=== PATIENT | male | born 1965 | race Caucasian/White ===

== ENCOUNTER → 2016-10-24 | Outpatient (CLI) | payer BC ==
--- NOTE | 2016-10-24 09:13 | CT ---
EXAMINATION TYPE: CT chest w con DATE OF EXAM: 10/24/2016 8:07 AM COMPARISON: Previous study dated 713 and HISTORY: Cough. Suprahilar mass right lung CT DLP: 744 mGycm Automated exposure control for dose reduction was used. CONTRAST: CT scan of the chest is performed with IV Contrast, patient injected with 100 ml mL of Omnipaque 300. FINDINGS: There has been interval placement of a right shoulder prosthesis. There is scarring at the lung apices. There is a 3.5 x 3.6 x 4.7 cm suprahilar mass on the right. There is some surrounding obstructive pne umonitis. This is partially occluding the right main bronchus. The right upper lobe bronchus appears occluded. This is encasing the right upper lobe pulmonary artery. There is an 8.6 mm lymph node in th e pretracheal space. No other significant axial or mediastinal adenopathy is seen. No pathologically enlarged hilar adenopathy is seen. There is no pleural or pericardial fluid. The heart is not enlarged. There is been previous gastric surgery. Visualized portions of the upper abdomen are otherwise normal . There is mild hypertrophic spondylosis within the spine. No bony destructive lesion is seen. IMPRESSION: 1. 4.7 cm right-sided suprahilar mass. This appears to be occluding the right upper lobe bronchus and partially occluding the right main bronchus. This is encasing the right upper lobe pulmonary artery. 2. Postsurgical change. 3. Minimal degenerative change within the spine.
== END | disposition home or self-care (01) ==
LOC: RADCTMAIN 07:15
PROVIDERS: ATTEND Internal Medicine
DX: R91.8 Other nonspecific abnormal finding of lung field (principal); Z98.890 Other specified postprocedural states
CPT/HCPCS: 71260; Q9967

== ENCOUNTER 2016-11-11 09:25 | Day surgery (SDC) | payer BC ==
[2016-11-07 12:06] VITALS: BMI 28.6
[~2016-11-11 09:25] MED LIST: ALBUTEROL NEB (CONC) 2.5 MG/0.5 ML INHALATION ONE; ATROPINE SULFATE 0.4 MG/ML 1 ML VIAL IM ONE; LACTATED RINGERS 1,000 ML IV ONE; LACTATED RINGERS 1,000 ML IV SCH; LIDOCAINE 1% 20 ML VIAL (10MG/ML) FOR IV START INTRADERMA PRN; LIDOCAINE 2% (PF) 20 MG/ML 10ML INHALATION ONE; Pre Op ABX Message 1 EACH MISC MISCELLANE ONE
[2016-11-11 09:50] VITALS: TEMP 97
[2016-11-11] MEDS ORDERED: PROPOFOL 10 MG/ML 20 ML VIAL IV ONE (10:57)
[2016-11-11] MEDS ORDERED: LIDOCAINE 1% INJ 10MG/ML (20 ML MDV) ONE (10:57)
[2016-11-11 11:40] VITALS: RESP 16
[2016-11-11 11:50] VITALS: BP 116/75; PULSE 100
--- NOTE | 2016-11-11 12:05 | PCN ---
DATE OF PROCEDURE: PROCEDURE: Bronchoscopy, airway examination, therapeutic lavage, BAL, endobronchial biopsies right mainstem. PREOPERATIVE DIAGNOSIS: Lung cancer. POSTOPERATIVE DIAGNOSIS: Lung cancer. There was informed consent. There was universal timeout. The patient was given general anesthesia. ( ), CLIENT RESOURCE SPECIALIST was the nurse head of business development. After the patient was adequately sedated and being fully monitored, the bronchoscope was inserted through the right nostril. It passed through the right nasopharynx into the oropharynx. The hypopharynx was identified and topicalized. The hypopharyngeal structures, including anterior commissure, true cords, false cords, arytenoids, piriform sinuses, right and left vallecula and epiglottis all appear normal. After topicalization, bronchoscope was pursued through the glottic opening into the trachea. Trachea appeared normal. Tracheal gerry was sharp. The left side was evaluated first. The left upper lobe and its 2 segments, the lingula and its 2 segments, and left lower lobe and its 4 segments were all found to be normal. On the right side, immediately just distal to the tracheal gerry, there was a large cauliflower-shaped mass completely obstructing the right mainstem. I could not get into the right upper lobe. I really could not get past the lesion in the right mainstem. We took pictures of this area. Next, with direct visualization, multiple endobronchial biopsies were performed. Next, brushes were performed. Finally, we did a pool cytology of this area. The patient tolerated the procedure well. There was minimal bleeding. We ensured hemostasis before the bronchoscope was withdrawn. The patient will be transferred over to the recovery area and be recovered. I will alert the patient to the findings. Additional recommendations and suggestions are forthcoming.
[2016-11-11 15:29] LABS: RBC, Body Fluid 179000 /uL
== END 2016-11-11 12:12 | disposition home or self-care (01) ==
LOC: ORWHC2ENDO 09:25
PROVIDERS: ATTEND Internal Medicine Critical Care Medicine
DX: C34.01 Malignant neoplasm of right main bronchus (principal); J44.9 Chronic obstructive pulmonary disease, unspecified; Z79.1 Long term (current) use of non-steroidal anti-inflammatories (NSAID); Z79.899 Other long term (current) drug therapy; Z87.891 Personal history of nicotine dependence
CPT/HCPCS: 94640; 88104; 88108; 88305; 89050; 87252; 87070; 87205; 87116; 87102; 87206; 31625; 31623; 31624; J0461; J2001 ×2; J2704; 87496; 87498; 87502; 87529; 87798; 88341; 88342

== ENCOUNTER → 2016-11-21 | Outpatient (CLI) | payer BC ==
--- NOTE | 2016-11-21 19:25 | CT ---
EXAMINATION TYPE: CT brain wo/w con DATE OF EXAM: 11/21/2016 7:04 PM COMPARISON: 06/09/2006 HISTORY: recent diagnosis of lung cancer CT DLP: 2374 mGycm Automated exposure control for dose reduction was used. CONTRAST: CT scan of the head is performed with IV Contrast, patient injected with 100 mL of Omnipaque 300. FINDINGS: Ventricles and sulci are normal for age. There is no mass effect nor midline shift. There is no sign of intracranial hemorrhage. There is no pathologic enhancement. The calvarium is intact. IMPRESSION: Negative CT scan of the brain with and without contrast. No change.
== END | disposition home or self-care (01) ==
LOC: RADCTMAIN 18:21
PROVIDERS: ATTEND Radiology Radiation Oncology
DX: C34.11 Malignant neoplasm of upper lobe, right bronchus or lung (principal)
CPT/HCPCS: 70470; Q9967

== ENCOUNTER → 2016-11-22 | Outpatient (CLI) | payer BC ==
--- NOTE | 2016-11-23 14:26 | PE ---
Nuclear medicine PET/CT HISTORY: C 34.11, lung carcinoma Patient received 11.4 mCi F-18 FDG intravenously delayed scanning performed from the skull base to th e mid thighs. Localization and attenuation correction CT scan was performed. Correlation to chest CT dated October FINDINGS: Neck and chest: There is near complete consolidation of the right lung. Adenopathy causes obstruction of the right mainstem bronchus. There is a right pleural effusion. There is corresponding hypermetab olic uptake, SUV 24 and central extending into the mediastinum. Volume loss in the right hemithorax. Abdomen pelvis: Calcification present at the for pole of the right kidney. No retroperitoneal adenopa thy. No evident liver mass. Postop changes are noted. There is hypermetabolic uptake within the colon at the hepatic flexure, no definite associated mass. SUV 7. Prostate calcifications are noted. Osseous structures: Unremarkable. IMPRESSION: Findings compatible with bronchogenic carcinoma described. Postobstructive atelectatic ch anges and pleural effusion. Findings in the hepatic flexure within the colon may be physiologic rathe r than representing underlying mass. Consider Bowel surveillance as indicated.
== END | disposition home or self-care (01) ==
LOC: RADPETMAIN 10:38
PROVIDERS: ATTEND Radiology Radiation Oncology
DX: C34.11 Malignant neoplasm of upper lobe, right bronchus or lung (principal); J90 Pleural effusion, not elsewhere classified; J98.11 Atelectasis
CPT/HCPCS: 78815; A9552

== ENCOUNTER → 2016-12-23 | Outpatient (CLI) | payer BC ==
--- NOTE | 2016-12-23 17:15 | XR ---
EXAMINATION TYPE: XR chest 2V DATE OF EXAM: 12/23/2016 5:04 PM COMPARISON: 12/19/2016 HISTORY: Lung cancer. Short of breath. TECHNIQUE: Frontal and lateral views of the chest are obtained. FINDINGS: There is elevated right diaphragm. There is masslike 10 x 5 cm area of consolidation and a telectasis in the right upper lobe. The left lung is clear. Trachea is deviated slightly to the right side. There is right shoulder prosthesis. There is a small pneumothorax seen at the lung base on th e right side. IMPRESSION: Right upper lobe masslike consolidation and atelectasis without change compared to last exam. There is a tiny right pneumothorax that is smaller than last exam.
== END | disposition home or self-care (01) ==
LOC: RADXRMAIN 16:49
PROVIDERS: ATTEND Internal Medicine Critical Care Medicine
DX: J98.11 Atelectasis (principal); J18.1 Lobar pneumonia, unspecified organism; J93.9 Pneumothorax, unspecified
CPT/HCPCS: 71020

== ENCOUNTER 2017-01-07 08:26 | Day surgery (SDC) | payer BC ==
[2017-01-07] MEDS ORDERED: ALPRAZolam 0.5 MG TAB PO ONE (08:53)
[2017-01-07 09:01] VITALS: BP 114/75; PULSE 63; RESP 20; TEMP 97.4
[2017-01-07 09:10] LABS: Mean Platelet Volume 6.8
[2017-01-07 09:14] LABS: Prothrombin Time 9.8 sec (9.0-12.0)
--- NOTE | 2017-01-07 12:30 | US ---
Discontinued thoracentesis, interventional radiology consult HISTORY: Non-small cell lung carcinoma Correlation to chest x-ray 23 December 2016 Ultrasound of the posterior right and left chest shows no evident fluid. IMPRESSION: No fluid evident for thoracentesis, exam is aborted
== END 2017-01-07 10:10 | disposition home or self-care (01) ==
LOC: RADPROMAIN 08:26
PROVIDERS: ATTEND Internal Medicine Critical Care Medicine
DX: C34.90 Malignant neoplasm of unspecified part of unspecified bronchus or lung (principal); Z79.01 Long term (current) use of anticoagulants
CPT/HCPCS: 76604; 85049; 85610

== ENCOUNTER → 2017-01-27 | Outpatient (CLI) | payer BC ==
[2017-01-27 19:10] LABS: Blood Urea Nitrogen 12 mg/dL (9-20); Non-African American GFR(MDRD) >60 (>60 ml/min/1.73 sqM)
--- NOTE | 2017-01-27 20:26 | CT ---
EXAMINATION TYPE: CT chest w con DATE OF EXAM: 01/27/2017 7:47 PM COMPARISON: 10/24/2016 HISTORY: F/U LUNG CA. CT DLP: 373.1 mGycm Automated exposure control for dose reduction was used. CONTRAST: CT scan of the chest is performed with IV Contrast, patient injected with 90 mL of Omnipaque 300. FINDINGS: There is increased density at the right pulmonary hilum extending into the posterior right upper lobe along the major fissure. This measures up to 2.5 cm in thickness. There is mild right bronchial salomón opathy that measures up to 1.5 cm. Heart size is normal. There is no pericardial effusion. There is n o pleural effusion. The left lung is clear. I see no bony destructive process. IMPRESSION: There is nodular pleural thickening along the superior aspect of the major fissure on th e right side that is new compared to the last CT scan and consistent with residual and persistent [place] or. There is improvement in the masslike consolidation at the right perihilum present on the old CT s can. There is no evidence of pulmonary embolism. No evidence of aortic aneurysm or dissection. There is a 5 cm mass at the right pulmonary hilum on the old CT scan that is significantly smaller on today 's exam.
== END | disposition home or self-care (01) ==
LOC: RADCTMAIN 18:11
PROVIDERS: ATTEND Internal Medicine Hematology & Oncology
DX: C34.11 Malignant neoplasm of upper lobe, right bronchus or lung (principal); R91.8 Other nonspecific abnormal finding of lung field
CPT/HCPCS: 82565; 84520; 71260; 36415; Q9967

== ENCOUNTER → 2017-04-11 | Outpatient (CLI) | payer BC ==
--- NOTE | 2017-04-11 12:08 | PE ---
EXAMINATION TYPE: PET CT fusion skull to thigh DATE OF EXAM: 04/11/2017 COMPARISON: NONE HISTORY: Lung cancer progress study, completed radiation and chemotherapy treatment january 2017. Had bio psy November 2016 TECHNIQUE: Following the intravenous administration of 11.43 mCi of F-18 FDG, whole body images are performed from the skull base to the midthigh. Images are reviewed on the computer in the coronal, a xial, and sagittal planes. Reconstructed rotating images are created on independent workstation and reviewed on the computer. A localization and attenuation correction CT is performed in conjunction with the PET scan. SCAN: PET CT November 22, 2016. CT chest January 27, 2017 FINDINGS: SKULL BASE AND NECK: No new areas of suspicious hypermetabolic uptake are seen in the neck. Symmetri c areas of uptake bilateral parotid and submandibular glands could reflect inflammatory change, clini renetta correlation advised for glanular inflammation advised.. CHEST, MEDIASTINUM, AND HILAR REGION: There is consolidation abutting the right major fissure in the posterior aspect of right upper lobe. There are some multifocal areas of groundglass opacity througho ut the right upper lobe with reticulation. There is similar areas of involvement in the superior aspe ct right lower lobe. Faint hypermetabolic uptake is noted, max SUV is up to 2.84 anterolateral right upper lung on axial image 63. There is overall marked improved aeration in the right lung after treatment. There is trace right-sourav ed effusion. There is persistent right hilar mass causing some mild narrowing of right upper lobe bro nchus on axial image 77, no abnormal hypermetabolic uptake is seen. No suspicious hypermetabolic uptake is seen in the thorax on current study. ABDOMEN AND PELVIS: No suspicious hypermetabolic uptake is seen in the abdomen or pelvis. OSSEOUS STRUCTURES: No suspicious hypermetabolic uptake is seen in osseous structures. OTHER CT: There is metallic hardware from right shoulder surgery causing streak artifact. Small degree of right-sided gynecomastia is now present on axial image 83. Changes from gastric bypass procedure are redemonstrated epigastric region. There is staghorn type calculus upper pole level right kidney redemonstrated near axial image 125 sim ilar to prior. There is moderate sized fat-containing umbilical hernia redemonstrated. Some central zone calcifications are seen in nonenlarged prostate gland. IMPRESSION: Findings are consistent with successfully treated neoplasm with some persistent residual right hilar nonhypermetabolic mass. No convincing evidence of new hypermetabolic uptake to suggest ma lignant progression.
== END | disposition home or self-care (01) ==
LOC: RADPETMAIN 08:50
PROVIDERS: ATTEND Radiology Radiation Oncology
DX: C34.11 Malignant neoplasm of upper lobe, right bronchus or lung (principal)
CPT/HCPCS: 78815; A9552

== ENCOUNTER → 2017-07-14 | Outpatient (CLI) | payer BC ==
--- NOTE | 2017-07-14 15:51 | CT ---
EXAMINATION TYPE: CT ChestAbdPelvis w con DATE OF EXAM: 07/14/2017 COMPARISON: Nuclear medicine PET/CT 11/22/2016, 04/11/2017, CT chest 01/27/[address] chest 10/24/2016 HISTORY: Small cell lung cancer CT DLP: 1868 mGycm Automated exposure control for dose reduction was used. CONTRAST: CT scan of the chest, abdomen and pelvis is performed with Oral Contrast and with IV Contrast, patien t injected with 100 mL of Omnipaque 300. FINDINGS: LUNGS: Pleural parenchymal changes within the right lung show a similar appearance to most previous P ET/CT and are likely due to posttreatment changes. Suspect some slight interval improvement in aerati on in the right upper and lower lobe. There is no pleural or pericardial effusion. Some thickening of the esophagus may be present. There is no axillary, mediastinal, or hilar adenopathy. Some mild thic kening of the right mainstem bronchus is decreased as compared to previous exam. MEDIASTINUM: There are no greater than 1 cm hilar or mediastinal lymph nodes. No pericardial effusi on is seen. AORTA: No significant abnormality is seen. OTHER: Volume loss present in the right hemithorax. LIVER/GB: Low-attenuation focus immediately adjacent to the gallbladder was present on previous exam and has not show a masslike appearance or any interval change. Gallbladder is normal. PANCREAS: No significant abnormality is seen. SPLEEN: No significant abnormality is seen. ADRENALS: No significant abnormality is seen. KIDNEYS: Right kidney shows a calculus at the upper pole measuring approximately 13 mm in greatest an terior posterior dimension similar to prior exam, there is no hydronephrosis bilaterally. REPRODUCTIVE ORGANS: Prostate calcifications are present. BOWEL: Postop changes are noted at the gastroesophageal junction and upper abdomen in the midline. S uspect a small hiatal hernia is present. FREE AIR: No Free Air visible. ASCITES: None seen. RETROPERITONEAL ADENOPATHY: No retroperitoneal adenopathy is seen. LYMPH NODES: No greater than 1 cm abdominal or pelvic lymph nodes are appreciated. URINARY BLADDER: No significant abnormality is seen. PELVIC ADENOPATHY: None visualized. OSSEOUS STRUCTURES: No significant abnormality is seen. IMPRESSION: Posttreatment changes. Postop changes. Nonobstructive right nephrolithiasis. Indeterminat e low dense focus adjacent to the gallbladder within the liver is indeterminate, thought to be stable .
== END | disposition home or self-care (01) ==
LOC: RADCTMAIN 09:07
PROVIDERS: ATTEND Internal Medicine Hematology & Oncology
DX: C34.11 Malignant neoplasm of upper lobe, right bronchus or lung (principal); N20.0 Calculus of kidney
CPT/HCPCS: 71260; 74177; Q9967

== ENCOUNTER → 2017-10-13 | Outpatient (CLI) | payer BC ==
--- NOTE | 2017-10-13 09:53 | CT ---
EXAMINATION TYPE: CT ChestAbdPelvis w con DATE OF EXAM: 10/13/2017 COMPARISON: 07/14/2017, PET scan 04/11/2017 HISTORY: Lung cancer CT DLP: 807.70 mGycm Automated exposure control for dose reduction was used. CONTRAST: CT scan of the chest, abdomen and pelvis is performed with Oral Contrast and with IV Contrast, patien t injected with 100 ml mL of Omnipaque 300. FINDINGS: LUNGS: Pleural parenchymal changes within the right lung show a similar appearance to most previous P ET/CT and are likely due to posttreatment changes. Indeterminate 1 cm right perihilar density is stab le. Right-sided peribronchial wall thickening is stable. There is no pleural or pericardial effusion. Some thickening of the esophagus may be present. There i s no axillary, mediastinal , or hilar adenopathy. Some mild thickening of the right mainstem bronchus is decreased as compared to previous exam. MEDIASTINUM: There are no greater than 1 cm hilar or mediastinal lymph nodes. No pericardial effusion is seen. AORTA: No significant abnormality is seen. OTHER: Volume loss present in the right hemithorax. LIVER/GB: Low-attenuation focus immediately adjacent to the gallbladder was present on previous exam and has not show a masslike appearance or any interval change. Gallbladder is normal. PANCREAS: No significant abnormality is seen. SPLEEN: No significant abnormality is seen. ADRENALS: No significant abnormality is seen. KIDNEYS: Right kidney shows a calculus at the upper pole measuring approximately 13 mm in greatest an terior posterior dimension similar to prior exam, there is no hydronephrosis bilaterally. REPRODUCTIVE ORGANS: Prostate calcifications are present. BOWEL: Postop changes are noted at the gastroesophageal junction and upper abdomen in the midline. Sanon spect a small hiatal hernia is present. Anterior abdominal wall hernia containing peritoneal fat note d. Periumbilical hernia containing peritoneal fat also noted. Diverticulosis of the colon noted. FREE AIR: No Free Air visible. ASCITES: None seen. ADENOPATHY: No adenopathy is seen. LYMPH NODES: No greater than 1 cm abdominal or pelvic lymph nodes are appreciated. URINARY BLADDER: No significant abnormality is seen. PELVIC ADENOPATHY: None visualized. OSSEOUS STRUCTURES: No significant abnormality is seen. IMPRESSION: 1. Posttreatment changes. Postop changes. Right perihilar 1 cm soft tissue nodular density is stable from the previous exams. 2. Nonobstructive right nephrolithiasis. 3. Indeterminate low dense focus adjacent to the gallbladder within the liver is indeterminate, thoug ht to be stable.
== END | disposition home or self-care (01) ==
LOC: RADCTMAIN 08:51
PROVIDERS: ATTEND Internal Medicine Hematology & Oncology
DX: C34.11 Malignant neoplasm of upper lobe, right bronchus or lung (principal); N20.0 Calculus of kidney; Z98.890 Other specified postprocedural states
CPT/HCPCS: 71260; 74177; Q9967

== ENCOUNTER → 2018-05-11 | Outpatient (CLI) | payer BC ==
--- NOTE | 2018-05-11 12:19 | CT ---
EXAMINATION TYPE: CT ChestAbdPelvis w con DATE OF EXAM: 05/11/2018 COMPARISON: 10/13/2017 HISTORY: Six month recheck scan fof lung cancer CT DLP: 903.6 mGycm Automated exposure control for dose reduction was used. CONTRAST: CT scan of the chest, abdomen and pelvis is performed with Oral Contrast and with IV Contrast, patien t injected with 100 mL of Isovue 300. FINDINGS: LUNGS: Pleural parenchymal changes within the right lung show a similar appearance to most previous P ET/CT and are likely due to posttreatment changes. Indeterminate 1 cm right perihilar density is stab le. Right-sided peribronchial wall thickening is stable. There is no pleural or pericardial effusion. Some thickening of the esophagus may be present. There is no axillary, mediastinal , or hilar adenop athy. Some mild thickening of the right mainstem bronchus is decreased as compared to previous exam. There is evidence of volume loss involving the right hemithorax. MEDIASTINUM: There are no greater than 1 cm hilar or mediastinal lymph nodes. No pericardial effusi on is seen. OTHER: Chronic rib cage deformities are noted. Postsurgical change right shoulder.. Chronic appearin g right clavicular deformity noted. LIVER/GB: Low-attenuation focus immediately adjacent to the gallbladder was present on previous exam and is stable. PANCREAS: No significant abnormality is seen. SPLEEN: No significant abnormality is seen. ADRENALS: Stable mild thickening of the left adrenal gland.. KIDNEYS: Right kidney shows a calculus at the upper pole measuring approximately 13 mm in greatest an terior posterior dimension similar to prior exam, there is no hydronephrosis bilaterally. BOWEL: Postop changes are noted at the gastroesophageal junction and upper abdomen in the midline. S uspect a small hiatal hernia is present. Anterior abdominal wall hernia containing peritoneal fat not ed. Periumbilical hernia containing peritoneal fat also noted. Diverticulosis of the colon noted. LYMPH NODES: No greater than 1 cm abdominal or pelvic lymph nodes are appreciated. OSSEOUS STRUCTURES: No significant abnormality is seen. IMPRESSION: 1. Postoperative changes with a stable appearing 1 cm right perihilar soft tissue mass unchanged from the prior exam. 2. Stable nonobstructing right nephrolithiasis.
== END | disposition home or self-care (01) ==
LOC: RADCTMAIN 09:48
PROVIDERS: ATTEND Internal Medicine Hematology & Oncology
DX: C34.11 Malignant neoplasm of upper lobe, right bronchus or lung (principal); R91.8 Other nonspecific abnormal finding of lung field; N20.0 Calculus of kidney
CPT/HCPCS: 71260; 74177; Q9967

== ENCOUNTER → 2018-11-08 | Outpatient (CLI) | payer BC ==
--- NOTE | 2018-11-08 10:11 | CT ---
EXAMINATION TYPE: CT ChestAbdPelvis w con DATE OF EXAM: 11/08/2018 COMPARISON: Prior CT chest abdomen pelvis 05/11/2018 HISTORY: Lung cancer follow up CT DLP: 971.3 mGycm Automated exposure control for dose reduction was used. CONTRAST: CT scan of the chest, abdomen and pelvis is performed with Oral Contrast and with IV Contrast, patien t injected with 100 mL of Isovue 300. FINDINGS: LUNGS: The lungs are stable, irregular density in the right upper lobe with some minimal associated a ir bronchograms shows a similar appearance, pleural thickening posterior apically, findings likely du e to posttreatment change, there is no concerning parenchymal mass or nodule identified. There is n o pleural effusion or pneumothorax seen. The tracheobronchial tree is patent. MEDIASTINUM: There are no greater than 1 cm hilar or mediastinal lymph nodes. Soft tissue thickening in the right hilar region shows a similar appearance, some local tethering is again present, volume l oss in the right hemithorax with some possible esophageal thickening. No pericardial effusion is seen . AORTA: No significant abnormality is seen. OTHER: Postop changes are again noted to the stomach, there is anterior abdominal wall hernia contai gail fat in the subxiphoid region as on prior. Small umbilical hernia contains fat. LIVER/GB: No significant abnormality is appreciated. PANCREAS: No significant abnormality is seen. SPLEEN: No significant abnormality is seen. ADRENALS: No significant abnormality is seen. KIDNEYS: Calcification within the upper pole right kidney shows a stable appearance. REPRODUCTIVE ORGANS: Prostate calcifications noted. No definite prostate enlargement. BOWEL: Nonspecific colonic wall thickening is again noted, difficult to exclude a mucosal lesion. Ap pendix is normal. FREE AIR: No Free Air visible. ASCITES: None seen. RETROPERITONEAL ADENOPATHY: No retroperitoneal adenopathy is seen. LYMPH NODES: No greater than 1 cm abdominal or pelvic lymph nodes are appreciated. URINARY BLADDER: No significant abnormality is seen. PELVIC ADENOPATHY: None visualized. OSSEOUS STRUCTURES: Postop change noted to the right shoulder. There is improvement in patient's lef t-sided rib fractures, interval healing IMPRESSION: No significant interval change. Stable postop, posttreatment changes. Right-sided nephrol ithiasis. Additional findings above.
== END ==
LOC: RADCTMAIN 06:51
PROVIDERS: ATTEND Internal Medicine Hematology & Oncology
DX: C34.11 Malignant neoplasm of upper lobe, right bronchus or lung (principal)
CPT/HCPCS: 71260; 74177; Q9967

== ENCOUNTER → 2019-04-23 | Outpatient (CLI) | payer BC ==
--- NOTE | 2019-04-24 19:47 | CT ---
EXAMINATION TYPE: CT ChestAbdPelvis w con DATE OF EXAM: 04/23/2019 COMPARISON: 11/08/2018 HISTORY: Lung cancer. CT DLP: 1041.2 mGycm Automated exposure control for dose reduction was used. CONTRAST: CT scan of the chest, abdomen and pelvis is performed with Oral Contrast and with IV Contrast, patien t injected with 100 mL of Isovue M300. FINDINGS: There is coarse pulmonary infiltrate and atelectasis in the posterior aspect superior segment right l ower lobe. There is infiltrate around the inferior right pulmonary hilum. The left lung is clear. The re is no pleural effusion. There are enlarged right bronchial lymph nodes up to 1.5 cm. Mediastinum i s normal. Heart size is normal. There is no pericardial effusion. There is pleural thickening at the right posterior lung apex. Liver and spleen appear normal. Gallbladder appears normal. Bile ducts are not dilated. There are denny gical clips around the stomach. There is no pancreatic mass. There is no adrenal mass. There is irregular 1.5 cm calculus upper pole right kidney. There is no hyd ronephrosis. Ureters are not dilated. There is no retroperitoneal adenopathy. There is no ascites. Bl adder distends smoothly. There is no inguinal hernia. There is no mesenteric edema. There is no sign of a bowel obstruction. Appendix appears normal. There is no free air. There is broad-based ventral h ernia that contains fat. Thoracic vertebra have normal alignment. There is 10% wedging of T4 vertebra unchanged. Bony pelvis i s intact. IMPRESSION: Right upper lobe pleural thickening. Right perihilar infiltrate and volume loss. This safia ears unchanged compared to old CT scan and consistent with treated lung cancer. No increasing pulmona ry density compared to old exam. Nonobstructing right renal calculus unchanged. No evidence of metastatic disease.
== END | disposition home or self-care (01) ==
LOC: RADCTMAIN 08:42
PROVIDERS: ATTEND Internal Medicine Hematology & Oncology
DX: J98.4 Other disorders of lung (principal); N20.0 Calculus of kidney
CPT/HCPCS: 71260; 74177; Q9967 ×2

== ENCOUNTER → 2019-11-15 | Outpatient (CLI) | payer BC ==
--- NOTE | 2019-11-15 12:28 | CT ---
EXAMINATION TYPE: CT chest w con DATE OF EXAM: 11/15/2019 COMPARISON: CT dated 04/23/2019 HISTORY: Follow up lung cancer. CT DLP: 373.8 mGycm. Automated Exposure Control for Dose Reduction was Utilized. TECHNIQUE: CT scan of the thorax is performed following with IV Contrast, patient injected with 100 mL of Isovue 300. FINDINGS: LUNGS: Similar-appearing right perihilar consolidation with cylindrical bronchiectasis in comparison to the prior of 04/23/2019 compatible with post radiation change. The most prominent area of consolida tion is seen in series 4 image 23 measuring 1.8 x 2.3 cm, stable from the prior when measured in a si milar fashion. Right hemithorax volume loss is again noted. There is subsequent rightward mediastinal shift. Biapical pleural parenchymal scarring and mild background centrilobular emphysema. Triangular 1 x 2 mm pulmonary nodule of the right middle lobe is not seen on the prior although given shape could represent scarring. Attention on follow-up subsequent exams. This is marked on series 4 image 32 and series 7 image 30. MEDIASTINUM: There are no greater than 1 cm hilar or mediastinal lymph nodes. No pericardial effusi on is seen. OTHER: Postsurgical change of a partial gastrectomy. Nonobstructing 1.4 cm right upper pole renal renetta culus. Diffuse thickening of the left adrenal gland, likely adrenal gland hyperplasia. This is simila r to the prior. Angiographic phase of contrast limits evaluation for visceral metastasis. Visualized portions of the liver is grossly unremarkable. Air-fluid level in the esophagus. Distal esophageal ci rcumferential thickening is similar. Mild multilevel degenerative change of the spine. T4 compression deformity is unchanged. IMPRESSION: 1. Similar-appearing posttreatment change of the right lung with unchanged measurement of the more fo renetta posterior area of consolidation. There is a new 1 x 2 mm triangular-shaped right middle lobe nodu le however given the shape this could represent developing scar. Attention on follow-up subsequent ex ams. 2. Air-fluid level within the distal esophagus suggesting gastroesophageal reflux. Distal esophageal thickening is again seen circumferentially that most commonly relates to esophagitis. Endoscopy could be considered.
== END | disposition home or self-care (01) ==
LOC: RADCTMAIN 08:32
PROVIDERS: ATTEND Internal Medicine Hematology & Oncology
DX: C34.11 Malignant neoplasm of upper lobe, right bronchus or lung (principal); Z98.890 Other specified postprocedural states
CPT/HCPCS: 71260; Q9967

== ENCOUNTER → 2020-05-15 | Outpatient (CLI) | payer BC ==
--- NOTE | 2020-05-16 10:14 | CT ---
EXAMINATION TYPE: CT ChestAbdPelvis w con DATE OF EXAM: 05/15/2020 INDICATION: Observe for METS COMPARISON: 11/15/2019 CT chest, CT chest abdomen and pelvis 04/23/2019 CT DLP: 1566 mGycm CONTRAST: Performed with Oral Contrast and with IV Contrast, patient injected with 100 mL of Isovue 300. TECHNIQUE: Axial images at 5 mm thick sections. Reconstructed images in the coronal plane. Delayed images through the kidneys. FINDINGS: CT CHEST: Few small axillary lymph nodes are present bilaterally. Portion of the thyroid visualized is normal. There is a posterior right upper lobe consolidation with air bronchograms. The largest area previousl y described is smaller on the current examination. There is better visualization of the bronchi curre ntly. This measures 2.6 x 2.0 cm which is within measurement error on lung windows. Soft tissue exte nsion into the mediastinum may be present towards the esophagus. The esophagus is dilated with an air -fluid level. Small hiatal hernia may be present. Faint right middle lobe pneumonitis change may remain present, series 4 image 27-28. No enlarged mediastinal or hilar adenopathy is evident. The ascending aorta diameter at the level of the main pulmonary artery is 3.2 cm. The main pulmonary artery diameter at the bifurcation is 2.[address] ABDOMEN: There is prior anterior abdominal wall hernia repair. Liver: Normal Spleen: Normal Pancreas: Normal Adrenal glands: The adrenal glands are normal. Gallbladder: Normal Kidneys: No masses are evident. No hydronephrosis is present. No cysts are present. Delayed images were obtained through the kidneys, which remain unremarkable. Aorta: Vascular calcification is within the aorta. Inferior vena cava: Normal. CT PELVIS: Loops of bowel within the abdomen and pelvis are normal. Diverticula are present within the sigmoid colon. There are loops of bowel which are incompletely distended or lack oral contrast limiting the ir evaluation. Appendix: Normal as visualized. Urinary bladder: Normal. Genitourinary structures: Prostate is normal. Calcification is within the prostate. Osseous structures: No suspicious lytic or sclerotic lesions. IMPRESSIONS: 1. Stable posttreatment changes posterior medial right upper lobe. 2. Stable residual pneumonitis change right middle lobe. 3. Diverticulosis without acute diverticulitis sigmoid colon.
== END | disposition home or self-care (01) ==
LOC: RADCTMAIN 10:01
PROVIDERS: ATTEND Internal Medicine Hematology & Oncology
DX: Z03.89 Encounter for observation for other suspected diseases and conditions ruled out (principal); C34.11 Malignant neoplasm of upper lobe, right bronchus or lung; K57.30 Diverticulosis of large intestine without perforation or abscess without bleeding; J18.1 Lobar pneumonia, unspecified organism; Z98.890 Other specified postprocedural states
CPT/HCPCS: 71260; 74177; Q9967

== ENCOUNTER → 2020-11-13 | Outpatient (CLI) | payer BC ==
--- NOTE | 2020-11-13 10:22 | CT ---
EXAMINATION TYPE: CT chest w con DATE OF EXAM: 11/13/2020 COMPARISON: CT 05/15/2020 HISTORY: Lung cancer CT DLP: 386.20 mGycm Automated exposure control for dose reduction was used. CONTRAST: CT scan of the chest is performed with IV Contrast, patient injected with 100 mL of Isovue 300. FINDINGS: LUNGS: The abnormal appearance of the soft tissue in the superior posterior right hemithorax with consuelo e air bronchograms extending from the hilum and mediastinum, to the pleural margin is again noted and shows a stable appearance, there is some local pleural thickening with pleural extensions similar to prior. There is some associated volume loss in the right hemithorax. There is no pleural effusion o r pneumothorax seen. The tracheobronchial tree is patent. MEDIASTINUM: There are no greater than 1 cm hilar or mediastinal lymph nodes. No pericardial effusi on is seen. AORTA: No additional significant abnormality is seen. Atheromatous changes are present within the ao rta. OTHER: Right shoulder prosthesis is present causing some streak artifact over portions of the exam. Postop changes in the upper abdomen show similar appearance. Calcification is present in the upper co llecting system of the right kidney measuring 16 x 15 mm, partial staghorn calculus is nonobstructive . IMPRESSION: Stable post treatment changes
== END ==
LOC: RADCTMAIN 08:51
PROVIDERS: ATTEND Internal Medicine Hematology & Oncology
DX: C34.90 Malignant neoplasm of unspecified part of unspecified bronchus or lung (principal)
CPT/HCPCS: 71260; Q9967

== ENCOUNTER → 2021-05-17 | Outpatient (CLI) | payer BC ==
--- NOTE | 2021-05-17 16:05 | CT ---
EXAMINATION TYPE: CT ChestAbdPelvis w con DATE OF EXAM: 05/17/2021 COMPARISON: 11/13/20202019 HISTORY: 55-year-old male C3 4.11 Lung CA TECHNIQUE: Contiguous axial scanning of the chest, abdomen, and pelvis performed with IV Contrast, pa tient injected with 100 mL of Isovue 300. Delayed images through the kidneys were obtained. Coronal/s agittal reconstructions performed. CT DLP: 1333.6 mGycm Automated exposure control for dose reduction was used. FINDINGS: CHEST: The heart is normal size without pericardial effusion. Aortic root is ectatic at 3.7 cm. Conventional arch vessel branching anatomy. Redemonstrated right perihilar volume loss extending along the posterior right upper lobe with corres ponding right hilar soft tissue encasement, overall unchanged from 05/15/2020. This volume loss and con solidation extends into the superior segment right lower lobe, also unchanged. Mild centrilobular emphysema. Mild biapical pleural-parenchymal scarring. No new consolidation or pleural effusion. ABDOMEN: Small hiatal hernia. Post surgical change of Yancy-en-Y gastric bypass. Supraumbilical rectus diastases measuring 5.2 cm wide with a bulging omental fat redemonstrated. Smal l fatty umbilical hernia measuring 2.1 cm wide. No focal liver lesion or biliary ductal dilatation. Portal venous system is patent. Gallbladder, right adrenal gland, left kidney, spleen, and pancreas within normal limits. 1.4 cm calculus nonobstructive in the right kidney. Mild diffuse thickening of the left adrenal gland is unchanged. No dilated small bowel, free fluid, or free air. No mesenteric or retroperitoneal lymphadenopathy. Normal appendix. Oral contrast progressed into the splenic flexure of the colon. Mild stool burden. S igmoid diverticulosis. No pericolic inflammatory change. PELVIS: Mild circumferential bladder wall thickening may in part relate to nondistention. No abnormal fluid c ollection in the pelvis or pelvic lymphadenopathy. BONES: Mild degenerative change of the hips. Facet arthropathy lower lumbar spine. Reverse right shoulder ar throplasty partially visualized. Degenerative changes left shoulder. There is some posterior subluxat ion noted suggesting shoulder instability. IMPRESSION: 1. UNCHANGED SOFT TISSUE ENCASEMENT AT THE RIGHT HILUM WITH VOLUME LOSS AND CONSOLIDATION EXTENDING U P ALONG THE POSTERIOR RIGHT UPPER LOBE. THE APPEARANCE IS UNCHANGED FROM AT LEAST 05/15/2020. FINDINGS SUGGEST SITE OF TREATED DISEASE. 2. NO EVIDENCE FOR RECURRENT OR METASTATIC DISEASE. 3. COPD WITH MILD EMPHYSEMA. SMALL HIATAL HERNIA. STATUS POST YANCY-EN-Y GASTRIC BYPASS. SIGMOID DIVER TICULOSIS. 4. SMALL FATTY MEDICAL HERNIA AND SIMILAR SUPRAUMBILICAL RECTUS DIASTASES. 1.4 CM NONOBSTRUCTING ERIC L CALCULUS. 5. MILD CIRCUMFERENTIAL BLADDER WALL THICKENING MAY BE CHRONIC FOR THE PATIENT. CORRELATE TO EXCLUDE CYSTITIS.
== END | disposition home or self-care (01) ==
LOC: RADCTMAIN 08:15
PROVIDERS: ATTEND Internal Medicine Hematology & Oncology
DX: Z03.89 Encounter for observation for other suspected diseases and conditions ruled out (principal); C34.11 Malignant neoplasm of upper lobe, right bronchus or lung; J43.9 Emphysema, unspecified; K44.9 Diaphragmatic hernia without obstruction or gangrene; K57.30 Diverticulosis of large intestine without perforation or abscess without bleeding; N20.0 Calculus of kidney
CPT/HCPCS: 71260; 74177; Q9967 ×2

== ENCOUNTER → 2022-01-06 | Outpatient (CLI) | payer BC ==
--- NOTE | 2022-01-06 15:02 | CT ---
EXAMINATION TYPE: CT abdomen pelvis w con DATE OF EXAM: 01/06/2022 COMPARISON: CT 05/17/2021 HISTORY: h/o lung ca, f/u for mets CT DLP: 1312.4 mGycm Automated exposure control for dose reduction was used. TECHNIQUE: Helical acquisition of images from the lung bases through the pelvis have been completed. CONTRAST: Performed with Oral Contrast and with IV Contrast, patient injected with 100 mL of Isovue 300. FINDINGS: Postop changes are noted to the stomach. Anterior abdominal wall shows hernia containing fa t, there are some local calcifications LUNG BASES: No significant abnormality is appreciated. AORTA: No significant abnormality is appreciated. LIVER/GB: No significant abnormality is appreciated. PANCREAS: No significant abnormality is seen. SPLEEN: No significant abnormality is seen. ADRENALS: No significant abnormality is seen. KIDNEYS: There are nonobstructive calculi in the right kidney similar to prior exam. REPRODUCTIVE ORGANS: There are some associated calcifications present within the prostate BOWEL: The thickening along the rectosigmoid colon could be due to muscular hypertrophy or lack of d istention, difficult to exclude a mucosal lesion, an annular narrowing is present on axial image #20 in the left upper quadrant which is indeterminate, similar appearance on prior exam of, no evident eliceo wel obstruction, the appendix is normal. FREE AIR: No Free Air visible. ASCITES: None visible. PELVIC ADENOPATHY: None visualized. RETROPERITONEAL ADENOPATHY: No Retroperitoneal Adenopathy visible. URINARY BLADDER: Mild bladder wall thickening is again noted as described in prior report. OSSEOUS STRUCTURES: No significant abnormality is seen. IMPRESSION: CORRELATE FOR ANY HISTORY OF COLONOSCOPY AND CONSIDER BOWEL SURVEILLANCE INDICATED. Nonobstruct shavonne right nephrolithiasis and postop changes.
== END | disposition home or self-care (01) ==
LOC: RADCTMAIN 12:33
PROVIDERS: ATTEND Internal Medicine Hematology & Oncology
DX: Z03.89 Encounter for observation for other suspected diseases and conditions ruled out (principal); C34.11 Malignant neoplasm of upper lobe, right bronchus or lung
CPT/HCPCS: 74177; Q9967

== ENCOUNTER → 2022-05-13 | Outpatient (CLI) | payer BC ==
[2022-05-13 09:55] LABS: African American GFR (CKD) >90 (>60 ml/min/1.73 sqM); Blood Urea Nitrogen 3 mg/dL (9-20); Non-African American GFR(CKD) >90 (>60 ml/min/1.73 sqM)
--- NOTE | 2022-05-13 12:15 | CT ---
EXAMINATION TYPE: CT chest w con DATE OF EXAM: 05/13/2022 COMPARISON: 05/17/2021 HISTORY: Malignant neoplasm of upper lobe, right bronchus CT DLP: 607 mGycm, Automated exposure control for dose reduction was used. CONTRAST: Performed injected with 70 ml mL of Isovue 300. TECHNIQUE: Axial images were obtained at 5 mm thick sections. Reconstructed images are reviewed on [employer] computer in the coronal plane. FINDINGS: Portion of the thyroid visualized is normal. There is a consolidation in the left suprahilar region extending into the hilar. This is stable from comparison can be compatible with patient's known lung cancer. No suspicious nodules are identified. There is chronic narrowing of the distal right main bronchus. No enlarged mediastinal or hilar adenopathy is evident. The ascending aorta diameter at the level o f the main pulmonary artery is 3.3 cm. The main pulmonary artery diameter at the bifurcation is 2.[address] sections are obtained through the upper abdomen. Abdomen is essentially unremarkable. Subt le stable thickening of the left adrenal gland may be present. IMPRESSIONS: 1. Stable soft tissue thickening in the right suprahilar region extending into the hilum with stable right distal main bronchus narrowing. 2. No suspicious mediastinal lymphadenopathy or suspicious changes for metastasis.
== END | disposition home or self-care (01) ==
LOC: RADCTMAIN 08:48
PROVIDERS: ATTEND Internal Medicine Hematology & Oncology
DX: C34.11 Malignant neoplasm of upper lobe, right bronchus or lung (principal)
CPT/HCPCS: 82565; 84520; 71260; 36415; Q9967

== ENCOUNTER → 2022-12-26 | Outpatient (CLI) | payer BC ==
--- NOTE | 2022-12-26 09:52 | CT ---
EXAMINATION TYPE: CT chest w con DATE OF EXAM: 12/26/2022 COMPARISON: 05/13/2022 HISTORY: small cell lung CA CT DLP: 530 mGycm, Automated exposure control for dose reduction was used. CONTRAST: Performed injected with 100 mL of Isovue 300. TECHNIQUE: Axial images were obtained at 5 mm thick sections. Reconstructed images are reviewed on [employer] computer in the coronal plane. FINDINGS: Portion of the thyroid visualized is normal. There is a right apical and suprahilar density measuring in maximum dimensions 3.5 x 4.6 cm. This is stable in size from comparison. Extends into the right suprahilar region. No enlarged mediastinal or hilar adenopathy is evident. Couple small shoddy lymph nodes are present . The ascending aorta diameter at the level of the main pulmonary artery is 3.1 cm. The main pulmonary artery diameter at the bifurcation is 2.[address] sections are obtained through the upper abdomen. Abdomen is essentially unremarkable. IMPRESSIONS: 1. Stable appearance right upper lobe mass. 2. No suspicious changes to suggest metastatic disease.
== END | disposition home or self-care (01) ==
LOC: RADCTMAIN 08:18
PROVIDERS: ATTEND Internal Medicine Hematology & Oncology
DX: C34.11 Malignant neoplasm of upper lobe, right bronchus or lung (principal); K22.2 Esophageal obstruction; J44.9 Chronic obstructive pulmonary disease, unspecified; M12.9 Arthropathy, unspecified
CPT/HCPCS: 71260; Q9967

== ENCOUNTER → 2023-06-26 | Outpatient (CLI) | payer BC ==
--- NOTE | 2023-06-26 12:52 | CT ---
EXAMINATION TYPE: CT ChestAbdPelvis w con DATE OF EXAM: 06/26/2023 COMPARISON: Chest 12/26/2022 and 05/13/2022 HISTORY: 57-year-old male C3 4.11, f/u lung CA, in remission x6 years TECHNIQUE: Contiguous axial scanning of the chest, abdomen, and pelvis performed with IV Contrast, pa tient injected with 100 mL of Isovue 300. Delayed images through the kidneys were obtained. Coronal/s agittal reconstructions performed. CT DLP: 1389.7 mGycm Automated exposure control for dose reduction was used. FINDINGS: CHEST: Heart normal size without pericardial effusion. Borderline ectatic aortic root at 3.6 cm. Conventiona l arch vessel branching anatomy. Unchanged soft tissue encasement right hilum with associated volume loss and consolidation throughout the right upper lobe. Similar soft tissue encasement with narrowing of the bronchus intermedius and proximal right middle lobe and lower lobe bronchi. No abnormal enlarging soft tissue is identified. S table adjacent mild small pleural thickening posteromedial right mid lung. Background mild emphysematous change. No consolidation or pleural effusion. Old chronic ununited left posterior rib fracture deformities ABDOMEN: Post surgical change at the GE junction and stomach related to Yancy-en-Y gastric bypass. There is a rectus diastases with separation of 5.4 cm and bulging omental fat measuring 9.2 cm wide. Smaller ventral epigastric abdominal wall hernias measuring 3.3 cm wide through pinhole defects. Smal l fatty umbilical hernia as well. No focal liver lesion or biliary ductal dilatation. Portal venous system is patent. Gallbladder, adrenal glands, left kidney, spleen, and pancreas within normal limits. There is a large 1.6 cm stone redemonstrated upper right kidney. No dilated small bowel, free fluid, or free air. No mesenteric or retroperitoneal lymphadenopathy. Normal appendix. Scattered mild stool. Sigmoid diverticulosis without pericolonic inflammatory change . PELVIS: Bladder collapse. Circumferential bladder wall thickening may be chronic. Correlate to exclude cystit is. No abnormal fluid collection in the pelvis or pelvic lymphadenopathy. BONES: Mild facet arthropathy lower lumbar spine. Chronic ununited left posterior rib fractures. Mild to mod erate degenerative disc disease lower thoracic spine. IMPRESSION: 1. UNCHANGED SOFT TISSUE ENCASEMENT OF THE RIGHT HILUM EXTENDING ALONG THE CENTRAL LOBAR BRONCHI. FIN DINGS COMPATIBLE WITH SITE OF TREATED DISEASE. NO SOFT TISSUE ENLARGEMENT OR SUSPICIOUS LYMPHADENOPAT HY TO SUGGEST DISEASE RECURRENCE AT THIS TIME. 2. INCIDENTAL: COPD WITH MILD EMPHYSEMA. VENTRAL ABDOMINAL WALL HERNIAS CONTAINING OMENTAL FAT ABO VE. Stable 1.6 cm right renal calculus. Sigmoid diverticulosis. Circumferential bladder wall thickeni ng may be chronic for the patient. Correlate to exclude cystitis.
== END | disposition home or self-care (01) ==
LOC: RADCTMAIN 09:02
PROVIDERS: ATTEND Internal Medicine Hematology & Oncology
DX: C34.11 Malignant neoplasm of upper lobe, right bronchus or lung (principal); K22.2 Esophageal obstruction; J44.9 Chronic obstructive pulmonary disease, unspecified; M12.9 Arthropathy, unspecified; Z71.3 Dietary counseling and surveillance
CPT/HCPCS: 71260; 74177; Q9967

== ENCOUNTER → 2023-12-25 | Outpatient (CLI) | payer BC ==
--- NOTE | 2023-12-25 11:28 | CT ---
EXAMINATION TYPE: CT chest w con DATE OF EXAM: 12/25/2023 COMPARISON: 06/26/2023 and 12/26/2022 HISTORY: 58-year-old male C3 4.11 lung cancer TECHNIQUE: Contiguous axial scanning of the chest after the administration of 100 mL of Isovue 300. Coronal/sagittal reconstructions performed. CT DLP: 609mGycm. Automatic exposure control utilized for a dose reduction. FINDINGS: Heart is normal size of the pericardial effusion. Mild circumflex coronary artery calcifications are present. Ectatic aortic root at 3.7 cm. Convex shortness of breath anatomy. Right hilar soft tissue encasement and volume loss extending down the right infrahilar bronchovascula r bundles and centrally along the right upper lobe as well remains unchanged. No increasing soft tiss ue is identified at this time No new pulmonary nodules are new thoracic lymphadenopathy. Back on mild emphysematous change and biapical pleural-parenchymal scarring. Tiny hiatal hernia with post surgical change of Yancy-en-Y gastric bypass. Nonobstructive right renal calculi measuring up to 1.4 cm. Bones: Mild to moderate degenerative disc disease lower thoracic spine. Degenerative change sternoman ubrial joint. Chronic ununited left posterior fracture deformities. Right shoulder arthroplasty. No o sseous destructive process seen. IMPRESSION: Stable exam with soft tissue encasement and volume loss right hilum and right perihilar bronchovascul ar bundles corresponding to treated disease. No recurrence or metastatic disease identified at this t rylee.
== END | disposition home or self-care (01) ==
LOC: RADCTMAIN 08:58
PROVIDERS: ATTEND Internal Medicine Hematology & Oncology
DX: C34.11 Malignant neoplasm of upper lobe, right bronchus or lung (principal); K22.2 Esophageal obstruction; J44.9 Chronic obstructive pulmonary disease, unspecified; M12.9 Arthropathy, unspecified; Z71.3 Dietary counseling and surveillance
CPT/HCPCS: 71260; Q9967

== ENCOUNTER 2024-06-03 21:52 | Emergency (ER) | payer BC ==
[2024-06-03] MEDS: ALBUTEROL NEBULIZED 2.5 MG/3 ML INHALATION STA (23:03)
[2024-06-03] MEDS: IPRATROPIUM 0.5 MG/2.5 ML NEBU INHALATION STA (23:03)
[2024-06-03] MEDS: predniSONE 20 MG TAB PO STA (23:19)
--- NOTE | 2024-06-03 23:39 | ED ---
SOB HPI - General Chief Complaint: Shortness of Breath Stated Complaint: JOSE CARLOS Time Seen by Provider: 06/03/24 22:20 Source: patient Mode of arrival: ambulatory Limitations: no limitations - History of Present Illness Initial Comments: This patient is a 58-year-old man who arrives to have evaluation for shortness of breath. The patient states that going back 2 to 3 weeks he has been having cough, shortness of breath, wheezing. He had seen his primary physician and was given a course of azithromycin and prednisone. The patient had a revisit last Thursday, where he states he was given antibiotic shots. The patient was getting up this evening and preparing to go to work when he noticed that he was more short of breath than usual. He tried his inhaled medication and was not feeling much better so comes here to have evaluation. The patient states the main problem is increased dyspnea with any exertion. Patient denies having fever or chills. No chest pain or hemoptysis. No change in leg swelling. No change in urination or bowel movements MD Complaint: shortness of breath -: week(s) Severity scale (1-10): 0 Consistency: constant Improves With: nothing Worsens With: nothing Known History Of: COPD, other (History of lung cancer) Associated Symptoms: cough Treatments Prior to Arrival: bronchodilator - Related Data Home Medications Medication Instructions Recorded Confirmed Budesonide-Formot 160-4.5 Mcg 1 puff INHALATION DAILY 11/29/19 05/29/23 [Symbicort 160-4.5 Mcg Inhaler (Bulk)] Albuterol Inhaler [Ventolin Hfa 1 - 2 puff INHALATION Q6H PRN 05/27/23 05/29/23 Inhaler] Fluticasone/Umeclidin/Vilanter 1 puff INHALATION DAILY 05/27/23 05/29/23 [Trelegy Ellipta 100-62.5-25] Isosorbide Mononitrate [Isosorbide 30 mg PO DAILY 05/27/23 05/29/23 Mononitrate ER] Levothyroxine Sodium 25 mcg PO DAILY 05/27/23 05/29/23 Metoprolol Succinate (ER) [Toprol 100 mg PO DAILY 05/27/23 05/29/23 Xl] Tiotropium 18 Mcg/Puff [Spiriva] 1 puff INHALATION DAILY 05/27/23 05/29/23 Previous Rx's Medication Instructions Recorded predniSONE 60 mg PO DAILY #30 tab 06/04/24 Allergies Allergy/AdvReac Type Severity Reaction Status Date / Time No Known Allergies Allergy Verified 05/29/23 10:38 Review of Systems ROS Statement: Those systems with pertinent positive or pertinent negative responses have been documented in the HPI. ROS Other: All systems not noted in ROS Statement are negative. Constitutional: Denies: fever, chills Respiratory: Reports: cough, dyspnea, wheezes. Denies: hemoptysis Cardiovascular: Reports: dyspnea on exertion. Denies: chest pain, palpitations, orthopnea, edema, syncope Gastrointestinal: Denies: abdominal pain, nausea, vomiting, diarrhea, melena, hematochezia Genitourinary: Denies: dysuria, hematuria Musculoskeletal: Denies: back pain Skin: Denies: rash Neurological: Denies: headache, weakness Past Medical History Past Medical History: Cancer, Chest Pain / Angina, COPD, Thyroid Disorder Additional Past Medical History / Comment(s): Hx Non-small cell lung cancer, 6 yrs ago, had chemo and radiation. History of Any Multi-Drug Resistant Organisms: None Reported Past Surgical History: Bariatric Surgery, Joint Replacement Additional Past Surgical History / Comment(s): RIGHT SHOULDER REPLACEMENT, ARTHUR EN Y, EGD. Past Anesthesia/Blood Transfusion Reactions: No Reported Reaction Past Psychological History: No Psychological Hx Reported Smoking Status: Current some day smoker Past Alcohol Use History: Occasional Past Drug Use History: None Reported - Past Family History Mother Family Medical History: No Reported History General Exam Limitations: no limitations General appearance: alert, in no apparent distress Head exam: Present: atraumatic, normocephalic, other (Raman facies) Eye exam: Present: normal appearance. Absent: scleral icterus, conjunctival injection Neck exam: Present: normal inspection Respiratory exam: Present: respiratory distress (Mild tachypnea), wheezes, decreased breath sounds. Absent: rales, rhonchi, stridor, accessory muscle use Cardiovascular Exam: Present: regular rate, normal rhythm, normal heart sounds. Absent: systolic murmur, diastolic murmur, rubs, gallop GI/Abdominal exam: Present: soft. Absent: distended, tenderness, guarding, rebound, rigid, mass Extremities exam: Present: normal inspection, normal capillary refill, pedal edema (Trace edema at ankles patient states baseline). Absent: tenderness, calf tenderness Back exam: Present: normal inspection. Absent: CVA tenderness (R), CVA tenderness (L) Neurological exam: Present: alert Skin exam: Present: warm, dry, intact, normal color. Absent: rash Course Vital Signs 06/03/24 06/03/24 06/03/24 22:06 23:04 23:13 Temperature 98 F Pulse Rate 128 H 111 H 117 H Respiratory 26 H Rate Blood Pressure 142/88 O2 Sat by Pulse 88 L Oximetry 06/03/24 06/04/24 06/04/24 23:30 00:09 01:16 Temperature 98.4 F Pulse Rate 121 H 116 H Respiratory 20 20 20 Rate Blood Pressure 130/90 116/88 O2 Sat by Pulse 98 97 Oximetry Medical Decision Making - Medical Decision Making The patient had chest x-ray that I interpreted as negative for pneumothorax, congestive heart failure, pneumonia. Was pt. sent in by a medical professional or institution (, PA, BELLOWS CHARGER ASSEMBLER, urgent care, hospital, or care home...) When possible be specific @ -[No] Did you speak to anyone other than the patient for history (EMS, parent, family, police, friend...)? What history was obtained from this source @ -[No] Did you review nursing and triage notes (agree or disagree)? Why? @ -[I reviewed and agree with nursing and triage notes] Were old charts reviewed (outside hosp., previous admission, EMS record, old EKG, old radiological studies, urgent care reports/EKG's, care home records)? Report findings @ -[No old charts were reviewed] Differential Diagnosis (chest pain, altered mental status, abdominal pain women, abdominal pain men, vaginal bleeding, weakness, fever, dyspnea, syncope, headache, dizziness, GI bleed, back pain, seizure, CVA, palpatations, mental health, musculoskeletal)? @ -[Differential Dyspnea: Coronary syndrome, arrhythmia, tamponade, asthma, COPD, pulmonary embolism, pn eumonia, pneumothorax, pulmonary effusion, anaphylaxis, diabetic ketoacidosis, flailed chest, pulmonary contusion, diaphragmatic rupture, anemia, neuromuscular, this is not meant to be an all-inclusive list. EKG interpreted by me (3pts min.). @ -[As above] X-rays interpreted by me (1pt min.). @ -[I interpreted as above CT interpreted by me (1pt min.). @ -[None done] U/S interpreted by me (1pt. min.). @ -[None done] What testing was considered but not performed or refused? (CT, X-rays, U/S, labs)? Why? @ -[None] What meds were considered but not given or refused? Why? @ -[None] Did you discuss the management of the patient with other professionals (professionals i.e. , PA, BELLOWS CHARGER ASSEMBLER, lab, RT, psych nurse, child protective services social worker, director of field sales, teacher, police officer booking, shelter case manager)? Give summary @ -[No] Was smoking cessation discussed for >3mins.? @ -[No] Was critical care preformed (if so, how long)? @ -[No] Were there social determinants of health that impacted care today? How? (Homelessness, low income, unemployed, alcoholism, drug addiction, transportation, low edu. Level, literacy, decrease access to med. care, senior living, rehab)? @ -[No] Was there de-escalation of care discussed even if they declined (Discuss DNR or withdrawal of care, Hospice)? DNR status @ -[No] What co-morbidities impacted this encounter? (DM, HTN, Smoking, COPD, CAD, Cancer, CVA, ARF, Chemo, Hep., AIDS, mental health diagnosis, sleep apnea, morbid obesity)? @ -[COPD, previous lung mass Was patient admitted / discharged? Hospital course, mention meds given and route, prescriptions, significant lab abnormalities, going to OR and other pertinent info. @ -[Patient is 58-year-old man here with dyspnea and exam consistent with COPD exacerbation. The patient feeling better following treatment here. I discussed with him that based on his initial evaluation I thought that we should definitely admit him, but he is feeling better and would like to go at this point. Discussed that given his history he must have close follow-up also discussed return parameters. Undiagnosed new problem with uncertain prognosis? @ -[No] Drug Therapy requiring intensive monitoring for toxicity (Heparin, Nitro, Insulin, Cardizem)? @ -[No] Were any procedures done? @ -[No] Diagnosis/symptom? @ -[Acute exacerbation of COPD Acute, or Chronic, or Acute on Chronic? @ -[Acute on chronic Uncomplicated (without systemic symptoms) or Complicated (systemic symptoms)? @ -[Uncomplicated Side effects of treatment? @ -[No] Exacerbation, Progression, or Severe Exacerbation? @ -[No] Poses a threat to life or bodily function? How? (Chest pain, [place], [place], pneumonia, PE, COPD, DKA, ARF, appy, cholecystitis, CVA, Diverticulitis, Homicidal, Suicidal, threat to staff... and all critical care pts) @ -[Yes there is risk of progression to respiratory failure and - Lab Data Result diagrams: 06/03/24 23:34 06/03/24 23:34 Lab Results 06/03/24 06/03/24 06/03/24 Range/Units 23:34 23:34 23:34 WBC 13.6 H (3.8-10.6) k/uL RBC 3.83 L (4.30-5.90) m/uL Hgb 11.9 L (13.0-17.5) gm/dL Hct 38.1 L (39.0-53.0) % MCV 99.4 (80.0-100.0) fL MCH 31.2 (25.0-35.0) pg MCHC 31.3 (31.0-37.0) g/dL RDW 15.8 H (11.5-15.5) % Plt Count 234 (150-450) k/uL MPV 7.9 Neutrophils % 87 % Lymphocytes % 5 % Monocytes % 5 % Eosinophils % 1 % Basophils % 0 % Neutrophils # 11.8 H (1.3-7.7) k/uL Lymphocytes # 0.7 L (1.0-4.8) k/uL Monocytes # 0.7 (0-1.0) k/uL Eosinophils # 0.2 (0-0.7) k/uL Basophils # 0.0 (0-0.2) k/uL Hypochromasia Moderate Macrocytosis Slight PT 9.6 L (10.0-12.5) sec INR 0.8 (<1.2) APTT 23.1 (22.0-30.0) sec D-Dimer 0.76 H (<0.60) mg/L FEU Sodium 135 L (137-145) mmol/L Potassium 3.7 (3.5-5.1) mmol/L Chloride 105 (98-107) mmol/L Carbon Dioxide 27 (22-30) mmol/L Anion Gap 3 mmol/L BUN 2 L (9-20) mg/dL Creatinine 0.64 L (0.66-1.25) mg/dL Est GFR (CKD-EPI)AfAm >90 (>60 ml/min/1.73 sqM) Est GFR (CKD-EPI)NonAf >90 (>60 ml/min/1.73 sqM) Glucose 96 (74-99) mg/dL Plasma Lactic Acid Ashish (0.7-2.0) mmol/L Calcium 9.0 (8.4-10.2) mg/dL Total Bilirubin 0.6 (0.2-1.3) mg/dL AST 74 H (17-59) U/L ALT 44 (4-49) U/L Alkaline Phosphatase 207 H (38-126) U/L Troponin I (0.000-0.034) ng/mL NT-Pro-B Natriuret Pep 413 pg/mL Total Protein 6.8 (6.3-8.2) g/dL Albumin 3.7 (3.5-5.0) g/dL Influenza Type A (PCR) (Not Detectd) Influenza Type B (PCR) (Not Detectd) RSV (PCR) (Not Detectd) SARS-CoV-2 (PCR) (Not Detectd) 06/03/24 06/03/24 06/03/24 Range/Units 23:34 23:34 23:34 WBC (3.8-10.6) k/uL RBC (4.30-5.90) m/uL Hgb (13.0-17.5) gm/dL Hct (39.0-53.0) % MCV (80.0-100.0) fL MCH (25.0-35.0) pg MCHC (31.0-37.0) g/dL RDW (11.5-15.5) % Plt Count (150-450) k/uL MPV Neutrophils % % Lymphocytes % % Monocytes % % Eosinophils % % Basophils % % Neutrophils # (1.3-7.7) k/uL Lymphocytes # (1.0-4.8) k/uL Monocytes # (0-1.0) k/uL Eosinophils # (0-0.7) k/uL Basophils # (0-0.2) k/uL Hypochromasia Macrocytosis PT (10.0-12.5) sec INR (<1.2) APTT (22.0-30.0) sec D-Dimer (<0.60) mg/L FEU Sodium (137-145) mmol/L Potassium (3.5-5.1) mmol/L Chloride (98-107) mmol/L Carbon Dioxide (22-30) mmol/L Anion Gap mmol/L BUN (9-20) mg/dL Creatinine (0.66-1.25) mg/dL Est GFR (CKD-EPI)AfAm (>60 ml/min/1.73 sqM) Est GFR (CKD-EPI)NonAf (>60 ml/min/1.73 sqM) Glucose (74-99) mg/dL Plasma Lactic Acid Ashish 2.0 (0.7-2.0) mmol/L Calcium (8.4-10.2) mg/dL Total Bilirubin (0.2-1.3) mg/dL AST (17-59) U/L ALT (4-49) U/L Alkaline Phosphatase (38-126) U/L Troponin I <0.012 (0.000-0.034) ng/mL NT-Pro-B Natriuret Pep pg/mL Total Protein (6.3-8.2) g/dL Albumin (3.5-5.0) g/dL Influenza Type A (PCR) Not Detected (Not Detectd) Influenza Type B (PCR) Not Detected (Not Detectd) RSV (PCR) Not Detected (Not Detectd) SARS-CoV-2 (PCR) Not Detected (Not Detectd) - EKG Data -: EKG Interpreted by Oh EKG shows normal: sinus rhythm (Tachycardia with frequent supraventricular complexes. Rate 114 bpm), axis (Normal), intervals (Normal), QRS complexes (Normal) Rate: tachycardia Interpretation: nonspecific ST-T wave changes Disposition Clinical Impression: COPD exacerbation Disposition: HOME SELF-CARE Condition: Good Instructions (If sedation given, give patient instructions): Chronic Bronchitis (ED) Prescriptions: predniSONE 60 mg PO DAILY #30 tab Is patient prescribed a controlled substance at d/c from ED?: No Referrals: Marlene Sweeney DO [Primary Care Provider] - 1-2 days Bartolo Du DO [Doctor of Osteopathic Medicine] - 1-2 days
[2024-06-03 23:43] LABS: Basophils % (A) 0 %; Eosinophils # (A) 0.2 k/uL (0-0.7); Eosinophils % (A) 1 %; HCT 38.1 % (39.0-53.0); HGB 11.9 gm/dL (13.0-17.5); Hypochromasia Moderate; Lymphocytes # (A) 0.7 k/uL (1.0-4.8); Lymphocytes % (A) 5 %; MCH 31.2 pg (25.0-35.0); MCHC 31.3 g/dL (31.0-37.0); MCV 99.4 fL (80.0-100.0); Macrocytosis Slight; Mean Platelet Volume 7.9; Monocytes # (A) 0.7 k/uL (0-1.0); Monocytes % (A) 5 %; Neutrophils # (A) 11.8 k/uL (1.3-7.7); Neutrophils % (A) 87 %; Platelet Count 234 k/uL (150-450); RBC 3.83 m/uL (4.30-5.90); RDW 15.8 % (11.5-15.5); WBC 13.6 k/uL (3.8-10.6)
[2024-06-03 23:59] LABS: ALT 44 U/L (4-49); AST 74 U/L (17-59); African American GFR (CKD) >90 (>60 ml/min/1.73 sqM); Albumin 3.7 g/dL (3.5-5.0); Alkaline Phosphatase 207 U/L (38-126); Anion Gap 3 mmol/L; Blood Urea Nitrogen 2 mg/dL (9-20); Carbon Dioxide 27 mmol/L (22-30); Chloride 105 mmol/L (98-107); Glucose 96 mg/dL (74-99); Non-African American GFR(CKD) >90 (>60 ml/min/1.73 sqM); Potassium 3.7 mmol/L (3.5-5.1); Sodium 135 mmol/L (137-145); Total Bilirubin 0.6 mg/dL (0.2-1.3); Total Protein 6.8 g/dL (6.3-8.2)
[2024-06-04 00:05] LABS: INR 0.8 (<1.2); Partial Thromboplastin Time 23.1 sec (22.0-30.0); Prothrombin Time 9.6 sec (10.0-12.5)
[2024-06-04 00:07] LABS: NT-Pro-B-Type Natriuretic Pept 413 pg/mL
[2024-06-04 00:43] VITALS: RESP 20
--- NOTE | 2024-06-04 00:56 | XR ---
EXAM: XR Chest, 1 View CLINICAL HISTORY: ITS.REASON XR Reason: dyspnea TECHNIQUE: Frontal view of the chest. COMPARISON: 12/23/2016. 12/25/2023. FINDINGS: Lungs: There is patchy airspace disease at the right upper lobe presumably on the basis of pneumonia. There is left hilar prominence. Pleural space: Unremarkable. No pneumothorax. Heart: Heart is normal in size. No cardiomegaly. Mediastinum: Unremarkable. Normal mediastinal contour. Bones/joints: Unremarkable. No acute fracture. Other findings: Other etiology cannot be excluded. Hypoaeration. IMPRESSION: 1. Patchy airspace disease medially at the right upper lobe differential etiologies which includes pneumonia versus scarring. 2. Prominence of the left hilum. Left hilar lymphadenopathy cannot be excluded. 3. CT imaging of the chest is advised to follow-up for further assessment to further workup is necessary.
[2024-06-04 01:17] VITALS: BP 116/88; PULSE 116; TEMP 98.4
== END 2024-06-04 01:16 | disposition home or self-care (01) ==
LOC: EC 21:52
CPT/HCPCS: 36415; 71045; 80053; 83605; 83880; 84484; 85025; 85379; 85610; 85730; 87636; 93005; 94640; 99285

== ENCOUNTER → 2024-06-21 | Outpatient (CLI) | payer BC ==
--- NOTE | 2024-06-23 14:56 | CT ---
EXAMINATION TYPE: CT chest w con CT DLP: 542 mGycm, Automated exposure control for dose reduction was used. DATE OF EXAM: 06/21/2024 10:11 AM COMPARISON: CT chest 12/25/2023, 12/26/2022, CT chest and pelvis 06/26/2023, 05/17/2021. CLINICAL INDICATION:Male, 58 years old with history of C34.11 lung ca; PHH, Hx lung ca, routine follo w up TECHNIQUE: Multiple axial images were obtained through the chest following the administration of 100 cc of Isovue 300. . Coronal and sagittal reformats reviewed. FINDINGS: LUNGS/ PLEURA: No pleural effusion or pneumothorax. Mild background emphysematous change. Biapical pl eural-parenchymal scarring. Similar right hilar soft tissue encasement and volume loss extending maría n the right infrahilar bronchovascular bundles and centrally along the right upper lobe. No increasin g soft tissue identified at this time. Development of right lower lung reticular opacities. No new zee spicious pulmonary nodules. AIRWAY: Patent and unremarkable.. HEART: Size within normal limits. No pericardial effusion. Mild circumflex coronary artery calcificat ions are present. MEDIASTINUM: No evidence of adenopathy. VASCULATURE: No aortic aneurysm. MUSCULOSKELETAL: No acute osseous abnormalities. Right shoulder arthroplasty changes. Mild to moderat e degenerative disease of the lower thoracic spine. Degenerative changes of the sternomanubrial joint . Chronic ununited left posterior rib fracture deformities. No aggressive osseous lesion. SOFT TISSUES/LYMPH NODES: Unremarkable. LOWER NECK: No significant findings. UPPER ABDOMEN: Tiny hiatal hernia with post surgical change of Yancy-en-Y gastric bypass. Nonobstructi ve right renal calculus measuring 1.5 x 1.6 cm. IMPRESSION: Similar soft tissue encasement and volume loss of the right hilum and right perihilar bronchovascular bundles corresponding to treated disease. No definitive recurrence or metastatic disease. Developmen t of right lower lung reticular opacities likely representing bronchiolitis. [facility], , 06/23/2024 12:31 PM
== END | disposition home or self-care (01) ==
LOC: RADCTMAIN 08:49
PROVIDERS: ATTEND Internal Medicine Hematology & Oncology
DX: C34.11 Malignant neoplasm of upper lobe, right bronchus or lung
CPT/HCPCS: 71260

== ENCOUNTER 2025-01-26 12:31 | Inpatient (IN) | payer OTHER, BC ==
--- NOTE | 2025-01-26 13:06 | ED ---
General Adult HPI - General Chief complaint: Shortness of Breath Stated complaint: SOB Time Seen by Provider: 01/26/25 12:44 Source: patient, RN notes reviewed, old records reviewed Mode of arrival: wheelchair Limitations: no limitations - History of Present Illness Initial comments: 59-year-old male presenting with 2 to 3 weeks of increased dyspnea and cough. Patient was sent in from the [place] for further evaluation treatment. No fever. No central chest pain. No prior history of CAD or CHF. Patient does have a history of COPD and he does follow with pulmonology. - Related Data Home Medications Medication Instructions Recorded Confirmed Budesonide-Formot 160-4.5 Mcg 1 puff INHALATION DAILY 11/29/19 05/29/23 [Symbicort 160-4.5 Mcg Inhaler (Bulk)] Albuterol Inhaler [Ventolin Hfa 1 - 2 puff INHALATION Q6H PRN 05/27/23 05/29/23 Inhaler] Fluticasone/Umeclidin/Vilanter 1 puff INHALATION DAILY 05/27/23 05/29/23 [Trelegy Ellipta 100-62.5-25] Isosorbide Mononitrate [Isosorbide 30 mg PO DAILY 05/27/23 05/29/23 Mononitrate ER] Levothyroxine Sodium 25 mcg PO DAILY 05/27/23 05/29/23 Metoprolol Succinate (ER) [Toprol 100 mg PO DAILY 05/27/23 05/29/23 Xl] Tiotropium 18 Mcg/Puff [Spiriva] 1 puff INHALATION DAILY 05/27/23 05/29/23 Previous Rx's Medication Instructions Recorded predniSONE 60 mg PO DAILY #30 tab 06/04/24 Allergies Allergy/AdvReac Type Severity Reaction Status Date / Time No Known Allergies Allergy Verified 01/26/25 12:42 Review of Systems ROS Statement: Those systems with pertinent positive or pertinent negative responses have been documented in the HPI. ROS Other: All systems not noted in ROS Statement are negative. Past Medical History Past Medical History: Cancer, Chest Pain / Angina, COPD, Thyroid Disorder Additional Past Medical History / Comment(s): Hx Non-small cell lung cancer, 6 yrs ago, had chemo and radiation. stage 4 lung disease. History of Any Multi-Drug Resistant Organisms: None Reported Past Surgical History: Bariatric Surgery, Joint Replacement Additional Past Surgical History / Comment(s): RIGHT SHOULDER REPLACEMENT, ARTHUR EN Y, EGD. Past Anesthesia/Blood Transfusion Reactions: No Reported Reaction Past Psychological History: No Psychological Hx Reported Smoking Status: Current some day smoker Past Alcohol Use History: Occasional Past Drug Use History: None Reported - Past Family History Mother Family Medical History: No Reported History General Exam Limitations: no limitations General appearance: alert, in no apparent distress Head exam: Present: atraumatic, normocephalic Eye exam: Present: normal appearance, PERRL ENT exam: Present: normal exam Respiratory exam: Present: rhonchi, decreased breath sounds (On the right). Absent: respiratory distress Cardiovascular Exam: Present: regular rate, normal rhythm GI/Abdominal exam: Present: soft, hernia. Absent: distended, tenderness Extremities exam: Present: normal capillary refill. Absent: pedal edema Neurological exam: Present: alert, oriented X3, CN II-XII intact. Absent: motor sensory deficit Skin exam: Present: warm, dry, intact. Absent: cyanosis, diaphoretic Course Vital Signs 01/26/25 12:36 Temperature 98 F Pulse Rate 114 H Respiratory 18 Rate Blood Pressure 110/73 O2 Sat by Pulse 96 Oximetry Medical Decision Making - Medical Decision Making Was pt. sent in by a medical professional or institution (, PA, KNOCKOUT MAN, urgent care, hospital, or usp...) When possible be specific @ -No Did you speak to anyone other than the patient for history (EMS, parent, family, police, friend...)? What history was obtained from this source @ -No Did you review nursing and triage notes (agree or disagree)? Why? @ -I reviewed and agree with nursing and triage notes Were old charts reviewed (outside hosp., previous admission, EMS record, old EKG, old radiological studies, urgent care reports/EKG's, usp records)? Report findings @ -No old charts were reviewed Differential Diagnosis (chest pain, altered mental status, abdominal pain women, abdominal pain men, vaginal bleeding, weakness, fever, dyspnea, syncope, headache, dizziness, GI bleed, back pain, seizure, CVA, palpatations, mental health, musculoskeletal)? @ -Not applicable EKG interpreted by me (3pts min.). @Sinus tachycardia rate of 113, UT interval 123, QRS duration 83, QTc [address] segment elevation X-rays interpreted by me (1pt min.). @ -Chest x-ray showing complete opacification of the right hemithorax CT interpreted by me (1pt min.). @ -None done U/S interpreted by me (1pt. min.). @ -None done What testing was considered but not performed or refused? (CT, X-rays, U/S, labs)? Why? @ -None What meds were considered but not given or refused? Why? @ -None Did you discuss the management of the patient with other professionals (professionals i.e. DrEdgardo, PA, KNOCKOUT MAN, lab, RT, psych nurse, social media analyst, traveling repair accountant, teacher, staff air tactical officer, comp field case manager)? Give summary @ -Case discussed with Dr. Luque will evaluate the patient, request ultrasound of the chest. Patient admitted to [facility] with pulmonology and oncology on consult. Was smoking cessation discussed for >3mins.? @ -No Was critical care preformed (if so, how long)? @ -No Were there social determinants of health that impacted care today? How? (Homelessness, low income, unemployed, alcoholism, drug addiction, tr ansportation, low edu. Level, literacy, decrease access to med. care, longterm, rehab)? @ -No Was there de-escalation of care discussed even if they declined (Discuss DNR or withdrawal of care, Hospice)? DNR status @ -No What co-morbidities impacted this encounter? (DM, HTN, Smoking, COPD, CAD, Cancer, CVA, ARF, Chemo, Hep., AIDS, mental health diagnosis, sleep apnea, morbid obesity)? @ -[COPD, lung CA Was patient admitted / discharged? Hospital course, mention meds given and route, prescriptions, significant lab abnormalities, going to OR and other pertinent info. @ -59-year-old male presenting with progressive dyspnea over the past several weeks. Patient has chest x-ray showing complete opacification of the right hemithorax likely effusion. Patient will be admitted to internal medicine with both pulmonary and oncology on consult. Laboratory tests unremarkable. Undiagnosed new problem with uncertain prognosis? @ -[No Drug Therapy requiring intensive monitoring for toxicity (Heparin, Nitro, Insulin, Cardizem)? @ -No Were any procedures done? @ -No Diagnosis/symptom? @ -[Dyspnea secondary to pleural effusion Acute, or Chronic, or Acute on Chronic? @ -Acute on chronic Uncomplicated (without systemic symptoms) or Complicated (systemic symptoms)? @ -Default Side effects of treatment? @ -No Exacerbation, Progression, or Severe Exacerbation? @ -No Poses a threat to life or bodily function? How? (Chest pain, [place], [place], pneumonia, PE, COPD, DKA, ARF, appy, cholecystitis, CVA, Diverticulitis, Homicidal, Suicidal, threat to staff... and all critical care pts) @Yes, respiratory failure - Lab Data Result diagrams: 01/26/25 13:11 01/26/25 13:11 Lab Results 01/26/25 01/26/25 01/26/25 Range/Units 13:11 13:11 13:11 WBC 8.85 (4.50-10.00) 10*3/uL RBC 4.15 L (4.40-5.60) 10*6/uL Hgb 12.0 L (13.0-17.0) g/dL Hct 37.3 L (39.6-50.0) % MCV 89.9 (80.0-97.0) fL MCH 28.9 (27.0-32.0) pg MCHC 32.2 (32.0-37.0) g/dL Plt Count 533 H (140-440) 10*3/uL MPV 9.5 (9.5-12.2) fL Immature Gran % (Auto) 1.0 % Neutrophils % 78.5 % Lymphocytes % 7.7 % Monocytes % 10.6 % Eosinophils % 1.2 % Basophils % 1.0 % Immature Gran # 0.09 H (0.00-0.04) 10*3/uL Neutrophils # 6.94 (1.80-7.70) 10*3/uL Lymphocytes # 0.68 L (0.90-5.00) 10*3/uL Monocytes # 0.94 (0.20-1.00) 10*3/uL Eosinophils # 0.11 (0.04-0.35) 10*3/uL Basophils # 0.09 (0.00-0.10) 10*3/uL PT 10.8 (10.0-12.5) sec INR 1.0 (<1.2) APTT 24.1 (22.0-30.0) sec Sodium 139 (137-145) mmol/L Potassium 4.5 (3.5-5.1) mmol/L Chloride 109 H (98-107) mmol/L Carbon Dioxide 24 (22-30) mmol/L Anion Gap 6 mmol/L BUN 15 (9-20) mg/dL Creatinine 0.59 L (0.66-1.25) mg/dL Est GFR (CKD-EPI)AfAm >90 (>60 ml/min/1.73 sqM) Est GFR (CKD-EPI)NonAf >90 (>60 ml/min/1.73 sqM) Glucose 93 (74-99) mg/dL Plasma Lactic Acid Ashish (0.7-2.0) mmol/L Calcium 8.8 (8.4-10.2) mg/dL Magnesium 2.1 (1.6-2.3) mg/dL Total Bilirubin 0.6 (0.2-1.3) mg/dL AST 160 H (17-59) U/L ALT 76 H (4-49) U/L Alkaline Phosphatase 362 H (38-126) U/L Troponin I (0.000-0.034) ng/mL NT-Pro-B Natriuret Pep 768 pg/mL Total Protein 6.3 (6.3-8.2) g/dL Albumin 2.8 L (3.5-5.0) g/dL 01/26/25 01/26/25 Range/Units 13:11 13:11 WBC (4.50-10.00) 10*3/uL RBC (4.40-5.60) 10*6/uL Hgb (13.0-17.0) g/dL Hct (39.6-50.0) % MCV (80.0-97.0) fL MCH (27.0-32.0) pg MCHC (32.0-37.0) g/dL Plt Count (140-440) 10*3/uL MPV (9.5-12.2) fL Immature Gran % (Auto) % Neutrophils % % Lymphocytes % % Monocytes % % Eosinophils % % Basophils % % Immature Gran # (0.00-0.04) 10*3/uL Neutrophils # (1.80-7.70) 10*3/uL Lymphocytes # (0.90-5.00) 10*3/uL Monocytes # (0.20-1.00) 10*3/uL Eosinophils # (0.04-0.35) 10*3/uL Basophils # (0.00-0.10) 10*3/uL PT (10.0-12.5) sec INR (<1.2) APTT (22.0-30.0) sec Sodium (137-145) mmol/L Potassium (3.5-5.1) mmol/L Chloride (98-107) mmol/L Carbon Dioxide (22-30) mmol/L Anion Gap mmol/L BUN (9-20) mg/dL Creatinine (0.66-1.25) mg/dL Est GFR (CKD-EPI)AfAm (>60 ml/min/1.73 sqM) Est GFR (CKD-EPI)NonAf (>60 ml/min/1.73 sqM) Glucose (74-99) mg/dL Plasma Lactic Acid Ashish 3.0 H* (0.7-2.0) mmol/L Calcium (8.4-10.2) mg/dL Magnesium (1.6-2.3) mg/dL Total Bilirubin (0.2-1.3) mg/dL AST (17-59) U/L ALT (4-49) U/L Alkaline Phosphatase (38-126) U/L Troponin I <0.012 (0.000-0.034) ng/mL NT-Pro-B Natriuret Pep pg/mL Total Protein (6.3-8.2) g/dL Albumin (3.5-5.0) g/dL Disposition Clinical Impression: Pleural effusion, Dyspnea, History of lung cancer Disposition: ADMITTED IP TO THIS HOSP Condition: Stable Is patient prescribed a controlled substance at d/c from ED?: No Referrals: Moose Simpson DO [Primary Care Provider] - 1-2 days Time of Disposition: 14:23
[2025-01-26 13:47] LABS: Basophils # (A) 0.09 10*3/uL (0.00-0.10); Eosinophils # (A) 0.11 10*3/uL (0.04-0.35); Eosinophils % (A) 1.2 %; HCT 37.3 % (39.6-50.0); Lymphocytes # (A) 0.68 10*3/uL (0.90-5.00); Lymphocytes % (A) 7.7 %; MCH 28.9 pg (27.0-32.0); MCHC 32.2 g/dL (32.0-37.0); MCV 89.9 fL (80.0-97.0); Mean Platelet Volume 9.5 fL (9.5-12.2); Monocytes # (A) 0.94 10*3/uL (0.20-1.00); Monocytes % (A) 10.6 %; Neutrophils # (A) 6.94 10*3/uL (1.80-7.70); Neutrophils % (A) 78.5 %; Platelet Count 533 10*3/uL (140-440); RBC 4.15 10*6/uL (4.40-5.60); RDW 15.8 % (11.5-14.5); WBC 8.85 10*3/uL (4.50-10.00)
--- NOTE | 2025-01-26 13:58 | XR ---
EXAMINATION TYPE: XR chest 2V DATE OF EXAM: 01/26/2025 CLINICAL INDICATION: Male, 59 years old with history of difficulty breathing, TECHNIQUE: Frontal and lateral views of the chest are obtained. COMPARISON: Chest CT June 21, 2024 FINDINGS: Completely opacified right hemithorax on the current study. There is some tracheal shift to the left noted . Left lung shows chronic emphysematous change without acute pulmonary process. Silho uetting right heart border adenopathy. Surgical change right shoulder is redemonstrated. Surgical cli ps epigastric region and left upper quadrant are noted. IMPRESSION: Completely opacified right hemithorax. Findings suggest neoplastic progression right gracia r region with obstructive atelectasis. Given findings of right lung expansion a New pleural effusion component has to be considered. [facility], , 01/26/2025 1:55 PM
[2025-01-26 14:02] LABS: ALT 76 U/L (4-49); AST 160 U/L (17-59); African American GFR (CKD) >90 (>60 ml/min/1.73 sqM); Albumin 2.8 g/dL (3.5-5.0); Alkaline Phosphatase 362 U/L (38-126); Anion Gap 6 mmol/L; Blood Urea Nitrogen 15 mg/dL (9-20); Calcium 8.8 mg/dL (8.4-10.2); Carbon Dioxide 24 mmol/L (22-30); Chloride 109 mmol/L (98-107); Glucose 93 mg/dL (74-99); Magnesium 2.1 mg/dL (1.6-2.3); Non-African American GFR(CKD) >90 (>60 ml/min/1.73 sqM); Potassium 4.5 mmol/L (3.5-5.1); Sodium 139 mmol/L (137-145); Total Bilirubin 0.6 mg/dL (0.2-1.3); Total Protein 6.3 g/dL (6.3-8.2)
[2025-01-26 14:06] LABS: Partial Thromboplastin Time 24.1 sec (22.0-30.0); Prothrombin Time 10.8 sec (10.0-12.5)
[2025-01-26 14:10] LABS: NT-Pro-B-Type Natriuretic Pept 768 pg/mL
[2025-01-26] MEDS ORDERED: NALOXONE 0.4 MG/ML 1 ML VIAL IV PRN (14:13)
[2025-01-26] MEDS: IPRATROPIUM-ALBUTEROL 3 ML NEB INHALATION STA (14:28)
[2025-01-26] MEDS: ALBUTEROL NEBULIZED 2.5 MG/3 ML INHALATION STA (14:29)
[2025-01-26] MEDS: SODIUM CHLORIDE 0.9% 1,000 ML IV SCH (15:02)
[2025-01-26] MEDS: SODIUM CHLORIDE 0.9% 500 ML 500 ML IV ONE (15:02)
--- NOTE | 2025-01-26 15:14 | US ---
EXAMINATION TYPE: US chest DATE OF EXAM: 01/26/2025 COMPARISON: XR chest 01/26/2025. Chest CT June 21, 2024 CLINICAL INDICATION: Male, 59 years old with history of Dyspnea, pleural effusion, please vani level; Pleural effusion TECHNIQUE: Grayscale imaging of the chest. Targeted ultrasound of the posterior lower right hemithor ax FINDINGS: EXAM MEASUREMENTS: Right Pleural Effusion pocket size: 23.8 cm Right skin surface to fluid distance: 3.7 cm Right side marked for possible thoracentesis outside the dept. Pulmonologists are able to review the images in the patient?s EMR. IMPRESSIONS: Large right-sided pleural effusion is confirmed. [facility], , 01/26/2025 3:11 PM
--- NOTE | 2025-01-26 15:25 | P.CNPUL ---
History of Present Illness Consult date: 01/26/25 Requesting physician: Kem Edmond Reason for consult: dyspnea, abnormal CXR/CT Chief complaint: Shortness of breath History of present illness: This is a 59-year-old male patient with a known history of former smoker, COPD maintained on Trelegy, hypothyroidism, hypertension and lung cancer diagnosed in 2016. He had a large obstructive mass in the right mainstem bronchus that was positive for carcinoma with chemotherapy and currently in remission. His last CT scan of the chest revealed a soft tissue encasement and volume loss of the right hilum and right perihilar bronchovascular bundles corresponding with treated disease. No definitive recurrence for metastatic disease. Development of a right lower lung reticular opacities likely representing bronchiolitis on a CT scan in June 2024. He presented to the emergency room today with a 2 to 3-week history of increasing shortness of breath cough and congestion. Chest x- ray reveals a completely opacified right hemithorax. Findings suggest neoplastic progression right hilar region with obstructive atelectasis. White count 8.8. Hemoglobin 12.0. Platelets 533. INR 1.0. Sodium 139. Potassium 4.5. Bicarb 24. BUN 15. Creatinine 0.59. AST 160. ALT 76. Alk phos 362. Troponin negative x 1. proBNP 768. He is seen today in consultation in the emergency department. He is currently sitting up on the stretcher. Awake and alert in mild respiratory distress. He is initially maintaining good O2 saturations in the 90s on room air oxygen. He is receiving a updraft treatment. He is afebrile. Blood pressure stable. He is sinus tachycardia in the 120s. Review of Systems REVIEW OF SYSTEMS: CONSTITUTIONAL: Denies any recent significant weight loss or weight gain. EYES: Denies change in vision. EARS, NOSE, MOUTH, THROAT: Denies headaches, denies sore throat. CARDIOVASCULAR: Denies chest pain, palpitations or syncopal episodes. RESPIRATORY: Positive for shortness of breath, cough, congestion no hemoptysis. GASTROINTESTINAL: Denies change in appetite, denies abdominal pain GENITOURINARY: Denies hematuria, denies infections. MUSKULOSKELETAL: Denies pain, denies swelling. INTEGUMENTARY: Denies rash, denies eczema. NEUROLOGICAL: Denies recent memory loss, no recent seizure activity. PSYCHIATRIC: Denies anxiety, denies depression. HEMATOLOGIC/LYMPHATIC: Denies anemia, denies enlarged lymph nodes. Past Medical History Past Medical History: Cancer, Chest Pain / Angina, COPD, Thyroid Disorder Additional Past Medical History / Comment(s): Hx Non-small cell lung cancer, 6 yrs ago, had chemo and radiation. stage 4 lung disease. History of Any Multi-Drug Resistant Organisms: None Reported Past Surgical History: Bariatric Surgery, Joint Replacement Additional Past Surgical History / Comment(s): RIGHT SHOULDER REPLACEMENT, ARTHUR EN Y, EGD. Past Anesthesia/Blood Transfusion Reactions: No Reported Reaction Past Psychological History: No Psychological Hx Reported Smoking Status: Current some day smoker Past Alcohol Use History: Occasional Past Drug Use History: None Reported - Past Family History Mother Family Medical History: No Reported History Medications and Allergies Home Medications Medication Instructions Recorded Confirmed Type Budesonide-Formot 160-4.5 Mcg 1 puff INHALATION DAILY 11/29/19 05/29/23 History [Symbicort 160-4.5 Mcg Inhaler (Bulk)] Albuterol Inhaler [Ventolin Hfa 1 - 2 puff INHALATION Q6H PRN 05/27/23 05/29/23 History Inhaler] Fluticasone/Umeclidin/Vilanter 1 puff INHALATION DAILY 05/27/23 05/29/23 History [Trelegy Ellipta 100-62.5-25] Isosorbide Mononitrate [Isosorbide 30 mg PO DAILY 05/27/23 05/29/23 History Mononitrate ER] Levothyroxine Sodium 25 mcg PO DAILY 05/27/23 05/29/23 History Metoprolol Succinate (ER) [Toprol 100 mg PO DAILY 05/27/23 05/29/23 History Xl] Tiotropium 18 Mcg/Puff [Spiriva] 1 puff INHALATION DAILY 05/27/23 05/29/23 History predniSONE 60 mg PO DAILY #30 tab 06/04/24 Rx Allergies Allergy/AdvReac Type Severity Reaction Status Date / Time No Known Allergies Allergy Verified 01/26/25 12:42 Physical Exam Vitals: Vital Signs Temp Pulse Resp BP Pulse Ox 01/26/25 15:03 126 H 20 115/74 97 01/26/25 14:46 122 H 01/26/25 14:29 120 H 01/26/25 12:36 98 F 114 H 18 110/73 96 Intake and Output 01/26/25 01/26/25 01/26/25 06:59 14:59 22:59 Other: Weight 81.647 kg GENERAL EXAM: Alert, pleasant 59-year-old male, on room air oxygen, fairly comfortable in no apparent distress. HEAD: Normocephalic. EYES: Normal reaction of pupils, equal size. NOSE: Clear with pink turbinates. THROAT: No erythema or exudates. NECK: No masses, no JVD. CHEST: No chest wall deformity. LUNGS: Equal air entry with no no breath sounds over the right lung. Left lung clear.. CVS: S1 and S2 normal with no audible murmur, regular rhythm. ABDOMEN: No hepatosplenomegaly, normal bowel sounds, no guarding or rigidity. SPINE: No scoliosis or deformity SKIN: No rashes CENTRAL NERVOUS SYSTEM: No focal deficits, tone is normal in all 4 extremities. EXTREMITIES: There is no peripheral edema. No clubbing, no cyanosis. Peripheral pulses are intact. Results - Laboratory Findings CBC and BMP: 01/26/25 13:11 01/26/25 13:11 PT/INR, D-dimer PT 10.8 sec (10.0-12.5) 01/26/25 13:11 INR 1.0 (<1.2) 01/26/25 13:11 Abnormal lab findings: Abnormal Labs 01/26/25 01/26/25 01/26/25 13:11 13:11 13:11 RBC 4.15 L Hgb 12.0 L Hct 37.3 L Plt Count 533 H Immature Gran # 0.09 H Lymphocytes # 0.68 L Chloride 109 H Creatinine 0.59 L Plasma Lactic Acid Ashish 3.0 H* AST 160 H ALT 76 H Alkaline Phosphatase 362 H Albumin 2.8 L - Diagnostic Findings Chest x-ray: image reviewed Assessment and Plan Assessment: Progressive dyspnea over the past 2 to 3 weeks. Chest x-ray shows complete opacification of the right lung Sinus tachycardia secondary to above History of stage IV non-small cell lung cancer diagnosed in 2016, status post chemo/radiation and in remission. Last CT scan of the chest in June 2024 revealed similar soft tissue encasement and volume loss of the right hilum and right perihilar bronchovascular bundles corresponding to treated disease. No definitive recurrence or metastatic disease. Development of a right lower lung reticular opacities likely representing bronchiolitis Chronic tobacco dependence Chronic obstructive pulmonary disease Hypertension Previous bariatric surgery Hypothyroidism Plan: The patient was seen and evaluated Chest x-ray, labs and medications reviewed Ordered a stat ultrasound of the chest May need thoracentesis versus bronchoscopy Currently stable and on room air oxygen Continue bronchodilators Resume home medication Plan discussed with the patient and at the bedside Verbalized understanding and are in agreement to the plan We will continue to follow and make further recommendations based on his clinical status I have personally seen and examined the patient, performed the documentation and the assessment and plan as written. Number of minutes spent on the visit: 20 Dictation was produced using [employer] dictation software. Please excuse any grammatical, word or spelling errors. Time with Patient: Greater than 30
--- NOTE | 2025-01-26 16:22 | P.HPIM ---
History of Present Illness H&P Date: 01/26/25 Patient is a 59-year-old male with past medical history of dysphagia, esophageal strictures status post dilation, history of gastric bypass surgery, COPD, history of bronchogenic carcinoma diagnosis 2016,, who presented to the ER on 01/26/2025 with worsening shortness of breath and cough, patient was sent from [place]. Patient's is at bedside, provides collateral history. Patient was in remission for 7 years stage IV lung cancer, reportedly. He underwent chemo and radiation therapy. His symptoms started 2 to 3 weeks ago, no associated chest pain, fevers, chills, denies history of CHF Review of the external CT chest done on 06/21/2024,, at that time no evidence of disease progression/recurrence. On arrival afebrile, tachycardic in 100s 112, BP stable 110/73, satting well on room air. Underwent extensive workup in the ER, WBC count normal, hemoglobin 12.0, stable from before, platelet count elevated 533, normal coagulation panel, sodium, potassium and bicarb WNL, creatinine 0.59, plasma lactic acid 3.0, AST and ALT elevated 09/22/1975 accordingly, previously his AST was up to 74, troponin negative, BNP 768. EKG showed sinus tachycardia, QTc 413. X-ray was performed and showed completely opacified right hemithorax. Chest ultrasound showed right pleural effusion pocket, was marked for thoracentesis. Patient was discussed with ER physician, accepted for inpatient admission with pulmonology consultation, oncology consultation. Pulmonology was at bedside to perform thoracentesis, 2.8 L serosanguineous output, stat chest x-ray ordered, Pertinent positives and negatives as discussed in HPI, a complete review of systems was performed and all other systems are negative. Patient seen and examined at bedside. Vital signs reviewed General: nontoxic, no distress, appears at stated age, cushingoid appearance Derm: warm, dry Head: atraumatic, normocephalic, symmetric Eyes: EOMI, no lid lag, anicteric sclera, pupils equal round reactive to light ENT: Nose and ears atraumatic Neck: No thyromegaly, supple Mouth: no lip lesion, mucus membranes moist Cardiovascular: S1S2 reg, no murmur, no edema Lungs: Left hemithorax breath sounds absent Abdominal: soft, nontender to palpation, no guarding, no appreciable organomegaly Ext: no gross muscle atrophy, muscle strength muscle strength 5 out of 5 in all 4 extremities, no contractures Neuro: CN II-XII grossly intact Psych: Alert, oriented, appropriate affect Assessment/Plan: Dyspnea secondary to large right-sided pleural effusion, likely malignant status postthoracentesis with 2.8 Loutput history of bronchogenic carcinoma diagnosis 2017 Former smoker quit in August 2024 -Concern for disease progression -Oncology consulted, appreciate recommendations -Pulmonology consulted, appreciate recommendations - Follow-up pleural fluid analysis -Follow-up lactic acid level -Pain control with [place] 5 every 4 hour as needed, morphine 2 mg every 6 hours as needed -Continue breathing treatment with DuoNebs every 2 hours as need, scheduled DuoNeb 4 times daily Sinus tachycardia -Continue telemetry Chronic anemia, at baseline Elevated liver enzymes -Repeat CMP, no abdominal pain COPD not in acute exacerbation -Symbicort 160/4.5 twice daily, DuoNebs 4 times daily dysphagia esophageal strictures status post dilation history of gastric bypass surgery - Home medications not reconciled The patient is admitted with an anticipated greater than 2 midnight stay as inpatient status for evaluation of large pleural effusion. Surrogate decision-maker: CODE STATUS: Full code DVT prophylaxis: SCD. Anticipated discharge date: TBD Anticipated discharge place: [facility] A total of 50 minutes was spent on the care of this complex patient more than 50% of the time was spent in counseling and care coordination. Past Medical History Past Medical History: Cancer, Chest Pain / Angina, COPD, Thyroid Disorder Additional Past Medical History / Comment(s): Hx Non-small cell lung cancer, 6 yrs ago, had chemo and radiation. stage 4 lung disease. History of Any Multi-Drug Resistant Organisms: None Reported Past Surgical History: Bariatric Surgery, Joint Replacement Additional Past Surgical History / Comment(s): RIGHT SHOULDER REPLACEMENT, ARTHUR EN Y, EGD. Past Anesthesia/Blood Transfusion Reactions: No Reported Reaction Past Psychological History: No Psychological Hx Reported Smoking Status: Current some day smoker Past Alcohol Use History: Occasional Past Drug Use History: None Reported - Past Family History Mother Family Medical History: No Reported History Medications and Allergies Home Medications Medication Instructions Recorded Confirmed Type Budesonide-Formot 160-4.5 Mcg 1 puff INHALATION DAILY 11/29/19 05/29/23 History [Symbicort 160-4.5 Mcg Inhaler (Bulk)] Albuterol Inhaler [Ventolin Hfa 1 - 2 puff INHALATION Q6H PRN 05/27/23 05/29/23 History Inhaler] Fluticasone/Umeclidin/Vilanter 1 puff INHALATION DAILY 05/27/23 05/29/23 History [Trelegy Ellipta 100-62.5-25] Isosorbide Mononitrate [Isosorbide 30 mg PO DAILY 05/27/23 05/29/23 History Mononitrate ER] Levothyroxine Sodium 25 mcg PO DAILY 05/27/23 05/29/23 History Metoprolol Succinate (ER) [Toprol 100 mg PO DAILY 05/27/23 05/29/23 History Xl] Tiotropium 18 Mcg/Puff [Spiriva] 1 puff INHALATION DAILY 05/27/23 05/29/23 H istory predniSONE 60 mg PO DAILY #30 tab 06/04/24 Rx Allergies Allergy/AdvReac Type Severity Reaction Status Date / Time No Known Allergies Allergy Verified 01/26/25 12:42 Physical Exam Vitals: Vital Signs Temp Pulse Resp BP Pulse Ox 01/26/25 15:03 126 H 20 115/74 97 01/26/25 14:46 122 H 01/26/25 14:29 120 H 01/26/25 12:36 98 F 114 H 18 110/73 96 Intake and Output 01/26/25 01/26/25 01/26/25 06:59 14:59 22:59 Other: Weight 81.647 kg Results CBC & Chem 7: 01/26/25 13:11 01/26/25 13:11 Labs: Abnormal Lab Results - Last 24 Hours (Table) 01/26/25 01/26/25 01/26/25 Range/Units 13:11 13:11 13:11 RBC 4.15 L (4.40-5.60) 10*6/uL Hgb 12.0 L (13.0-17.0) g/dL Hct 37.3 L (39.6-50.0) % Plt Count 533 H (140-440) 10*3/uL Immature Gran # 0.09 H (0.00-0.04) 10*3/uL Lymphocytes # 0.68 L (0.90-5.00) 10*3/uL Chloride 109 H (98-107) mmol/L Creatinine 0.59 L (0.66-1.25) mg/dL Plasma Lactic Acid Ashish 3.0 H* (0.7-2.0) mmol/L AST 160 H (17-59) U/L ALT 76 H (4-49) U/L Alkaline Phosphatase 362 H (38-126) U/L Albumin 2.8 L (3.5-5.0) g/dL
--- NOTE | 2025-01-26 16:22 | XR ---
EXAMINATION TYPE: XR chest 1V portable DATE OF EXAM: 01/26/2025 CLINICAL INDICATION: Male, 59 years old with history of post thoracentesis, progress study. TECHNIQUE: Single AP portable upright view of the chest is obtained. COMPARISON: Chest x-ray from earlier today FINDINGS: Persistently completely opacified right hemithorax after thoracentesis. There is improved mediastinal shift noted. No pneumothorax identified. Background chronic emphysematous change in the l eft lung is redemonstrated. Surgical clips epigastric region redemonstrated. Silhouetting right heart border redemonstrated. Surgical changes right shoulder partially imaged. IMPRESSION: No pneumothorax after right-sided thoracentesis. Persistent opacified right hemithorax. I mproved tracheal deviation to the left after thoracentesis. Underlying obstructing mass or neoplasm s uspected when correlating with most recent prior CT. There is presumed significant residual pleural e ffusion also. [facility], , 01/26/2025 4:20 PM
[2025-01-26] MEDS: IPRATROPIUM-ALBUTEROL 3 ML NEB INHALATION SCH (17:14)
[2025-01-26] MEDS: HYDROcodone/APAP 5-325MG 1 EACH TAB PO PRN (19:09)
[2025-01-26] MEDS: SYMBICORT 160-4.5 MCG INHALER INHALATION SCH (20:21)
--- NOTE | 2025-01-26 22:22 | OP ---
OPERATIVE REPORT DATE OF SERVICE : PROCEDURE PERFORMED: Right-sided thoracentesis. PREOPERATIVE DIAGNOSIS: Right pleural effusion. POSTOPERATIVE DIAGNOSIS: Right pleural effusion. ANESTHESIA USED: 2 mL of 1% lidocaine. PROCEDURE IN DETAIL: The patient was placed in a sitting upright position, the area of the right back below the scapula was prepared in a sterile fashion. Drapes were applied. The area was locally anesthetized with lidocaine, and the pleural space was entered with 26-gauge needle. Then a small tiny incision was made, and the standard thoracentesis catheter and needle used. Advanced into the pleural space and as soon as the fluid was obtained, which was noted to be grossly bloody, the catheter was advanced over the needle and the needle was pulled out of the pleural space. Roughly 2800 mL of grossly bloody pleural effusion was removed from the right pleural space. Chest x-ray was ordered postoperatively, and that is pending. Procedure was well-tolerated. No immediate complications. Considering the amount of the fluid drained and considering the fluid is bloody, the patient may have a trapped lung. MMODL / IJN: [id number] /
[2025-01-27 00:23] LABS: Basophils % (A) 1.1 %; Eosinophils # (A) 0.08 10*3/uL (0.04-0.35); Eosinophils % (A) 0.9 %; HCT 33.5 % (39.6-50.0); HGB 10.6 g/dL (13.0-17.0); Lymphocytes # (A) 0.93 10*3/uL (0.90-5.00); Lymphocytes % (A) 10.1 %; MCHC 31.6 g/dL (32.0-37.0); MCV 91.5 fL (80.0-97.0); Mean Platelet Volume 9.9 fL (9.5-12.2); Monocytes # (A) 1.46 10*3/uL (0.20-1.00); Monocytes % (A) 15.9 %; Neutrophils # (A) 6.56 10*3/uL (1.80-7.70); Neutrophils % (A) 71.1 %; Platelet Count 506 10*3/uL (140-440); RBC 3.66 10*6/uL (4.40-5.60); RDW 15.8 % (11.5-14.5); WBC 9.21 10*3/uL (4.50-10.00)
[2025-01-27 00:44] LABS: ALT 58 U/L (4-49); AST 90 U/L (17-59); African American GFR (CKD) >90 (>60 ml/min/1.73 sqM); Albumin 2.5 g/dL (3.5-5.0); Albumin/Globulin Ratio 0.8; Alkaline Phosphatase 315 U/L (38-126); Anion Gap 8 mmol/L; Blood Urea Nitrogen 15 mg/dL (9-20); Carbon Dioxide 23 mmol/L (22-30); Chloride 105 mmol/L (98-107); Globulin 3.1 g/dL; Glucose 113 mg/dL (74-99); Non-African American GFR(CKD) >90 (>60 ml/min/1.73 sqM); Potassium 4.1 mmol/L (3.5-5.1); Sodium 136 mmol/L (137-145); Total Bilirubin 0.4 mg/dL (0.2-1.3); Total Protein 5.6 g/dL (6.3-8.2)
[2025-01-27 04:37] LABS: Glucose, BF Source Pleural Fluid; Glucose, Body Fluid 42 mg/dL; LDH, Body Fluid Source Pleural Fluid; T. Protein, Body Fluid Source Pleural Fluid; Total Protein, Body Fluid 2630 mg/dL
[2025-01-27 04:52] LABS: Appearance,BF Grossly Bloody (Clear)
[2025-01-27] MEDS: LEVOTHYROXINE 50 MCG TAB PO SCH (06:28)
--- NOTE | 2025-01-27 07:36 | XR ---
EXAMINATION TYPE: XR chest 1V portable DATE OF EXAM: 01/27/2025 CLINICAL INDICATION: Male, 59 years old with history of effusion, progress study. TECHNIQUE: Single AP portable upright view of the chest is obtained. COMPARISON: Chest x-ray from one day earlier and older studies. FINDINGS: Persistently completely opacified right hemithorax. No significant mediastinal shift curre ntly. Background chronic emphysematous change in the left lung is redemonstrated. Surgical clips epig astric region redemonstrated. Silhouetting right heart border redemonstrated. Surgical changes right shoulder redemonstrated. IMPRESSION: Persistent opacified right hemithorax. Underlying obstructing mass or neoplasm suspected when correlating with most recent prior CT. There is presumed significant residual pleural effusion a lso. No significant change from most recent x-ray. [facility], , 01/27/2025 7:34 AM
[2025-01-27] MEDS ORDERED: RX INFO: IV CONTRAST WAS GIVEN 1 EACH MISC MISCELLANE PRN (08:35)
--- NOTE | 2025-01-27 09:19 | CT ---
EXAMINATION TYPE: CT chest w con DATE OF EXAM: 01/27/2025 8:54 AM COMPARISON: Radiograph same day and prior CT chest 06/21/2024 CLINICAL INDICATION: Male, 59 years old with history of Pleural effusion, lung cancer; PHH, pleural e ffusion TECHNIQUE: CT of the chest after IV contrast administration. Coronal and sagittal reconstructions wer e created for review. MIP was performed on a separate workstation. Contrast used:100 mL of Isovue [address] DLP: 370.1 mGycm, Automated exposure control for dose reduction was used. FINDINGS: Prominent artifacts related to the patient's reverse right total shoulder arthroplasty. Heart is normal size with small pericardial effusion measuring up to 1.1 cm. Circumflex coronary calc ifications are present. Aorta normal caliber with conventional arch vessel branching anatomy. Scattered mediastinal adenopathy. Right paratracheal nodes measuring up to 1.5 cm. Right pericardiac nodes measuring up to 2.2 cm. Lower left paraesophageal node measuring 1.4 cm. There is cut off of the right mainstem bronchus probably from abnormal soft tissue encasing the right hilum. There is collapse of the entire right lung with a large effusion. Suggestion of mild diffuse pleural thickening. Some patchy groundglass changes within the left lower lung. Minimal emphysematous change. Rectus diastases noted in the upper abdomen. Gallbladder mildly hydropic measuring 4.2 cm wide probably relating to fasting state. Nonobstructing right renal stones measuring up to 1.7 cm. Postsurgical change of Yancy-en-Y gastric bypass. Subtle contour nodularity of the liver. Correlate to exclude underlying cirrhosis. Suspect some subacute fractures right anterior third through sixth ribs. Some underlying old rib frac ture deformities are also present on the right. Old healed fracture deformities along the left side of the chest. Mild anterior wedge deformities T10 and T12 have developed in the interval but are age indeterminate, probably chronic. IMPRESSION: 1. Cut off of the right mainstem bronchus likely due to encasing right hilar mass. There is collapse of the entire right lung and a large right pleural effusion with mild smooth pleural thickening, poss ible metastatic pleural effusion. 2. Right hilar adenopathy measuring up to 1.5 cm and right paracardiac adenopathy measuring up to 2.2 cm. 3. Some mild patchy groundglass change at the left lower lung suggests some early inflammatory infilt rates. Possibly related to mild aspiration. 4. There appear to be subacute fractures involving the right anterior third through sixth ribs. Clini mary jane correlate. Additional old bilateral rib fracture deformities. 5. Query underlying cirrhosis. 6. 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 [facility], , 01/27/2025 9:17 AM
--- NOTE | 2025-01-27 10:56 | US ---
EXAMINATION TYPE: US guided chest tube insertion DATE OF EXAM: 01/27/2025 10:51 AM CLINICAL INDICATION:Male, 59 years old with history of right pleural effusion COMPARISON: CT and plain film TECHNIQUE: Ultrasound-guided chest tube insertion. PROCEDURE: Informed consent was obtained. Safe access in the right pleural effusion was identified via ultrasoun d. The safest allowable access to the right pleural space. The patient was then prepped and draped in the usual sterile fashion. Local anesthesia was provided. Trocar technique was used with a 8-B[place]i pigtail catheter placed into pleural space. Placement was confirmed with ultrasound guidance. Approximately 60 mL was drained and sent to the lab for analysis. A water sealed container was then hooked up. The tubing was affixed to the skin. There was no blood loss and post-procedure hemostasis was achieved. The patient tolerated the procedure well without complication. Patient was transferr ed to the general medical floor in stable condition. IMPRESSION: Successful 8 [place]i tube placement within the pleural space which was left in place. [facility], , 01/27/2025 10:53 AM
[2025-01-27] MEDS: MORPHINE SULFATE 2 MG/ML SYRINGE IVP PRN (11:08)
--- NOTE | 2025-01-27 12:07 | P.PN ---
Subjective Progress Note Date: 01/27/25 This is a 59-year-old male patient with a known history of former smoker, COPD maintained on Trelegy, hypothyroidism, hypertension and lung cancer diagnosed in 2016. He had a large obstructive mass in the right mainstem bronchus that was positive for carcinoma with chemotherapy and currently in remission. His last CT scan of the chest revealed a soft tissue encasement and volume loss of the right hilum and right perihilar bronchovascular bundles corresponding with treated disease. No definitive recurrence for metastatic disease. Development of a right lower lung reticular opacities likely representing bronchiolitis on a CT scan in June 2024. He presented to the emergency room today with a 2 to 3-week history of increasing shortness of breath cough and congestion. Chest x- ray reveals a completely opacified right hemithorax. Findings suggest neoplastic progression right hilar region with obstructive atelectasis. White count 8.8. Hemoglobin 12.0. Platelets 533. INR 1.0. Sodium 139. Potassium 4.5. Bicarb 24. BUN 15. Creatinine 0.59. AST 160. ALT 76. Alk phos 362. Troponin negative x 1. proBNP 768. He is seen today in consultation in the emergency department. He is currently sitting up on the stretcher. Awake and alert in mild respiratory distress. He is initially maintaining good O2 saturations in the 90s on room air oxygen. He is receiving a updraft treatment. He is afebrile. Blood pressure stable. He is sinus tachycardia in the 120s. The patient is seen today January 27, 2025 in follow-up in the emergency department. He is currently sitting up at the bedside. Awake and alert in no acute distress. He is still dyspneic with conversation. Dyspneic with minimal exertion. He is maintaining good O2 saturations in the mid 90s on 2 L/min per nasal cannula. He was without his oxygen for a brief walk to the bathroom and dropped into the 70s. He remains tachycardic. He is afebrile. He did undergo a right sided thoracentesis yesterday with 2.8 L of bloody fluid returned. Follow-up chest x-ray continued to show significant pleural effusion but no pneumothorax. White count 9.1. Hemoglobin 10.6. Platelets 506. Sodium 136. Potassium 4.1. Bicarb 23. BUN 15. Creatinine 0.62. Glucose 113. AST 90. ALT 58. Pleural fluid reveals exudate with a total protein of 2.6. LDH 161. WBCs 1372. Cytology pending. He is continued on DuoNeb inhalations, Symbicort. Objective - Vital Signs Vital signs: Vital Signs Temp 97.7 F 01/27/25 11:08 Pulse 125 H 01/27/25 11:41 Resp 22 01/27/25 11:08 BP 111/77 01/27/25 11:08 Pulse Ox 96 01/27/25 11:08 FiO2 Intake & Output 01/26/25 01/27/25 01/27/25 18:59 06:59 18:59 Weight 81.647 kg - Exam GENERAL EXAM: Alert, 59-year-old male, on 2 L nasal cannula, fairly comfortable in no apparent distress. HEAD: Normocephalic. EYES: Normal reaction of pupils, equal size. NOSE: Clear with pink turbinates. THROAT: No erythema or exudates. NECK: No masses, no JVD. CHEST: No chest wall deformity. LUNGS: Equal air entry with no no breath sounds over the right lung. Left lung clear. CVS: S1 and S2 normal with no audible murmur, regular rhythm. ABDOMEN: No hepatosplenomegaly, normal bowel sounds, no guarding or rigidity. SPINE: No scoliosis or deformity SKIN: No rashes CENTRAL NERVOUS SYSTEM: No focal deficits, tone is normal in all 4 extremities. EXTREMITIES: There is no peripheral edema. No clubbing, no cyanosis. Peripheral pulses are intact. - Labs CBC & Chem 7: 01/27/25 00:02 01/27/25 00:02 Labs: Abnormal Lab Results - Last 24 Hours (Table) 01/26/25 01/26/25 01/26/25 Range/Units 13:11 13:11 13:11 RBC 4.15 L (4.40-5.60) 10*6/uL Hgb 12.0 L (13.0-17.0) g/dL Hct 37.3 L (39.6-50.0) % MCHC (32.0-37.0) g/dL RDW (11.5-14.5) % Plt Count 533 H (140-440) 10*3/uL Immature Gran # 0.09 H (0.00-0.04) 10*3/uL Lymphocytes # 0.68 L (0.90-5.00) 10*3/uL Monocytes # (0.20-1.00) 10*3/uL Sodium (137-145) mmol/L Chloride 109 H (98-107) mmol/L Creatinine 0.59 L (0.66-1.25) mg/dL Glucose (74-99) mg/dL Plasma Lactic Acid Ashish 3.0 H* (0.7-2.0) mmol/L AST 160 H (17-59) U/L ALT 76 H (4-49) U/L Alkaline Phosphatase 362 H (38-126) U/L Total Protein (6.3-8.2) g/dL Albumin 2.8 L (3.5-5.0) g/dL Fluid Appearance (Clear) 01/26/25 01/26/25 01/26/25 Range/Units 16:00 16:35 20:10 RBC (4.40-5.60) 10*6/uL Hgb (13.0-17.0) g/dL Hct (39.6-50.0) % MCHC (32.0-37.0) g/dL RDW (11.5-14.5) % Plt Count (140-440) 10*3/uL Immature Gran # (0.00-0.04) 10*3/uL Lymphocytes # (0.90-5.00) 10*3/uL Monocytes # (0.20-1.00) 10*3/uL Sodium (137-145) mmol/L Chloride (98-107) mmol/L Creatinine (0.66-1.25) mg/dL Glucose (74-99) mg/dL Plasma Lactic Acid Ashish 2.5 H* 4.7 H* (0.7-2.0) mmol/L AST (17-59) U/L ALT (4-49) U/L Alkaline Phosphatase (38-126) U/L Total Protein (6.3-8.2) g/dL Albumin (3.5-5.0) g/dL Fluid Appearance Grossly Bloody A (Clear) 01/26/25 01/27/25 01/27/25 Range/Units 23:58 00:02 00:02 RBC 3.66 L (4.40-5.60) 10*6/uL Hgb 10.6 L (13.0-17.0) g/dL Hct 33.5 L (39.6-50.0) % MCHC 31.6 L (32.0-37.0) g/dL RDW 15.8 H (11.5-14.5) % Plt Count 506 H (140-440) 10*3/uL Immature Gran # 0.08 H (0.00-0.04) 10*3/uL Lymphocytes # (0.90-5.00) 10*3/uL Monocytes # 1.46 H (0.20-1.00) 10*3/uL Sodium 136 L (137-145) mmol/L Chloride (98-107) mmol/L Creatinine 0.62 L (0.66-1.25) mg/dL Glucose 113 H (74-99) mg/dL Plasma Lactic Acid Ashish 4.0 H* (0.7-2.0) mmol/L AST 90 H (17-59) U/L ALT 58 H (4-49) U/L Alkaline Phosphatase 315 H (38-126) U/L Total Protein 5.6 L (6.3-8.2) g/dL Albumin 2.5 L (3.5-5.0) g/dL Fluid Appearance (Clear) 01/27/25 01/27/25 01/27/25 Range/Units 05:00 08:17 11:14 RBC (4.40-5.60) 10*6/uL Hgb (13.0-17.0) g/dL Hct (39.6-50.0) % MCHC (32.0-37.0) g/dL RDW (11.5-14.5) % Plt Count (140-440) 10*3/uL Immature Gran # (0.00-0.04) 10*3/uL Lymphocytes # (0.90-5.00) 10*3/uL Monocytes # (0.20-1.00) 10*3/uL Sodium (137-145) mmol/L Chloride (98-107) mmol/L Creatinine (0.66-1.25) mg/dL Glucose (74-99) mg/dL Plasma Lactic Acid Ashish 2.4 H* 2.6 H* 2.9 H* (0.7-2.0) mmol/L AST (17-59) U/L ALT (4-49) U/L Alkaline Phosphatase (38-126) U/L Total Protein (6.3-8.2) g/dL Albumin (3.5-5.0) g/dL Fluid Appearance (Clear) Assessment and Plan Assessment: Progressive dyspnea over the past 2 to 3 weeks. Chest x-ray shows complete opacification of the right lung. Status post thoracentesis on 01/26/2025 with 2.8 L of bloody fluid returned. Protein 2.6. Cytology pending Sinus tachycardia secondary to above History of stage IV non-small cell lung cancer diagnosed in 2016, status post chemo/radiation and in remission. Last CT scan of the chest in June 2024 revealed similar soft tissue encasement and volume loss of the right hilum and right perihilar bronchovascular bundles corresponding to treated disease. No definitive recurrence or metastatic disease. Development of a right lower lung reticular opacities likely representing bronchiolitis Chronic tobacco dependence Chronic obstructive pulmonary disease Hypertension Previous bariatric surgery Hypothyroidism Plan: The patient was seen and evaluated Chest x-ray, labs and medications reviewed Significant right-sided pleural effusion remains Pleural fluid cultures and cytology pending Consult interventional radiology for pigtail catheter placement Continue DuoNeb inhalations, Symbicort Add Solu-Medrol Add an incentive spirometer Titrate the FiO2 as tolerated Increase his activity as tolerated We will continue to follow I have personally seen and examined the patient, performed the documentation and the assessment and plan as written. Number of minutes spent on the visit: 10 Dictation was produced using [employer] dictation software. Please excuse any grammatical, word or spelling errors.
[2025-01-27] MEDS: methylPREDNISolone SOD SUCCI 125 MG/2 ML VIAL IV SCH (12:30)
--- NOTE | 2025-01-27 14:16 | P.PN ---
Subjective Progress Note Date: 01/27/25 Hospital Course: Patient is a 59-year-old male with past medical history of dysphagia, esophageal strictures status post dilation, history of gastric bypass surgery, COPD, history of bronchogenic carcinoma diagnosis 2016,, who presented to the ER on 01/26/2025 with worsening shortness of breath and cough, patient was sent from [place]. Patient's is at bedside, provides collateral history. Patient was in remission for 7 years stage IV lung cancer, reportedly. He underwent chemo and radiation therapy. His symptoms started 2 to 3 weeks ago, no associated chest pain, fevers, chills, denies history of CHF Review of the external CT chest done on 06/21/2024,, at that time no evidence of disease progression/recurrence. On arrival afebrile, tachycardic in 100s 112, BP stable 110/73, satting well on room air. Underwent extensive workup in the ER, WBC count normal, hemoglobin 12.0, stable from before, platelet count elevated 533, normal coagulation panel, sodium, potassium and bicarb WNL, creatinine 0.59, plasma lactic acid 3.0, AST and ALT elevated 09/22/1975 accordingly, previously his AST was up to 74, troponin negative, BNP 768. EKG showed sinus tachycardia, QTc 413. X-ray was performed and showed completely opacified right hemithorax. Chest ultrasound showed right pleural effusion pocket, was marked for thoracentesis. Patient was discussed with ER physician, accepted for inpatient admission with pulmonology consultation, oncology consultation. Pulmonology was at bedside to perform thoracentesis, 2.8 L of bloody fluid. Chest x-ray postthoracentesis showed no improvement, no pneumothorax. Pleural fluid analysis shows exudative effusion, cytology obtained and pending. CT chest with contrast showed of the right mainstem bronchus likely secondary to right hilar mass, collapse of the entire right lung with large right pleural effusion, right hilar adenopathy, right pericardiac adenopathy, subacute fractures of the right anterior 3rd through 6th ribs, possible underlying cirrhosis. IR consulted for pigtail catheter placement, Solu-Medrol added by pulmonology. 01/27: Patient was seen and examined after pigtail catheter placement, was in distress from pain, morphine provided. Shortness of breath somewhat better Pertinent Imaging: as above Pertinent positives and negatives as discussed above, a complete review of systems was performed and all other systems are negative. Vitals Signs Reviewed. General: [nontoxic], [no distress], [appears at stated age] Derm: [warm], [dry] Head: [atraumatic], [normocephalic], [symmetric] Eyes: [EOMI], [no lid lag], [anicteric sclera] Mouth: [no lip lesion], [mucus membranes moist] Cardiovascular: [S1S2 reg], [no murmur] Lungs: [CTA bilateral], [no rhonchi, no rales] , [no accessory muscle use] Abdominal: [soft], [ nontender to palpation], [no guarding], [no appreciable organomegaly] Ext: [no gross muscle atrophy], [no edema], [no contractures] Neuro: [ CN II-XI grossly intact], [no focal neuro deficits] Psych: [Alert], [oriented], [appropriate affect] Assessment and Plan: Dyspnea secondary to large right-sided pleural effusion, likely malignant status postthoracentesis with 2.8 Loutput 01/26, status post pigtail catheter placement 01/27/2025 history of bronchogenic carcinoma diagnosis 2017 Former smoker quit in August 2024 right hilar adenopathy, right pericardiac adenopathy subacute fractures of the right anterior 3rd through 6th ribs -Concern for disease progression -Oncology consulted, appreciate recommendations -Pulmonology consulted, appreciate recommendations -Pain control with Eugene 5 every 4 hour as needed, morphine 2 mg every 6 hours as needed -Continue breathing treatment with DuoNebs every 2 hours as need, scheduled DuoNeb 4 times daily -Started on Solu-Medrol 60 every 6 hourly by pulmonology Sinus tachycardia -Continue telemetry Acute on chronic anemia -Hemoglobin dropped from 12.0-10.6 - Continue to monitor CBC daily Elevated liver enzymes -Repeat CMP, no abdominal pain COPD not in acute exacerbation -Symbicort 160/4.5 twice daily, DuoNebs 4 times daily dysphagia esophageal strictures status post dilation history of gastric bypass surgery - Home medications not reconciled Surrogate decision-maker: CODE STATUS: Full code DVT prophylaxis: SCD. Anticipated discharge date: TBD Anticipated discharge place: D Objective - Vital Signs Vital signs: Vital Signs Temp 97.7 F 01/27/25 11:08 Pulse 141 H 01/27/25 12:40 Resp 22 01/27/25 12:40 BP 110/62 01/27/25 12:40 Pulse Ox 96 01/27/25 12:40 FiO2 Intake & Output 01/26/25 01/27/25 01/27/25 18:59 06:59 18:59 Output Total 1200 Balance -1200 Weight 81.647 kg Output: Chest Tube Drainage 1200 Chest Tube Right 1200 Posterior Chest - Labs CBC & Chem 7: 01/27/25 00:02 01/27/25 00:02 Labs: Abnormal Lab Results - Last 24 Hours (Table) 01/26/25 01/26/25 01/26/25 Range/Units 13:11 16:00 16:35 RBC (4.40-5.60) 10*6/uL Hgb (13.0-17.0) g/dL Hct (39.6-50.0) % MCHC (32.0-37.0) g/dL RDW (11.5-14.5) % Plt Count (140-440) 10*3/uL Immature Gran # (0.00-0.04) 10*3/uL Monocytes # (0.20-1.00) 10*3/uL Sodium (137-145) mmol/L Creatinine (0.66-1.25) mg/dL Glucose (74-99) mg/dL Plasma Lactic Acid Ashish 3.0 H* 2.5 H* (0.7-2.0) mmol/L AST (17-59) U/L ALT (4-49) U/L Alkaline Phosphatase (38-126) U/L Total Protein (6.3-8.2) g/dL Albumin (3.5-5.0) g/dL Fluid Appearance Grossly Bloody A (Clear) 01/26/25 01/26/25 01/27/25 Range/Units 20:10 23:58 00:02 RBC 3.66 L (4.40-5.60) 10*6/uL Hgb 10.6 L (13.0-17.0) g/dL Hct 33.5 L (39.6-50.0) % MCHC 31.6 L (32.0-37.0) g/dL RDW 15.8 H (11.5-14.5) % Plt Count 506 H (140-440) 10*3/uL Immature Gran # 0.08 H (0.00-0.04) 10*3/uL Monocytes # 1.46 H (0.20-1.00) 10*3/uL Sodium (137-145) mmol/L Creatinine (0.66-1.25) mg/dL Glucose (74-99) mg/dL Plasma Lactic Acid Ashish 4.7 H* 4.0 H* (0.7-2.0) mmol/L AST (17-59) U/L ALT (4-49) U/L Alkaline Phosphatase (38-126) U/L Total Protein (6.3-8.2) g/dL Albumin (3.5-5.0) g/dL Fluid Appearance (Clear) 01/27/25 01/27/25 01/27/25 Range/Units 00:02 05:00 08:17 RBC (4.40-5.60) 10*6/uL Hgb (13.0-17.0) g/dL Hct (39.6-50.0) % MCHC (32.0-37.0) g/dL RDW (11.5-14.5) % Plt Count (140-440) 10*3/uL Immature Gran # (0.00-0.04) 10*3/uL Monocytes # (0.20-1.00) 10*3/uL Sodium 136 L (137-145) mmol/L Creatinine 0.62 L (0.66-1.25) mg/dL Glucose 113 H (74-99) mg/dL Plasma Lactic Acid Ashish 2.4 H* 2.6 H* (0.7-2.0) mmol/L AST 90 H (17-59) U/L ALT 58 H (4-49) U/L Alkaline Phosphatase 315 H (38-126) U/L Total Protein 5.6 L (6.3-8.2) g/dL Albumin 2.5 L (3.5-5.0) g/dL Fluid Appearance (Clear) 01/27/25 Range/Units 11:14 RBC (4.40-5.60) 10*6/uL Hgb (13.0-17.0) g/dL Hct (39.6-50.0) % MCHC (32.0-37.0) g/dL RDW (11.5-14.5) % Plt Count (140-440) 10*3/uL Immature Gran # (0.00-0.04) 10*3/uL Monocytes # (0.20-1.00) 10*3/uL Sodium (137-145) mmol/L Creatinine (0.66-1.25) mg/dL Glucose (74-99) mg/dL Plasma Lactic Acid Ashish 2.9 H* (0.7-2.0) mmol/L AST (17-59) U/L ALT (4-49) U/L Alkaline Phosphatase (38-126) U/L Total Protein (6.3-8.2) g/dL Albumin (3.5-5.0) g/dL Fluid Appearance (Clear)
--- NOTE | 2025-01-27 14:18 | XR ---
EXAMINATION TYPE: XR chest 1V portable DATE OF EXAM: 01/27/2025 CLINICAL INDICATION: Male, 59 years old with history of Follow up pigtail placement, progress study. TECHNIQUE: Single AP portable upright view of the chest is obtained. COMPARISON: Chest x-ray and chest CT from earlier today FINDINGS: New right basilar pleural pigtail drainage catheter with small to moderate sized hydropneu mothorax inferiorly and laterally. There is right lung mass with obstructive atelectasis. There is ne w right-sided mediastinal shift after catheter insertion. Underlying emphysematous changes left lung is redemonstrated. Silhouetting right heart border redemonstrated. Advanced degenerative changes left glenohumeral joint. IMPRESSION: Some improvement in right-sided pleural effusion after pigtail catheter placement. Persis tent small to moderate right-sided hydropneumothorax. New right-sided mediastinal shift after cathete r placement. Persistent underlying mass/neoplasm and postobstructive atelectasis. [facility], , 01/27/2025 2:16 PM
[2025-01-27 17:11] LABS: Basophils # (A) 0.04 10*3/uL (0.00-0.10); Basophils % (A) 0.3 %; Eosinophils # (A) 0.01 10*3/uL (0.04-0.35); Eosinophils % (A) 0.1 %; HCT 36.3 % (39.6-50.0); HGB 11.7 g/dL (13.0-17.0); Lymphocytes # (A) 0.38 10*3/uL (0.90-5.00); Lymphocytes % (A) 2.9 %; MCH 28.8 pg (27.0-32.0); MCHC 32.2 g/dL (32.0-37.0); MCV 89.4 fL (80.0-97.0); Mean Platelet Volume 9.6 fL (9.5-12.2); Monocytes # (A) 0.21 10*3/uL (0.20-1.00); Monocytes % (A) 1.6 %; Neutrophils # (A) 12.26 10*3/uL (1.80-7.70); Neutrophils % (A) 94.3 %; Platelet Count 527 10*3/uL (140-440); RBC 4.06 10*6/uL (4.40-5.60); RDW 15.9 % (11.5-14.5); WBC 13.01 10*3/uL (4.50-10.00)
--- NOTE | 2025-01-27 17:19 | P.CONS ---
History of Present Illness - Reason for Consult Consult date: 01/27/25 Concern for malignancy - Chief Complaint Dyspnea - History of Present Illness Mr. 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 He has noted chronic intermittent cough that has become more persistent in addition to new onset dyspnea that is occurred over the past 2 weeks. Over the past 1 to 2 months, he has noticed weight loss, which he estimates between 10 to 20 pounds. In addition, he has noted some episodes of falls as well. Due to progressive dyspnea, he presented to the ED for additional evaluation. In the ED, he was noted to be tachycardic, but otherwise hemodynamically stable and afebrile. Labs noted CBC with WBC 8.85, hemoglobin 12, platelets 533. CMP was notable for AST 160, ALT 76, alkaline phosphatase 362. Troponin was negative. Chest x-ray noted completely opacified right hemithorax. He underwent thoracentesis on 01/26/2025 yielding 2800 cc of grossly bloody pleural effusion with concern for trapped lung. CT of the chest on 01/27/2025 noted collapse of the entire right lung with large right pleural effusion in the right mainstem bronchus being cut off due to encasing right hilar mass. There was evidence of right hilar and mediastinal lymphadenopathy as well. Subsequently, he had 8 [place]an tube placed within the pleural space today. Review of Systems 14 point view of systems was conducted pertinent positives and negatives as noted per HPI Past Medical History Past Medical History: Cancer, Chest Pain / Angina, COPD, Thyroid Disorder Additional Past Medical History / Comment(s): Hx Non-small cell lung cancer, 6 yrs ago, had chemo and radiation. stage 4 lung disease. History of Any Multi-Drug Resistant Organisms: None Reported Past Surgical History: Bariatric Surgery, Joint Replacement Additional Past Surgical History / Comment(s): RIGHT SHOULDER REPLACEMENT, ARTHUR EN Y, EGD. Past Anesthesia/Blood Transfusion Reactions: No Reported Reaction Past Psychological History: No Psychological Hx Reported Smoking Status: Current some day smoker Past Alcohol Use History: Occasional Past Drug Use History: None Reported - Past Family History Mother Family Medical History: No Reported History Medications and Allergies Home Medications Medication Instructions Recorded Confirmed Type Albuterol Inhaler [Ventolin Hfa 2 puff INHALATION RT-Q4H PRN 05/27/23 01/26/25 History Inhaler] Fluticasone/Umeclidin/Vilanter 1 puff INHALATION RT-DAILY 05/27/23 01/26/25 History [Trelegy Ellipta 100-62.5-25] Albuterol Nebulized [Ventolin 2.5 mg INHALATION RT-QID PRN 01/26/25 01/26/25 History Nebulized] Ascorbic Acid [Vitamin C] 500 mg PO DAILY 01/26/25 01/26/25 History Cholecalciferol [Vitamin D3 (25 50 mcg PO DAILY 01/26/25 01/26/25 History Mcg = 1000 Iu)] Levothyroxine Sodium [Synthroid] 50 mcg PO DAILY 01/26/25 01/26/25 History Multivitamins, Thera [Multivitamin 1 tab PO DAILY 01/26/25 01/26/25 History (formulary)] Allergies Allergy/AdvReac Type Severity Reaction Status Date / Time No Known Allergies Allergy Verified 01/26/25 17:28 Physical Exam Vitals: Vital Signs Temp Pulse Pulse Resp BP BP Pulse Ox 01/27/25 16:24 128 H 01/27/25 16:08 126 H 01/27/25 14:56 97.7 F 120 H 22 102/79 97 01/27/25 12:40 141 H 22 110/62 96 01/27/25 12:31 140 H 20 90 L 01/27/25 11:41 125 H 01/27/25 11:32 116 H 01/27/25 11:08 97.7 F 120 H 22 111/77 96 01/27/25 10:45 121 H 18 99/68 98 01/27/25 10:30 120 H 18 101/65 98 01/27/25 10:11 98.0 F 120 H 18 100/67 98 01/27/25 08:33 128 H 01/27/25 08:23 118 H 95 01/27/25 08:15 97.9 F 115 H 22 128/92 97 01/27/25 07:00 98.0 F 01/27/25 05:51 116 H 18 114/65 96 01/27/25 03:20 95 01/27/25 02:41 97.7 F 119 H 19 112/74 96 01/27/25 00:37 97.7 F 126 H 20 117/89 94 L 01/26/25 20:28 124 H 20 01/26/25 20:21 118 H 22 01/26/25 19:04 98.2 F 121 H 22 121/84 97 01/26/25 17:30 124 H 01/26/25 17:14 120 H Intake and Output 01/27/25 01/27/25 01/27/25 06:59 14:59 22:59 Output Total 2900 Balance -2900 Output: Chest Tube Drainage 2900 Chest Tube Right 2900 Posterior Chest - Constitutional General appearance: cooperative, no acute distress - EENT Eyes: EOMI - Respiratory Respiratory: right: diminished - Cardiovascular Rhythm: regular - Gastrointestinal General gastrointestinal: distended, soft, no tenderness, ventral hernia - Integumentary Integumentary: pale - Neurologic Neurologic: CNII-XII intact - Psychiatric Psychiatric: A&O x's 3 Results CBC & Chem 7: 01/27/25 17:00 01/27/25 00:02 Labs: Abnormal Lab Results - Last 24 Hours (Table) 01/26/25 01/26/25 01/26/25 Range/Units 16:00 16:35 20:10 WBC (4.50-10.00) 10*3/uL RBC (4.40-5.60) 10*6/uL Hgb (13.0-17.0) g/dL Hct (39.6-50.0) % MCHC (32.0-37.0) g/dL RDW (11.5-14.5) % Plt Count (140-440) 10*3/uL Immature Gran # (0.00-0.04) 10*3/uL Neutrophils # (1.80-7.70) 10*3/uL Lymphocytes # (0.90-5.00) 10*3/uL Monocytes # (0.20-1.00) 10*3/uL Eosinophils # (0.04-0.35) 10*3/uL Sodium (137-145) mmol/L Creatinine (0.66-1.25) mg/dL Glucose (74-99) mg/dL Plasma Lactic Acid Ashish 2.5 H* 4.7 H* (0.7-2.0) mmol/L AST (17-59) U/L ALT (4-49) U/L Alkaline Phosphatase (38-126) U/L Total Protein (6.3-8.2) g/dL Albumin (3.5-5.0) g/dL Fluid Appearance Grossly Bloody A (Clear) 01/26/25 01/27/25 01/27/25 Range/Units 23:58 00:02 00:02 WBC (4.50-10.00) 10*3/uL RBC 3.66 L (4.40-5.60) 10*6/uL Hgb 10.6 L (13.0-17.0) g/dL Hct 33.5 L (39.6-50.0) % MCHC 31.6 L (32.0-37.0) g/dL RDW 15.8 H (11.5-14.5) % Plt Count 506 H (140-440) 10*3/uL Immature Gran # 0.08 H (0.00-0.04) 10*3/uL Neutrophils # (1.80-7.70) 10*3/uL Lymphocytes # (0.90-5.00) 10*3/uL Monocytes # 1.46 H (0.20-1.00) 10*3/uL Eosinophils # (0.04-0.35) 10*3/uL Sodium 136 L (137-145) mmol/L Creatinine 0.62 L (0.66-1.25) mg/dL Glucose 113 H (74-99) mg/dL Plasma Lactic Acid Ashish 4.0 H* (0.7-2.0) mmol/L AST 90 H (17-59) U/L ALT 58 H (4-49) U/L Alkaline Phosphatase 315 H (38-126) U/L Total Protein 5.6 L (6.3-8.2) g/dL Albumin 2.5 L (3.5-5.0) g/dL Fluid Appearance (Clear) 01/27/25 01/27/25 01/27/25 Range/Units 05:00 08:17 11:14 WBC (4.50-10.00) 10*3/uL RBC (4.40-5.60) 10*6/uL Hgb (13.0-17.0) g/dL Hct (39.6-50.0) % MCHC (32.0-37.0) g/dL RDW (11.5-14.5) % Plt Count (140-440) 10*3/uL Immature Gran # (0.00-0.04) 10*3/uL Neutrophils # (1.80-7.70) 10*3/uL Lymphocytes # (0.90-5.00) 10*3/uL Monocytes # (0.20-1.00) 10*3/uL Eosinophils # (0.04-0.35) 10*3/uL Sodium (137-145) mmol/L Creatinine (0.66-1.25) mg/dL Glucose (74-99) mg/dL Plasma Lactic Acid Ashish 2.4 H* 2.6 H* 2.9 H* (0.7-2.0) mmol/L AST (17-59) U/L ALT (4-49) U/L Alkaline Phosphatase (38-126) U/L Total Protein (6.3-8.2) g/dL Albumin (3.5-5.0) g/dL Fluid Appearance (Clear) 01/27/25 01/27/25 Range/Units 14:15 17:00 WBC 13.01 H (4.50-10.00) 10*3/uL RBC 4.06 L (4.40-5.60) 10*6/uL Hgb 11.7 L (13.0-17.0) g/dL Hct 36.3 L (39.6-50.0) % MCHC (32.0-37.0) g/dL RDW (11.5-14.5) % Plt Count 527 H (140-440) 10*3/uL Immature Gran # 0.11 H (0.00-0.04) 10*3/uL Neutrophils # 12.26 H (1.80-7.70) 10*3/uL Lymphocytes # 0.38 L (0.90-5.00) 10*3/uL Monocytes # (0.20-1.00) 10*3/uL Eosinophils # 0.01 L (0.04-0.35) 10*3/uL Sodium (137-145) mmol/L Creatinine (0.66-1.25) mg/dL Glucose (74-99) mg/dL Plasma Lactic Acid Ashish 4.2 H* (0.7-2.0) mmol/L AST (17-59) U/L ALT (4-49) U/L Alkaline Phosphatase (38-126) U/L Total Protein (6.3-8.2) g/dL Albumin (3.5-5.0) g/dL Fluid Appearance (Clear) Assessment and Plan (1) History of lung cancer Current Visit: Yes Status: Acute Code(s): Z85.118 - PERSONAL HISTORY OF MALIGNANT NEOPLASM OF BRONCHUS AND LUNG SNOMED Code(s): 638779005 (2) Pleural effusion Current Visit: Yes Status: Acute Code(s): J90 - PLEURAL EFFUSION, NOT ELSEWHERE CLASSIFIED SNOMED Code(s): 19440017 (3) Mass of right lung Current Visit: No Status: Acute Code(s): R91.8 - OTHER NONSPECIFIC ABNORMAL FINDING OF LUNG FIELD SNOMED Code(s): 268412937 Plan: #Right pleural effusion, right hilar mass - Noted to have opacification of the right hemithorax on chest x-ray from admission - Thoracentesis on 01/26/2025 yielded 2800 cc of bloody pleural fluid with concern for trapped lung - CT of the chest revealing right hilar mass causing obstruction of the right mainstem bronchus with large pleural effusion and trapped lung - Chest tube placed on 01/27/2025 - Pleural fluid cytology from 01/27/2025 is pending - We will follow-up on results of pleural fluid cytology - Given the reported falls he has been having recently, brain MRI has been ordered to rule out intracranial metastases - Consultation for radiation oncology has been placed given the obstruction of the right mainstem bronchus #Stage IIIa squamous cell carcinoma of the right lung - Completed concurrent chemoradiotherapy with cisplatin/etoposide in January 2017 - Most recent CT findings as noted above - It is unclear if this is a recurrence of his malignancy, potential histologic transformation, or new primary - Follow-up cytology as above Jing Young MD
[2025-01-27 17:23] LABS: ALT 53 U/L (4-49); AST 66 U/L (17-59); African American GFR (CKD) >90 (>60 ml/min/1.73 sqM); Albumin 2.6 g/dL (3.5-5.0); Alkaline Phosphatase 382 U/L (38-126); Anion Gap 7 mmol/L; Blood Urea Nitrogen 13 mg/dL (9-20); Calcium 9.1 mg/dL (8.4-10.2); Carbon Dioxide 21 mmol/L (22-30); Chloride 104 mmol/L (98-107); Glucose 150 mg/dL (74-99); Non-African American GFR(CKD) >90 (>60 ml/min/1.73 sqM); Potassium 4.5 mmol/L (3.5-5.1); Sodium 132 mmol/L (137-145); Total Bilirubin 0.5 mg/dL (0.2-1.3); Total Protein 5.9 g/dL (6.3-8.2)
--- NOTE | 2025-01-28 05:03 | CONS ---
CONSULTATION REASON FOR THE CONSULTATION: Cancer of the right lung. HISTORY OF PRESENT ILLNESS: Alvarado Alvarado is a 59-year-old male, who was diagnosed with cancer of lung in 2017. He underwent treatment relating to chemotherapy and radiation therapy. He has done well with his treatment. More recently, the patient began having increasing shortness of breath. He was admitted to the hospital. The patient had CT scan imaging, which revealed right pleural effusion. The pleural effusion was recently drained. Result of the procedure pending. The patient is having issues with shortness of breath. PAST MEDICAL HISTORY: 1. Lung cancer. 2. Thyroid disease. 3. COPD. 4. Vitamin D deficiency. PAST SURGICAL HISTORY: 1. Thoracentesis. 2. Bronchoscopy. MEDICATIONS: 1. Albuterol/ipratropium. 2. Budesonide. 3. Hydrocodone. 4. Levothyroxine. 5. Methylprednisolone. 6. Morphine sulfate. 7. Naloxone. 8. Levothyroxine. 9. Cholesterol. 10.Fluticasone spray. 11.Ascorbic acid. 12.Multivitamin. FAMILY HISTORY: Noncontributory. SOCIAL HISTORY: The patient lives in his own home. He does have a history of tobacco use in the past. The patient denies any history of illicit drug use or alcohol abuse. ALLERGIES: NKDA. REVIEW OF SYSTEMS: 14-point review of systems were reviewed and performed with the patient. This is contributory for dyspnea on exertion, intermittent cough, and reduced energy level. PHYSICAL EXAMINATION: GENERAL: Mr. Alvarado is a relatively healthy appearing well-developed, well-nourished male. He is in no acute distress. VITAL SIGNS: He has a weight of 81.6 kg. BP is 138/80, pulse 78, respirations 18, and temperature is 36.4. HEAD: Atraumatic, normocephalic. EYES: PERRLA. EOMI. NECK: No palpable cervical or supraclavicular lymphadenopathy. LUNGS: Reveal decreased breath sounds at the base of the lungs bilaterally. HEART: Normal heart sounds. ABDOMEN: Benign. No palpable masses or organomegaly. EXTREMITIES: Reveal full range of motion. No cyanosis, clubbing, or edema detected. NEUROLOGIC: Reveals cranial nerves 2 through 12 intact. Strength and sensation intact. Deep tendon reflexes intact. Plantar reflexes are downgoing. SKIN/INTEGUMENT: Reveals no lesions. PSYCH EVALUATION: Reveals no mood disorders. IMPRESSION: Alvarado Alvarado is a 59-year-old male, presenting with a history of cancer of the right lung, status post combination chemotherapy and radiation therapy. The patient otherwise has additional ongoing medical problems includin. Thyroid disease. 2. History of tobacco use. 3. Pleural effusion. PAIN SCALE EVALUATION: 10/17. PAIN CONTROL: [place] 10/325 approximately 2 to 3 tablets per day. PERFORMANCE STATUS: 1. DURATION OF THE HOSPITAL EVALUATION: Today was approximately 40 minutes. SMOKING CESSATION/SMOKING HISTORY: The patient is a nonsmoker. Does not require smoking cessation, classes, or counseling. PLAN: The patient and I discussed the result of his workup thus far. The recent testing regarding the pleural effusion is ongoing. The patient is having issues with shortness of breath. He does have some evidence of adenopathy within the mediastinum. We discussed possible repeat imaging related to a PET scan shortly after the patient's discharge from the hospital. Thank you, again, for allowing me to participate in the care of Alvarado Alvarado. MMODL / IJN: [id number] /
[2025-01-28 07:25] LABS: Basophils # (A) 0.01 10*3/uL (0.00-0.10); Basophils % (A) 0.1 %; HCT 34.9 % (39.6-50.0); HGB 10.9 g/dL (13.0-17.0); Lymphocytes # (A) 0.67 10*3/uL (0.90-5.00); Lymphocytes % (A) 6.6 %; MCH 28.2 pg (27.0-32.0); MCHC 31.2 g/dL (32.0-37.0); MCV 90.4 fL (80.0-97.0); Mean Platelet Volume 10.2 fL (9.5-12.2); Monocytes # (A) 0.34 10*3/uL (0.20-1.00); Monocytes % (A) 3.4 %; Neutrophils # (A) 8.96 10*3/uL (1.80-7.70); Neutrophils % (A) 88.5 %; Platelet Count 565 10*3/uL (140-440); RBC 3.86 10*6/uL (4.40-5.60); RDW 15.9 % (11.5-14.5); WBC 10.12 10*3/uL (4.50-10.00)
[2025-01-28 07:50] LABS: ALT 44 U/L (4-49); AST 45 U/L (17-59); African American GFR (CKD) >90 (>60 ml/min/1.73 sqM); Albumin 2.5 g/dL (3.5-5.0); Alkaline Phosphatase 319 U/L (38-126); Anion Gap 6 mmol/L; Blood Urea Nitrogen 14 mg/dL (9-20); Calcium 9.2 mg/dL (8.4-10.2); Carbon Dioxide 25 mmol/L (22-30); Chloride 102 mmol/L (98-107); Glucose 123 mg/dL (74-99); Non-African American GFR(CKD) >90 (>60 ml/min/1.73 sqM); Potassium 5.5 mmol/L (3.5-5.1); Sodium 133 mmol/L (137-145); Total Bilirubin 0.4 mg/dL (0.2-1.3); Total Protein 5.7 g/dL (6.3-8.2)
--- NOTE | 2025-01-28 08:23 | XR ---
EXAMINATION TYPE: XR chest 1V portable DATE OF EXAM: 01/28/2025 CLINICAL INDICATION: Male, 59 years old with history of trapped lung, progress study. TECHNIQUE: Single AP portable upright view of the chest is obtained. COMPARISON: Chest x-ray from one day earlier FINDINGS: Persistent right basilar pleural pigtail drainage catheter with small to moderate sized hy dropneumothorax inferiorly and laterally. There is right lung mass with obstructive atelectasis. Ther e is persistent right-sided volume loss. Underlying emphysematous changes left lung is redemonstrated. Silhouetting right heart border redemon strated. Right shoulder surgical change again seen. IMPRESSION: Persistent small to moderate right-sided hydropneumothorax with right basilar pleural liang inage catheter. Stable right-sided volume loss. Persistent underlying mass/neoplasm and postobstructi ve atelectasis. [facility], , 01/28/2025 8:21 AM
--- NOTE | 2025-01-28 13:05 | P.PN ---
Subjective Progress Note Date: 01/28/25 Hospital Course: Patient is a 59-year-old male with past medical history of dysphagia, esophageal strictures status post dilation, history of gastric bypass surgery, COPD, history of bronchogenic carcinoma diagnosis 2016,, who presented to the ER on 01/26/2025 with worsening shortness of breath and cough, patient was sent from [place]. Patient's is at bedside, provides collateral history. Patient was in remission for 7 years stage IV lung cancer, reportedly. He underwent chemo and radiation therapy. His symptoms started 2 to 3 weeks ago, no associated chest pain, fevers, chills, denies history of CHF Review of the external CT chest done on 06/21/2024,, at that time no evidence of disease progression/recurrence. On arrival afebrile, tachycardic in 100s 112, BP stable 110/73, satting well on room air. Underwent extensive workup in the ER, WBC count normal, hemoglobin 12.0, stable from before, platelet count elevated 533, normal coagulation panel, sodium, potassium and bicarb WNL, creatinine 0.59, plasma lactic acid 3.0, AST and ALT elevated 09/22/1975 accordingly, previously his AST was up to 74, troponin negative, BNP 768. EKG showed sinus tachycardia, QTc 413. X-ray was performed and showed completely opacified right hemithorax. Chest ultrasound showed right pleural effusion pocket, was marked for thoracentesis. Patient was discussed with ER physician, accepted for inpatient admission with pulmonology consultation, oncology consultation. Pulmonology was at bedside to perform thoracentesis, 2.8 L of bloody fluid. Chest x-ray postthoracentesis showed no improvement, no pneumothorax. Pleural fluid analysis shows exudative effusion, cytology obtained and pending. CT chest with contrast showed of the right mainstem bronchus likely secondary to right hilar mass, collapse of the entire right lung with large right pleural effusion, right hilar adenopathy, right pericardiac adenopathy, subacute fractures of the right anterior 3rd through 6th ribs, possible underlying cirrhosis. IR consulted for pigtail catheter placement, Solu-Medrol added by pulmonology. 01/27: Patient was seen and examined after pigtail catheter placement, was in distress from pain, morphine provided. Shortness of breath somewhat better 01/28: Seen and examined at bedside, patient's daughter present during exam. Shortness of breath is improved, continues to have episodic sharp pain from pigtail catheter. He tries to stay active. WBC going down to 10.1, hemoglobin 10.9, creatinine 0.5. Repeat chest x-ray showed persistent but small to moderate now right-sided hydropneumothorax. Per hematology oncology recommendations, brain MRI was ordered to rule out intracranial mets, rhabdo consulted given the obstruction of the right mainstem bronchus. Cytology pending. Chest tube output so far 3 L Pertinent Imaging: as above Pertinent positives and negatives as discussed above, a complete review of systems was performed and all other systems are negative. Vitals Signs Reviewed. General: [nontoxic], [no distress], [appears at stated age] Derm: [warm], [dry] Head: [atraumatic], [normocephalic], [symmetric] Eyes: [EOMI], [no lid lag], [anicteric sclera] Mouth: [no lip lesion], [mucus membranes moist] Cardiovascular: [S1S2 reg], [no murmur] Lungs: Bilateral breath sounds present, significantly diminished in the right, pigtail catheter in place Abdominal: [soft], [ nontender to palpation], [no guarding], [no appreciable organomegaly] Ext: [no gross muscle atrophy], [no edema], [no contractures] Neuro: [ CN II-XI grossly intact], [no focal neuro deficits] Psych: [Alert], [oriented], [appropriate affect] Assessment and Plan: Dyspnea secondary to large right-sided pleural effusion, likely malignant status postthoracentesis with 2.8 Loutput 01/26, status post pigtail catheter placement 01/27/2025 history of bronchogenic carcinoma diagnosis 2017 Former smoker quit in August 2024 right hilar adenopathy, right pericardiac adenopathy subacute fractures of the right anterior 3rd through 6th ribs -Concern for disease progression -Oncology consulted, appreciate recommendations -Radiation oncology consulted, brain MRI ordered and pending -Pulmonology consulted, appreciate recommendations -Pain control with Calmar 5 every 4 hour as needed, morphine 2 mg every 6 hours as needed -Continue breathing treatment with DuoNebs every 2 hours as need, scheduled DuoNeb 4 times daily -Started on Solu-Medrol 60 every 6 hourly by pulmonology Sinus tachycardia -Continue telemetry Acute on chronic anemia -Hemoglobin dropped from 12.0-10.9 - Continue to monitor CBC daily Elevated liver enzymes, resolved - no abdominal pain COPD not in acute exacerbation -Symbicort 160/4.5 twice daily, DuoNebs 4 times daily dysphagia esophageal strictures status post dilation history of gastric bypass surgery Hypothyroidism: Continue home levothyroxine 50 mcg daily Surrogate decision-maker: CODE STATUS: Full code DVT prophylaxis: SCD. Anticipated discharge date: TBD Anticipated discharge place: TBD Objective - Vital Signs Vital signs: Vital Signs Temp 97.4 F L 01/28/25 08:00 Pulse 100 01/28/25 12:14 Resp 16 01/28/25 08:00 BP 117/76 01/28/25 08:00 Pulse Ox 98 01/28/25 08:00 FiO2 Intake & Output 01/27/25 01/28/25 01/28/25 18:59 06:59 18:59 Intake Total 240 300 476 Output Total 2900 215 Balance -2660 85 476 Weight 78.1 kg Intake: Oral 240 300 476 Output: Chest Tube Drainage 2900 215 Chest Tube Right 2900 215 Posterior Chest Other: # Voids 1 2 - Labs CBC & Chem 7: 01/28/25 06:32 01/28/25 06:32 Labs: Abnormal Lab Results - Last 24 Hours (Table) 01/27/25 01/27/25 01/27/25 Range/Units 00:02 14:15 17:00 WBC 13.01 H (4.50-10.00) 10*3/uL RBC 4.06 L (4.40-5.60) 10*6/uL Hgb 11.7 L (13.0-17.0) g/dL Hct 36.3 L (39.6-50.0) % MCHC (32.0-37.0) g/dL Plt Count 527 H (140-440) 10*3/uL Immature Gran # 0.11 H (0.00-0.04) 10*3/uL Neutrophils # 12.26 H (1.80-7.70) 10*3/uL Lymphocytes # 0.38 L (0.90-5.00) 10*3/uL Eosinophils # 0.01 L (0.04-0.35) 10*3/uL Sodium (137-145) mmol/L Potassium (3.5-5.1) mmol/L Carbon Dioxide (22-30) mmol/L Creatinine (0.66-1.25) mg/dL Glucose (74-99) mg/dL Plasma Lactic Acid Ashish 4.2 H* (0.7-2.0) mmol/L AST (17-59) U/L ALT (4-49) U/L Alkaline Phosphatase (38-126) U/L Total Protein (6.3-8.2) g/dL Albumin (3.5-5.0) g/dL Procalcitonin >100.00 H (0.02-0.50) ng/mL 01/27/25 01/27/25 01/27/25 Range/Units 17:00 17:03 20:05 WBC (4.50-10.00) 10*3/uL RBC (4.40-5.60) 10*6/uL Hgb (13.0-17.0) g/dL Hct (39.6-50.0) % MCHC (32.0-37.0) g/dL Plt Count (140-440) 10*3/uL Immature Gran # (0.00-0.04) 10*3/uL Neutrophils # (1.80-7.70) 10*3/uL Lymphocytes # (0.90-5.00) 10*3/uL Eosinophils # (0.04-0.35) 10*3/uL Sodium 132 L (137-145) mmol/L Potassium (3.5-5.1) mmol/L Carbon Dioxide 21 L (22-30) mmol/L Creatinine 0.60 L (0.66-1.25) mg/dL Glucose 150 H (74-99) mg/dL Plasma Lactic Acid Ashish 2.7 H* 4.7 H* (0.7-2.0) mmol/L AST 66 H (17-59) U/L ALT 53 H (4-49) U/L Alkaline Phosphatase 382 H (38-126) U/L Total Protein 5.9 L (6.3-8.2) g/dL Albumin 2.6 L (3.5-5.0) g/dL Procalcitonin (0.02-0.50) ng/mL 01/28/25 01/28/25 Range/Units 06:32 06:32 WBC 10.12 H (4.50-10.00) 10*3/uL RBC 3.86 L (4.40-5.60) 10*6/uL Hgb 10.9 L (13.0-17.0) g/dL Hct 34.9 L (39.6-50.0) % MCHC 31.2 L (32.0-37.0) g/dL Plt Count 565 H (140-440) 10*3/uL Immature Gran # 0.14 H (0.00-0.04) 10*3/uL Neutrophils # 8.96 H (1.80-7.70) 10*3/uL Lymphocytes # 0.67 L (0.90-5.00) 10*3/uL Eosinophils # 0.00 L (0.04-0.35) 10*3/uL Sodium 133 L (137-145) mmol/L Potassium 5.5 H (3.5-5.1) mmol/L Carbon Dioxide (22-30) mmol/L Creatinine 0.55 L (0.66-1.25) mg/dL Glucose 123 H (74-99) mg/dL Plasma Lactic Acid Ashish (0.7-2.0) mmol/L AST (17-59) U/L ALT (4-49) U/L Alkaline Phosphatase 319 H (38-126) U/L Total Protein 5.7 L (6.3-8.2) g/dL Albumin 2.5 L (3.5-5.0) g/dL Procalcitonin (0.02-0.50) ng/mL Microbiology - Last 24 Hours (Table) 01/26/25 16:00 Gram Stain - Preliminary Pleural Fluid Body Fluid Culture - Preliminary 01/26/25 16:00 Acid Fast Bacilli Smear - Preliminary Pleural Fluid
--- NOTE | 2025-01-28 14:19 | MR ---
EXAMINATION TYPE: MR brain wo/w con DATE OF EXAM: 01/28/2025 2:02 PM COMPARISON: 01/27/2025.. CLINICAL INDICATION: Male, 59 years old with history of Concern for metastatic lung cancer, r/o mets; PHH, Concern for metastatic lung cancer, r/o mets TECHNIQUE: Multi planar, multi sequence imaging was performed through the brain including: T1, T2, In version recovery, susceptibility weighted imaging and gradient echo imaging and Diffusion weighted im aging. The patient was then given intravenous contrast and multi planar, T1 fat-saturation images wer e obtained. IV Contrast: 7.5 mL Gadobutrol FINDINGS: The escobedo-white junctions, ventricular system, basal cisterns appear unremarkable. Diffusion-weighted imaging shows no evidence of restricted diffusion to suggest acute/subacute infarct. Intracranial ar terial flow voids are maintained. Midline structures show no abnormality. Scattered foci of high T2 s ignal intensity are seen within the periventricular white matter. The susceptibility weighted images do not reveal any evidence for micro-hemorrhage. After administration of gadolinium, no abnormal enha ncement is seen. The bone marrow signal is within normal limits. Paranasal sinuses and mastoid air cells: No significant paranasal sinus disease. Visualized orbits: Orbital contents are intact. IMPRESSION: 1. No evidence of intracranial mass, acute/subacute infarct, or abnormal enhancement. 2. Nonspecific white matter changes, likely related to small vessel ischemic disease. [facility], , 01/28/2025 2:17 PM
[2025-01-28] MEDS ORDERED: DEXTROSE 50% SYRINGE 50 ML IVP PRN ×2 (14:28)
--- NOTE | 2025-01-28 15:20 | P.PN ---
Subjective Progress Note Date: 01/28/25 Principal diagnosis: Pleural effusion and lung mass This is a 59-year-old male patient with a known history of former smoker, COPD maintained on Trelegy, hypothyroidism, hypertension and lung cancer diagnosed in 2016. He had a large obstructive mass in the right mainstem bronchus that was positive for carcinoma with chemotherapy and currently in remission. His last CT scan of the chest revealed a soft tissue encasement and volume loss of the right hilum and right perihilar bronchovascular bundles corresponding with treated disease. No definitive recurrence for metastatic disease. Development of a right lower lung reticular opacities likely representing bronchiolitis on a CT scan in June 2024. He presented to the emergency room today with a 2 to 3-week history of increasing shortness of breath cough and congestion. Chest x- ray reveals a completely opacified right hemithorax. Findings suggest neoplastic progression right hilar region with obstructive atelectasis. White count 8.8. Hemoglobin 12.0. Platelets 533. INR 1.0. Sodium 139. Potassium 4.5. Bicarb 24. BUN 15. Creatinine 0.59. AST 160. ALT 76. Alk phos 362. Troponin negative x 1. proBNP 768. He is seen today in consultation in the emergency department. He is currently sitting up on the stretcher. Awake and alert in mild respiratory distress. He is initially maintaining good O2 saturations in the 90s on room air oxygen. He is receiving a updraft treatment. He is afebrile. Blood pressure stable. He is sinus tachycardia in the 120s. The patient is seen today January 27, 2025 in follow-up in the emergency department. He is currently sitting up at the bedside. Awake and alert in no acute distress. He is still dyspneic with conversation. Dyspneic with minimal exertion. He is maintaining good O2 saturations in the mid 90s on 2 L/min per nasal cannula. He was without his oxygen for a brief walk to the bathroom and dropped into the 70s. He remains tachycardic. He is afebrile. He did undergo a right sided thoracentesis yesterday with 2.8 L of bloody fluid returned. Follow-up chest x-ray continued to show significant pleural effusion but no pneumothorax. White count 9.1. Hemoglobin 10.6. Platelets 506. Sodium 136. Potassium 4.1. Bicarb 23. BUN 15. Creatinine 0.62. Glucose 113. AST 90. ALT 58. Pleural fluid reveals exudate with a total protein of 2.6. LDH 161. WBCs 1372. Cytology pending. He is continued on DuoNeb inhalations, Symbicort. Patient was seen today on 01/28/2025, continues to have pigtail catheter in place connected to Pleur-evac, continues to have some serosanguineous drainage from the right pleural space, seems to be minimal, chest x-ray clearly showed evidence of trapped lung patient is now being seen by oncology and radiation oncology. On 2 L nasal cannula, O2 sats is 99% WBC count is 10 hemoglobin 10.9 electrolytes are normal except for potassium of 5.5 renal profile is normal. Objective - Vital Signs Vital signs: Vital Signs Temp 97.4 F L 01/28/25 08:00 Pulse 115 H 01/28/25 14:00 Resp 16 01/28/25 08:00 BP 105/73 01/28/25 14:00 Pulse Ox 99 01/28/25 14:00 FiO2 Intake & Output 01/27/25 01/28/25 01/28/25 18:59 06:59 18:59 Intake Total 240 300 476 Output Total 2900 215 Balance -2660 85 476 Weight 78.1 kg Intake: Oral 240 300 476 Output: Chest Tube Drainage 2900 215 Chest Tube Right 2900 215 Posterior Chest Other: # Voids 1 2 - Exam GENERAL EXAM: 59-year-old white male obese on 2 L nasal cannula in no distress HEAD: Normocephalic. EYES: Normal reaction of pupils, equal size. NOSE: Clear with pink turbinates. THROAT: No erythema or exudates. NECK: No masses, no JVD. CHEST: No chest wall deformity. LUNGS: Diminished breath sounds. On the right side, left side is clear CVS: S1 and S2 normal with no audible murmur, regular rhythm. ABDOMEN: No hepatosplenomegaly, normal bowel sounds, no guarding or rigidity. SKIN: No rashes CENTRAL NERVOUS SYSTEM: No focal deficits, tone is normal in all 4 extremities. EXTREMITIES: There is no peripheral edema. No clubbing, no cyanosis. Peripheral pulses are intact. - Labs CBC & Chem 7: 01/28/25 06:32 01/28/25 06:32 Labs: Abnormal Lab Results - Last 24 Hours (Table) 01/27/25 01/27/25 01/27/25 Range/Units 00:02 17:00 17:00 WBC 13.01 H (4.50-10.00) 10*3/uL RBC 4.06 L (4.40-5.60) 10*6/uL Hgb 11.7 L (13.0-17.0) g/dL Hct 36.3 L (39.6-50.0) % MCHC (32.0-37.0) g/dL Plt Count 527 H (140-440) 10*3/uL Immature Gran # 0.11 H (0.00-0.04) 10*3/uL Neutrophils # 12.26 H (1.80-7.70) 10*3/uL Lymphocytes # 0.38 L (0.90-5.00) 10*3/uL Eosinophils # 0.01 L (0.04-0.35) 10*3/uL Sodium 132 L (137-145) mmol/L Potassium (3.5-5.1) mmol/L Carbon Dioxide 21 L (22-30) mmol/L Creatinine 0.60 L (0.66-1.25) mg/dL Glucose 150 H (74-99) mg/dL Plasma Lactic Acid Ashish (0.7-2.0) mmol/L AST 66 H (17-59) U/L ALT 53 H (4-49) U/L Alkaline Phosphatase 382 H (38-126) U/L Total Protein 5.9 L (6.3-8.2) g/dL Albumin 2.6 L (3.5-5.0) g/dL Procalcitonin >100.00 H (0.02-0.50) ng/mL 01/27/25 01/27/25 01/28/25 Range/Units 17:03 20:05 06:32 WBC 10.12 H (4.50-10.00) 10*3/uL RBC 3.86 L (4.40-5.60) 10*6/uL Hgb 10.9 L (13.0-17.0) g/dL Hct 34.9 L (39.6-50.0) % MCHC 31.2 L (32.0-37.0) g/dL Plt Count 565 H (140-440) 10*3/uL Immature Gran # 0.14 H (0.00-0.04) 10*3/uL Neutrophils # 8.96 H (1.80-7.70) 10*3/uL Lymphocytes # 0.67 L (0.90-5.00) 10*3/uL Eosinophils # 0.00 L (0.04-0.35) 10*3/uL Sodium (137-145) mmol/L Potassium (3.5-5.1) mmol/L Carbon Dioxide (22-30) mmol/L Creatinine (0.66-1.25) mg/dL Glucose (74-99) mg/dL Plasma Lactic Acid Ashish 2.7 H* 4.7 H* (0.7-2.0) mmol/L AST (17-59) U/L ALT (4-49) U/L Alkaline Phosphatase (38-126) U/L Total Protein (6.3-8.2) g/dL Albumin (3.5-5.0) g/dL Procalcitonin (0.02-0.50) ng/mL 01/28/25 Range/Units 06:32 WBC (4.50-10.00) 10*3/uL RBC (4.40-5.60) 10*6/uL Hgb (13.0-17.0) g/dL Hct (39.6-50.0) % MCHC (32.0-37.0) g/dL Plt Count (140-440) 10*3/uL Immature Gran # (0.00-0.04) 10*3/uL Neutrophils # (1.80-7.70) 10*3/uL Lymphocytes # (0.90-5.00) 10*3/uL Eosinophils # (0.04-0.35) 10*3/uL Sodium 133 L (137-145) mmol/L Potassium 5.5 H (3.5-5.1) mmol/L Carbon Dioxide (22-30) mmol/L Creatinine 0.55 L (0.66-1.25) mg/dL Glucose 123 H (74-99) mg/dL Plasma Lactic Acid Ashish (0.7-2.0) mmol/L AST (17-59) U/L ALT (4-49) U/L Alkaline Phosphatase 319 H (38-126) U/L Total Protein 5.7 L (6.3-8.2) g/dL Albumin 2.5 L (3.5-5.0) g/dL Procalcitonin (0.02-0.50) ng/mL Microbiology - Last 24 Hours (Table) 01/26/25 16:00 Gram Stain - Preliminary Pleural Fluid Body Fluid Culture - Preliminary 01/26/25 16:00 Acid Fast Bacilli Smear - Preliminary Pleural Fluid Assessment and Plan Assessment: Impression: Lung mass with large right-sided pleural effusion and trapped lung postthora centesis and pigtail catheter placement cytology from this pleural effusion is pending 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 Last CT scan of the chest in June 2024 revealed similar soft tissue encasement and volume loss of the right hilum and right perihilar bronchovascular bundles corresponding to treated disease. Chronic tobacco dependence Chronic obstructive pulmonary disease Hypertension Previous bariatric surgery Hypothyroidism Recommendation: Continue pigtail catheter to Pleur-evac Continue present supportive care measures continue oxygen and titrate accordingly Continue bronchodilators Awaiting cytology from the pleural effusion may or may not require bronchoscopy for tissue diagnosis Patient is being followed by oncology and radiation oncology Will continue to follow Time with Patient: Less than 30
[2025-01-28 16:10] LABS: Glucose,Whole Blood 139 mg/dL (70-110)
[2025-01-28] MEDS: INSULIN LISPRO (HumaLOG) 100 UNIT/ML 10 mL VL SQ SCH (17:45)
[2025-01-28 20:10] LABS: Glucose,Whole Blood 193 mg/dL (70-110)
[2025-01-29 06:11] LABS: Glucose,Whole Blood 115 mg/dL (70-110)
[2025-01-29 08:37] LABS: Basophils # (A) 0.02 10*3/uL (0.00-0.10); Basophils % (A) 0.1 %; HCT 33.3 % (39.6-50.0); HGB 10.2 g/dL (13.0-17.0); Lymphocytes # (A) 0.42 10*3/uL (0.90-5.00); Lymphocytes % (A) 2.6 %; MCH 27.9 pg (27.0-32.0); MCHC 30.6 g/dL (32.0-37.0); MCV 91.2 fL (80.0-97.0); Mean Platelet Volume 10.3 fL (9.5-12.2); Monocytes # (A) 1.09 10*3/uL (0.20-1.00); Monocytes % (A) 6.7 %; Neutrophils # (A) 14.57 10*3/uL (1.80-7.70); Neutrophils % (A) 89.4 %; Platelet Count 525 10*3/uL (140-440); RBC 3.65 10*6/uL (4.40-5.60); RDW 15.8 % (11.5-14.5)
[2025-01-29 08:54] LABS: ALT 37 U/L (4-49); AST 46 U/L (17-59); Albumin 2.6 g/dL (3.5-5.0); Alkaline Phosphatase 309 U/L (38-126); Anion Gap 6 mmol/L; Blood Urea Nitrogen 24 mg/dL (9-20); Calcium 9.1 mg/dL (8.4-10.2); Carbon Dioxide 26 mmol/L (22-30); Chloride 104 mmol/L (98-107); Glucose 113 mg/dL (74-99); Potassium 5.1 mmol/L (3.5-5.1); Sodium 136 mmol/L (137-145); Total Bilirubin 0.2 mg/dL (0.2-1.3); Total Protein 5.6 g/dL (6.3-8.2)
[2025-01-29 08:55] LABS: African American GFR (CKD) >90 (>60 ml/min/1.73 sqM); Non-African American GFR(CKD) >90 (>60 ml/min/1.73 sqM)
[2025-01-29 11:28] LABS: Glucose,Whole Blood 123 mg/dL (70-110)
--- NOTE | 2025-01-29 11:59 | P.PN ---
Subjective Progress Note Date: 01/29/25 Principal diagnosis: Pleural effusion and lung mass This is a 59-year-old male patient with a known history of former smoker, COPD maintained on Trelegy, hypothyroidism, hypertension and lung cancer diagnosed in 2016. He had a large obstructive mass in the right mainstem bronchus that was positive for carcinoma with chemotherapy and currently in remission. His last CT scan of the chest revealed a soft tissue encasement and volume loss of the right hilum and right perihilar bronchovascular bundles corresponding with treated disease. No definitive recurrence for metastatic disease. Development of a right lower lung reticular opacities likely representing bronchiolitis on a CT scan in June 2024. He presented to the emergency room today with a 2 to 3-week history of increasing shortness of breath cough and congestion. Chest x- ray reveals a completely opacified right hemithorax. Findings suggest neoplastic progression right hilar region with obstructive atelectasis. White count 8.8. Hemoglobin 12.0. Platelets 533. INR 1.0. Sodium 139. Potassium 4.5. Bicarb 24. BUN 15. Creatinine 0.59. AST 160. ALT 76. Alk phos 362. Troponin negative x 1. proBNP 768. He is seen today in consultation in the emergency department. He is currently sitting up on the stretcher. Awake and alert in mild respiratory distress. He is initially maintaining good O2 saturations in the 90s on room air oxygen. He is receiving a updraft treatment. He is afebrile. Blood pressure stable. He is sinus tachycardia in the 120s. The patient is seen today January 27, 2025 in follow-up in the emergency department. He is currently sitting up at the bedside. Awake and alert in no acute distress. He is still dyspneic with conversation. Dyspneic with minimal exertion. He is maintaining good O2 saturations in the mid 90s on 2 L/min per nasal cannula. He was without his oxygen for a brief walk to the bathroom and dropped into the 70s. He remains tachycardic. He is afebrile. He did undergo a right sided thoracentesis yesterday with 2.8 L of bloody fluid returned. Follow-up chest x-ray continued to show significant pleural effusion but no pneumothorax. White count 9.1. Hemoglobin 10.6. Platelets 506. Sodium 136. Potassium 4.1. Bicarb 23. BUN 15. Creatinine 0.62. Glucose 113. AST 90. ALT 58. Pleural fluid reveals exudate with a total protein of 2.6. LDH 161. WBCs 1372. Cytology pending. He is continued on DuoNeb inhalations, Symbicort. Patient was seen today on 01/28/2025, continues to have pigtail catheter in place connected to Pleur-evac, continues to have some serosanguineous drainage from the right pleural space, seems to be minimal, chest x-ray clearly showed evidence of trapped lung patient is now being seen by oncology and radiation oncology. On 2 L nasal cannula, O2 sats is 99% WBC count is 10 hemoglobin 10.9 electrolytes are normal except for potassium of 5.5 renal profile is normal. Patient was seen today on 01/29/2025, basically about the same continues to have significant amount of serosanguineous drainage from the right lung, pigtail catheter remains in place, patient is complaining of some vague chest discomf ort, but he is not in any distress. Fluid cytology from his right thoracentesis/pleural effusion is pending. WBC count today 16.3 hemoglobin 10.2 electrolytes are normal renal profile is normal Objective - Vital Signs Vital signs: Vital Signs Temp 97.6 F 01/29/25 08:24 Pulse 96 01/29/25 09:38 Resp 20 01/29/25 08:24 BP 111/75 01/29/25 08:24 Pulse Ox 98 01/29/25 08:24 FiO2 Intake & Output 01/28/25 01/29/25 01/29/25 18:59 06:59 18:59 Intake Total 956 240 Output Total 185 545 Balance 771 -545 240 Intake: Oral 956 240 Output: Chest Tube Drainage 185 275 Chest Tube Right 185 275 Posterior Chest Urine 270 Other: Voiding Method Toilet # Voids 2 - Exam GENERAL EXAM: 59-year-old white male obese on 2 L nasal cannula in no distress HEAD: Normocephalic. EYES: Normal reaction of pupils, equal size. NOSE: Clear with pink turbinates. THROAT: No erythema or exudates. NECK: No masses, no JVD. CHEST: No chest wall deformity. LUNGS: Diminished breath sounds. On the right side, left side is clear, pigtail catheter connected to Pleur-evac is noted. CVS: S1 and S2 normal with no audible murmur, regular rhythm. ABDOMEN: No hepatosplenomegaly, normal bowel sounds, no guarding or rigidity. SKIN: No rashes CENTRAL NERVOUS SYSTEM: No focal deficits, tone is normal in all 4 extremities. EXTREMITIES: There is no peripheral edema. No clubbing, no cyanosis. Peripheral pulses are intact. - Labs CBC & Chem 7: 01/29/25 07:00 01/29/25 07:00 Labs: Abnormal Lab Results - Last 24 Hours (Table) 01/28/25 01/28/25 01/29/25 Range/Units 16:08 20:07 06:10 WBC (4.50-10.00) 10*3/uL RBC (4.40-5.60) 10*6/uL Hgb (13.0-17.0) g/dL Hct (39.6-50.0) % MCHC (32.0-37.0) g/dL Plt Count (140-440) 10*3/uL Immature Gran # (0.00-0.04) 10*3/uL Neutrophils # (1.80-7.70) 10*3/uL Lymphocytes # (0.90-5.00) 10*3/uL Monocytes # (0.20-1.00) 10*3/uL Eosinophils # (0.04-0.35) 10*3/uL Sodium (137-145) mmol/L BUN (9-20) mg/dL Creatinine (0.66-1.25) mg/dL Glucose (74-99) mg/dL POC Glucose (mg/dL) 139 H 193 H 115 H (70-110) mg/dL Alkaline Phosphatase (38-126) U/L Total Protein (6.3-8.2) g/dL Albumin (3.5-5.0) g/dL 01/29/25 01/29/25 01/29/25 Range/Units 07:00 07:00 11:26 WBC 16.30 H (4.50-10.00) 10*3/uL RBC 3.65 L (4.40-5.60) 10*6/uL Hgb 10.2 L (13.0-17.0) g/dL Hct 33.3 L (39.6-50.0) % MCHC 30.6 L (32.0-37.0) g/dL Plt Count 525 H (140-440) 10*3/uL Immature Gran # 0.20 H (0.00-0.04) 10*3/uL Neutrophils # 14.57 H (1.80-7.70) 10*3/uL Lymphocytes # 0.42 L (0.90-5.00) 10*3/uL Monocytes # 1.09 H (0.20-1.00) 10*3/uL Eosinophils # 0.00 L (0.04-0.35) 10*3/uL Sodium 136 L (137-145) mmol/L BUN 24 H (9-20) mg/dL Creatinine 0.60 L (0.66-1.25) mg/dL Glucose 113 H (74-99) mg/dL POC Glucose (mg/dL) 123 H (70-110) mg/dL Alkaline Phosphatase 309 H (38-126) U/L Total Protein 5.6 L (6.3-8.2) g/dL Albumin 2.6 L (3.5-5.0) g/dL Microbiology - Last 24 Hours (Table) 01/26/25 16:00 Gram Stain - Preliminary Pleural Fluid Body Fluid Culture - Preliminary Assessment and Plan Assessment: Impression: Lung mass with large right-sided pleural effusion and trapped lung postthoracentesis and pigtail catheter placement cytology from this pleural effusion is pending 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 Last CT scan of the chest in June 2024 revealed similar soft tissue encasement and volume loss of the right hilum and right perihilar bronchovascular bundles corresponding to treated disease. Chronic tobacco dependence Chronic obstructive pulmonary disease Hypertension Previous bariatric surgery Hypothyroidism Recommendation: Continue pigtail catheter to Pleur-evac, continue suction, patient does have a trapped lung Continue present supportive care measures continue oxygen and titrate accordingly Continue bronchodilators Awaiting cytology from the pleural effusion may or may not require bronchoscopy for tissue diagnosis Patient is being followed by oncology and radiation oncology Will continue to follow Time with Patient: Less than 30
--- NOTE | 2025-01-29 14:20 | P.PN ---
Subjective Progress Note Date: 01/29/25 Subjective: Patient seen and examined at bedside. No acute events overnight. Still having significant pain on the right side when coughing. Pertinent positives and negatives as discussed above, a complete review of systems was performed and all other systems are negative. Vitals Signs Reviewed. General: Nontoxic, no distress, appears at stated age Derm: Warm, dry Head: Atraumatic, normocephalic, symmetric Eyes: EOMI, no lid lag, anicteric sclera Mouth: No lip lesion, mucus membranes moist Cardiovascular: S1S2 reg, no murmur Lungs: Diminished breath sounds on the right, pigtail catheter in place Abdominal: Soft, nontender to palpation, no guarding, no appreciable organomegaly Ext: No gross muscle atrophy, no edema, no contractures Neuro: CN II-XI grossly intact, no focal neuro deficits Psych: Alert, oriented, appropriate affect Data Reviewed Today: Pertinent Labs: WBC 16.3, hemoglobin 10.2, potassium 5.1, creatinine 0.6, blood sugars range between 113-123 Imaging: Brain MRI did not show any acute process Assessment and Plan: Dyspnea secondary to large right-sided pleural effusion, likely malignant status postthoracentesis with 2.8 Loutput 01/26, status post pigtail catheter placement 01/27/2025 history of bronchogenic carcinoma diagnosis 2017 Former smoker quit in August 2024 right hilar adenopathy, right pericardiac adenopathy subacute fractures of the right anterior 3rd through 6th ribs -Concern for disease progression -Oncology, radiation oncology here following - Brain MRI did not show any metastatic disease -Pulmonology pulmonology recommending elevating cytology, continuing therapy as below -Pain control with [place] 5 every 4 hour as needed, morphine 2 mg every 6 hours as needed, breakthrough pain Dilaudid 1 mg IV every 4 hours as needed also added -Continue breathing treatment with DuoNebs every 2 hours as need, scheduled DuoNeb 4 times daily - Continue Solu-Medrol 60 IV every 6 hourly Sinus tachycardia -Continue telemetry Acute on chronic anemia - Currently stable, continue to monitor Elevated liver enzymes, resolved - no abdominal pain COPD not in acute exacerbation -Symbicort 160/4.5 twice daily, DuoNebs 4 times daily dysphagia esophageal strictures status post dilation history of gastric bypass surgery Hypothyroidism: Continue home levothyroxine 50 mcg daily DVT ppx: SCDs Code status: Full code Anticipated discharge place: pending clinical course Anticipated discharge time: pending clinical course Objective - Vital Signs Vital signs: Vital Signs Temp 98.3 F 01/29/25 12:07 Pulse 108 H 01/29/25 12:14 Resp 20 01/29/25 12:07 BP 121/85 01/29/25 12:07 Pulse Ox 97 01/29/25 12:07 FiO2 Intake & Output 01/28/25 01/29/25 01/29/25 18:59 06:59 18:59 Intake Total 956 240 Output Total 185 545 Balance 771 -545 240 Weight 78.1 kg Intake: Oral 956 240 Output: Chest Tube Drainage 185 275 Chest Tube Right 185 275 Posterior Chest Urine 270 Other: Voiding Method Toilet # Voids 2 - Labs CBC & Chem 7: 01/29/25 07:00 01/29/25 07:00 Labs: Abnormal Lab Results - Last 24 Hours (Table) 01/28/25 01/28/25 01/29/25 Range/Units 16:08 20:07 06:10 WBC (4.50-10.00) 10*3/uL RBC (4.40-5.60) 10*6/uL Hgb (13.0-17.0) g/dL Hct (39.6-50.0) % MCHC (32.0-37.0) g/dL Plt Count (140-440) 10*3/uL Immature Gran # (0.00-0.04) 10*3/uL Neutrophils # (1.80-7.70) 10*3/uL Lymphocytes # (0.90-5.00) 10*3/uL Monocytes # (0.20-1.00) 10*3/uL Eosinophils # (0.04-0.35) 10*3/uL Sodium (137-145) mmol/L BUN (9-20) mg/dL Creatinine (0.66-1.25) mg/dL Glucose (74-99) mg/dL POC Glucose (mg/dL) 139 H 193 H 115 H (70-110) mg/dL Alkaline Phosphatase (38-126) U/L Total Protein (6.3-8.2) g/dL Albumin (3.5-5.0) g/dL 01/29/25 01/29/2501/29/25 Range/Units 07:00 07:00 11:26 WBC 16.30 H (4.50-10.00) 10*3/uL RBC 3.65 L (4.40-5.60) 10*6/uL Hgb 10.2 L (13.0-17.0) g/dL Hct 33.3 L (39.6-50.0) % MCHC 30.6 L (32.0-37.0) g/dL Plt Count 525 H (140-440) 10*3/uL Immature Gran # 0.20 H (0.00-0.04) 10*3/uL Neutrophils # 14.57 H (1.80-7.70) 10*3/uL Lymphocytes # 0.42 L (0.90-5.00) 10*3/uL Monocytes # 1.09 H (0.20-1.00) 10*3/uL Eosinophils # 0.00 L (0.04-0.35) 10*3/uL Sodium 136 L (137-145) mmol/L BUN 24 H (9-20) mg/dL Creatinine 0.60 L (0.66-1.25) mg/dL Glucose 113 H (74-99) mg/dL POC Glucose (mg/dL) 123 H (70-110) mg/dL Alkaline Phosphatase 309 H (38-126) U/L Total Protein 5.6 L (6.3-8.2) g/dL Albumin 2.6 L (3.5-5.0) g/dL Microbiology - Last 24 Hours (Table) 01/26/25 16:00 Gram Stain - Preliminary Pleural Fluid Body Fluid Culture - Preliminary
[2025-01-29 16:16] LABS: Glucose,Whole Blood 131 mg/dL (70-110)
[2025-01-29] MEDS: HYDROmorphone 1 MG/ML 1 ML SYRINGE IVP PRN (17:30)
[2025-01-29 20:38] LABS: Glucose,Whole Blood 127 mg/dL (70-110)
[2025-01-30 06:00] LABS: Glucose,Whole Blood 115 mg/dL (70-110)
[2025-01-30 07:29] LABS: Basophils # (A) 0.02 10*3/uL (0.00-0.10); Basophils % (A) 0.1 %; HCT 33.4 % (39.6-50.0); HGB 10.4 g/dL (13.0-17.0); Lymphocytes # (A) 0.49 10*3/uL (0.90-5.00); Lymphocytes % (A) 3.6 %; MCH 28.1 pg (27.0-32.0); MCHC 31.1 g/dL (32.0-37.0); MCV 90.3 fL (80.0-97.0); Mean Platelet Volume 9.9 fL (9.5-12.2); Monocytes # (A) 0.88 10*3/uL (0.20-1.00); Monocytes % (A) 6.4 %; Neutrophils # (A) 12.07 10*3/uL (1.80-7.70); Neutrophils % (A) 88.1 %; Platelet Count 522 10*3/uL (140-440); RDW 15.7 % (11.5-14.5); WBC 13.71 10*3/uL (4.50-10.00)
[2025-01-30 07:41] LABS: African American GFR (CKD) >90 (>60 ml/min/1.73 sqM); Anion Gap 6 mmol/L; Blood Urea Nitrogen 26 mg/dL (9-20); Calcium 9.4 mg/dL (8.4-10.2); Carbon Dioxide 26 mmol/L (22-30); Chloride 101 mmol/L (98-107); Glucose 115 mg/dL (74-99); Magnesium 2.3 mg/dL (1.6-2.3); Non-African American GFR(CKD) >90 (>60 ml/min/1.73 sqM); Potassium 5.4 mmol/L (3.5-5.1); Sodium 133 mmol/L (137-145)
[2025-01-30 11:11] LABS: Glucose,Whole Blood 137 mg/dL (70-110)
--- NOTE | 2025-01-30 11:27 | P.PN ---
Subjective Progress Note Date: 01/30/25 Principal diagnosis: Pleural effusion and lung mass This is a 59-year-old male patient with a known history of former smoker, COPD maintained on Trelegy, hypothyroidism, hypertension and lung cancer diagnosed in 2016. He had a large obstructive mass in the right mainstem bronchus that was positive for carcinoma with chemotherapy and currently in remission. His last CT scan of the chest revealed a soft tissue encasement and volume loss of the right hilum and right perihilar bronchovascular bundles corresponding with treated disease. No definitive recurrence for metastatic disease. Development of a right lower lung reticular opacities likely representing bronchiolitis on a CT scan in June 2024. He presented to the emergency room today with a 2 to 3-week history of increasing shortness of breath cough and congestion. Chest x- ray reveals a completely opacified right hemithorax. Findings suggest neoplastic progression right hilar region with obstructive atelectasis. White count 8.8. Hemoglobin 12.0. Platelets 533. INR 1.0. Sodium 139. Potassium 4.5. Bicarb 24. BUN 15. Creatinine 0.59. AST 160. ALT 76. Alk phos 362. Troponin negative x 1. proBNP 768. He is seen today in consultation in the emergency department. He is currently sitting up on the stretcher. Awake and alert in mild respiratory distress. He is initially maintaining good O2 saturations in the 90s on room air oxygen. He is receiving a updraft treatment. He is afebrile. Blood pressure stable. He is sinus tachycardia in the 120s. The patient is seen today January 27, 2025 in follow-up in the emergency department. He is currently sitting up at the bedside. Awake and alert in no acute distress. He is still dyspneic with conversation. Dyspneic with minimal exertion. He is maintaining good O2 saturations in the mid 90s on 2 L/min per nasal cannula. He was without his oxygen for a brief walk to the bathroom and dropped into the 70s. He remains tachycardic. He is afebrile. He did undergo a right sided thoracentesis yesterday with 2.8 L of bloody fluid returned. Follow-up chest x-ray continued to show significant pleural effusion but no pneumothorax. White count 9.1. Hemoglobin 10.6. Platelets 506. Sodium 136. Potassium 4.1. Bicarb 23. BUN 15. Creatinine 0.62. Glucose 113. AST 90. ALT 58. Pleural fluid reveals exudate with a total protein of 2.6. LDH 161. WBCs 1372. Cytology pending. He is continued on DuoNeb inhalations, Symbicort. Patient was seen today on 01/28/2025, continues to have pigtail catheter in place connected to Pleur-evac, continues to have some serosanguineous drainage from the right pleural space, seems to be minimal, chest x-ray clearly showed evidence of trapped lung patient is now being seen by oncology and radiation oncology. On 2 L nasal cannula, O2 sats is 99% WBC count is 10 hemoglobin 10.9 electrolytes are normal except for potassium of 5.5 renal profile is normal. Patient was seen today on 01/29/2025, basically about the same continues to have significant amount of serosanguineous drainage from the right lung, pigtail catheter remains in place, patient is complaining of some vague chest discomf ort, but he is not in any distress. Fluid cytology from his right thoracentesis/pleural effusion is pending. WBC count today 16.3 hemoglobin 10.2 electrolytes are normal renal profile is normal Seen today on 01/30/2025, patient continues to feel about the same. Continues to have right-sided pigtail catheter in place, and continues to have some serosanguineous drainage. Patient had a trapped lung and he does have a large endobronchial tumor involving the right mainstem bronchus based on CT of the chest. Patient is being followed by oncology and he will need radiation oncology. Cytology is pending. WBC count is 13.7 hemoglobin is 10.4 electrolytes are normal except for potassium of 5.4 renal profile is normal Objective - Vital Signs Vital signs: Vital Signs Temp 97.7 F 01/30/25 08:00 Pulse 124 H 01/30/25 10:02 Resp 18 01/30/25 08:00 BP 124/85 01/30/25 08:00 Pulse Ox 99 01/30/25 08:00 FiO2 Intake & Output 01/29/25 01/30/25 01/30/25 18:59 06:59 18:59 Intake Total 480 10 Output Total 260 270 Balance 220 -270 10 Weight 78.1 kg 79.2 kg Intake: IV 10 Invasive Line 2 10 Oral 480 0 Output: Chest Tube Drainage 260 270 Chest Tube Right 260 270 Posterior Chest Other: Voiding Method Toilet Toilet # Voids 1 2 # Bowel Movements 1 - Exam GENERAL EXAM: 59-year-old white male obese on 2 L nasal cannula in no distress HEAD: Normocephalic. EYES: Normal reaction of pupils, equal size. NOSE: Clear with pink turbinates. THROAT: No erythema or exudates. NECK: No masses, no JVD. CHEST: No chest wall deformity. LUNGS: Diminished breath sounds. On the right side, left side is clear, pigtail catheter connected to Pleur-evac is noted. CVS: S1 and S2 normal with no audible murmur, regular rhythm. ABDOMEN: No hepatosplenomegaly, normal bowel sounds, no guarding or rigidity. SKIN: No rashes CENTRAL NERVOUS SYSTEM: No focal deficits, tone is normal in all 4 extremities. EXTREMITIES: There is no peripheral edema. No clubbing, no cyanosis. Peripheral pulses are intact. - Labs CBC & Chem 7: 01/30/25 06:54 01/30/25 06:54 Labs: Abnormal Lab Results - Last 24 Hours (Table) 01/29/25 01/29/25 01/29/25 Range/Units 11:26 16:14 20:37 WBC (4.50-10.00) 10*3/uL RBC (4.40-5.60) 10*6/uL Hgb (13.0-17.0) g/dL Hct (39.6-50.0) % MCHC (32.0-37.0) g/dL Plt Count (140-440) 10*3/uL Immature Gran # (0.00-0.04) 10*3/uL Neutrophils # (1.80-7.70) 10*3/uL Lymphocytes # (0.90-5.00) 10*3/uL Eosinophils # (0.04-0.35) 10*3/uL Sodium (137-145) mmol/L Potassium (3.5-5.1) mmol/L BUN (9-20) mg/dL Creatinine (0.66-1.25) mg/dL Glucose (74-99) mg/dL POC Glucose (mg/dL) 123 H 131 H 127 H (70-110) mg/dL 01/30/25 01/30/25 01/30/25 Range/Units 05:58 06:54 06:54 WBC 13.71 H (4.50-10.00) 10*3/uL RBC 3.70 L (4.40-5.60) 10*6/uL Hgb 10.4 L (13.0-17.0) g/dL Hct 33.4 L (39.6-50.0) % MCHC 31.1 L (32.0-37.0) g/dL Plt Count 522 H (140-440) 10*3/uL Immature Gran # 0.25 H (0.00-0.04) 10*3/uL Neutrophils # 12.07 H (1.80-7.70) 10*3/uL Lymphocytes # 0.49 L (0.90-5.00) 10*3/uL Eosinophils # 0.00 L (0.04-0.35) 10*3/uL Sodium 133 L (137-145) mmol/L Potassium 5.4 H (3.5-5.1) mmol/L BUN 26 H (9-20) mg/dL Creatinine 0.65 L (0.66-1.25) mg/dL Glucose 115 H (74-99) mg/dL POC Glucose (mg/dL) 115 H (70-110) mg/dL 01/30/25 Range/Units 11:10 WBC (4.50-10.00) 10*3/uL RBC (4.40-5.60) 10*6/uL Hgb (13.0-17.0) g/dL Hct (39.6-50.0) % MCHC (32.0-37.0) g/dL Plt Count (140-440) 10*3/uL Immature Gran # (0.00-0.04) 10*3/uL Neutrophils # (1.80-7.70) 10*3/uL Lymphocytes # (0.90-5.00) 10*3/uL Eosinophils # (0.04-0.35) 10*3/uL Sodium (137-145) mmol/L Potassium (3.5-5.1) mmol/L BUN (9-20) mg/dL Creatinine (0.66-1.25) mg/dL Glucose (74-99) mg/dL POC Glucose (mg/dL) 137 H (70-110) mg/dL Microbiology - Last 24 Hours (Table) 01/26/25 16:00 Gram Stain - Preliminary Pleural Fluid Body Fluid Culture - Preliminary Assessment and Plan Assessment: Impression: Lung mass with large right-sided pleural effusion and trapped lung postthoracentesis and pigtail catheter placement cytology from this pleural effusion is pending 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 Last CT scan of the chest in June 2024 revealed similar soft tissue encasement and volume loss of the right hilum and right perihilar bronchovascular bundles corresponding to treated disease. Chronic tobacco dependence Chronic obstructive pulmonary disease Hypertension Previous bariatric surgery Hypothyroidism Recommendation: Continue pigtail catheter to Pleur-evac, continue suction, patient does have a trapped lung Continue present supportive care measures continue oxygen and titrate accord ingly Continue bronchodilators Cytology from the pleural effusion is pending Patient is being followed by oncology and radiation oncology Will continue to follow Time with Patient: Less than 30
[2025-01-30 16:09] LABS: Glucose,Whole Blood 126 mg/dL (70-110)
--- NOTE | 2025-01-30 17:11 | P.PN ---
Subjective Progress Note Date: 01/30/25 Patient was seen and examined. Reports pain at the site of pigtail relieved with Dilaudid. CBC and BMP significant for WBC 13.71, RBC 3.7, Hg 10.4, Hct 33.4, Plt 522, Na 133, K 5.4, BUN 26, Cr 0.65, glu 115. Mag 2.3. BP 112/77, HR 113, Tmax 97.9F, RR 18, 95% on 2L NC. General: no distress, appears at stated age Derm: warm, dry Head: atraumatic, normocephalic, symmetric Mouth: no lip lesion, mucus membranes moist Cardiovascular: S1 S2 tachy. No murmur. R pigtail catheter draining serousanguinous fluid Lungs: Decreased BS bilaterally, no accessory muscle use Ext: no gross muscle atrophy, no edema, no contractures. Neuro: No focal neurologic deficits. Psych: Alert and oriented. Based on my assessment of this patient, this patient meets a high complexity level of care. Lung mass with history of bronchogenic carcinoma diagnosed in 2017 with large R pleural effusion post thoracentesis and pigtail catheter placement: Culture negative so far. Dilaudid 1 mg IV Q4H, [place] 5 Q4H PRN pain. Continue pigtail catheter to suction. Pulmonary and Oncology on board. Awaiting cytology for further recommendations. Hyperkalemia: Mild elevation. Repeat BMP in the AM. Subacute fractures of the right anterior 3rd through 6th ribs: Pain management as above. Normocytic anemia with Thrombocytosis: Stable. Possible iron def. with elevated Plt count. Transfuse if Hg < 7. Hypothyroidism: Synthroid 50 mcg PO QD. COPD not in acute exacerbation: DuoNeb QID scheduled and Q2H PRN SOB/wheezing. Symbicort 2 INH BID. SoluMedrol 60 mg IV Q6H. History of gastric bypass and esophageal strictures Resolved: Lactic acidosis, Transaminitis CODE STATUS: FULL CODE DVT Prophylaxis: Lovenox SQ GI Prophylaxis: Designated medical POA if patient is not able to make medical decisions for themselves: I have reviewed the following client care consultant notes: Pulmonary. I have reviewed the results of the following tests: CBC, BMP, Mag. I have ordered the following tests: CBC and BMP in the AM. I have discussed the care of this patient with the following independent historian: I have independently interpreted the following test below: I have discussed the management of this patient with the following physician: Objective - Vital Signs Vital signs: Vital Signs Temp 97.9 F 01/30/25 15:35 Pulse 112 H 01/30/25 16:08 Resp 18 01/30/25 15:35 BP 112/77 01/30/25 15:35 Pulse Ox 95 01/30/25 15:35 FiO2 Intake & Output 01/29/25 01/30/25 01/30/25 18:59 06:59 18:59 Intake Total 480 650 Output Total 260 270 300 Balance 220 -270 350 Weight 78.1 kg 79.2 kg Intake: IV 10 Invasive Line 2 10 Oral 480 640 Output: Chest Tube Drainage 260 270 300 Chest Tube Right 260 270 300 Posterior Chest Other: Voiding Method Toilet Toilet # Voids 1 2 1 # Bowel Movements 1 - Labs CBC & Chem 7: 01/30/25 06:54 01/30/25 06:54 Labs: Abnormal Lab Results - Last 24 Hours (Table) 01/29/25 01/30/25 01/30/25 Range/Units 20:37 05:58 06:54 WBC 13.71 H (4.50-10.00) 10*3/uL RBC 3.70 L (4.40-5.60) 10*6/uL Hgb 10.4 L (13.0-17.0) g/dL Hct 33.4 L (39.6-50.0) % MCHC 31.1 L (32.0-37.0) g/dL Plt Count 522 H (140-440) 10*3/uL Immature Gran # 0.25 H (0.00-0.04) 10*3/uL Neutrophils # 12.07 H (1.80-7.70) 10*3/uL Lymphocytes # 0.49 L (0.90-5.00) 10*3/uL Eosinophils # 0.00 L (0.04-0.35) 10*3/uL Sodium (137-145) mmol/L Potassium (3.5-5.1) mmol/L BUN (9-20) mg/dL Creatinine (0.66-1.25) mg/dL Glucose (74-99) mg/dL POC Glucose (mg/dL) 127 H 115 H (70-110) mg/dL 01/30/25 01/30/25 01/30/25 Range/Units 06:54 11:10 16:03 WBC (4.50-10.00) 10*3/uL RBC (4.40-5.60) 10*6/uL Hgb (13.0-17.0) g/dL Hct (39.6-50.0) % MCHC (32.0-37.0) g/dL Plt Count (140-440) 10*3/uL Immature Gran # (0.00-0.04) 10*3/uL Neutrophils # (1.80-7.70) 10*3/uL Lymphocytes # (0.90-5.00) 10*3/uL Eosinophils # (0.04-0.35) 10*3/uL Sodium 133 L (137-145) mmol/L Potassium 5.4 H (3.5-5.1) mmol/L BUN 26 H (9-20) mg/dL Creatinine 0.65 L (0.66-1.25) mg/dL Glucose 115 H (74-99) mg/dL POC Glucose (mg/dL) 137 H 126 H (70-110) mg/dL Microbiology - Last 24 Hours (Table) 01/26/25 16:00 Gram Stain - Preliminary Pleural Fluid Body Fluid Culture - Preliminary
[2025-01-30] MEDS: HYDROmorphone 1 MG/ML 1 ML SYRINGE IVP PRN (17:25)
[2025-01-30 20:45] LABS: Glucose,Whole Blood 152 mg/dL (70-110)
[2025-01-30] MEDS ORDERED: MELATONIN 5 MG TABLET PO PRN (21:10)
[2025-01-30] MEDS: LORazepam 0.5 MG TAB PO STA (21:25)
[2025-01-31 06:19] LABS: Glucose,Whole Blood 123 mg/dL (70-110)
[2025-01-31 06:34] LABS: HGB 9.8 g/dL (13.0-17.0); MCH 28.6 pg (27.0-32.0); MCHC 31.6 g/dL (32.0-37.0); MCV 90.4 fL (80.0-97.0); Mean Platelet Volume 9.4 fL (9.5-12.2); Platelet Count 369 10*3/uL (140-440); RBC 3.43 10*6/uL (4.40-5.60); RDW 15.5 % (11.5-14.5); WBC 8.97 10*3/uL (4.50-10.00)
[2025-01-31 06:52] LABS: African American GFR (CKD) >90 (>60 ml/min/1.73 sqM); Anion Gap 3 mmol/L; Blood Urea Nitrogen 24 mg/dL (9-20); Calcium 9.1 mg/dL (8.4-10.2); Carbon Dioxide 30 mmol/L (22-30); Chloride 100 mmol/L (98-107); Glucose 114 mg/dL (74-99); Non-African American GFR(CKD) >90 (>60 ml/min/1.73 sqM); Potassium 5.4 mmol/L (3.5-5.1); Sodium 133 mmol/L (137-145)
[2025-01-31] MEDS: ENOXAPARIN 40 MG/0.4 ML SYRINGE SQ SCH (08:21)
[2025-01-31] MEDS: LORazepam 0.5 MG TAB PO PRN (11:14)
[2025-01-31] MEDS: AMOXIC-POT CLAV 875-125MG 1 EACH TAB PO SCH (11:14)
--- NOTE | 2025-01-31 11:40 | P.PN ---
Subjective Progress Note Date: 01/31/25 Patient was seen and examined. Reports pain at the site of pigtail catheter, 4- 5/10 severity. Chest tube draining 480 cc over the past 24H. CBC and BMP significant for RBC 3.43, Hg 9.8, Hct 31, Na 133, K 5.4, BUN 24, Cr 0.58, glu 114. BP 128/72, HR 114, T97.9F, RR 20, 93% on 2L NC. General: no distress, appears at stated age Derm: warm, dry Head: atraumatic, normocephalic, symmetric Mouth: no lip lesion, mucus membranes moist Cardiovascular: S1 S2 tachy. No murmur. R pigtail catheter draining sero usanguinous fluid Lungs: Decreased BS bilaterally, no accessory muscle use Ext: no gross muscle atrophy, no edema, no contractures. Neuro: No focal neurologic deficits. Psych: Alert and oriented. Based on my assessment of this patient, this patient meets a high complexity level of care. Lung mass with history of bronchogenic carcinoma diagnosed in 2017 with large R pleural effusion post thoracentesis and pigtail catheter placement: Culture negative so far. Dilaudid 1 mg IV Q4H PRN. Stop [place] and add Precocet 7.5 Q4 scheduled. Continue pigtail catheter to suction. Pulmonary and Oncology on board. Awaiting cytology for further recommendations. Hyperkalemia: Mild elevation. Repeat BMP in the AM. Subacute fractures of the right anterior 3rd through 6th ribs: Pain management as above. Normocytic anemia with Thrombocytosis: Stable. Possible iron def. with elevated Plt count. Transfuse if Hg < 7. Hypothyroidism: Synthroid 50 mcg PO QD. COPD not in acute exacerbation: DuoNeb QID scheduled and Q2H PRN SOB/wheezing. Symbicort 2 INH BID. SoluMedrol 60 mg IV Q6H. History of gastric bypass and esophageal strictures Resolved: Lactic acidosis, Transaminitis CODE STATUS: FULL CODE DVT Prophylaxis: Lovenox SQ GI Prophylaxis: Designated medical POA if patient is not able to make medical decisions for themselves: I have reviewed the following advanced manufacturing consultant notes: I have reviewed the results of the following tests: CBC, BMP I have ordered the following tests: CBC and BMP in the AM. I have discussed the care of this patient with the following independent historian: Family at bedside. I have independently interpreted the following test below: I have discussed the management of this patient with the following physician: Objective - Vital Signs Vital signs: Vital Signs Temp 97.9 F 01/31/25 07:31 Pulse 110 H 01/31/25 09:06 Resp 20 01/31/25 07:31 BP 128/72 01/31/25 07:31 Pulse Ox 94 L 01/31/25 08:59 FiO2 Intake & Output 01/30/25 01/31/25 01/31/25 18:59 06:59 18:59 Intake Total 650 980 10 Output Total 300 180 90 Balance 350 800 -80 Weight 78.9 kg Intake: IV 10 20 10 Invasive Line 2 10 20 10 Oral 640 960 Output: Chest Tube Drainage 300 180 90 Chest Tube Right 300 180 90 Posterior Chest Other: Voiding Method Toilet Toilet Toilet # Voids 1 3 - Labs CBC & Chem 7: 01/31/25 06:15 01/31/25 06:15 Labs: Abnormal Lab Results - Last 24 Hours (Table) 01/30/25 01/30/25 01/31/25 Range/Units 16:03 20:44 06:15 RBC 3.43 L (4.40-5.60) 10*6/uL Hgb 9.8 L (13.0-17.0) g/dL Hct 31.0 L (39.6-50.0) % MCHC 31.6 L (32.0-37.0) g/dL MPV 9.4 L (9.5-12.2) fL Sodium (137-145) mmol/L Potassium (3.5-5.1) mmol/L BUN (9-20) mg/dL Creatinine (0.66-1.25) mg/dL Glucose (74-99) mg/dL POC Glucose (mg/dL) 126 H 152 H (70-110) mg/dL 01/31/25 01/31/25 Range/Units 06:15 06:18 RBC (4.40-5.60) 10*6/uL Hgb (13.0-17.0) g/dL Hct (39.6-50.0) % MCHC (32.0-37.0) g/dL MPV (9.5-12.2) fL Sodium 133 L (137-145) mmol/L Potassium 5.4 H (3.5-5.1) mmol/L BUN 24 H (9-20) mg/dL Creatinine 0.58 L (0.66-1.25) mg/dL Glucose 114 H (74-99) mg/dL POC Glucose (mg/dL) 123 H (70-110) mg/dL Microbiology - Last 24 Hours (Table) 01/26/25 16:00 Gram Stain - Final Pleural Fluid Body Fluid Culture - Final
[2025-01-31] MEDS: oxyCODONE-APAP 7.5-325MG 1 EACH TAB PO SCH (11:58)
[2025-01-31 12:03] LABS: Glucose,Whole Blood 176 mg/dL (70-110)
--- NOTE | 2025-01-31 14:06 | P.PN ---
Subjective Progress Note Date: 01/31/25 Principal diagnosis: Lung cancer. This is a 59-year-old male patient with a known history of former smoker, COPD maintained on Trelegy, hypothyroidism, hypertension and lung cancer diagnosed in 2016. He had a large obstructive mass in the right mainstem bronchus that was positive for carcinoma with chemotherapy and currently in remission. His last CT scan of the chest revealed a soft tissue encasement and volume loss of the right hilum and right perihilar bronchovascular bundles corresponding with treated disease. No definitive recurrence for metastatic disease. Development of a right lower lung reticular opacities likely representing bronchiolitis on a CT scan in June 2024. He presented to the emergency room today with a 2 to 3-week history of increasing shortness of breath cough and congestion. Chest x- ray reveals a completely opacified right hemithorax. Findings suggest neoplastic progression right hilar region with obstructive atelectasis. White count 8.8. Hemoglobin 12.0. Platelets 533. INR 1.0. Sodium 139. Potassium 4.5. Bicarb 24. BUN 15. Creatinine 0.59. AST 160. ALT 76. Alk phos 362. Troponin negative x 1. proBNP 768. He is seen today in consultation in the emergency department. He is currently sitting up on the stretcher. Awake and alert in mild respiratory distress. He is initially maintaining good O2 saturations in the 90s on room air oxygen. He is receiving a updraft treatment. He is afebrile. Blood pressure stable. He is sinus tachycardia in the 120s. The patient is seen today January 27, 2025 in follow-up in the emergency department. He is currently sitting up at the bedside. Awake and alert in no acute di stress. He is still dyspneic with conversation. Dyspneic with minimal exertion. He is maintaining good O2 saturations in the mid 90s on 2 L/min per nasal cannula. He was without his oxygen for a brief walk to the bathroom and dropped into the 70s. He remains tachycardic. He is afebrile. He did undergo a right sided thoracentesis yesterday with 2.8 L of bloody fluid returned. Follow-up chest x-ray continued to show significant pleural effusion but no pneumothorax. White count 9.1. Hemoglobin 10.6. Platelets 506. Sodium 136. Potassium 4.1. Bicarb 23. BUN 15. Creatinine 0.62. Glucose 113. AST 90. ALT 58. Pleural fluid reveals exudate with a total protein of 2.6. LDH 161. W BCs 1372. Cytology pending. He is continued on DuoNeb inhalations, Symbicort. Patient was seen today on 01/28/2025, continues to have pigtail catheter in place connected to Pleur-evac, continues to have some serosanguineous drainage from the right pleural space, seems to be minimal, chest x-ray clearly showed evidence of trapped lung patient is now being seen by oncology and radiation oncology. On 2 L nasal cannula, O2 sats is 99% WBC count is 10 hemoglobin 10.9 electrolytes are normal except for potassium of 5.5 renal profile is normal. Patient was seen today on 01/29/2025, basically about the same continues to have significant amount of serosanguineous drainage from the right lung, pigtail catheter remains in place, patient is complaining of some vague chest discomfort, but he is not in any distress. Fluid cytology from his right thoracentesis/pleural effusion is pending. WBC count today 16.3 hemoglobin 10.2 electrolytes are normal renal profile is normal Seen today on 01/30/2025, patient continues to feel about the same. Continues to have right-sided pigtail catheter in place, and continues to have some serosanguineous drainage. Patient had a trapped lung and he does have a large endobronchial tumor involving the right mainstem bronchus based on CT of the chest. Patient is being followed by oncology and he will need radiation oncology. Cytology is pending. WBC count is 13.7 hemoglobin is 10.4 electrolytes are normal except for potassium of 5.4 renal profile is normal Progress note dated January 31, 2025. The patient is seen today in room 368. The patient is currently on 2 L nasal cannula. He is doing about the same. He has a right pigtail catheter in place. He is not receiving any IV fluids. His initial diagnosis of lung cancer was made by myself, back in 2017. He has non-small cell lung cancer. Today we added Augmentin to his regimen. Current laboratory data includes a white count of 8.97, hemoglobin 9.8, hematocrit 31, and a platelet count of 369,000. Sodium 133, potassium 5.4, chlorides 100, CO2 30, BUN 24, creatinine 0.58. Glucose Is 176. Calcium Is 9.1. Pleural fluid cytology is still pending. Objective - Vital Signs Vital signs: Vital Signs Temp 97.7 F 01/31/25 11:38 Pulse 130 H 01/31/25 11:38 Resp 18 01/31/25 11:38 BP 119/74 01/31/25 11:38 Pulse Ox 96 01/31/25 11:38 FiO2 Intake & Output 01/30/25 01/31/25 01/31/25 18:59 06:59 18:59 Intake Total 650 980 10 Output Total 300 180 90 Balance 350 800 -80 Weight 78.9 kg Intake: IV 10 20 10 Invasive Line 2 10 20 10 Oral 640 960 Output: Chest Tube Drainage 300 180 90 Chest Tube Right 300 180 90 Posterior Chest Other: Voiding Method Toilet Toilet Toilet # Voids 1 3 - Exam No acute distress, oriented 3. HEENT examination is grossly unremarkable. Mucous membranes are moist. No oral lesions. Neck supple. Full range of motion. No adenopathy thyromegaly or neck vein distention. Cardiovascular examination reveals regular rhythm rate. S1-S2 normal. No S3 or S4. No discernible murmur noted. Lungs reveal diminished right-sided breath sounds. Pigtail catheter in place. Left lung is clear. Abdomen soft bowel sounds are heard. No masses or tenderness. Extremities are intact. No cyanosis clubbing or edema. Skin is without rash or lesion. Neurologic examination is brief but nonfocal. - Labs CBC & Chem 7: 01/31/25 06:15 01/31/25 06:15 Labs: Abnormal Lab Results - Last 24 Hours (Table) 01/30/25 01/30/25 01/31/25 Range/Units 16:03 20:44 06:15 RBC 3.43 L (4.40-5.60) 10*6/uL Hgb 9.8 L (13.0-17.0) g/dL Hct 31.0 L (39.6-50.0) % MCHC 31.6 L (32.0-37.0) g/dL MPV 9.4 L (9.5-12.2) fL Sodium (137-145) mmol/L Potassium (3.5-5.1) mmol/L BUN (9-20) mg/dL Creatinine (0.66-1.25) mg/dL Glucose (74-99) mg/dL POC Glucose (mg/dL) 126 H 152 H (70-110) mg/dL 01/31/25 01/31/25 01/31/25 Range/Units 06:15 06:18 11:39 RBC (4.40-5.60) 10*6/uL Hgb (13.0-17.0) g/dL Hct (39.6-50.0) % MCHC (32.0-37.0) g/dL MPV (9.5-12.2) fL Sodium 133 L (137-145) mmol/L Potassium 5.4 H (3.5-5.1) mmol/L BUN 24 H (9-20) mg/dL Creatinine 0.58 L (0.66-1.25) mg/dL Glucose 114 H (74-99) mg/dL POC Glucose (mg/dL) 123 H 176 H (70-110) mg/dL Microbiology - Last 24 Hours (Table) 01/26/25 16:00 Gram Stain - Final Pleural Fluid Body Fluid Culture - Final Assessment and Plan Assessment: Lung mass with large right-sided pleural effusion and trapped lung S/P thoracentesis and pigtail catheter placement. 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 Chronic tobacco dependence. Chronic obstructive pulmonary disease. Hypertension. Previous bariatric surgery. Hypothyroidism. Plan: Plan dated January 31, 2025. The patient is seen today in room 368. He continues on O2 at 2 L. No IV fluids. We add Augmentin to his regimen. Right sided pigtail catheter is still in place. The patient states that he is feeling better. He continues to use bronchodilators, and cytology of the fluid removed, is currently pending. We will continue to follow make recommendations where appropriate. All labs, x- rays, and medications are reviewed. Prognosis is guarded. Dictation was produced using [employer] software. Please excuse any grammatical, word or spelling errors. Time with Patient: Less than 30
[2025-01-31 16:55] LABS: Glucose,Whole Blood 126 mg/dL (70-110)
--- NOTE | 2025-01-31 20:21 | P.PN ---
Subjective Progress Note Date: 01/31/25 No acute events overnight. Pt reporting persisting SOB. Cytology still pending. Objective - Vital Signs Vital signs: Vital Signs Temp 97.6 F 01/31/25 19:41 Pulse 130 H 01/31/25 19:41 Resp 20 01/31/25 19:41 BP 127/83 01/31/25 19:41 Pulse Ox 91 L 01/31/25 19:41 FiO2 Intake & Output 01/31/25 01/31/25 02/01/25 06:59 18:59 06:59 Intake Total 980 740 Output Total 180 160 Balance 800 580 Weight 78.9 kg Intake: IV 20 20 Invasive Line 2 20 20 Oral 960 720 Output: Chest Tube Drainage 180 160 Chest Tube Right 180 160 Posterior Chest Other: Voiding Method Toilet Toilet # Voids 3 1 - Constitutional General appearance: Present: average body habitus, no acute distress - EENT Eyes: Present: anicteric sclerae, EOMI ENT: Present: hearing grossly normal - Respiratory Details: breathing labored - Cardiovascular Details: skin warm and dry - Integumentary Integumentary: Absent: cyanotic, jaundiced - Neurologic Neurologic: Present: CNII-XII intact - Psychiatric Psychiatric: Present: A&O x's 3 - Labs CBC & Chem 7: 01/31/25 06:15 01/31/25 06:15 Labs: Abnormal Lab Results - Last 24 Hours (Table) 01/30/25 01/31/25 01/31/25 Range/Units 20:44 06:15 06:15 RBC 3.43 L (4.40-5.60) 10*6/uL Hgb 9.8 L (13.0-17.0) g/dL Hct 31.0 L (39.6-50.0) % MCHC 31.6 L (32.0-37.0) g/dL MPV 9.4 L (9.5-12.2) fL Sodium 133 L (137-145) mmol/L Potassium 5.4 H (3.5-5.1) mmol/L BUN 24 H (9-20) mg/dL Creatinine 0.58 L (0.66-1.25) mg/dL Glucose 114 H (74-99) mg/dL POC Glucose (mg/dL) 152 H (70-110) mg/dL 01/31/25 01/31/25 01/31/25 Range/Units 06:18 11:39 16:54 RBC (4.40-5.60) 10*6/uL Hgb (13.0-17.0) g/dL Hct (39.6-50.0) % MCHC (32.0-37.0) g/dL MPV (9.5-12.2) fL Sodium (137-145) mmol/L Potassium (3.5-5.1) mmol/L BUN (9-20) mg/dL Creatinine (0.66-1.25) mg/dL Glucose (74-99) mg/dL POC Glucose (mg/dL) 123 H 176 H 126 H (70-110) mg/dL Microbiology - Last 24 Hours (Table) 01/26/25 16:00 Gram Stain - Final Pleural Fluid Body Fluid Culture - Final Assessment and Plan (1) Dyspnea Current Visit: Yes Status: Acute Code(s): R06.00 - DYSPNEA, UNSPECIFIED SNOMED Code(s): 233585361 (2) History of lung cancer Current Visit: Yes Status: Acute Code(s): Z85.118 - PERSONAL HISTORY OF MALIGNANT NEOPLASM OF BRONCHUS AND LUNG SNOMED Code(s): 918063391 (3) Pleural effusion Current Visit: Yes Status: Acute Code(s): J90 - PLEURAL EFFUSION, NOT ELSEWHERE CLASSIFIED SNOMED Code(s): 85362808 (4) Mass of right lung Current Visit: No Status: Acute Code(s): R91.8 - OTHER NONSPECIFIC ABNORMAL FINDING OF LUNG FIELD SNOMED Code(s): 194581095 Plan: #Right pleural effusion, right hilar mass - Noted to have opacification of the right hemithorax on chest x-ray from admission - Thoracentesis on 01/26/2025 yielded 2800 cc of bloody pleural fluid with concern for trapped lung - CT of the chest revealing right hilar mass causing obstruction of the right mainstem bronchus with large pleural effusion and trapped lung - Chest tube placed on 01/27/2025 - Pleural fluid cytology from 01/27/2025 is still pending. Repeat cytology on 01/31 pending - We will follow-up on results of pleural fluid cytology - Given the reported falls he has been having recently, brain MRI has been ordered to rule out intracranial metastases. Brain MRI negative for metastasis - Consultation for radiation oncology has been placed given the obstruction of the right mainstem bronchus #Stage IIIa squamous cell carcinoma of the right lung - Completed concurrent chemoradiotherapy with cisplatin/etoposide in January 2017 - Most recent CT findings as noted above - It is unclear if this is a recurrence of his malignancy, potential histologic transformation, or new primary - Follow-up cytology as above - Case discussed with his primary oncologist, Dr. Keita, will plan for outpt PET CT and subsequent clinic f/u
[2025-01-31] MEDS: METOPROLOL SUCCINATE (ER) 25 MG TAB.ER.24H PO STA (20:40)
--- NOTE | 2025-01-31 21:03 | XR ---
EXAMINATION TYPE: XR chest 1V portable DATE OF EXAM: 01/31/2025 8:52 PM COMPARISON: 01/28/2025 CLINICAL INDICATION: Male, 59 years old with history of Chest tube, TECHNIQUE: XR chest 1V portable views of the chest are obtained. FINDINGS: Right basilar pleural catheter is in place. No evidence for sizable pneumothorax. Right-sided volume loss with elevation right hemidiaphragm. Left lung is clear. There appears to be related to healed ri b fractures. The heart is stable. Hilar and mediastinal structures are within normal limits. Degenerative changes are seen of the dorsal spine. IMPRESSION: 1. Right basilar pleural catheter is in place. No evidence for sizable pneumothorax. Right-sided vol ume loss with elevation right hemidiaphragm. [facility], , 01/31/2025 9:01 PM
[2025-01-31 22:18] LABS: Glucose,Whole Blood 129 mg/dL (70-110)
[2025-02-01 05:54] LABS: Glucose,Whole Blood 117 mg/dL (70-110)
[2025-02-01 07:01] LABS: HCT 34.4 % (39.6-50.0); HGB 10.3 g/dL (13.0-17.0); MCH 27.3 pg (27.0-32.0); MCHC 29.9 g/dL (32.0-37.0); MCV 91.2 fL (80.0-97.0); Mean Platelet Volume 10.5 fL (9.5-12.2); Platelet Count 449 10*3/uL (140-440); RBC 3.77 10*6/uL (4.40-5.60); RDW 15.5 % (11.5-14.5); WBC 13.59 10*3/uL (4.50-10.00)
[2025-02-01 07:24] LABS: African American GFR (CKD) >90 (>60 ml/min/1.73 sqM); Anion Gap 0 mmol/L; Blood Urea Nitrogen 26 mg/dL (9-20); Carbon Dioxide 32 mmol/L (22-30); Chloride 100 mmol/L (98-107); Glucose 110 mg/dL (74-99); Non-African American GFR(CKD) >90 (>60 ml/min/1.73 sqM); Potassium 5.8 mmol/L (3.5-5.1); Sodium 132 mmol/L (137-145)
[2025-02-01] MEDS: SODIUM ZIRCONIUM CYCLOSILICATE 10 GM PACKET PO ONE (08:40)
--- NOTE | 2025-02-01 11:34 | P.PN ---
Subjective Progress Note Date: 02/01/25 Patient was seen and examined. Doing well. Pain well controlled. Chest tube draining 320 cc over the past 24H. CBC and BMP significant for WBC 13.59, RBC 3.77, Hg 10.3, Hct 34.4, Na 132, K 5.8, bicarb 32, BUN 26, Cr 0.65, glu 110. BP 124/87, HR 102, T97.4F, RR 18, 96% on 2L NC. General: no distress, appears at stated age Derm: warm, dry Head: atraumatic, normocephalic, symmetric Mouth: no lip lesion, mucus membranes moist Cardiovascular: S1 S2 tachy. No murmur. R pigtail catheter draining serousan guinous fluid Lungs: Decreased BS bilaterally, no accessory muscle use Ext: no gross muscle atrophy, no edema, no contractures. Neuro: No focal neurologic deficits. Psych: Alert and oriented. Based on my assessment of this patient, this patient meets a high complexity level of care. Lung mass with history of bronchogenic carcinoma diagnosed in 2017 with large R pleural effusion post thoracentesis and pigtail catheter placement: Culture negative so far. Dilaudid 1 mg IV Q4H PRN, Precocet 7.5 Q4 scheduled. Continue pigtail catheter to suction. Pulmonary and Oncology on board. Awaiting cytology for further recommendations. Hyperkalemia: EKG with no peaked T waves (sinus tachycardia). Lokelma 10g PO x 1. Repeat BMP in the AM. Subacute fractures of the right anterior 3rd through 6th ribs: Pain management as above. Normocytic anemia with Thrombocytosis: Stable. Possible iron def. with elevated Plt count. Transfuse if Hg < 7. Hypothyroidism: Synthroid 50 mcg PO QD. COPD not in acute exacerbation: DuoNeb QID scheduled and Q2H PRN SOB/wheezing. Symbicort 2 INH BID. SoluMedrol 60 mg IV Q6H. History of gastric bypass and esophageal strictures Resolved: Lactic acidosis, Transaminitis CODE STATUS: FULL CODE DVT Prophylaxis: Lovenox SQ GI Prophylaxis: Designated medical POA if patient is not able to make medical decisions for themselves: I have reviewed the following eligibility consultant notes: Pulm, Oncology. I have reviewed the results of the following tests: CBC, BMP I have ordered the following tests: CBC and BMP in the AM. I have discussed the care of this patient with the following independent historian: ANU. I have independently interpreted the following test below: EKG I have discussed the management of this patient with the following physician: Objective - Vital Signs Vital signs: Vital Signs Temp 97.4 F L 02/01/25 07:16 Pulse 104 H 02/01/25 08:15 Resp 18 02/01/25 07:16 BP 124/87 02/01/25 07:16 Pulse Ox 96 02/01/25 08:05 FiO2 Intake & Output 01/31/25 02/01/25 02/01/25 18:59 06:59 18:59 Intake Total 740 5 130 Output Total 160 360 80 Balance 580 -355 50 Weight 78.8 kg Intake: IV 20 5 10 Invasive Line 2 20 5 Invasive Line 3 10 Oral 720 120 Output: Chest Tube Drainage 160 160 80 Chest Tube Right 160 160 80 Posterior Chest Urine 200 Other: Voiding Method Toilet Toilet Toilet # Voids 1 1 - Labs CBC & Chem 7: 02/01/25 06:35 02/01/25 06:35 Labs: Abnormal Lab Results - Last 24 Hours (Table) 01/31/25 01/31/25 01/31/25 Range/Units 11:39 16:54 22:16 WBC (4.50-10.00) 10*3/uL RBC (4.40-5.60) 10*6/uL Hgb (13.0-17.0) g/dL Hct (39.6-50.0) % MCHC (32.0-37.0) g/dL Plt Count (140-440) 10*3/uL Sodium (137-145) mmol/L Potassium (3.5-5.1) mmol/L Carbon Dioxide (22-30) mmol/L BUN (9-20) mg/dL Creatinine (0.66-1.25) mg/dL Glucose (74-99) mg/dL POC Glucose (mg/dL) 176 H 126 H 129 H (70-110) mg/dL 02/01/25 02/01/25 02/01/25 Range/Units 05:53 06:35 06:35 WBC 13.59 H (4.50-10.00) 10*3/uL RBC 3.77 L (4.40-5.60) 10*6/uL Hgb 10.3 L (13.0-17.0) g/dL Hct 34.4 L (39.6-50.0) % MCHC 29.9 L (32.0-37.0) g/dL Plt Count 449 H (140-440) 10*3/uL Sodium 132 L (137-145) mmol/L Potassium 5.8 H (3.5-5.1) mmol/L Carbon Dioxide 32 H (22-30) mmol/L BUN 26 H (9-20) mg/dL Creatinine 0.65 L (0.66-1.25) mg/dL Glucose 110 H (74-99) mg/dL POC Glucose (mg/dL) 117 H (70-110) mg/dL Microbiology - Last 24 Hours (Table) 01/26/25 16:00 Gram Stain - Final Pleural Fluid Body Fluid Culture - Final
[2025-02-01 12:04] LABS: Glucose,Whole Blood 128 mg/dL (70-110)
--- NOTE | 2025-02-01 12:20 | P.PN ---
Subjective Progress Note Date: 02/01/25 Principal diagnosis: Lung cancer. This is a 59-year-old male patient with a known history of former smoker, COPD maintained on Trelegy, hypothyroidism, hypertension and lung cancer diagnosed in 2016. He had a large obstructive mass in the right mainstem bronchus that was positive for carcinoma with chemotherapy and currently in remission. His last CT scan of the chest revealed a soft tissue encasement and volume loss of the right hilum and right perihilar bronchovascular bundles corresponding with treated disease. No definitive recurrence for metastatic disease. Development of a right lower lung reticular opacities likely representing bronchiolitis on a CT scan in June 2024. He presented to the emergency room today with a 2 to 3-week history of increasing shortness of breath cough and congestion. Chest x- ray reveals a completely opacified right hemithorax. Findings suggest neoplastic progression right hilar region with obstructive atelectasis. White count 8.8. Hemoglobin 12.0. Platelets 533. INR 1.0. Sodium 139. Potassium 4.5. Bicarb 24. BUN 15. Creatinine 0.59. AST 160. ALT 76. Alk phos 362. Troponin negative x 1. proBNP 768. He is seen today in consultation in the emergency department. He is currently sitting up on the stretcher. Awake and alert in mild respiratory distress. He is initially maintaining good O2 saturations in the 90s on room air oxygen. He is receiving a updraft treatment. He is afebrile. Blood pressure stable. He is sinus tachycardia in the 120s. The patient is seen today January 27, 2025 in follow-up in the emergency department. He is currently sitting up at the bedside. Awake and alert in no acute di stress. He is still dyspneic with conversation. Dyspneic with minimal exertion. He is maintaining good O2 saturations in the mid 90s on 2 L/min per nasal cannula. He was without his oxygen for a brief walk to the bathroom and dropped into the 70s. He remains tachycardic. He is afebrile. He did undergo a right sided thoracentesis yesterday with 2.8 L of bloody fluid returned. Follow-up chest x-ray continued to show significant pleural effusion but no pneumothorax. White count 9.1. Hemoglobin 10.6. Platelets 506. Sodium 136. Potassium 4.1. Bicarb 23. BUN 15. Creatinine 0.62. Glucose 113. AST 90. ALT 58. Pleural fluid reveals exudate with a total protein of 2.6. LDH 161. W BCs 1372. Cytology pending. He is continued on DuoNeb inhalations, Symbicort. Patient was seen today on 01/28/2025, continues to have pigtail catheter in place connected to Pleur-evac, continues to have some serosanguineous drainage from the right pleural space, seems to be minimal, chest x-ray clearly showed evidence of trapped lung patient is now being seen by oncology and radiation oncology. On 2 L nasal cannula, O2 sats is 99% WBC count is 10 hemoglobin 10.9 electrolytes are normal except for potassium of 5.5 renal profile is normal. Patient was seen today on 01/29/2025, basically about the same continues to have significant amount of serosanguineous drainage from the right lung, pigtail catheter remains in place, patient is complaining of some vague chest discomfort, but he is not in any distress. Fluid cytology from his right thoracentesis/pleural effusion is pending. WBC count today 16.3 hemoglobin 10.2 electrolytes are normal renal profile is normal Seen today on 01/30/2025, patient continues to feel about the same. Continues to have right-sided pigtail catheter in place, and continues to have some serosanguineous drainage. Patient had a trapped lung and he does have a large endobronchial tumor involving the right mainstem bronchus based on CT of the chest. Patient is being followed by oncology and he will need radiation oncology. Cytology is pending. WBC count is 13.7 hemoglobin is 10.4 electrolytes are normal except for potassium of 5.4 renal profile is normal Progress note dated January 31, 2025. The patient is seen today in room 368. The patient is currently on 2 L nasal cannula. He is doing about the same. He has a right pigtail catheter in place. He is not receiving any IV fluids. His initial diagnosis of lung cancer was made by myself, back in 2017. He has non-small cell lung cancer. Today we added Augmentin to his regimen. Current laboratory data includes a white count of 8.97, hemoglobin 9.8, hematocrit 31, and a platelet count of 369,000. Sodium 133, potassium 5.4, chlorides 100, CO2 30, BUN 24, creatinine 0.58. Glucose Is 176. Calcium Is 9.1. Pleural fluid cytology is still pending. Progress note dated February 01, 2025. The patient is seen today in room 368. The patient continues on nasal O2 at 2 L. He is not receiving any IV fluids. Clinically he feels improved. He is sitting on the side of the bed. He has a right pigtail catheter in place. He is receiving Augmentin. Current laboratory data includes a white count of 13.6, hemoglobin 10.3, hematocrit 34.4, and a platelet count of 449,000. Sodium 132, potassium 5.8, chlorides 100, CO2 32, BUN 26, Creatinine 0.65. Glucose Is 128. Calcium Is 9. Pleural fluid cytology is currently still pending. Previous pleural fluid cytology was negative. Objective - Vital Signs Vital signs: Vital Signs Temp 97.4 F L 02/01/25 11:33 Pulse 102 H 02/01/25 11:56 Resp 20 02/01/25 11:33 BP 136/86 02/01/25 11:33 Pulse Ox 98 02/01/25 11:33 FiO2 Intake & Output 01/31/25 02/01/25 02/01/25 18:59 06:59 18:59 Intake Total 740 5 130 Output Total 160 360 80 Balance 580 -355 50 Weight 78.8 kg Intake: IV 20 5 10 Invasive Line 2 20 5 Invasive Line 3 10 Oral 720 120 Output: Chest Tube Drainage 160 160 80 Chest Tube Right 160 160 80 Posterior Chest Urine 200 Other: Voiding Method Toilet Toilet Toilet # Voids 1 1 - Exam No acute distress, oriented 3. HEENT examination is grossly unremarkable. Mucous membranes are moist. No oral lesions. Neck supple. Full range of motion. No adenopathy thyromegaly or neck vein distention. Cardiovascular examination reveals regular rhythm rate. S1-S2 normal. No S3 or S4. No discernible murmur noted. Lungs reveal diminished right-sided breath sounds. Pigtail catheter in place. Left lung is clear. Abdomen soft bowel sounds are heard. No masses or tenderness. Extremities are intact. No cyanosis clubbing or edema. Skin is without rash or lesion. Neurologic examination is brief but nonfocal. - Labs CBC & Chem 7: 02/01/25 06:35 02/01/25 06:35 Labs: Abnormal Lab Results - Last 24 Hours (Table) 01/31/25 01/31/25 02/01/25 Range/Units 16:54 22:16 05:53 WBC (4.50-10.00) 10*3/uL RBC (4.40-5.60) 10*6/uL Hgb (13.0-17.0) g/dL Hct (39.6-50.0) % MCHC (32.0-37.0) g/dL Plt Count (140-440) 10*3/uL Sodium (137-145) mmol/L Potassium (3.5-5.1) mmol/L Carbon Dioxide (22-30) mmol/L BUN (9-20) mg/dL Creatinine (0.66-1.25) mg/dL Glucose (74-99) mg/dL POC Glucose (mg/dL) 126 H 129 H 117 H (70-110) mg/dL 02/01/25 02/01/25 02/01/25 Range/Units 06:35 06:35 12:02 WBC 13.59 H (4.50-10.00) 10*3/uL RBC 3.77 L (4.40-5.60) 10*6/uL Hgb 10.3 L (13.0-17.0) g/dL Hct 34.4 L (39.6-50.0) % MCHC 29.9 L (32.0-37.0) g/dL Plt Count 449 H (140-440) 10*3/uL Sodium 132 L (137-145) mmol/L Potassium 5.8 H (3.5-5.1) mmol/L Carbon Dioxide 32 H (22-30) mmol/L BUN 26 H (9-20) mg/dL Creatinine 0.65 L (0.66-1.25) mg/dL Glucose 110 H (74-99) mg/dL POC Glucose (mg/dL) 128 H (70-110) mg/dL Assessment and Plan Assessment: Lung mass with large right-sided pleural effusion and trapped lung S/P thoracentesis and pigtail catheter placement. 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 Chronic tobacco dependence. Chronic obstructive pulmonary disease. Hypertension. Previous bariatric surgery. Hypothyroidism. Plan: Plan dated January 31, 2025. The patient is seen today in room 368. He continues on O2 at 2 L. No IV fluids. We add Augmentin to his regimen. Right sided pigtail catheter is still in place. The patient states that he is feeling better. He continues to use bronchodilators, and cytology of the fluid removed, is currently pending. We will continue to follow make recommendations where appropriate. All labs, x- rays, and medications are reviewed. Prognosis is guarded. Dictation was produced using [employer] software. Please excuse any grammatical, word or spelling errors. Plan dated February 01, 2025. The patient appears to be relatively comfortable. He is alert and awake. No distress. Certainly no respiratory distress. He continues on 2 L. He is not receiving any IV fluids. The right sided pigtail catheter is in place. The patient is currently on Augmentin. Pleural fluid cytology, is currently pending. The first fluid cytology was negative. Labs, x-rays, and all medications are reviewed. We will continue to follow the patient, make recommendations were appropriate. Prognosis is certainly guarded. Dictation was produced using [employer] software. Please excuse any grammatical, word or spelling errors. Time with Patient: Less than 30
[2025-02-01 16:56] LABS: Glucose,Whole Blood 120 mg/dL (70-110)
--- NOTE | 2025-02-01 18:37 | P.PN ---
Subjective Progress Note Date: 02/01/25 No acute events overnight. Pt reporting persisting SOB. Cytology negative for malignancy, additional cytology still persisting Objective - Vital Signs Vital signs: Vital Signs Temp 97.4 F L 02/01/25 11:33 Pulse 102 H 02/01/25 11:56 Resp 20 02/01/25 11:33 BP 136/86 02/01/25 11:33 Pulse Ox 98 02/01/25 11:33 FiO2 Intake & Output 01/31/25 02/01/25 02/01/25 18:59 06:59 18:59 Intake Total 740 5 130 Output Total 160 360 80 Balance 580 -355 50 Weight 78.8 kg Intake: IV 20 5 10 Invasive Line 2 20 5 Invasive Line 3 10 Oral 720 120 Output: Chest Tube Drainage 160 160 80 Chest Tube Right 160 160 80 Posterior Chest Urine 200 Other: Voiding Method Toilet Toilet Toilet # Voids 1 1 - Constitutional General appearance: Present: average body habitus, no acute distress - EENT Eyes: Present: anicteric sclerae, EOMI ENT: Present: hearing grossly normal - Respiratory Details: breathing is even and unlabored - Cardiovascular Details: skin warm and dry - Integumentary Integumentary: Absent: cyanotic - Musculoskeletal Musculoskeletal: Present: generalized weakness - Psychiatric Psychiatric: Present: A&O x's 3 - Labs CBC & Chem 7: 02/01/25 06:35 02/01/25 06:35 Labs: Abnormal Lab Results - Last 24 Hours (Table) 01/31/25 01/31/25 02/01/25 Range/Units 16:54 22:16 05:53 WBC (4.50-10.00) 10*3/uL RBC (4.40-5.60) 10*6/uL Hgb (13.0-17.0) g/dL Hct (39.6-50.0) % MCHC (32.0-37.0) g/dL Plt Count (140-440) 10*3/uL Sodium (137-145) mmol/L Potassium (3.5-5.1) mmol/L Carbon Dioxide (22-30) mmol/L BUN (9-20) mg/dL Creatinine (0.66-1.25) mg/dL Glucose (74-99) mg/dL POC Glucose (mg/dL) 126 H 129 H 117 H (70-110) mg/dL 02/01/25 02/01/25 02/01/25 Range/Units 06:35 06:35 12:02 WBC 13.59 H (4.50-10.00) 10*3/uL RBC 3.77 L (4.40-5.60) 10*6/uL Hgb 10.3 L (13.0-17.0) g/dL Hct 34.4 L (39.6-50.0) % MCHC 29.9 L (32.0-37.0) g/dL Plt Count 449 H (140-440) 10*3/uL Sodium 132 L (137-145) mmol/L Potassium 5.8 H (3.5-5.1) mmol/L Carbon Dioxide 32 H (22-30) mmol/L BUN 26 H (9-20) mg/dL Creatinine 0.65 L (0.66-1.25) mg/dL Glucose 110 H (74-99) mg/dL POC Glucose (mg/dL) 128 H (70-110) mg/dL Assessment and Plan (1) Dyspnea Current Visit: Yes Status: Acute Code(s): R06.00 - DYSPNEA, UNSPECIFIED SNOMED Code(s): 864946512 (2) History of lung cancer Current Visit: Yes Status: Acute Code(s): Z85.118 - PERSONAL HISTORY OF MALIGNANT NEOPLASM OF BRONCHUS AND LUNG SNOMED Code(s): 609864787 (3) Pleural effusion Current Visit: Yes Status: Acute Code(s): J90 - PLEURAL EFFUSION, NOT ELSEWHERE CLASSIFIED SNOMED Code(s): 28770308 (4) Mass of right lung Current Visit: No Status: Acute Code(s): R91.8 - OTHER NONSPECIFIC ABNORMAL FINDING OF LUNG FIELD SNOMED Code(s): 270390717 Plan: #Right pleural effusion, right hilar mass - Noted to have opacification of the right hemithorax on chest x-ray from admission - Thoracentesis on 01/26/2025 yielded 2800 cc of bloody pleural fluid with concern for trapped lung - CT of the chest revealing right hilar mass causing obstruction of the right mainstem bronchus with large pleural effusion and trapped lung - Chest tube placed on 01/27/2025 - Pleural fluid cytology from 01/27/2025 is negative for malignancy. Repeat cytology on 01/31 pending - We will follow-up on results of pleural fluid cytology - Given the reported falls he has been having recently, brain MRI has been or dered to rule out intracranial metastases. Brain MRI negative for metastasis - Consultation for radiation oncology has been placed given the obstruction of the right mainstem bronchus #Stage IIIa squamous cell carcinoma of the right lung - Completed concurrent chemoradiotherapy with cisplatin/etoposide in January 2017 - Most recent CT findings as noted above - It is unclear if this is a recurrence of his malignancy, potential histologic transformation, or new primary - Follow-up cytology as above - Case discussed with his primary oncologist, Dr. Keita, will plan for outpt PET CT and subsequent clinic f/u
[2025-02-01 20:03] LABS: Glucose,Whole Blood 142 mg/dL (70-110)
[2025-02-01] MEDS: METOPROLOL SUCCINATE (ER) 25 MG TAB.ER.24H PO SCH (22:22)
[2025-02-02] MEDS: ZOLPIDEM 5 MG TAB PO PRN (00:05)
[2025-02-02 06:22] LABS: Glucose,Whole Blood 147 mg/dL (70-110)
[2025-02-02 07:01] LABS: HCT 30.7 % (39.6-50.0); HGB 9.7 g/dL (13.0-17.0); MCH 28.3 pg (27.0-32.0); MCHC 31.6 g/dL (32.0-37.0); MCV 89.5 fL (80.0-97.0); Mean Platelet Volume 10.9 fL (9.5-12.2); Platelet Count 337 10*3/uL (140-440); RBC 3.43 10*6/uL (4.40-5.60); RDW 15.6 % (11.5-14.5)
[2025-02-02 07:21] LABS: African American GFR (CKD) >90 (>60 ml/min/1.73 sqM); Anion Gap 2 mmol/L; Blood Urea Nitrogen 24 mg/dL (9-20); Calcium 8.6 mg/dL (8.4-10.2); Carbon Dioxide 30 mmol/L (22-30); Chloride 98 mmol/L (98-107); Glucose 105 mg/dL (74-99); Non-African American GFR(CKD) >90 (>60 ml/min/1.73 sqM); Potassium 5.2 mmol/L (3.5-5.1); Sodium 130 mmol/L (137-145)
[2025-02-02 11:33] LABS: Glucose,Whole Blood 144 mg/dL (70-110)
--- NOTE | 2025-02-02 12:02 | P.PN ---
Subjective Progress Note Date: 02/02/25 59 year old M with PMH of non small cell lung CA, COPD not on home O2, gastric bypass and esophageal strictures, hypothyroidism presents to the ED for shortness of breath. In the ED he underwent extensive evaluation. T 98F, BP 110/73, HR 114, RR 18, 96% on RA. Labs significant for RBC 4.15, Hg 12, Hct 37. 3, Plt 533, Cl 109, Cr 0.59, Lactic acid 4, AST 160, ALT 76, alk phos 362, Trop < 0.012, BNP 768, alb 2.8. CXR complete opacity of the right hemithorax. EKG sinus tachycardia. Patient was admitted for further workup and management. Pulmonary and Oncology consulted. Chest CT showed right mainstem bronchus mass with large right pleural effusion, hilar adenopathy, subacute rib fractures and thoracic wedge deformities. Underwent thoracentesis with pigtail catheter insertion with 2.8L fluid removal. Cultures were negative. Cytology is pending. 02/02 Patient was seen and examined. Doing well. Pain well controlled. Chest tube draining 410 cc over the past 24H. CBC and BMP significant for WBC RBC 3.43, Hg 9.7, Hct 30.7, Na 130, K 5.2, BUN 24, Cr 0.6, glu 105. BP 130/85, HR 101, T97.5F, RR 18, 98% on 2L NC. General: no distress, appears at stated age Derm: warm, dry Head: atraumatic, normocephalic, symmetric Mouth: no lip lesion, mucus membranes moist Cardiovascular: S1 S2 tachy. No murmur. R pigtail catheter draining serousanguinous fluid Lungs: Decreased BS bilaterally, no accessory muscle use Ext: no gross muscle atrophy, no edema, no contractures. Neuro: No focal neurologic deficits. Psych: Alert and oriented. Based on my assessment of this patient, this patient meets a high complexity level of care. Lung mass with history of bronchogenic carcinoma diagnosed in 2017 with large R pleural effusion post thoracentesis and pigtail catheter placement: Culture negative so far. Dilaudid 1 mg IV Q4H PRN, Precocet 7.5 Q4 scheduled. Continue pigtail catheter to suction. Pulmonary and Oncology on board. Awaiting cytology for further recommendations. Hyperkalemia: Improved. EKG with no peaked T waves (sinus tachycardia). Lokelma 10g PO x 1 on 02/01. Repeat BMP in the AM. Subacute fractures of the right anterior 3rd through 6th ribs: Pain management as above. Normocytic anemia with Thrombocytosis: Stable. Possible iron def. with elevated Plt count. Transfuse if Hg < 7. Hypothyroidism: Synthroid 50 mcg PO QD. COPD not in acute exacerbation: DuoNeb QID scheduled and Q2H PRN SOB/wheezing. Symbicort 2 INH BID. SoluMedrol switched to Prednisone 30 mg PO QD. History of gastric bypass and esophageal strictures Resolved: Lactic acidosis, Transaminitis Pigtail catheter continues to drain significant amount of fluid. Anticipate discharge when < 150 cc drainage over 24H. Will need to go home with pigtail catheter. Home O2 eval ordered. Pending clinical improvement. CODE STATUS: FULL CODE DVT Prophylaxis: Lovenox SQ GI Prophylaxis: Designated medical POA if patient is not able to make medical decisions for themselves: I have reviewed the following fashion consultant selling notes: Pulm, Oncology. I have reviewed the results of the following tests: CBC, BMP. I have ordered the following tests: CBC and BMP in the AM. I have discussed the care of this patient with the following independent historian: ANU. I have independently interpreted the following test below: I have discussed the management of this patient with the following physician: Objective - Vital Signs Vital signs: Vital Signs Temp 97.5 F L 02/02/25 11:35 Pulse 101 H 02/02/25 11:46 Resp 18 02/02/25 11:35 BP 130/85 02/02/25 11:35 Pulse Ox 98 02/02/25 11:35 FiO2 Intake & Output 02/01/25 02/02/25 02/02/25 18:59 06:59 18:59 Intake Total 260 550 250 Output Total 270 240 120 Balance -10 310 130 Weight 77.4 kg 77.4 kg Intake: IV 20 10 10 Invasive Line 3 20 10 10 Oral 240 540 240 Output: Chest Tube Drainage 170 240 120 Chest Tube Right 170 240 120 Posterior Chest Urine 100 Other: Voiding Method Toilet Toilet Toilet Urinal # Voids 1 1 - Labs CBC & Chem 7: 02/02/25 06:10 02/02/25 06:10 Labs: Abnormal Lab Results - Last 24 Hours (Table) 02/01/25 02/01/25 02/01/25 Range/Units 12:02 16:55 20:02 RBC (4.40-5.60) 10*6/uL Hgb (13.0-17.0) g/dL Hct (39.6-50.0) % MCHC (32.0-37.0) g/dL Sodium (137-145) mmol/L Potassium (3.5-5.1) mmol/L BUN (9-20) mg/dL Creatinine (0.66-1.25) mg/dL Glucose (74-99) mg/dL POC Glucose (mg/dL) 128 H 120 H 142 H (70-110) mg/dL 02/02/25 02/02/25 02/02/25 Range/Units 06:10 06:10 06:21 RBC 3.43 L (4.40-5.60) 10*6/uL Hgb 9.7 L (13.0-17.0) g/dL Hct 30.7 L (39.6-50.0) % MCHC 31.6 L (32.0-37.0) g/dL Sodium 130 L (137-145) mmol/L Potassium 5.2 H (3.5-5.1) mmol/L BUN 24 H (9-20) mg/dL Creatinine 0.60 L (0.66-1.25) mg/dL Glucose 105 H (74-99) mg/dL POC Glucose (mg/dL) 147 H (70-110) mg/dL 02/02/25 Range/Units 11:32 RBC (4.40-5.60) 10*6/uL Hgb (13.0-17.0) g/dL Hct (39.6-50.0) % MCHC (32.0-37.0) g/dL Sodium (137-145) mmol/L Potassium (3.5-5.1) mmol/L BUN (9-20) mg/dL Creatinine (0.66-1.25) mg/dL Glucose (74-99) mg/dL POC Glucose (mg/dL) 144 H (70-110) mg/dL
--- NOTE | 2025-02-02 12:41 | P.PN ---
Subjective Progress Note Date: 02/02/25 Principal diagnosis: Lung cancer. This is a 59-year-old male patient with a known history of former smoker, COPD maintained on Trelegy, hypothyroidism, hypertension and lung cancer diagnosed in 2016. He had a large obstructive mass in the right mainstem bronchus that was positive for carcinoma with chemotherapy and currently in remission. His last CT scan of the chest revealed a soft tissue encasement and volume loss of the right hilum and right perihilar bronchovascular bundles corresponding with treated disease. No definitive recurrence for metastatic disease. Development of a right lower lung reticular opacities likely representing bronchiolitis on a CT scan in June 2024. He presented to the emergency room today with a 2 to 3-week history of increasing shortness of breath cough and congestion. Chest x- ray reveals a completely opacified right hemithorax. Findings suggest neoplastic progression right hilar region with obstructive atelectasis. White count 8.8. Hemoglobin 12.0. Platelets 533. INR 1.0. Sodium 139. Potassium 4.5. Bicarb 24. BUN 15. Creatinine 0.59. AST 160. ALT 76. Alk phos 362. Troponin negative x 1. proBNP 768. He is seen today in consultation in the emergency department. He is currently sitting up on the stretcher. Awake and alert in mild respiratory distress. He is initially maintaining good O2 saturations in the 90s on room air oxygen. He is receiving a updraft treatment. He is afebrile. Blood pressure stable. He is sinus tachycardia in the 120s. The patient is seen today January 27, 2025 in follow-up in the emergency department. He is currently sitting up at the bedside. Awake and alert in no acute di stress. He is still dyspneic with conversation. Dyspneic with minimal exertion. He is maintaining good O2 saturations in the mid 90s on 2 L/min per nasal cannula. He was without his oxygen for a brief walk to the bathroom and dropped into the 70s. He remains tachycardic. He is afebrile. He did undergo a right sided thoracentesis yesterday with 2.8 L of bloody fluid returned. Follow-up chest x-ray continued to show significant pleural effusion but no pneumothorax. White count 9.1. Hemoglobin 10.6. Platelets 506. Sodium 136. Potassium 4.1. Bicarb 23. BUN 15. Creatinine 0.62. Glucose 113. AST 90. ALT 58. Pleural fluid reveals exudate with a total protein of 2.6. LDH 161. W BCs 1372. Cytology pending. He is continued on DuoNeb inhalations, Symbicort. Patient was seen today on 01/28/2025, continues to have pigtail catheter in place connected to Pleur-evac, continues to have some serosanguineous drainage from the right pleural space, seems to be minimal, chest x-ray clearly showed evidence of trapped lung patient is now being seen by oncology and radiation oncology. On 2 L nasal cannula, O2 sats is 99% WBC count is 10 hemoglobin 10.9 electrolytes are normal except for potassium of 5.5 renal profile is normal. Patient was seen today on 01/29/2025, basically about the same continues to have significant amount of serosanguineous drainage from the right lung, pigtail catheter remains in place, patient is complaining of some vague chest discomfort, but he is not in any distress. Fluid cytology from his right thoracentesis/pleural effusion is pending. WBC count today 16.3 hemoglobin 10.2 electrolytes are normal renal profile is normal Seen today on 01/30/2025, patient continues to feel about the same. Continues to have right-sided pigtail catheter in place, and continues to have some serosanguineous drainage. Patient had a trapped lung and he does have a large endobronchial tumor involving the right mainstem bronchus based on CT of the chest. Patient is being followed by oncology and he will need radiation oncology. Cytology is pending. WBC count is 13.7 hemoglobin is 10.4 electrolytes are normal except for potassium of 5.4 renal profile is normal Progress note dated January 31, 2025. The patient is seen today in room 368. The patient is currently on 2 L nasal cannula. He is doing about the same. He has a right pigtail catheter in place. He is not receiving any IV fluids. His initial diagnosis of lung cancer was made by myself, back in 2017. He has non-small cell lung cancer. Today we added Augmentin to his regimen. Current laboratory data includes a white count of 8.97, hemoglobin 9.8, hematocrit 31, and a platelet count of 369,000. Sodium 133, potassium 5.4, chlorides 100, CO2 30, BUN 24, creatinine 0.58. Glucose Is 176. Calcium Is 9.1. Pleural fluid cytology is still pending. Progress note dated February 01, 2025. The patient is seen today in room 368. The patient continues on nasal O2 at 2 L. He is not receiving any IV fluids. Clinically he feels improved. He is sitting on the side of the bed. He has a right pigtail catheter in place. He is receiving Augmentin. Current laboratory data includes a white count of 13.6, hemoglobin 10.3, hematocrit 34.4, and a platelet count of 449,000. Sodium 132, potassium 5.8, chlorides 100, CO2 32, BUN 26, Creatinine 0.65. Glucose Is 128. Calcium Is 9. Pleural fluid cytology is currently still pending. Previous pleural fluid cytology was negative. Progress note dated February 02, 2025. The patient is again seen today in room 368. The patient continues on 2 L nasal cannula. He is currently on DuoNebs, Symbicort, and Solu-Medrol, which will be changed to prednisone 30 mg a day. Fluid cytology, is currently still pending. Labs today include a white count of 9.7, hemoglobin 9.7, hematocrit 30.7, and a platelet count of 337. Sodium 130, potassium 5.2, chloride 98, CO2 30, BUN 24, creatinine 0.6. Glucose is 144. Calcium is 8.6. Chest x-ray shows complete opacification of the right lung. Objective - Vital Signs Vital signs: Vital Signs Temp 97.5 F L 02/02/25 11:35 Pulse 104 H 02/02/25 11:55 Resp 18 02/02/25 11:35 BP 130/85 02/02/25 11:35 Pulse Ox 98 02/02/25 11:35 FiO2 Intake & Output 02/01/25 02/02/25 02/02/25 18:59 06:59 18:59 Intake Total 260 550 250 Output Total 270 240 120 Balance -10 310 130 Weight 77.4 kg 77.4 kg Intake: IV 20 10 10 Invasive Line 3 20 10 10 Oral 240 540 240 Output: Chest Tube Drainage 170 240 120 Chest Tube Right 170 240 120 Posterior Chest Urine 100 Other: Voiding Method Toilet Toilet Toilet Urinal # Voids 1 1 - Exam No acute distress, oriented 3. Currently on 2 L. HEENT examination is grossly unremarkable. Mucous membranes are moist. No oral lesions. Neck supple. Full range of motion. No adenopathy thyromegaly or neck vein distention. Cardiovascular examination reveals regular rhythm rate. S1-S2 normal. No S3 or S4. No discernible murmur noted. Lungs reveal diminished right-sided breath sounds. Pigtail catheter in place. Left lung is clear. Abdomen soft bowel sounds are heard. No masses or tenderness. Extremities are intact. No cyanosis clubbing or edema. Skin is without rash or lesion. Neurologic examination is brief but nonfocal. - Labs CBC & Chem 7: 02/02/25 06:10 02/02/25 06:10 Labs: Abnormal Lab Results - Last 24 Hours (Table) 02/01/25 02/01/25 02/02/25 Range/Units 16:55 20:02 06:10 RBC 3.43 L (4.40-5.60) 10*6/uL Hgb 9.7 L (13.0-17.0) g/dL Hct 30.7 L (39.6-50.0) % MCHC 31.6 L (32.0-37.0) g/dL Sodium (137-145) mmol/L Potassium (3.5-5.1) mmol/L BUN (9-20) mg/dL Creatinine (0.66-1.25) mg/dL Glucose (74-99) mg/dL POC Glucose (mg/dL) 120 H 142 H (70-110) mg/dL 02/02/25 02/02/25 02/02/25 Range/Units 06:10 06:21 11:32 RBC (4.40-5.60) 10*6/uL Hgb (13.0-17.0) g/dL Hct (39.6-50.0) % MCHC (32.0-37.0) g/dL Sodium 130 L (137-145) mmol/L Potassium 5.2 H (3.5-5.1) mmol/L BUN 24 H (9-20) mg/dL Creatinine 0.60 L (0.66-1.25) mg/dL Glucose 105 H (74-99) mg/dL POC Glucose (mg/dL) 147 H 144 H (70-110) mg/dL Assessment and Plan Assessment: Lung mass with large right-sided pleural effusion and trapped lung S/P thoracentesis and pigtail catheter placement. 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 Chronic tobacco dependence. Chronic obstructive pulmonary disease. Hypertension. Previous bariatric surgery. Hypothyroidism. Plan: Plan dated January 31, 2025. The patient is seen today in room 368. He continues on O2 at 2 L. No IV fluids. We add Augmentin to his regimen. Right sided pigtail catheter is still in place. The patient states that he is feeling better. He continues to use bronchodilators, and cytology of the fluid removed, is currently pending. We will continue to follow make recommendations where appropriate. All labs, x- rays, and medications are reviewed. Prognosis is guarded. Dictation was produced using [employer] software. Please excuse any grammatical, word or spelling errors. Plan dated February 01, 2025. The patient appears to be relatively comfortable. He is alert and awake. No distress. Certainly no respiratory distress. He continues on 2 L. He is not receiving any IV fluids. The right sided pigtail catheter is in place. The patient is currently on Augmentin. Pleural fluid cytology, is currently pending. The first fluid cytology was negative. Labs, x-rays, and all medications are reviewed. We will continue to follow the patient, make recommendations were appropriate. Prognosis is certainly guarded. Dictation was produced using [employer] software. Please excuse any grammatical, word or spelling errors. Plan dated February 02, 2025. The patient is seen today in room 368. The patient continues on 2 L. He appears relatively comfortable. He denies any significant shortness of breath, cough, wheezing, chest tightness, or phlegm production. Chest x-ray shows complete opacification of the right lung. Right-sided pigtail catheter remains in place. All labs, x-rays, and medications are reviewed. We will continue to follow make recommendations. Prognosis is guarded. Dictation was produced [employer] software. Please excuse any grammatical, word or spelling errors. Time with Patient: Less than 30
[2025-02-02 16:36] LABS: Glucose,Whole Blood 133 mg/dL (70-110)
[2025-02-02 19:53] LABS: Glucose,Whole Blood 123 mg/dL (70-110)
[2025-02-03] MEDS: IPRATROPIUM-ALBUTEROL 3 ML NEB INHALATION PRN (03:56)
[2025-02-03 05:57] LABS: Glucose,Whole Blood 83 mg/dL (70-110)
[2025-02-03 06:58] LABS: HCT 32.6 % (39.6-50.0); HGB 10.2 g/dL (13.0-17.0); MCH 28.1 pg (27.0-32.0); MCHC 31.3 g/dL (32.0-37.0); MCV 89.8 fL (80.0-97.0); Mean Platelet Volume 10.3 fL (9.5-12.2); Platelet Count 329 10*3/uL (140-440); RBC 3.63 10*6/uL (4.40-5.60); RDW 15.6 % (11.5-14.5)
[2025-02-03 07:18] LABS: African American GFR (CKD) >90 (>60 ml/min/1.73 sqM); Anion Gap 1 mmol/L; Blood Urea Nitrogen 23 mg/dL (9-20); Calcium 8.6 mg/dL (8.4-10.2); Carbon Dioxide 32 mmol/L (22-30); Chloride 99 mmol/L (98-107); Glucose 68 mg/dL (74-99); Non-African American GFR(CKD) >90 (>60 ml/min/1.73 sqM); Potassium 4.8 mmol/L (3.5-5.1); Sodium 132 mmol/L (137-145)
[2025-02-03] MEDS: predniSONE 10 MG TAB PO SCH (08:12)
[2025-02-03 11:50] LABS: Glucose,Whole Blood 99 mg/dL (70-110)
--- NOTE | 2025-02-03 12:13 | P.PN ---
Subjective Progress Note Date: 02/03/25 Principal diagnosis: Lung cancer. This is a 59-year-old male patient with a known history of former smoker, COPD maintained on Trelegy, hypothyroidism, hypertension and lung cancer diagnosed in 2016. He had a large obstructive mass in the right mainstem bronchus that was positive for carcinoma with chemotherapy and currently in remission. His last CT scan of the chest revealed a soft tissue encasement and volume loss of the right hilum and right perihilar bronchovascular bundles corresponding with treated disease. No definitive recurrence for metastatic disease. Development of a right lower lung reticular opacities likely representing bronchiolitis on a CT scan in June 2024. He presented to the emergency room today with a 2 to 3-week history of increasing shortness of breath cough and congestion. Chest x- ray reveals a completely opacified right hemithorax. Findings suggest neoplastic progression right hilar region with obstructive atelectasis. White count 8.8. Hemoglobin 12.0. Platelets 533. INR 1.0. Sodium 139. Potassium 4.5. Bicarb 24. BUN 15. Creatinine 0.59. AST 160. ALT 76. Alk phos 362. Troponin negative x 1. proBNP 768. He is seen today in consultation in the emergency department. He is currently sitting up on the stretcher. Awake and alert in mild respiratory distress. He is initially maintaining good O2 saturations in the 90s on room air oxygen. He is receiving a updraft treatment. He is afebrile. Blood pressure stable. He is sinus tachycardia in the 120s. The patient is seen today January 27, 2025 in follow-up in the emergency department. He is currently sitting up at the bedside. Awake and alert in no acute di stress. He is still dyspneic with conversation. Dyspneic with minimal exertion. He is maintaining good O2 saturations in the mid 90s on 2 L/min per nasal cannula. He was without his oxygen for a brief walk to the bathroom and dropped into the 70s. He remains tachycardic. He is afebrile. He did undergo a right sided thoracentesis yesterday with 2.8 L of bloody fluid returned. Follow-up chest x-ray continued to show significant pleural effusion but no pneumothorax. White count 9.1. Hemoglobin 10.6. Platelets 506. Sodium 136. Potassium 4.1. Bicarb 23. BUN 15. Creatinine 0.62. Glucose 113. AST 90. ALT 58. Pleural fluid reveals exudate with a total protein of 2.6. LDH 161. W BCs 1372. Cytology pending. He is continued on DuoNeb inhalations, Symbicort. Patient was seen today on 01/28/2025, continues to have pigtail catheter in place connected to Pleur-evac, continues to have some serosanguineous drainage from the right pleural space, seems to be minimal, chest x-ray clearly showed evidence of trapped lung patient is now being seen by oncology and radiation oncology. On 2 L nasal cannula, O2 sats is 99% WBC count is 10 hemoglobin 10.9 electrolytes are normal except for potassium of 5.5 renal profile is normal. Patient was seen today on 01/29/2025, basically about the same continues to have significant amount of serosanguineous drainage from the right lung, pigtail catheter remains in place, patient is complaining of some vague chest discomfort, but he is not in any distress. Fluid cytology from his right thoracentesis/pleural effusion is pending. WBC count today 16.3 hemoglobin 10.2 electrolytes are normal renal profile is normal Seen today on 01/30/2025, patient continues to feel about the same. Continues to have right-sided pigtail catheter in place, and continues to have some serosanguineous drainage. Patient had a trapped lung and he does have a large endobronchial tumor involving the right mainstem bronchus based on CT of the chest. Patient is being followed by oncology and he will need radiation oncology. Cytology is pending. WBC count is 13.7 hemoglobin is 10.4 electrolytes are normal except for potassium of 5.4 renal profile is normal Progress note dated January 31, 2025. The patient is seen today in room 368. The patient is currently on 2 L nasal cannula. He is doing about the same. He has a right pigtail catheter in place. He is not receiving any IV fluids. His initial diagnosis of lung cancer was made by myself, back in 2017. He has non-small cell lung cancer. Today we added Augmentin to his regimen. Current laboratory data includes a white count of 8.97, hemoglobin 9.8, hematocrit 31, and a platelet count of 369,000. Sodium 133, potassium 5.4, chlorides 100, CO2 30, BUN 24, creatinine 0.58. Glucose Is 176. Calcium Is 9.1. Pleural fluid cytology is still pending. Progress note dated February 01, 2025. The patient is seen today in room 368. The patient continues on nasal O2 at 2 L. He is not receiving any IV fluids. Clinically he feels improved. He is sitting on the side of the bed. He has a right pigtail catheter in place. He is receiving Augmentin. Current laboratory data includes a white count of 13.6, hemoglobin 10.3, hematocrit 34.4, and a platelet count of 449,000. Sodium 132, potassium 5.8, chlorides 100, CO2 32, BUN 26, Creatinine 0.65. Glucose Is 128. Calcium Is 9. Pleural fluid cytology is currently still pending. Previous pleural fluid cytology was negative. Progress note dated February 02, 2025. The patient is again seen today in room 368. The patient continues on 2 L nasal cannula. He is currently on DuoNebs, Symbicort, and Solu-Medrol, which will be changed to prednisone 30 mg a day. Fluid cytology, is currently still pending. Labs today include a white count of 9.7, hemoglobin 9.7, hematocrit 30.7, and a platelet count of 337. Sodium 130, potassium 5.2, chloride 98, CO2 30, BUN 24, creatinine 0.6. Glucose is 144. Calcium is 8.6. Chest x-ray shows complete opacification of the right lung. Progress note dated February 03, 2025. 59-year-old male seen in room 368. The patient continues on 2 L of oxygen. He is currently on DuoNebs, Symbicort, prednisone. He did you on Augmentin. His chest x-ray continues to show significant opacification of the right hemithorax. His pigtail catheter is still in place. Current laboratory data includes a white count of 11.1, hemoglobin 10.2, hematocrit 32.6, and a platelet count of 329,000. Sodium 132, potassium 4.8, chlorides 99, CO2 32, BUN 23, creatinine 0.59. Glucose is 99. Calcium is 8.6. Last chest x-ray was done January 31. Pleural fluid cytology from January 31, is still pending. Objective - Vital Signs Vital signs: Vital Signs Temp 97.6 F 02/03/25 08:08 Pulse 110 H 02/03/25 12:07 Resp 16 02/03/25 12:07 BP 102/66 02/03/25 12:07 Pulse Ox 95 02/03/25 12:07 FiO2 Intake & Output 02/02/25 02/03/25 02/03/25 18:59 06:59 18:59 Intake Total 790 118 Output Total 200 303 100 Balance 590 -303 18 Weight 77.4 kg 77.3 kg Intake: IV 10 Invasive Line 3 10 Oral 780 118 Output: Chest Tube Drainage 200 303 100 Chest Tube Right 200 303 100 Posterior Chest Other: Voiding Method Toilet Toilet Toilet Urinal Urinal Urinal # Voids 3 1 1 # Bowel Movements 1 - Exam No acute distress, oriented 3. Currently on 2 L. HEENT examination is grossly unremarkable. Mucous membranes are moist. No oral lesions. Neck supple. Full range of motion. No adenopathy thyromegaly or neck vein distention. Cardiovascular examination reveals regular rhythm rate. S1-S2 normal. No S3 or S4. No discernible murmur noted. Lungs reveal diminished right-sided breath sounds. Pigtail catheter in place. Left lung is clear. Abdomen soft bowel sounds are heard. No masses or tenderness. Extremities are intact. No cyanosis clubbing or edema. Skin is without rash or lesion. Neurologic examination is brief but nonfocal. - Labs CBC & Chem 7: 02/03/25 06:05 02/03/25 06:05 Labs: Abnormal Lab Results - Last 24 Hours (Table) 02/02/25 02/02/25 02/03/25 Range/Units 16:34 19:51 06:05 WBC 11.10 H (4.50-10.00) 10*3/uL RBC 3.63 L (4.40-5.60) 10*6/uL Hgb 10.2 L (13.0-17.0) g/dL Hct 32.6 L (39.6-50.0) % MCHC 31.3 L (32.0-37.0) g/dL Sodium (137-145) mmol/L Carbon Dioxide (22-30) mmol/L BUN (9-20) mg/dL Creatinine (0.66-1.25) mg/dL Glucose (74-99) mg/dL POC Glucose (mg/dL) 133 H 123 H (70-110) mg/dL 05/30/ Range/Units 06:05 WBC (4.50-10.00) 10*3/uL RBC (4.40-5.60) 10*6/uL Hgb (13.0-17.0) g/dL Hct (39.6-50.0) % MCHC (32.0-37.0) g/dL Sodium 132 L (137-145) mmol/L Carbon Dioxide 32 H (22-30) mmol/L BUN 23 H (9-20) mg/dL Creatinine 0.59 L (0.66-1.25) mg/dL Glucose 68 L (74-99) mg/dL POC Glucose (mg/dL) (70-110) mg/dL Assessment and Plan Assessment: Lung mass with large right-sided pleural effusion and trapped lung S/P thoracentesis and pigtail catheter placement. 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 Chronic tobacco dependence. Chronic obstructive pulmonary disease. Hypertension. Previous bariatric surgery. Hypothyroidism. Plan: Plan dated January 31, 2025. The patient is seen today in room 368. He continues on O2 at 2 L. No IV fluids. We add Augmentin to his regimen. Right sided pigtail catheter is still in place. The patient states that he is feeling better. He continues to use bronchodilators, and cytology of the fluid removed, is currently pending. We will continue to follow make recommendations where appropriate. All labs, x- rays, and medications are reviewed. Prognosis is guarded. Dictation was produced using [employer] software. Please excuse any grammatical, word or spelling errors. Plan dated February 01, 2025. The patient appears to be relatively comfortable. He is alert and awake. No distress. Certainly no respiratory distress. He continues on 2 L. He is not receiving any IV fluids. The right sided pigtail catheter is in place. The patient is currently on Augmentin. Pleural fluid cytology, is currently pending. The first fluid cytology was negative. Labs, x-rays, and all medications are reviewed. We will continue to follow the patient, make recommendations were appropriate. Prognosis is certainly guarded. Dictation was produced using [employer] software. Please excuse any grammatical, word or spelling errors. Plan dated February 02, 2025. The patient is seen today in room 368. The patient continues on 2 L. He appears relatively comfortable. He denies any significant shortness of breath, cough, wheezing, chest tightness, or phlegm production. Chest x-ray shows complete opacification of the right lung. Right-sided pigtail catheter remains in place. All labs, x-rays, and medications are reviewed. We will continue to follow make recommendations. Prognosis is guarded. Dictation was produced using [employer] software. Please excuse any grammatical, word or spelling errors. Plan dated February 03, 2025. The patient is seen today in room 368. The patient remains on 2 L. Pigtail catheter is in place. The patient continues on Augmentin, DuoNebs, Symbicort, prednisone. Most recent chest x-ray from January 31, shows near complete o pacification of the right lung. The patient may not improve much from this at this time. Cytology from January 31, is currently pending. We will continue to follow make recommendations along the way. Overall prognosis remains very guarded. Dictation was produced using [employer] software. Please excuse any grammatical, word or spelling errors. Time with Patient: Less than 30
[2025-02-03 16:28] LABS: Glucose,Whole Blood 106 mg/dL (70-110)
--- NOTE | 2025-02-03 16:38 | P.PN ---
Subjective Progress Note Date: 02/03/25 Principal diagnosis: pleural effusion 59 year old M with PMH of non small cell lung CA, COPD not on home O2, gastric bypass and esophageal strictures, hypothyroidism presents to the ED for shortness of breath. In the ED he underwent extensive evaluation. T 98F, BP 110/73, HR 114, RR 18, 96% on RA. Labs significant for RBC 4.15, Hg 12, Hct 37.3, Plt 533, Cl 109, Cr 0.59, Lactic acid 4, AST 160, ALT 76, alk phos 362, Trop < 0.012, BNP 768, alb 2.8. CXR complete opacity of the right hemithorax. EKG sinus tachycardia. Patient was admitted for further workup and management. Pulmonary and Oncology consulted. Chest CT showed right mainstem bronchus mass with large right pleural effusion, hilar adenopathy, subacute rib fractures and thoracic wedge deformities. Underwent thoracentesis with pigtail catheter insertion with 2.8L fluid removal. Cultures were negative. Cytology is pending. 02/02 Patient was seen and examined. Doing well. Pain well controlled. Chest tube draining 410 cc over the past 24H. CBC and BMP significant for WBC RBC 3.43, Hg 9.7, Hct 30.7, Na 130, K 5.2, BUN 24, Cr 0.6, glu 105. 5/30. Patient seen and examined at bedside. Complains of pain at catheter site. Pigtail catheter continues to drain a significant amount of serosanginoius fluid, WBC 11.10, Hemoglobin 10.2, sodium 132, potassium 4.8, creatinine 0.59, glucose 68. Vitals Signs Reviewed. General: no distress, appears at stated age Derm: warm, dry Head: atraumatic, normocephalic, symmetric Mouth: no lip lesion, mucus membranes moist Cardiovascular: S1 S2 tachy. No murmur. R pigtail catheter draining serousanguinous fluid Lungs: Decreased BS bilaterally, no accessory muscle use Ext: no gross muscle atrophy, no edema, no contractures. Neuro: No focal neurologic deficits. Psych: Alert and oriented. Based on my assessment of this patient, this patient meets a high complexity lev el of care. Lung mass with history of bronchogenic carcinoma diagnosed in 2017 with large R pleural effusion post thoracentesis and pigtail catheter placement: Culture negative so far. Dilaudid 1 mg IV Q4H PRN, Percocet 7.5 Q4 scheduled. Continue pigtail catheter to suction. Pulmonary and Oncology on board. Awaiting cytology for further recommendations. Hyperkalemia: Improved. s/p Lokelma x1 02/02 Subacute fractures of the right anterior 3rd through 6th ribs: Pain management as above. Normocytic anemia with Thrombocytosis: Stable. Possible iron def. with elevated Plt count. Transfuse if Hg < 7. Hypothyroidism: Synthroid 50 mcg PO QD. COPD not in acute exacerbation: DuoNeb QID scheduled and Q2H PRN SOB/wheezing. Symbicort 2 INH BID. SoluMedrol switched to Prednisone 30 mg PO QD. History of gastric bypass and esophageal strictures Resolved: Lactic acidosis, Transaminitis Pigtail catheter continues to drain significant amount of fluid. Anticipate discharge when < 150 cc drainage over 24H. Will need to go home with pigtail catheter. Home O2 eval ordered. Pending clinical improvement. CODE STATUS: FULL CODE DVT Prophylaxis: Lovenox SQ GI Prophylaxis: Designated medical POA if patient is not able to make medical decisions for themselves: I have reviewed the following home energy consultant supervisor notes: Pulm, Oncology. I have reviewed the results of the following tests: CBC, BMP. I have ordered the following tests: CBC and BMP in the AM. I have discussed the care of this patient with the following independent historian: ANU. I have independently interpreted the following test below: I have discussed the management of this patient with the following physician: Objective - Vital Signs Vital signs: Vital Signs Temp 97.9 F 02/03/25 15:17 Pulse 100 02/03/25 15:19 Resp 20 02/03/25 15:17 BP 115/76 02/03/25 15:17 Pulse Ox 100 02/03/25 15:17 FiO2 Intake & Output 02/02/25 02/03/25 02/03/25 18:59 06:59 18:59 Intake Total 790 118 Output Total 200 303 270 Balance 590 -303 -152 Weight 77.4 kg 77.3 kg Intake: IV 10 Invasive Line 3 10 Oral 780 118 Output: Chest Tube Drainage 200 303 270 Chest Tube Right 200 303 270 Posterior Chest Other: Voiding Method Toilet Toilet Toilet Urinal Urinal Urinal # Voids 3 1 1 # Bowel Movements 1 - Labs CBC & Chem 7: 02/03/25 06:05 02/03/25 06:05 Labs: Abnormal Lab Results - Last 24 Hours (Table) 02/02/25 02/02/25 02/03/25 Range/Units 16:34 19:51 06:05 WBC 11.10 H (4.50-10.00) 10*3/uL RBC 3.63 L (4.40-5.60) 10*6/uL Hgb 10.2 L (13.0-17.0) g/dL Hct 32.6 L (39.6-50.0) % MCHC 31.3 L (32.0-37.0) g/dL Sodium (137-145) mmol/L Carbon Dioxide (22-30) mmol/L BUN (9-20) mg/dL Creatinine (0.66-1.25) mg/dL Glucose (74-99) mg/dL POC Glucose (mg/dL) 133 H 123 H (70-110) mg/dL 02/03/25 Range/Units 06:05 WBC (4.50-10.00) 10*3/uL RBC (4.40-5.60) 10*6/uL Hgb (13.0-17.0) g/dL Hct (39.6-50.0) % MCHC (32.0-37.0) g/dL Sodium 132 L (137-145) mmol/L Carbon Dioxide 32 H (22-30) mmol/L BUN 23 H (9-20) mg/dL Creatinine 0.59 L (0.66-1.25) mg/dL Glucose 68 L (74-99) mg/dL POC Glucose (mg/dL) (70-110) mg/dL
[2025-02-03 20:05] LABS: Glucose,Whole Blood 93 mg/dL (70-110)
[2025-02-04 06:04] LABS: Glucose,Whole Blood 96 mg/dL (70-110)
--- NOTE | 2025-02-04 10:54 | P.PN ---
Subjective Progress Note Date: 02/04/25 Hospital Course: pleural effusion 59 year old M with PMH of non small cell lung CA, COPD not on home O2, gastric bypass and esophageal strictures, hypothyroidism presents to the ED for shortness of breath. In the ED he underwent extensive evaluation. T 98F, BP 110/73, HR 114, RR 18, 96% on RA. Labs significant for RBC 4.15, Hg 12, Hct 37.3, Plt 533, Cl 109, Cr 0.59, Lactic acid 4, AST 160, ALT 76, alk phos 362, Trop < 0.012, BNP 768, alb 2.8. CXR complete opacity of the right hemithorax. EKG sinus tachycardia. Patient was admitted for further workup and management. Pulmonary and Oncology consulted. Chest CT showed right mainstem bronchus mass with large right pleural effusion, hilar adenopathy, subacute rib fractures and thoracic wedge deformities. Underwent thoracentesis with pigtail catheter insertion with 2.8L fluid removal. Cultures were negative. Cytology is pending. 02/02 Patient was seen and examined. Doing well. Pain well controlled. Chest tube draining 410 cc over the past 24H. CBC and BMP significant for WBC RBC 3.43, Hg 9.7, Hct 30.7, Na 130, K 5.2, BUN 24, Cr 0.6, glu 105. 5/. Patient seen and examined at bedside. Complains of pain at catheter site. Pigtail catheter continues to drain a significant amount of serosanginoius fluid, WBC 11.10, Hemoglobin 10.2, sodium 132, potassium 4.8, creatinine 0.59, glucose 68. 02/04 Patient seen and examined at bedside. States he has pain at catheter site but is improving and he would like to wean off pain meds if possible. Cytology 01/27 shows very rare malignant cells consistent with metastatic carcinoma, and suspicious for small cell carcinoma. This was discussed with patient. Continues to have serosanguineous drainage >400 ml in the last 24 hours. No labs this morning. Vitals Signs Reviewed. General: no distress, appears at stated age Derm: warm, dry Head: atraumatic, normocephalic, symmetric Mouth: no lip lesion, mucus membranes moist Cardiovascular: tachycardic rate, normal rhythm. No murmur. R pigtail catheter draining serousanguinous fluid Lungs: Decreased BS bilaterally, no accessory muscle use Ext: no gross muscle atrophy, no edema, no contractures. Neuro: No focal neurologic deficits. Psych: Alert and oriented. Based on my assessment of this patient, this patient meets a high complexity level of care. Lung mass with history of bronchogenic carcinoma diagnosed in 2017 with large R pleural effusion post thoracentesis and pigtail catheter placement: Cytology from 12/28 consistent with very rare malignant cells consistent with metastatic carcinoma, and suspicious for small cell carcinoma. Culture negative so far. Dilaudid 1 mg IV Q4H PRN, Percocet 7.5 Q4 PRN. Continue pigtail catheter to suct ion. Pulmonary and Oncology on board for further recommendations. He will need to follow up with Dr. Neela Delgadillo (primary oncologist) for PET/CT scan outpatient. Hyperkalemia: Improved. s/p Lokelma x1 02/02 Subacute fractures of the right anterior 3rd through 6th ribs: Pain management as above. Normocytic anemia with Thrombocytosis: Stable. Possible iron def. with elevated Plt count. Transfuse if Hg < 7. Hypothyroidism: Synthroid 50 mcg PO QD. COPD not in acute exacerbation: DuoNeb QID scheduled and Q2H PRN SOB/wheezing. Symbicort 2 INH BID. Continue prednisone 30 mg PO QD. History of gastric bypass and esophageal strictures Resolved: Lactic acidosis, Transaminitis Pigtail catheter continues to drain significant amount of fluid. Anticipate discharge when < 150 cc drainage over 24H. Will need to go home with pigtail catheter. Home O2 eval ordered. Pending clinical improvement. CODE STATUS: FULL CODE DVT Prophylaxis: Lovenox SQ GI Prophylaxis: Designated medical POA if patient is not able to make medical decisions for themselves: I have reviewed the following managed services consultant notes: Pulm, Oncology. I have reviewed the results of the following tests: Cytology report I have ordered the following tests: CBC and BMP in the AM. I have discussed the care of this patient with the following independent historian: ANU. I have independently interpreted the following test below: I have discussed the management of this patient with the following physician: Objective - Vital Signs Vital signs: Vital Signs Temp 97.5 F L 02/04/25 07:28 Pulse 118 H 02/04/25 08:36 Resp 20 02/04/25 07:28 BP 117/76 02/04/25 07:28 Pulse Ox 98 05/31/25 08:19 FiO2 Intake & Output 02/03/25 02/04/25 02/04/25 18:59 06:59 18:59 Intake Total 118 180 Output Total 270 310 0 Balance -152 -310 180 Weight 77.4 kg Intake: Oral 118 180 Output: Chest Tube Drainage 270 310 0 Chest Tube Right 270 310 0 Posterior Chest Other: Voiding Method Toilet Toilet Toilet Urinal Urinal Urinal # Voids 1 1 # Bowel Movements 1 - Labs CBC & Chem 7: 02/03/25 06:05 02/03/25 06:05 Labs: Microbiology - Last 24 Hours (Table) 01/26/25 16:00 Fungal Culture - Preliminary Pleural Fluid
[2025-02-04 11:15] LABS: Glucose,Whole Blood 123 mg/dL (70-110)
[2025-02-04] MEDS: oxyCODONE-APAP 7.5-325MG 1 EACH TAB PO PRN (12:15)
--- NOTE | 2025-02-04 13:07 | P.PN ---
Subjective Progress Note Date: 02/04/25 Principal diagnosis: Lung cancer. This is a 59-year-old male patient with a known history of former smoker, COPD maintained on Trelegy, hypothyroidism, hypertension and lung cancer diagnosed in 2016. He had a large obstructive mass in the right mainstem bronchus that was positive for carcinoma with chemotherapy and currently in remission. His last CT scan of the chest revealed a soft tissue encasement and volume loss of the right hilum and right perihilar bronchovascular bundles corresponding with treated disease. No definitive recurrence for metastatic disease. Development of a right lower lung reticular opacities likely representing bronchiolitis on a CT scan in June 2024. He presented to the emergency room today with a 2 to 3-week history of increasing shortness of breath cough and congestion. Chest x- ray reveals a completely opacified right hemithorax. Findings suggest neoplastic progression right hilar region with obstructive atelectasis. White count 8.8. Hemoglobin 12.0. Platelets 533. INR 1.0. Sodium 139. Potassium 4.5. Bicarb 24. BUN 15. Creatinine 0.59. AST 160. ALT 76. Alk phos 362. Troponin negative x 1. proBNP 768. He is seen today in consultation in the emergency department. He is currently sitting up on the stretcher. Awake and alert in mild respiratory distress. He is initially maintaining good O2 saturations in the 90s on room air oxygen. He is receiving a updraft treatment. He is afebrile. Blood pressure stable. He is sinus tachycardia in the 120s. The patient is seen today January 27, 2025 in follow-up in the emergency department. He is currently sitting up at the bedside. Awake and alert in no acute di stress. He is still dyspneic with conversation. Dyspneic with minimal exertion. He is maintaining good O2 saturations in the mid 90s on 2 L/min per nasal cannula. He was without his oxygen for a brief walk to the bathroom and dropped into the 70s. He remains tachycardic. He is afebrile. He did undergo a right sided thoracentesis yesterday with 2.8 L of bloody fluid returned. Follow-up chest x-ray continued to show significant pleural effusion but no pneumothorax. White count 9.1. Hemoglobin 10.6. Platelets 506. Sodium 136. Potassium 4.1. Bicarb 23. BUN 15. Creatinine 0.62. Glucose 113. AST 90. ALT 58. Pleural fluid reveals exudate with a total protein of 2.6. LDH 161. W BCs 1372. Cytology pending. He is continued on DuoNeb inhalations, Symbicort. Patient was seen today on 01/28/2025, continues to have pigtail catheter in place connected to Pleur-evac, continues to have some serosanguineous drainage from the right pleural space, seems to be minimal, chest x-ray clearly showed evidence of trapped lung patient is now being seen by oncology and radiation oncology. On 2 L nasal cannula, O2 sats is 99% WBC count is 10 hemoglobin 10.9 electrolytes are normal except for potassium of 5.5 renal profile is normal. Patient was seen today on 01/29/2025, basically about the same continues to have significant amount of serosanguineous drainage from the right lung, pigtail catheter remains in place, patient is complaining of some vague chest discomfort, but he is not in any distress. Fluid cytology from his right thoracentesis/pleural effusion is pending. WBC count today 16.3 hemoglobin 10.2 electrolytes are normal renal profile is normal Seen today on 01/30/2025, patient continues to feel about the same. Continues to have right-sided pigtail catheter in place, and continues to have some serosanguineous drainage. Patient had a trapped lung and he does have a large endobronchial tumor involving the right mainstem bronchus based on CT of the chest. Patient is being followed by oncology and he will need radiation oncology. Cytology is pending. WBC count is 13.7 hemoglobin is 10.4 electrolytes are normal except for potassium of 5.4 renal profile is normal Progress note dated January 31, 2025. The patient is seen today in room 368. The patient is currently on 2 L nasal cannula. He is doing about the same. He has a right pigtail catheter in place. He is not receiving any IV fluids. His initial diagnosis of lung cancer was made by myself, back in 2017. He has non-small cell lung cancer. Today we added Augmentin to his regimen. Current laboratory data includes a white count of 8.97, hemoglobin 9.8, hematocrit 31, and a platelet count of 369,000. Sodium 133, potassium 5.4, chlorides 100, CO2 30, BUN 24, creatinine 0.58. Glucose Is 176. Calcium Is 9.1. Pleural fluid cytology is still pending. Progress note dated February 01, 2025. The patient is seen today in room 368. The patient continues on nasal O2 at 2 L. He is not receiving any IV fluids. Clinically he feels improved. He is sitting on the side of the bed. He has a right pigtail catheter in place. He is receiving Augmentin. Current laboratory data includes a white count of 13.6, hemoglobin 10.3, hematocrit 34.4, and a platelet count of 449,000. Sodium 132, potassium 5.8, chlorides 100, CO2 32, BUN 26, Creatinine 0.65. Glucose Is 128. Calcium Is 9. Pleural fluid cytology is currently still pending. Previous pleural fluid cytology was negative. Progress note dated February 02, 2025. The patient is again seen today in room 368. The patient continues on 2 L nasal cannula. He is currently on DuoNebs, Symbicort, and Solu-Medrol, which will be changed to prednisone 30 mg a day. Fluid cytology, is currently still pending. Labs today include a white count of 9.7, hemoglobin 9.7, hematocrit 30.7, and a platelet count of 337. Sodium 130, potassium 5.2, chloride 98, CO2 30, BUN 24, creatinine 0.6. Glucose is 144. Calcium is 8.6. Chest x-ray shows complete opacification of the right lung. Progress note dated February 03, 2025. 59-year-old male seen in room 368. The patient continues on 2 L of oxygen. He is currently on DuoNebs, Symbicort, prednisone. He did you on Augmentin. His chest x-ray continues to show significant opacification of the right hemithorax. His pigtail catheter is still in place. Current laboratory data includes a white count of 11.1, hemoglobin 10.2, hematocrit 32.6, and a platelet count of 329,000. Sodium 132, potassium 4.8, chlorides 99, CO2 32, BUN 23, creatinine 0.59. Glucose is 99. Calcium is 8.6. Last chest x-ray was done January 31. Pleural fluid cytology from January 31, is still pending. Progress note dated February 04, 2025. 59-year-old male seen again in room 368. He is sitting at the edge of the bed. He is on 2 L of oxygen. He is not receiving any IV fluids. I did have a long conversation with his , on February 03. Will order chest x-ray, for February 05. The patient does not have any specific complaints. He is in no respiratory distress. We are hoping that the pigtail catheter can be removed, in the next day or 2, and the patient can be discharged. Objective - Vital Signs Vital signs: Vital Signs Temp 97.5 F L 02/04/25 11:37 Pulse 102 H 02/04/25 12:02 Resp 20 02/04/25 11:37 BP 119/75 02/04/25 11:37 Pulse Ox 96 02/04/25 11:37 FiO2 Intake & Output 02/03/25 02/04/25 02/04/25 18:59 06:59 18:59 Intake Total 118 180 Output Total 270 310 100 Balance -152 -310 80 Weight 77.4 kg Intake: Oral 118 180 Output: Chest Tube Drainage 270 310 100 Chest Tube Right 270 310 100 Posterior Chest Other: Voiding Method Toilet Toilet Toilet Urinal Urinal Urinal # Voids 1 1 # Bowel Movements 1 - Exam No acute distress, oriented 3. Currently on 2 L. HEENT examination is grossly unremarkable. Mucous membranes are moist. No oral lesions. Neck supple. Full range of motion. No adenopathy thyromegaly or neck vein distention. Cardiovascular examination reveals regular rhythm rate. S1-S2 normal. No S3 or S4. No discernible murmur noted. Lungs reveal diminished right-sided breath sounds. Pigtail catheter in place. Left lung is clear. Abdomen soft bowel sounds are heard. No masses or tenderness. Extremities are intact. No cyanosis clubbing or edema. Skin is without rash or lesion. Neurologic examination is brief but nonfocal. - Labs CBC & Chem 7: 02/03/25 06:05 02/03/25 06:05 Labs: Abnormal Lab Results - Last 24 Hours (Table) 02/04/25 Range/Units 11:13 POC Glucose (mg/dL) 123 H (70-110) mg/dL Microbiology - Last 24 Hours (Table) 01/26/25 16:00 Fungal Culture - Preliminary Pleural Fluid Assessment and Plan Assessment: Lung mass with large right-sided pleural effusion and trapped lung S/P thoracentesis and pigtail catheter placement. 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 Chronic tobacco dependence. Chronic obstructive pulmonary disease. Hypertension. Previous bariatric surgery. Hypothyroidism. Plan: Plan dated January 31, 2025. The patient is seen today in room 368. He continues on O2 at 2 L. No IV fluids. We add Augmentin to his regimen. Right sided pigtail catheter is still in place. The patient states that he is feeling better. He continues to use bronchodilators, and cytology of the fluid removed, is currently pending. We will continue to follow make recommendations where appropriate. All labs, x- rays, and medications are reviewed. Prognosis is guarded. Dictation was produced using [employer]iga[employer] software. Please excuse any grammatical, word or spelling errors. Plan dated February 01, 2025. The patient appears to be relatively comfortable. He is alert and awake. No distress. Certainly no respiratory distress. He continues on 2 L. He is not receiving any IV fluids. The right sided pigtail catheter is in place. The patient is currently on Augmentin. Pleural fluid cytology, is currently pending. The first fluid cytology was negative. Labs, x-rays, and all medications are reviewed. We will continue to follow the patient, make recommendations were appropriate. Prognosis is certainly guarded. Dictation was produced using [employer] software. Please excuse any grammatical, word or spelling errors. Plan dated February 02, 2025. The patient is seen today in room 368. The patient continues on 2 L. He appears relatively comfortable. He denies any significant shortness of breath, cough, wheezing, chest tightness, or phlegm production. Chest x-ray shows complete opacification of the right lung. Right-sided pigtail catheter remains in place. All labs, x-rays, and medications are reviewed. We will continue to follow make recommendations. Prognosis is guarded. Dictation was produced using [employer] software. Please excuse any grammatical, word or spelling errors. Plan dated February 03, 2025. The patient is seen today in room 368. The patient remains on 2 L. Pigtail catheter is in place. The patient continues on Augmentin, DuoNebs, Symbicort, prednisone. Most recent chest x-ray from January 31, shows near complete opacif ication of the right lung. The patient may not improve much from this at this time. Cytology from January 31, is currently pending. We will continue to follow make recommendations along the way. Overall prognosis remains very guarded. Dictation was produced using [employer] software. Please excuse any grammatical, word or spelling errors. Plan dated February 04, 2025. The patient's pleural fluid cytology, from January 31, did come back positive for rare malignant cells consistent with metastatic carcinoma. They are suspicious for small cell carcinoma, however definitive characterization is limited due to low cellularity. The patient was seen today in room 368. He continues on nasal O2 2 L. He is not receiving any IV fluids. No new orders for labs today. No chest x-ray today. Blood will be ordered for tomorrow. We will continue to follow make recommendations. Prognosis is poor. Dictation was produced using [employer] software. Please excuse any grammatical, word or spelling errors. Time with Patient: Less than 30
[2025-02-04] MEDS: polyethylene glycoL 3350 17 GM POWD.PACK PO SCH (13:37)
[2025-02-04 16:19] LABS: Glucose,Whole Blood 117 mg/dL (70-110)
[2025-02-04] MEDS: ACETAMINOPHEN TAB 325 MG TAB PO PRN (16:46)
[2025-02-04 19:56] LABS: Glucose,Whole Blood 93 mg/dL (70-110)
[2025-02-05 00:23] LABS: Appearance,Urine Clear (Clear); Bilirubin,Urine Negative (Negative); Blood,Urine Moderate (Negative); Calcium Oxalate Crystals,Urine Moderate /hpf; Color,Urine Yellow; Glucose,Urine (UA) Negative (Negative); Ketones,Urine Negative (Negative); Leukocyte Esterase,Urine Negative (Negative); Mucus,Urine Few /hpf; Nitrite,Urine Negative (Negative); Protein,Urine 1+ (Negative); RBC,Urine 45 /hpf (0-5); Specific Gravity,Urine 1.033 (1.001-1.035); Squamous Epithelial Cell,Urine <1 /hpf (0-4); WBC,Urine 2 /hpf (0-5)
[2025-02-05 06:01] LABS: Glucose,Whole Blood 96 mg/dL (70-110)
--- NOTE | 2025-02-05 07:33 | XR ---
EXAMINATION TYPE: XR chest 1V portable DATE OF EXAM: 02/05/2025 5:43 AM COMPARISON: Chest radiographs from 01/31/2025, CT chest 01/27/2025 TECHNIQUE: XR chest 1V portable Portable AP radiograph of the chest. CLINICAL INDICATION:Male, 59 years old with history of Right pleural effusion; FINDINGS: Lungs/Pleura: Left lung is clear. Right basilar pleural pigtail catheter redemonstrated. Right-sided volume loss with elevation right hemidiaphragm redemonstrated. Near complete opacification of the rig ht hemithorax. Pulmonary vascularity: Unremarkable. Heart/mediastinum: Cardiomediastinal silhouette is partially obscured due to overlying and adjacent o pacities. Musculoskeletal: No acute osseous pathology. Left shoulder arthropathy. Postsurgical changes from rev erse right total shoulder arthroplasty. IMPRESSION: Similar near complete opacification of right hemithorax with pleural pigtail catheter. Due to persist ent mass/neoplasm post obstructive atelectasis and pleural effusion. [facility], , 02/05/2025 7:31 AM
[2025-02-05] MEDS: SENNOSIDES-DOCUSATE SODIUM 1 EACH TAB PO SCH (08:22)
[2025-02-05] MEDS: METOPROLOL SUCCINATE (ER) 25 MG TAB.ER.24H PO STA (08:38)
[2025-02-05 10:14] LABS: Basophils # (A) 0.03 10*3/uL (0.00-0.10); Basophils % (A) 0.2 %; Eosinophils # (A) 0.12 10*3/uL (0.04-0.35); Eosinophils % (A) 0.7 %; HCT 38.1 % (39.6-50.0); Lymphocytes # (A) 0.53 10*3/uL (0.90-5.00); Lymphocytes % (A) 3.2 %; MCH 28.4 pg (27.0-32.0); MCHC 31.5 g/dL (32.0-37.0); MCV 90.3 fL (80.0-97.0); Mean Platelet Volume 10.9 fL (9.5-12.2); Monocytes % (A) 11.4 %; Neutrophils # (A) 13.41 10*3/uL (1.80-7.70); Neutrophils % (A) 80.7 %; Platelet Count 283 10*3/uL (140-440); RBC 4.22 10*6/uL (4.40-5.60); RDW 15.9 % (11.5-14.5); WBC 16.63 10*3/uL (4.50-10.00)
[2025-02-05 10:19] LABS: ALT 115 U/L (4-49); AST 202 U/L (17-59); African American GFR (CKD) >90 (>60 ml/min/1.73 sqM); Albumin 2.9 g/dL (3.5-5.0); Alkaline Phosphatase 488 U/L (38-126); Anion Gap 0 mmol/L; Blood Urea Nitrogen 17 mg/dL (9-20); Calcium 8.8 mg/dL (8.4-10.2); Carbon Dioxide 33 mmol/L (22-30); Chloride 100 mmol/L (98-107); Glucose 101 mg/dL (74-99); Non-African American GFR(CKD) >90 (>60 ml/min/1.73 sqM); Potassium 4.2 mmol/L (3.5-5.1); Sodium 133 mmol/L (137-145); Total Bilirubin 0.5 mg/dL (0.2-1.3); Total Protein 5.7 g/dL (6.3-8.2)
--- NOTE | 2025-02-05 10:35 | P.PN ---
Subjective Progress Note Date: 02/05/25 Hospital Course: pleural effusion 59 year old M with PMH of non small cell lung CA, COPD not on home O2, gastric bypass and esophageal strictures, hypothyroidism presents to the ED for shortness of breath. In the ED he underwent extensive evaluation. T 98F, BP 110/73, HR 114, RR 18, 96% on RA. Labs significant for RBC 4.15, Hg 12, Hct 37.3, Plt 533, Cl 109, Cr 0.59, Lactic acid 4, AST 160, ALT 76, alk phos 362, Trop < 0.012, BNP 768, alb 2.8. CXR complete opacity of the right hemithorax. EKG sinus tachycardia. Patient was admitted for further workup and management. Pulmonary and Oncology consulted. Chest CT showed right mainstem bronchus mass with large right pleural effusion, hilar adenopathy, subacute rib fractures and thoracic wedge deformities. Underwent thoracentesis with pigtail catheter insertion with 2.8L fluid removal. Cultures were negative. Cytology is pending. 02/02 Patient was seen and examined. Doing well. Pain well controlled. Chest tube draining 410 cc over the past 24H. CBC and BMP significant for WBC RBC 3.43, Hg 9.7, Hct 30.7, Na 130, K 5.2, BUN 24, Cr 0.6, glu 105. 5/. Patient seen and examined at bedside. Complains of pain at catheter site. Pigtail catheter continues to drain a significant amount of serosanginoius fluid, WBC 11.10, Hemoglobin 10.2, sodium 132, potassium 4.8, creatinine 0.59, glucose 68. 02/04 Patient seen and examined at bedside. States he has pain at catheter site but is improving and he would like to wean off pain meds if possible. Cytology 01/27 shows very rare malignant cells consistent with metastatic carcinoma, and suspicious for small cell carcinoma. This was discussed with patient. Continues to have serosanguineous drainage >400 ml in the last 24 hours. No labs this morning. Vitals Signs Reviewed. 02/05 Patient seen and examined at bedside. He complains of pain at the chest tube site but has been trying to wean off of the Percocet. He feels the Tylenol he recieved helped. Chest tube output >300 in the last 24 hours. Labs this morning show WBC 16.63 (likely secondary to steroid use), hemoglobin 12.0, platelet 283, sodium 133, potassium 4.2, creatinine 0.59, bilirubin 0.5, AST 202, ALT 115, ALP 488. Urine shows moderate blood, RBC and calcium oxalate crystals. CXR from 02/05 reviewed independently, almost completely opacified on the right side due to mass/pleural effusion, similar to prior cxr. He has remained tachycardic, BP stable, on RA. He had a bowel movement today after several days. General: no distress, appears at stated age Derm: warm, dry Head: atraumatic, normocephalic, symmetric Mouth: no lip lesion, mucus membranes moist Cardiovascular: tachycardic rate, normal rhythm. No murmur. R pigtail catheter draining serousanguinous fluid Lungs: Decreased BS bilaterally, no accessory muscle use Ext: no gross muscle atrophy, no edema, no contractures. Neuro: No focal neurologic deficits. Psych: Alert and oriented. Based on my assessment of this patient, this patient meets a high complexity level of care. Lung mass with history of bronchogenic carcinoma diagnosed in 2017 with large R pleural effusion post thoracentesis and pigtail catheter placement: Cytology from 12/28 consistent with very rare malignant cells consistent with metastatic carcinoma, and suspicious for small cell carcinoma. Augmentin (01/31-) per Pulmonary. Cultures were negative. Wean off narcotic pain medication as able, encouraged use of Tylenol, Percocet PRN. Continue pigtail catheter to suction. Pulmonary and Oncology on board for further recommendations. He will need to follow up with Dr. Neela Delgadillo (primary oncologist) for PET/CT scan outpatient. Hyperkalemia: Improved. s/p Lokelma x1 02/02 Transaminitis: Concern for possible cirrhosis on CT chest done earlier during the admission. Will obtain US of the abdomen due to increase in LFTs. Blood in urine: UA positive for Ca oxalate crystals, rule out renal calculi with US Constipation: Bowel regimen as needed. Increase fluids, limit narcotics Subacute fractures of the right anterior 3rd through 6th ribs: Pain management as above. Normocytic anemia with Thrombocytosis: Stable. Possible iron def. with elevated Plt count. Transfuse if Hg < 7. Hypothyroidism: Synthroid 50 mcg PO QD. COPD not in acute exacerbation: DuoNeb QID scheduled and Q2H PRN SOB/wheezing. Symbicort 2 INH BID. Continue prednisone 30 mg PO QD per pulmonary. History of gastric bypass and esophageal strictures Resolved: Lactic acidosis Pigtail catheter continues to drain significant amount of fluid. Anticipate discharge when < 150 cc drainage over 24H. Home O2 eval ordered. Pending clinical improvement. CODE STATUS: FULL CODE DVT Prophylaxis: Lovenox SQ GI Prophylaxis: Designated medical POA if patient is not able to make medical decisions for themselves: I have reviewed the following surgical product sales consultant notes: Pulm, Oncology. I have reviewed the results of the following tests: CXR, CBC, CMP, UA I have ordered the following tests: CBC and BMP in the AM I have discussed the care of this patient with the following independent historian: RN. I have independently interpreted the following test below: CXR I have discussed the management of this patient with the following physician: Objective - Vital Signs Vital signs: Vital Signs Temp 97.6 F 02/05/25 08:15 Pulse 102 H 02/05/25 09:03 Resp 19 02/05/25 08:15 BP 106/74 02/05/25 08:15 Pulse Ox 95 02/05/25 08:15 FiO2 Intake & Output 02/04/25 02/05/25 02/05/25 18:59 06:59 18:59 Intake Total 540 Output Total 380 300 Balance 160 -300 Weight 76.3 kg Intake: Oral 540 Output: Chest Tube Drainage 380 300 Chest Tube Right 380 300 Posterior Chest Other: Voiding Method Toilet Toilet Urinal Urinal # Voids 2 4 - Labs CBC & Chem 7: 02/05/25 09:24 02/05/25 09:24 Labs: Abnormal Lab Results - Last 24 Hours (Table) 02/04/25 02/04/25 02/04/25 Range/Units 11:13 16:18 18:08 WBC (4.50-10.00) 10*3/uL RBC (4.40-5.60) 10*6/uL Hgb (13.0-17.0) g/dL Hct (39.6-50.0) % MCHC (32.0-37.0) g/dL Immature Gran # (0.00-0.04) 10*3/uL Neutrophils # (1.80-7.70) 10*3/uL Lymphocytes # (0.90-5.00) 10*3/uL Monocytes # (0.20-1.00) 10*3/uL POC Glucose (mg/dL) 123 H 117 H (70-110) mg/dL Urine Protein 1+ H (Negative) Urine Blood Moderate H (Negative) Urine RBC 45 H (0-5) /hpf Calcium Oxalate Crystal Moderate H (None) /hpf Urine Mucus Few H (None) /hpf 02/05/25 Range/Units 09:24 WBC 16.63 H (4.50-10.00) 10*3/uL RBC 4.22 L (4.40-5.60) 10*6/uL Hgb 12.0 L (13.0-17.0) g/dL Hct 38.1 L (39.6-50.0) % MCHC 31.5 L (32.0-37.0) g/dL Immature Gran # 0.64 H (0.00-0.04) 10*3/uL Neutrophils # 13.41 H (1.80-7.70) 10*3/uL Lymphocytes # 0.53 L (0.90-5.00) 10*3/uL Monocytes # 1.90 H (0.20-1.00) 10*3/uL POC Glucose (mg/dL) (70-110) mg/dL Urine Protein (Negative) Urine Blood (Negative) Urine RBC (0-5) /hpf Calcium Oxalate Crystal (None) /hpf Urine Mucus (None) /hpf
[2025-02-05 11:12] LABS: Glucose,Whole Blood 98 mg/dL (70-110)
--- NOTE | 2025-02-05 12:20 | P.PN ---
Subjective Progress Note Date: 02/05/25 Principal diagnosis: Lung cancer. This is a 59-year-old male patient with a known history of former smoker, COPD maintained on Trelegy, hypothyroidism, hypertension and lung cancer diagnosed in 2016. He had a large obstructive mass in the right mainstem bronchus that was positive for carcinoma with chemotherapy and currently in remission. His last CT scan of the chest revealed a soft tissue encasement and volume loss of the right hilum and right perihilar bronchovascular bundles corresponding with treated disease. No definitive recurrence for metastatic disease. Development of a right lower lung reticular opacities likely representing bronchiolitis on a CT scan in June 2024. He presented to the emergency room today with a 2 to 3-week history of increasing shortness of breath cough and congestion. Chest x- ray reveals a completely opacified right hemithorax. Findings suggest neoplastic progression right hilar region with obstructive atelectasis. White count 8.8. Hemoglobin 12.0. Platelets 533. INR 1.0. Sodium 139. Potassium 4.5. Bicarb 24. BUN 15. Creatinine 0.59. AST 160. ALT 76. Alk phos 362. Troponin negative x 1. proBNP 768. He is seen today in consultation in the emergency department. He is currently sitting up on the stretcher. Awake and alert in mild respiratory distress. He is initially maintaining good O2 saturations in the 90s on room air oxygen. He is receiving a updraft treatment. He is afebrile. Blood pressure stable. He is sinus tachycardia in the 120s. The patient is seen today January 27, 2025 in follow-up in the emergency department. He is currently sitting up at the bedside. Awake and alert in no acute di stress. He is still dyspneic with conversation. Dyspneic with minimal exertion. He is maintaining good O2 saturations in the mid 90s on 2 L/min per nasal cannula. He was without his oxygen for a brief walk to the bathroom and dropped into the 70s. He remains tachycardic. He is afebrile. He did undergo a right sided thoracentesis yesterday with 2.8 L of bloody fluid returned. Follow-up chest x-ray continued to show significant pleural effusion but no pneumothorax. White count 9.1. Hemoglobin 10.6. Platelets 506. Sodium 136. Potassium 4.1. Bicarb 23. BUN 15. Creatinine 0.62. Glucose 113. AST 90. ALT 58. Pleural fluid reveals exudate with a total protein of 2.6. LDH 161. W BCs 1372. Cytology pending. He is continued on DuoNeb inhalations, Symbicort. Patient was seen today on 01/28/2025, continues to have pigtail catheter in place connected to Pleur-evac, continues to have some serosanguineous drainage from the right pleural space, seems to be minimal, chest x-ray clearly showed evidence of trapped lung patient is now being seen by oncology and radiation oncology. On 2 L nasal cannula, O2 sats is 99% WBC count is 10 hemoglobin 10.9 electrolytes are normal except for potassium of 5.5 renal profile is normal. Patient was seen today on 01/29/2025, basically about the same continues to have significant amount of serosanguineous drainage from the right lung, pigtail catheter remains in place, patient is complaining of some vague chest discomfort, but he is not in any distress. Fluid cytology from his right thoracentesis/pleural effusion is pending. WBC count today 16.3 hemoglobin 10.2 electrolytes are normal renal profile is normal Seen today on 01/30/2025, patient continues to feel about the same. Continues to have right-sided pigtail catheter in place, and continues to have some serosanguineous drainage. Patient had a trapped lung and he does have a large endobronchial tumor involving the right mainstem bronchus based on CT of the chest. Patient is being followed by oncology and he will need radiation oncology. Cytology is pending. WBC count is 13.7 hemoglobin is 10.4 electrolytes are normal except for potassium of 5.4 renal profile is normal Progress note dated January 31, 2025. The patient is seen today in room 368. The patient is currently on 2 L nasal cannula. He is doing about the same. He has a right pigtail catheter in place. He is not receiving any IV fluids. His initial diagnosis of lung cancer was made by myself, back in 2017. He has non-small cell lung cancer. Today we added Augmentin to his regimen. Current laboratory data includes a white count of 8.97, hemoglobin 9.8, hematocrit 31, and a platelet count of 369,000. Sodium 133, potassium 5.4, chlorides 100, CO2 30, BUN 24, creatinine 0.58. Glucose Is 176. Calcium Is 9.1. Pleural fluid cytology is still pending. Progress note dated February 01, 2025. The patient is seen today in room 368. The patient continues on nasal O2 at 2 L. He is not receiving any IV fluids. Clinically he feels improved. He is sitting on the side of the bed. He has a right pigtail catheter in place. He is receiving Augmentin. Current laboratory data includes a white count of 13.6, hemoglobin 10.3, hematocrit 34.4, and a platelet count of 449,000. Sodium 132, potassium 5.8, chlorides 100, CO2 32, BUN 26, Creatinine 0.65. Glucose Is 128. Calcium Is 9. Pleural fluid cytology is currently still pending. Previous pleural fluid cytology was negative. Progress note dated February 02, 2025. The patient is again seen today in room 368. The patient continues on 2 L nasal cannula. He is currently on DuoNebs, Symbicort, and Solu-Medrol, which will be changed to prednisone 30 mg a day. Fluid cytology, is currently still pending. Labs today include a white count of 9.7, hemoglobin 9.7, hematocrit 30.7, and a platelet count of 337. Sodium 130, potassium 5.2, chloride 98, CO2 30, BUN 24, creatinine 0.6. Glucose is 144. Calcium is 8.6. Chest x-ray shows complete opacification of the right lung. Progress note dated February 03, 2025. 59-year-old male seen in room 368. The patient continues on 2 L of oxygen. He is currently on DuoNebs, Symbicort, prednisone. He did you on Augmentin. His chest x-ray continues to show significant opacification of the right hemithorax. His pigtail catheter is still in place. Current laboratory data includes a white count of 11.1, hemoglobin 10.2, hematocrit 32.6, and a platelet count of 329,000. Sodium 132, potassium 4.8, chlorides 99, CO2 32, BUN 23, creatinine 0.59. Glucose is 99. Calcium is 8.6. Last chest x-ray was done January 31. Pleural fluid cytology from January 31, is still pending. Progress note dated February 04, 2025. 59-year-old male seen again in room 368. He is sitting at the edge of the bed. He is on 2 L of oxygen. He is not receiving any IV fluids. I did have a long conversation with his , on February 03. Will order chest x-ray, for February 05. The patient does not have any specific complaints. He is in no respiratory distress. We are hoping that the pigtail catheter can be removed, in the next day or 2, and the patient can be discharged. Progress note dated February 05, 2025. 59-year-old male seen today in room 368. The patient is currently on 2 L of oxygen. He is sitting at the side of the bed. He does not have any respiratory distress. Chest x-ray today is essentially unchanged, showing opacification of the right hemithorax. Right pigtail catheter is in place. Minimal drainage. C urrent laboratory data includes a white count of 16.6, hemoglobin 12, hematocrit 38.1, and platelet count of 283,000. Sodium 133, potassium 4.2, chlorides 100, CO2 33, BUN 17, creatinine 0.59. Glucose is 98. Calcium is 8.8. Objective - Vital Signs Vital signs: Vital Signs Temp 97.6 F 02/05/25 08:15 Pulse 104 H 02/05/25 11:57 Resp 19 02/05/25 08:15 BP 106/74 02/05/25 08:15 Pulse Ox 95 02/05/25 08:15 FiO2 Intake & Output 02/04/25 02/05/25 02/05/25 18:59 06:59 18:59 Intake Total 540 Output Total 380 300 Balance 160 -300 Weight 76.3 kg Intake: Oral 540 Output: Chest Tube Drainage 380 300 Chest Tube Right 380 300 Posterior Chest Other: Voiding Method Toilet Toilet Urinal Urinal # Voids 2 4 - Exam No acute distress, oriented 3. Currently on 2 L. HEENT examination is grossly unremarkable. Mucous membranes are moist. No oral lesions. Neck supple. Full range of motion. No adenopathy thyromegaly or neck vein distention. Cardiovascular examination reveals regular rhythm rate. S1-S2 normal. No S3 or S4. No discernible murmur noted. Lungs reveal diminished right-sided breath sounds. Pigtail catheter in place. Left lung is clear. Abdomen soft bowel sounds are heard. No masses or tenderness. Extremities are intact. No cyanosis clubbing or edema. Skin is without rash or lesion. Neurologic examination is brief but nonfocal. - Labs CBC & Chem 7: 02/05/25 09:24 02/05/25 09:24 Labs: Abnormal Lab Results - Last 24 Hours (Table) 02/04/25 02/04/25 02/05/25 Range/Units 16:18 18:08 09:24 WBC 16.63 H (4.50-10.00) 10*3/uL RBC 4.22 L (4.40-5.60) 10*6/uL Hgb 12.0 L (13.0-17.0) g/dL Hct 38.1 L (39.6-50.0) % MCHC 31.5 L (32.0-37.0) g/dL Immature Gran # 0.64 H (0.00-0.04) 10*3/uL Neutrophils # 13.41 H (1.80-7.70) 10*3/uL Lymphocytes # 0.53 L (0.90-5.00) 10*3/uL Monocytes # 1.90 H (0.20-1.00) 10*3/uL Sodium (137-145) mmol/L Carbon Dioxide (22-30) mmol/L Creatinine (0.66-1.25) mg/dL Glucose (74-99) mg/dL POC Glucose (mg/dL) 117 H (70-110) mg/dL AST (17-59) U/L ALT (4-49) U/L Alkaline Phosphatase (38-126) U/L Total Protein (6.3-8.2) g/dL Albumin (3.5-5.0) g/dL Urine Protein 1+ H (Negative) Urine Blood Moderate H (Negative) Urine RBC 45 H (0-5) /hpf Calcium Oxalate Crystal Moderate H (None) /hpf Urine Mucus Few H (None) /hpf 02/05/25 Range/Units 09:24 WBC (4.50-10.00) 10*3/uL RBC (4.40-5.60) 10*6/uL Hgb (13.0-17.0) g/dL Hct (39.6-50.0) % MCHC (32.0-37.0) g/dL Immature Gran # (0.00-0.04) 10*3/uL Neutrophils # (1.80-7.70) 10*3/uL Lymphocytes # (0.90-5.00) 10*3/uL Monocytes # (0.20-1.00) 10*3/uL Sodium 133 L (137-145) mmol/L Carbon Dioxide 33 H (22-30) mmol/L Creatinine 0.59 L (0.66-1.25) mg/dL Glucose 101 H (74-99) mg/dL POC Glucose (mg/dL) (70-110) mg/dL AST 202 H (17-59) U/L ALT 115 H (4-49) U/L Alkaline Phosphatase 488 H (38-126) U/L Total Protein 5.7 L (6.3-8.2) g/dL Albumin 2.9 L (3.5-5.0) g/dL Urine Protein (Negative) Urine Blood (Negative) Urine RBC (0-5) /hpf Calcium Oxalate Crystal (None) /hpf Urine Mucus (None) /hpf Assessment and Plan Assessment: Lung mass with large right-sided pleural effusion and trapped lung S/P thoracentesis and pigtail catheter placement. 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 Chronic tobacco dependence. Chronic obstructive pulmonary disease. Hypertension. Previous bariatric surgery. Hypothyroidism. Plan: Plan dated January 31, 2025. The patient is seen today in room 368. He continues on O2 at 2 L. No IV fluids. We add Augmentin to his regimen. Right sided pigtail catheter is still in place. The patient states that he is feeling better. He continues to use bronchodilators, and cytology of the fluid removed, is currently pending. We will continue to follow make recommendations where appropriate. All labs, x- rays, and medications are reviewed. Prognosis is guarded. Dictation was produced using [employer] dictation software. Please excuse any grammatical, word or spelling errors. Plan dated February 01, 2025. The patient appears to be relatively comfortable. He is alert and awake. No distress. Certainly no respiratory distress. He continues on 2 L. He is not receiving any IV fluids. The right sided pigtail catheter is in place. The patient is currently on Augmentin. Pleural fluid cytology, is currently pending. The first fluid cytology was negative. Labs, x-rays, and all medications are reviewed. We will continue to follow the patient, make recommendations were appropriate. Prognosis is certainly guarded. Dictation was produced using [employer] software. Please excuse any grammatical, word or spelling errors. Plan dated February 02, 2025. The patient is seen today in room 368. The patient continues on 2 L. He appear s relatively comfortable. He denies any significant shortness of breath, cough, wheezing, chest tightness, or phlegm production. Chest x-ray shows complete opacification of the right lung. Right-sided pigtail catheter remains in place. All labs, x-rays, and medications are reviewed. We will continue to follow make recommendations. Prognosis is guarded. Dictation was produced using [employer] software. Please excuse any grammatical, word or spelling errors. Plan dated February 03, 2025. The patient is seen today in room 368. The patient remains on 2 L. Pigtail catheter is in place. The patient continues on Augmentin, DuoNebs, Symbicort, prednisone. Most recent chest x-ray from January 31, shows near complete opacification of the right lung. The patient may not improve much from this at this time. Cytology from January 31, is currently pending. We will continue to follow make recommendations along the way. Overall prognosis remains very guarded. Dictation was produced using [employer] software. Please excuse any grammatical, word or spelling errors. Plan dated February 04, 2025. The patient's pleural fluid cytology, from January 31, did come back positive for rare malignant cells consistent with metastatic carcinoma. They are suspicious for small cell carcinoma, however definitive characterization is limited due to low cellularity. The patient was seen today in room 368. He continues on nasal O2 2 L. He is not receiving any IV fluids. No new orders for labs today. No chest x-ray today. Blood will be ordered for tomorrow. We will continue to follow make recommendations. Prognosis is poor. Dictation was produced using [employer] software. Please excuse any grammatical, word or spelling errors. Plan dated February 05, 2025. The patient was seen again in room 368. He continues on 2 L of oxygen. Fluid cytology, from January 31, was positive for rare malignant cells, consistent with metastatic carcinoma. They are suspicious for small cell carcinoma, but characterization, is not definitive. The patient is stable from the pulmonary standpoint. He is sitting at the side of the bed. He is on 2 L. Chest x-ray again shows complete opacification of the right hemithorax, which is essentially unchanged. Minimal drainage from the right sided pigtail catheter. Labs, x- rays, and medications are reviewed. We will continue to follow the patient. H opeful discharge soon. Dictation was produced using [employer] dictation software. Please excuse any grammatical, word or spelling errors. Time with Patient: Less than 30
--- NOTE | 2025-02-05 14:29 | US ---
EXAMINATION TYPE: US abdomen complete DATE OF EXAM: 02/05/2025 COMPARISON: CT study of 01/27/2025. CLINICAL INDICATION: Male, 59 years old with history of eval liver. Blood in urine, r/o kidney stones ; Hematuria, h/o lung CA TECHNIQUE: Grayscale and color Doppler imaging of the abdomen was performed. FINDINGS: EXAM MEASUREMENTS: Liver Length: 15.7 cm Gallbladder Wall: 0.3 cm CBD: 0.7 cm, color Doppler imaging was utilized to isolate the common bile duct for measurement. Spleen: 10.5 cm Right Kidney: 8.4 x 4.2 x 4.5 cm Left Kidney: 9.1 x 5.0 x 5.2 cm ELEMENTARY ART TEACHER NOTES: Very difficult pt to scan- very gassy, heavy breathing, large body habitus Pancreas: Obscured by bowel gas Liver: Very difficult to visualize- limited views show possible vague, innumerable hypoechoic and is oechoic lesions scattered throughout, largest right anterior lobe= 1.5 cm. Gallbladder: Distended with possible sludge Evidence for sonographic Hernandez's sign: No CBD: wnl Spleen: wnl Right Kidney: Small in size, no evidence of hydro, possible calculus upper pole= 0.9 cm Left Kidney: Very limited views show no evidence of hydro Upper IVC: wnl Abd Aorta: Obscured by overlying bowel gas IMPRESSION: 1. Distended gallbladder lumen and cholelithiasis without significant wall thickening or adjacent pe richolecystic fluid. 2. Right renal parenchyma atrophy and nonobstructing right renal calculus measuring 9 mm. No evidenc e of hydronephrosis bilaterally. 3. Multiple indeterminate hypoechoic and isoechoic liver lesions, not well evaluated given technical factors described above but suspicious for metastatic disease given stated clinical history. Further evaluation with outpatient MRI utilizing IV contrast would be recommended for further evaluation. [facility], , 02/05/2025 2:27 PM
[2025-02-05 16:20] LABS: Glucose,Whole Blood 150 mg/dL (70-110)
[2025-02-05 20:28] LABS: Glucose,Whole Blood 152 mg/dL (70-110)
[2025-02-06 06:21] LABS: Glucose,Whole Blood 105 mg/dL (70-110)
[2025-02-06 09:40] LABS: Basophils # (A) 0.02 10*3/uL (0.00-0.10); Basophils % (A) 0.2 %; Eosinophils # (A) 0.07 10*3/uL (0.04-0.35); Eosinophils % (A) 0.6 %; HCT 33.1 % (39.6-50.0); HGB 10.4 g/dL (13.0-17.0); Lymphocytes # (A) 0.56 10*3/uL (0.90-5.00); MCH 28.4 pg (27.0-32.0); MCHC 31.4 g/dL (32.0-37.0); MCV 90.4 fL (80.0-97.0); Mean Platelet Volume 11.4 fL (9.5-12.2); Monocytes # (A) 1.63 10*3/uL (0.20-1.00); Monocytes % (A) 14.6 %; Neutrophils # (A) 8.46 10*3/uL (1.80-7.70); Platelet Count 215 10*3/uL (140-440); RBC 3.66 10*6/uL (4.40-5.60); RDW 16.2 % (11.5-14.5); WBC 11.14 10*3/uL (4.50-10.00)
[2025-02-06 09:56] LABS: ALT 87 U/L (4-49); AST 117 U/L (17-59); African American GFR (CKD) >90 (>60 ml/min/1.73 sqM); Albumin 2.5 g/dL (3.5-5.0); Alkaline Phosphatase 442 U/L (38-126); Anion Gap 1 mmol/L; Blood Urea Nitrogen 18 mg/dL (9-20); Calcium 8.4 mg/dL (8.4-10.2); Carbon Dioxide 28 mmol/L (22-30); Chloride 102 mmol/L (98-107); Glucose 112 mg/dL (74-99); Non-African American GFR(CKD) >90 (>60 ml/min/1.73 sqM); Potassium 4.3 mmol/L (3.5-5.1); Sodium 131 mmol/L (137-145); Total Bilirubin 0.4 mg/dL (0.2-1.3)
[2025-02-06 11:31] LABS: Glucose,Whole Blood 152 mg/dL (70-110)
[2025-02-06] MEDS: METOPROLOL SUCCINATE (ER) 25 MG TAB.ER.24H PO SCH (11:43)
[2025-02-06] MEDS: TAMSULOSIN 0.4 MG CAP.ER.24H PO SCH (11:43)
--- NOTE | 2025-02-06 15:00 | P.PN ---
Subjective Progress Note Date: 02/06/25 No acute events overnight. Pt reports he is having more of a congested cough today. SOB at baseline. Pt was having right sided flank pain/mid back pain, which is improving. US showing nonobstructing right sided renal calculus, no evidence of hydronephrosis Objective - Vital Signs Vital signs: Vital Signs Temp 97.4 F L 02/06/25 07:51 Pulse 100 02/06/25 11:38 Resp 18 02/06/25 07:51 BP 92/65 02/06/25 07:51 Pulse Ox 94 L 02/06/25 07:51 FiO2 Intake & Output 02/05/25 02/06/25 02/06/25 18:59 06:59 18:59 Intake Total 360 Output Total 130 270 Balance 230 -270 Weight 76.3 kg Intake: Oral 360 Output: Chest Tube Drainage 130 270 Chest Tube Right 130 270 Posterior Chest Other: Voiding Method Toilet Toilet Urinal Urinal # Voids 1 2 - Constitutional General appearance: Present: no acute distress - EENT Eyes: Present: anicteric sclerae, EOMI ENT: Present: hearing grossly normal - Respiratory Details: breathing labored - Cardiovascular Details: skin warm and dry - Integumentary Integumentary: Present: pale. Absent: cyanotic - Musculoskeletal Musculoskeletal: Present: generalized weakness - Psychiatric Psychiatric: Present: A&O x's 3 - Labs CBC & Chem 7: 02/06/25 09:28 02/06/25 09:28 Labs: Abnormal Lab Results - Last 24 Hours (Table) 02/05/25 02/05/25 02/06/25 Range/Units 16:19 20:26 09:28 WBC 11.14 H (4.50-10.00) 10*3/uL RBC 3.66 L (4.40-5.60) 10*6/uL Hgb 10.4 L (13.0-17.0) g/dL Hct 33.1 L (39.6-50.0) % MCHC 31.4 L (32.0-37.0) g/dL Immature Gran # 0.40 H (0.00-0.04) 10*3/uL Neutrophils # 8.46 H (1.80-7.70) 10*3/uL Lymphocytes # 0.56 L (0.90-5.00) 10*3/uL Monocytes # 1.63 H (0.20-1.00) 10*3/uL Sodium (137-145) mmol/L Creatinine (0.66-1.25) mg/dL Glucose (74-99) mg/dL POC Glucose (mg/dL) 150 H 152 H (70-110) mg/dL AST (17-59) U/L ALT (4-49) U/L Alkaline Phosphatase (38-126) U/L Total Protein (6.3-8.2) g/dL Albumin (3.5-5.0) g/dL 02/06/25 02/06/25 Range/Units 09:28 11:30 WBC (4.50-10.00) 10*3/uL RBC (4.40-5.60) 10*6/uL Hgb (13.0-17.0) g/dL Hct (39.6-50.0) % MCHC (32.0-37.0) g/dL Immature Gran # (0.00-0.04) 10*3/uL Neutrophils # (1.80-7.70) 10*3/uL Lymphocytes # (0.90-5.00) 10*3/uL Monocytes # (0.20-1.00) 10*3/uL Sodium 131 L (137-145) mmol/L Creatinine 0.60 L (0.66-1.25) mg/dL Glucose 112 H (74-99) mg/dL POC Glucose (mg/dL) 152 H (70-110) mg/dL AST 117 H (17-59) U/L ALT 87 H (4-49) U/L Alkaline Phosphatase 442 H (38-126) U/L Total Protein 5.0 L (6.3-8.2) g/dL Albumin 2.5 L (3.5-5.0) g/dL - Imaging and Cardiology US - abdomen: report reviewed Assessment and Plan (1) Dyspnea Current Visit: Yes Status: Acute Code(s): R06.00 - DYSPNEA, UNSPECIFIED SNOMED Code(s): 236761527 (2) History of lung cancer Current Visit: Yes Status: Acute Code(s): Z85.118 - PERSONAL HISTORY OF MALIGNANT NEOPLASM OF BRONCHUS AND LUNG SNOMED Code(s): 050648974 (3) Pleural effusion Current Visit: Yes Status: Acute Code(s): J90 - PLEURAL EFFUSION, NOT ELSEWHERE CLASSIFIED SNOMED Code(s): 57615301 (4) Mass of right lung Current Visit: No Status: Acute Code(s): R91.8 - OTHER NONSPECIFIC ABNORMAL FINDING OF LUNG FIELD SNOMED Code(s): 545123428 Plan: #Right pleural effusion, right hilar mass - Noted to have opacification of the right hemithorax on chest x-ray from admission - Thoracentesis on 01/26/2025 yielded 2800 cc of bloody pleural fluid with concern for trapped lung - CT of the chest revealing right hilar mass causing obstruction of the right mainstem bronchus with large pleural effusion and trapped lung - Chest tube placed on 01/27/2025 - Pleural fluid cytology from 01/27/2025 is negative for malignancy. Repeat cytology on 01/31 positive for metastatic carcinoma, possible small cell carcino ma, however unable to confirm diagnosis - Given the reported falls he has been having recently, brain MRI has been ordered to rule out intracranial metastases. Brain MRI negative for metastasis - Consultation for radiation oncology has been placed given the obstruction of the right mainstem bronchus - Due to limited non-diagnostic cytology, will need to speak with pulm to see if pt is appropriate for bronch/biopsy. 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 Keita, will plan for outpt PET CT and subsequent clinic f/u
[2025-02-06 16:24] LABS: Glucose,Whole Blood 138 mg/dL (70-110)
--- NOTE | 2025-02-06 16:45 | MR ---
EXAMINATION TYPE: MR abdomen wo/w con DATE OF EXAM: 02/06/2025 3:59 PM INDICATION: Patient age:Male; 59 years old; Reason for study: Liver lesions on US, concern for metastasis; PHH. COMPARISON: Ultrasound abdomen 02/05/2025, CT chest 01/27/2025, CT chest abdomen pelvis 06/26/2023 TECHNIQUE: Multiplanar multi-sequence imaging was performed without and with IV contrast. The patie nt was given 10 ccs of Gadobutrol intravenously and dynamic imaging was performed. Post IV contrast s ubtraction images were also submitted for review. FINDINGS: LOWER CHEST: Partial visualization of large right hilar mass with infiltrative spiculations into the surrounding lung. This grossly measures 7.1 x 7.1 cm with enhancement demonstrated. There is encaseme nt/invasion of the right lower lobe bronchus. Resultant surrounding atelectatic lung involving the vi sualized right middle and lower lobes. Small size right hydropneumothorax. There was an associated pl eural pigtail catheter on previous radiograph. Mediastinal shift to the right. Right pericardial space enlarged metastatic lymph nodes measuring 2.3 cm (series 701, image 66) and 2 .1 cm (series 701, image 58). Enlarged metastatic paraesophageal lymph node measuring up to 1.7 cm (s eries 901, image 431). ABDOMEN Liver: Noncirrhotic morphology. No fatty infiltration. Innumerable bilobar T2 hyperintense/T1 hypoint ense lesions. Largest within the right hepatic lobe measures up to 2.7 cm (series 701, image 35). Lar gest within the left hepatic lobe measures up to 2.6 cm (series 701, image 48). These lesions demonst rate peripheral ring enhancement. Portal venous system is patent. Gallbladder and Bile ducts: Distended gallbladder without wall thickening or surrounding fluid. No ga llstones identified. No biliary ductal dilatation. Pancreas: Unremarkable. Spleen: Unremarkable. Adrenal glands: Unremarkable. Kidneys: Unremarkable. Stomach and Bowel: No evidence for bowel obstruction. Postsurgical changes from Yancy-en-Y gastric byp ass. Peritoneum: No evidence of pneumoperitoneum, free fluid, or adenopathy within the abdomen. Vasculature: Unremarkable. No aortic aneurysm. Abdominal wall: Small fat filled umbilical hernia. Supraumbilical diastases rectus measuring up to 6. 0 cm in diameter and contains fat. Anterior epigastric ventral fat-containing hernia with defect koffi uring up to 3.0 cm in diameter. Mild anasarca. Musculoskeletal: Innumerable enhancing lesions throughout the visualized osseous structures involving the sternum, bilateral ribs, visualized spine. Multiple bilateral subacute to chronic rib fractures redemonstrated. IMPRESSION: 1. Innumerable bilobar enhancing hepatic lesions consistent with metastatic disease. 2. Innumerable enhancing osseous lesions consistent with metastatic disease. 3. Large right hilar pulmonary mass is partially visualized. This results in encasement and obstruct ion of the right lower lobe bronchus. There is associated atelectasis of the right middle and lower l obes. 4. Metastatic lymphadenopathy involving right epicardial enlarged lymph nodes and left paraesophagea l enlarged lymph node. 5. Small right hydropneumothorax. Previously seen associated pleural catheter. [facility], , 02/06/2025 4:43 PM
--- NOTE | 2025-02-06 17:21 | P.PN ---
Subjective Progress Note Date: 02/06/25 This is a 59-year-old male patient with a known history of former smoker, COPD maintained on Trelegy, hypothyroidism, hypertension and lung cancer diagnosed in 2016. He had a large obstructive mass in the right mainstem bronchus that was positive for carcinoma with chemotherapy and currently in remission. His last CT scan of the chest revealed a soft tissue encasement and volume loss of the right hilum and right perihilar bronchovascular bundles corresponding with treated disease. No definitive recurrence for metastatic disease. Development of a right lower lung reticular opacities likely representing bronchiolitis on a CT scan in June 2024. He presented to the emergency room today with a 2 to 3-week history of increasing shortness of breath cough and congestion. Chest x- ray reveals a completely opacified right hemithorax. Findings suggest neoplastic progression right hilar region with obstructive atelectasis. White count 8.8. Hemoglobin 12.0. Platelets 533. INR 1.0. Sodium 139. Potassium 4.5. Bicarb 24. BUN 15. Creatinine 0.59. AST 160. ALT 76. Alk phos 362. Troponin negative x 1. proBNP 768. He is seen today in consultation in the emergency department. He is currently sitting up on the stretcher. Awake and alert in mild respiratory distress. He is initially maintaining good O2 saturations in the 90s on room air oxygen. He is receiving a updraft treatment. He is afebrile. Blood pressure stable. He is sinus tachycardia in the 120s. The patient is seen today January 27, 2025 in follow-up in the emergency department. He is currently sitting up at the bedside. Awake and alert in no acute distress. He is still dyspneic with conversation. Dyspneic with minimal exertion. He is maintaining good O2 saturations in the mid 90s on 2 L/min per nasal cannula. He was without his oxygen for a brief walk to the bathroom and dropped into the 70s. He remains tachycardic. He is afebrile. He did undergo a right sided thoracentesis yesterday with 2.8 L of bloody fluid returned. Follow-up chest x-ray continued to show significant pleural effusion but no pneumothorax. White count 9.1. Hemoglobin 10.6. Platelets 506. Sodium 136. Potassium 4.1. Bicarb 23. BUN 15. Creatinine 0.62. Glucose 113. AST 90. ALT 58. Pleural fluid reveals exudate with a total protein of 2.6. LDH 161. WBCs 1372. Cytology pending. He is continued on DuoNeb inhalations, Symbicort. Patient was seen today on 01/28/2025, continues to have pigtail catheter in place connected to Pleur-evac, continues to have some serosanguineous drainage from the right pleural space, seems to be minimal, chest x-ray clearly showed evidence of trapped lung patient is now being seen by oncology and radiation oncology. On 2 L nasal cannula, O2 sats is 99% WBC count is 10 hemoglobin 10.9 electrolytes are normal except for potassium of 5.5 renal profile is normal. Patient was seen today on 01/29/2025, basically about the same continues to have significant amount of serosanguineous drainage from the right lung, pigtail catheter remains in place, patient is complaining of some vague chest discomfort, but he is not in any distress. Fluid cytology from his right thoracentesis/pleural effusion is pending. WBC count today 16.3 hemoglobin 10.2 electrolytes are normal renal profile is normal Seen today on 01/30/2025, patient continues to feel about the same. Continues to have right-sided pigtail catheter in place, and continues to have some serosanguineous drainage. Patient had a trapped lung and he does have a large endobronchial tumor involving the right mainstem bronchus based on CT of the chest. Patient is being followed by oncology and he will need radiation oncology. Cytology is pending. WBC count is 13.7 hemoglobin is 10.4 electrolytes are normal except for potassium of 5.4 renal profile is normal Progress note dated January 31, 2025. The patient is seen today in room 368. The patient is currently on 2 L nasal cannula. He is doing about the same. He has a right pigtail catheter in place. He is not receiving any IV fluids. His initial diagnosis of lung cancer was made by myself, back in 2017. He has non-small cell lung cancer. Today we added Augmentin to his regimen. Current laboratory data includes a white count of 8.97, hemoglobin 9.8, hematocrit 31, and a platelet count of 369,000. Sodium 133, potassium 5.4, chlorides 100, CO2 30, BUN 24, creatinine 0.58. Glucose Is 176. Calcium Is 9.1. Pleural fluid cytology is still pending. Progress note dated February 01, 2025. The patient is seen today in room 368. The patient continues on nasal O2 at 2 L. He is not receiving any IV fluids. Clinically he feels improved. He is sitting on the side of the bed. He has a right pigtail catheter in place. He is receiving Augmentin. Current laboratory data includes a white count of 13.6, hemoglobin 10.3, hematocrit 34.4, and a platelet count of 449,000. Sodium 132, potassium 5.8, chlorides 100, CO2 32, BUN 26, Creatinine 0.65. Glucose Is 128. Calcium Is 9. Pleural fluid cytology is currently still pending. Previous pleural fluid cytology was negative. Progress note dated February 02, 2025. The patient is again seen today in room 368. The patient continues on 2 L nasal cannula. He is currently on DuoNebs, Symbicort, and Solu-Medrol, which will be changed to prednisone 30 mg a day. Fluid cytology, is currently still pending. Labs today include a white count of 9.7, hemoglobin 9.7, hematocrit 30.7, and a platelet count of 337. Sodium 130, potassium 5.2, chloride 98, CO2 30, BUN 24, creatinine 0.6. Glucose is 144. Calcium is 8.6. Chest x-ray shows complete opacification of the right lung. Progress note dated February 03, 2025. 59-year-old male seen in room 368. The patient continues on 2 L of oxygen. He is currently on DuoNebs, Symbicort, prednisone. He did you on Augmentin. His chest x-ray continues to show significant opacification of the right hemithorax. His pigtail catheter is still in place. Current laboratory data includes a white count of 11.1, hemoglobin 10.2, hematocrit 32.6, and a platelet count of 329,000. Sodium 132, potassium 4.8, chlorides 99, CO2 32, BUN 23, creatinine 0.59. Glucose is 99. Calcium is 8.6. Last chest x-ray was done January 31. Pleural fluid cytology from January 31, is still pending. Progress note dated February 04, 2025. 59-year-old male seen again in room 368. He is sitting at the edge of the bed. He is on 2 L of oxygen. He is not receiving any IV fluids. I did have a long conversation with his , on February 03. Will order chest x-ray, for February 05. The patient does not have any specific complaints. He is in no respiratory distress. We are hoping that the pigtail catheter can be removed, in the next day or 2, and the patient can be discharged. Progress note dated February 05, 2025. 59-year-old male seen today in room 368. The patient is currently on 2 L of oxygen. He is sitting at the side of the bed. He does not have any respiratory distress. Chest x-ray today is essentially unchanged, showing opacification of the right hemithorax. Right pigtail catheter is in place. Minimal drainage. Current laboratory data includes a white count of 16.6, hemoglobin 12, hematocrit 38.1, and platelet count of 283,000. Sodium 133, potassium 4.2, chlorides 100, CO2 33, BUN 17, creatinine 0.59. Glucose is 98. Calcium is 8.8. On 02/06/2025, the patient remains on oxygen on 2 L nasal cannula. Pulse ox is 97%. In summary, the patient has a previous history of pulm cell carcinoma back in 2017 and the patient was treated with chemoradiation therapy. The patient was having follow-up CAT scan imaging through his oncologist, Dr. Keita. The patient presented to the hospital because of worsening shortness of breath and a completely opacified right lung. Initial thoracentesis revealed no malignant cells in the pleural fluid. A second fluid analysis was done and it showed some rare atypical cells consistent with carcinoma. Nevertheless, if final pathology or histologic subtype has not been established. Meanwhile, following insertion of the pigtail catheter, the patient continued to have an atelectatic right lung and the right lung is essentially trapped without any reexpansion. The chest x- ray still showing near complete opacification of right hemithorax despite the pigtail being in place. The patient continues to have a positive output through the tube. I reviewed the CAT scan of the chest and there is a cutoff sign in the distal right mainstem/right lower lobe bronchus. There is probably tumor encasing the right mainstem bronchus and there is complete collapse of the right lung in addition to the right-sided pleural effusion. There is also right hilar lymphadenopathy measuring up to 1.5 cm in size in addition to right pericardiac adenopathy measuring up to 2.2 cm in size and the patient also has some mild patchy groundglass changes in the left lung likely inflammatory in nature. Based on all this, the patient will need further tissue diagnosis to characterize the exact histologic subtype. The right mainstem bronchus need to be reevaluated bronchoscopically. I suggested doing a bronchoscopy and endobronchial ultrasound for tissue diagnosis and evaluation of the right mainstem bronchus. The patient was agreeable. Oncology wanted further tissue diagnosis. He is currently on 2 L of oxygen by nasal cannula with a pulse ox of 97%. MRI of the abdomen was also done and it showed innumerable bilateral bilobar hepatic lesions consistent with metastatic disease and the patient also has bony metastases and right lung findings showed a right hilar mass that was partially visualized however it was encasing the right mainstem bronchus and the right lower lobe bronchus causing complete atelectasis of the right lung and there was also metastatic lymphadenopathy involving the right epicardial enlarged lymph nodes and left paraesophageal enlarged lymph nodes. Based on this, the patient has likely metastatic recurrent carcinoma versus a new primary although recurrent cancer is highly suspected. Objective - Vital Signs Vital signs: Vital Signs Temp 97.4 F L 02/06/25 07:51 Pulse 100 02/06/25 11:38 Resp 18 02/06/25 07:51 BP 92/65 02/06/25 07:51 Pulse Ox 94 L 02/06/25 07:51 FiO2 Intake & Output 02/05/25 02/06/25 02/06/25 18:59 06:59 18:59 Intake Total 360 Output Total 130 270 Balance 230 -270 Weight 76.3 kg Intake: Oral 360 Output: Chest Tube Drainage 130 270 Chest Tube Right 130 270 Posterior Chest Other: Voiding Method Toilet Toilet Urinal Urinal # Voids 1 2 - Exam No acute distress, oriented 3. Currently on 2 L. HEENT examination is grossly unremarkable. Mucous membranes are moist. No oral lesions. Neck supple. Full range of motion. No adenopathy thyromegaly or neck vein distention. Cardiovascular examination reveals regular rhythm rate. S1-S2 normal. No S3 or S4. No discernible murmur noted. Lungs reveal diminished right-sided breath sounds. Pigtail catheter in place. Left lung is clear. Abdomen soft bowel sounds are heard. No masses or tenderness. Extremities are intact. No cyanosis clubbing or edema. Skin is without rash or lesion. Neurologic examination is brief but nonfocal. - Labs CBC & Chem 7: 02/06/25 09:28 02/06/25 09:28 Labs: Abnormal Lab Results - Last 24 Hours (Table) 02/05/25 02/05/25 02/06/25 Range/Units 16:19 20:26 09:28 WBC 11.14 H (4.50-10.00) 10*3/uL RBC 3.66 L (4.40-5.60) 10*6/uL Hgb 10.4 L (13.0-17.0) g/dL Hct 33.1 L (39.6-50.0) % MCHC 31.4 L (32.0-37.0) g/dL Immature Gran # 0.40 H (0.00-0.04) 10*3/uL Neutrophils # 8.46 H (1.80-7.70) 10*3/uL Lymphocytes # 0.56 L (0.90-5.00) 10*3/uL Monocytes # 1.63 H (0.20-1.00) 10*3/uL Sodium (137-145) mmol/L Creatinine (0.66-1.25) mg/dL Glucose (74-99) mg/dL POC Glucose (mg/dL) 150 H 152 H (70-110) mg/dL AST (17-59) U/L ALT (4-49) U/L Alkaline Phosphatase (38-126) U/L Total Protein (6.3-8.2) g/dL Albumin (3.5-5.0) g/dL 02/06/25 02/06/25 Range/Units 09:28 11:30 WBC (4.50-10.00) 10*3/uL RBC (4.40-5.60) 10*6/uL Hgb (13.0-17.0) g/dL Hct (39.6-50.0) % MCHC (32.0-37.0) g/dL Immature Gran # (0.00-0.04) 10*3/uL Neutrophils # (1.80-7.70) 10*3/uL Lymphocytes # (0.90-5.00) 10*3/uL Monocytes # (0.20-1.00) 10*3/uL Sodium 131 L (137-145) mmol/L Creatinine 0.60 L (0.66-1.25) mg/dL Glucose 112 H (74-99) mg/dL POC Glucose (mg/dL) 152 H (70-110) mg/dL AST 117 H (17-59) U/L ALT 87 H (4-49) U/L Alkaline Phosphatase 442 H (38-126) U/L Total Protein 5.0 L (6.3-8.2) g/dL Albumin 2.5 L (3.5-5.0) g/dL Assessment and Plan Plan: Lung mass with large right-sided pleural effusion and trapped lung S/P t horacentesis and pigtail catheter placement. Despite those efforts, the patient continues to have a completely opacified right lung, this is essentially a trapped lung with a tumor encasing the right mainstem bronchus and the right lower lobe bronchus causing complete atelectasis and contributing to the failure of the reexpansion of the right lung. The pleural fluid cytology was revealing few malignant cells he had a final histologic diagnosis not been established. MRI of the abdomen showed innumerable metastatic bilobed hepatic lesions consistent with metastases and the patient also had some intra-abdominal lymphadenopathy consistent with metastatic disease. Patient and oncology are both interested in establishing a histologic diagnosis. Right-sided pigtail catheter remains in place without any benefit. Output is still positive. The tube was placed on 01/27/2025. Initial pleural fluid cytology on 01/27/2025 was negative for malignancy. Repeat cytology from 01/31/2025 was not completely diagnostic. 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 Chronic tobacco dependence. Chronic obstructive pulmonary disease. Hypertension. Previous bariatric surgery. Hypothyroidism. Plan The patient is currently on 2 L of oxygen by nasal cannula Continue bronchodilators Continue steroids Will schedule this patient for bronchoscopy and endobronchial ultrasound. The purpose of the procedure will be 2 falls. He will be needed to assess the patency of the right lower lobe bronchus being it extrinsic compression versus endobronchial tumor. This may be also an opportunity to establish a final histologic subtype and diagnosis knowing that the patient has metastatic carcinoma as indicated by the CAT scan of the chest and MRI of the abdomen. The patient has extensive metastatic lesions involving the liver as noted. I am going to do the bronchoscopy within the next 24 hours. May use also endobronchi al ultrasound to evaluate the mediastinum that may also assist with histologic diagnosis. Should the right lung is completely trapped by endobronchial tumor or extrinsic compression, the left pigtail catheter may be removed as there would be no further benefit in the setting of a completely trapped left lung. For now, we will keep the pigtail catheter in place for another 24 hours and further re commendations will be made following the bronchoscopy. Long-term prognosis poor based on above-mentioned comorbidities. Will collaborate care with oncology. Will continue to follow. Time with Patient: Greater than 30
[2025-02-06 20:11] LABS: Glucose,Whole Blood 114 mg/dL (70-110)
[2025-02-06] MEDS: HYDROcodone/APAP 5-325MG 1 EACH TAB PO PRN (20:19)
--- NOTE | 2025-02-06 22:32 | P.PN ---
Subjective Progress Note Date: 02/06/25 Principal diagnosis: pleural effusion Hospital Course: pleural effusion 59 year old M with PMH of non small cell lung CA, COPD not on home O2, gastric bypass and esophageal strictures, hypothyroidism presents to the ED for shortness of breath. In the ED he underwent extensive evaluation. T 98F, BP 110/73, HR 114, RR 18, 96% on RA. Labs significant for RBC 4.15, Hg 12, Hct 37 .3, Plt 533, Cl 109, Cr 0.59, Lactic acid 4, AST 160, ALT 76, alk phos 362, Trop < 0.012, BNP 768, alb 2.8. CXR complete opacity of the right hemithorax. EKG sinus tachycardia. Patient was admitted for further workup and management. Pulmonary and Oncology consulted. Chest CT showed right mainstem bronchus mass with large right pleural effusion, hilar adenopathy, subacute rib fractures and thoracic wedge deformities. Underwent thoracentesis with pigtail catheter insertion with 2.8L fluid removal. Cultures were negative. Cytology is pending. 02/02 Patient was seen and examined. Doing well. Pain well controlled. Chest tube draining 410 cc over the past 24H. CBC and BMP significant for WBC RBC 3.43, Hg 9.7, Hct 30.7, Na 130, K 5.2, BUN 24, Cr 0.6, glu 105. 5/. Patient seen and examined at bedside. Complains of pain at catheter site. Pigtail catheter continues to drain a significant amount of serosanginoius fluid, WBC 11.10, Hemoglobin 10.2, sodium 132, potassium 4.8, creatinine 0.59, glucose 68. 02/04 Patient seen and examined at bedside. States he has pain at catheter site but is improving and he would like to wean off pain meds if possible. Cytology 01/27 shows very rare malignant cells consistent with metastatic carcinoma, and suspicious for small cell carcinoma. This was discussed with patient. Continues to have serosanguineous drainage >400 ml in the last 24 hours. No labs this morning. Vitals Signs Reviewed. 02/05 Patient seen and examined at bedside. He complains of pain at the chest tube site but has been trying to wean off of the Percocet. He feels the Tylenol he r ecieved helped. Chest tube output >300 in the last 24 hours. Labs this morning show WBC 16.63 (likely secondary to steroid use), hemoglobin 12.0, platelet 283, sodium 133, potassium 4.2, creatinine 0.59, bilirubin 0.5, AST 202, ALT 115, ALP 488. Urine shows moderate blood, RBC and calcium oxalate crystals. CXR from 02/05 reviewed independently, almost completely opacified on the right side due to ma ss/pleural effusion, similar to prior cxr. He has remained tachycardic, BP stable, on RA. He had a bowel movement today after several days. 02/06: Patient seen and examined at bedside. Approx 400 ml output from the pigtail catheter in the last 24 hours. His pain is improving. Remains on 2L NC O2. Labs this morning show WBC 11.14, hemoglobin 10.4, sodium 131, potassium 4.3, creatinine 0.6, bilirubin 0.4, AST 117, ALT 87, ALP 442. Abdominal ultrasound showed distended gallbladder lumen and cholelithiasis without significant wall thickening or adjacent pericholecytic fluid. It showed a nonobstructing renal calculus measuring 9mm with no evidence of hydronephrosis bilaterally. It also showed multiple indeterminate hypoechoid and isoechoic liver lesions, suspicious for metastatic disease. General: no distress, appears at stated age Derm: warm, dry Head: atraumatic, normocephalic, symmetric Mouth: no lip lesion, mucus membranes moist Cardiovascular: tachycardic rate, normal rhythm. No murmur. R pigtail catheter draining serousanguinous fluid Lungs: Diminished breath sounds, R>L, expiratory wheezing appreciated, no accessory muscle use Ext: no gross muscle atrophy, no edema, no contractures. Neuro: No focal neurologic deficits. Psych: Alert and oriented. Based on my assessment of this patient, this patient meets a high complexity level of care. Lung mass with history of bronchogenic carcinoma diagnosed in 2017 with large R pleural effusion post thoracentesis and pigtail catheter placement: Cytology from 01/27 consistent with very rare malignant cells consistent with metastatic carcinoma, and suspicious for small cell carcinoma. Augmentin (01/31-) per Pulmonary. Cultures were negative. Wean off narcotic pain medication as able, encouraged use of Tylenol, switch Percocet 7.5 to [place] 5 PRN. Continue pigtail catheter to suction. Pulmonary and Oncology on board for further re commendations. He will need to follow up with Dr. Neela Delgadillo (primary oncologist) for PET/CT scan outpatient. Hyperkalemia: Improved. s/p Lokelma x1 02/02 Transaminitis: Could be due to underlying liver lesions, possible metastases. Will obtain MRI abdomen for further evaluation. Gallbladder does show gallstones, no evidence of acute cholecystitis. Denies RUQ pain. Repeat LFTs in the AM. Renal calculi: Non obstructing renal calculus measuring 9mm. Start Tamsuloin, will need o/p follow up with Urology. Constipation: Bowel regimen as needed. Increase fluids, limit narcotics Subacute fractures of the right anterior 3rd through 6th ribs: Pain management as above. Normocytic anemia with Thrombocytosis: Stable. Possible iron def. with elevated Plt count. Transfuse if Hg < 7. Hypothyroidism: Synthroid 50 mcg PO QD COPD: DuoNeb QID scheduled and Q2H PRN SOB/wheezing. Symbicort 2 INH BID. Continue prednisone 30 mg PO QD per pulmonary. History of gastric bypass and esophageal strictures Resolved: Lactic acidosis Pigtail catheter continues to drain significant amount of fluid. Anticipate discharge when < 150 cc drainage over 24H. Home O2 eval ordered. Pending clinical improvement. CODE STATUS: FULL CODE DVT Prophylaxis: Lovenox SQ GI Prophylaxis: Designated medical POA if patient is not able to make medical decisions for themselves: I have reviewed the following informatics consultant notes: I have reviewed the results of the following tests: CBC, CMP, abdominal ultrasound I have ordered the following tests: CBC and BMP in the AM I have discussed the care of this patient with the following independent historian: ANU. I have independently interpreted the following test below: I have discussed the management of this patient with the following physician: Objective - Vital Signs Vital signs: Vital Signs Temp 97.4 F L 02/06/25 07:51 Pulse 100 02/06/25 11:38 Resp 18 02/06/25 07:51 BP 92/65 02/06/25 07:51 Pulse Ox 94 L 02/06/25 07:51 FiO2 Intake & Output 02/05/25 02/06/25 02/06/25 18:59 06:59 18:59 Intake Total 360 Output Total 130 270 Balance 230 -270 Weight 76.3 kg Intake: Oral 360 Output: Chest Tube Drainage 130 270 Chest Tube Right 130 270 Posterior Chest Other: Voiding Method Toilet Toilet Urinal Urinal # Voids 1 2 - Labs CBC & Chem 7: 02/06/25 09:28 02/06/25 09:28 Labs: Abnormal Lab Results - Last 24 Hours (Table) 02/05/25 02/05/25 02/06/25 Range/Units 16:19 20:26 09:28 WBC 11.14 H (4.50-10.00) 10*3/uL RBC 3.66 L (4.40-5.60) 10*6/uL Hgb 10.4 L (13.0-17.0) g/dL Hct 33.1 L (39.6-50.0) % MCHC 31.4 L (32.0-37.0) g/dL Immature Gran # 0.40 H (0.00-0.04) 10*3/uL Neutrophils # 8.46 H (1.80-7.70) 10*3/uL Lymphocytes # 0.56 L (0.90-5.00) 10*3/uL Monocytes # 1.63 H (0.20-1.00) 10*3/uL Sodium (137-145) mmol/L Creatinine (0.66-1.25) mg/dL Glucose (74-99) mg/dL POC Glucose (mg/dL) 150 H 152 H (70-110) mg/dL AST (17-59) U/L ALT (4-49) U/L Alkaline Phosphatase (38-126) U/L Total Protein (6.3-8.2) g/dL Albumin (3.5-5.0) g/dL 02/06/25 02/06/25 Range/Units 09:28 11:30 WBC (4.50-10.00) 10*3/uL RBC (4.40-5.60) 10*6/uL Hgb (13.0-17.0) g/dL Hct (39.6-50.0) % MCHC (32.0-37.0) g/dL Immature Gran # (0.00-0.04) 10*3/uL Neutrophils # (1.80-7.70) 10*3/uL Lymphocytes # (0.90-5.00) 10*3/uL Monocytes # (0.20-1.00) 10*3/uL Sodium 131 L (137-145) mmol/L Creatinine 0.60 L (0.66-1.25) mg/dL Glucose 112 H (74-99) mg/dL POC Glucose (mg/dL) 152 H (70-110) mg/dL AST 117 H (17-59) U/L ALT 87 H (4-49) U/L Alkaline Phosphatase 442 H (38-126) U/L Total Protein 5.0 L (6.3-8.2) g/dL Albumin 2.5 L (3.5-5.0) g/dL
[2025-02-07 06:02] LABS: Glucose,Whole Blood 98 mg/dL (70-110)
[2025-02-07 07:44] LABS: Basophils # (A) 0.03 10*3/uL (0.00-0.10); Basophils % (A) 0.2 %; Eosinophils # (A) 0.07 10*3/uL (0.04-0.35); Eosinophils % (A) 0.5 %; HCT 34.4 % (39.6-50.0); HGB 10.9 g/dL (13.0-17.0); Lymphocytes # (A) 0.73 10*3/uL (0.90-5.00); Lymphocytes % (A) 5.6 %; MCH 27.9 pg (27.0-32.0); MCHC 31.7 g/dL (32.0-37.0); MCV 88.2 fL (80.0-97.0); Mean Platelet Volume 11.2 fL (9.5-12.2); Monocytes # (A) 1.71 10*3/uL (0.20-1.00); Neutrophils # (A) 10.09 10*3/uL (1.80-7.70); Platelet Count 226 10*3/uL (140-440); RDW 16.1 % (11.5-14.5); WBC 13.12 10*3/uL (4.50-10.00)
[2025-02-07 08:25] LABS: ALT 88 U/L (4-49); AST 102 U/L (17-59); African American GFR (CKD) >90 (>60 ml/min/1.73 sqM); Albumin 2.7 g/dL (3.5-5.0); Alkaline Phosphatase 523 U/L (38-126); Anion Gap -1 mmol/L; Blood Urea Nitrogen 18 mg/dL (9-20); Calcium 8.8 mg/dL (8.4-10.2); Carbon Dioxide 32 mmol/L (22-30); Chloride 101 mmol/L (98-107); Glucose 87 mg/dL (74-99); Non-African American GFR(CKD) >90 (>60 ml/min/1.73 sqM); Potassium 4.7 mmol/L (3.5-5.1); Sodium 132 mmol/L (137-145); Total Bilirubin 0.5 mg/dL (0.2-1.3); Total Protein 5.4 g/dL (6.3-8.2)
[2025-02-07 11:48] LABS: Glucose,Whole Blood 112 mg/dL (70-110)
--- NOTE | 2025-02-07 12:53 | P.PN ---
Subjective Progress Note Date: 02/07/25 Hospital Course: Patient is a 59-year-old male with past medical history of dysphagia, esophageal strictures status post dilation, history of gastric bypass surgery, COPD, history of bronchogenic carcinoma diagnosis 2016,, who presented to the ER on 01/26/2025 with worsening shortness of breath and cough, patient was sent from ID. Underwent extensive workup in the ER, WBC count normal, hemoglobin 12.0, stable from before, platelet count elevated 533, normal coagulation panel, sodium, potassium and bicarb WNL, creatinine 0.59, plasma lactic acid 3.0, AST and ALT elevated 09/22/1975 accordingly, previously his AST was up to 74, troponin negative, BNP 768. EKG showed sinus tachycardia, QTc 413. X-ray was performed and showed completely opacified right hemithorax. Chest ultrasound showed right pleural effusion pocket, was marked for thoracentesis. Patient was discussed with ER physician, accepted for inpatient admission with pulmonology consultation, oncology consultation. Pulmonology was at bedside to perform thoracentesis, 2.8 L of bloody fluid. Chest x-ray postthoracentesis ankur wed no improvement, no pneumothorax. Pleural fluid analysis shows exudative effusion, cytology obtained and pending. CT chest with contrast showed of the right mainstem bronchus likely secondary to right hilar mass, collapse of the entire right lung with large right pleural effusion, right hilar adenopathy, right pericardiac adenopathy, subacute fractures of the right anterior 3rd through 6th ribs, possible underlying cirrhosis. IR consulted for pigtail catheter placement, Solu-Medrol added by pulmonology. After insertion of the pigtail catheter patient continued to have atelectatic changes to the right lung, trapped lung and no reexpansion. MRI brain showed innumerable bilobar enhancing hepatic lesions consistent with metastatic disease, unremarkable intrinsic osseous lesions consistent with metastatic disease, right large hilar pulmonary mass partially visualized resulting in encasement and obstruction of the right lower lobe bronchus with associated atelectasis, metastatic lymphadenopathy involving right epicardial enlarged lymph nodes, left periesophageal enlarged lymph node, small right hydropneumothorax previously seen. He had brain MRI done that showed no evidence of mass or infarction. Pulmonology is planning for bronchoscopy with possible endobronchial ultrasound. 02/07/2025: Patient was seen and examined at bedside, waiting for bronchoscopy, patient's at bedside during examination. He continues to complain of pain, shortness of breath is stable and not worsening, noted decreasing pigtail catheter output. He remains on 2 L nasal cannula, tachycardic in 110s, blood work shows leukocytosis 13.12, hemoglobin 10.9, stable, sodium 132, stable, normal creatinine, glucose controlled, alkaline phosphatase persistently elevated Pertinent Imaging: As above Pertinent positives and negatives as discussed above, a complete review of systems was performed and all other systems are negative. Vitals Signs Reviewed. General: [Chronically ill-appearing, appears older than stated age, cushingoid Derm: [warm], [dry] Head: [atraumatic], [normocephalic], [symmetric] Eyes: [EOMI], [no lid lag], [anicteric sclera] Mouth: [no lip lesion], [mucus membranes moist] Cardiovascular: [S1S2 reg], [no murmur] Lungs: [Diminished breath sounds, bilateral rhonchi more on the left, some accessory muscle use, right-sided pigtail catheter with serosanguineous fluid draining] Abdominal: [soft], [ nontender to palpation], [no guarding], [no appreciable organomegaly] Ext: [no gross muscle atrophy], [no edema], [no contractures] Neuro: [ CN II-XI grossly intact], [no focal neuro deficits] Psych: [Alert], [oriented], [appropriate affect] Assessment and Plan: Acute hypoxic respiratory failure secondary to right-sided lower pleural effusion entrapped lung s/p thoracentesis, status post pigtail catheter placement History of stage III T4 N0 M0 COPD not in acute exacerbation-former smoker quit August 2024 Leukocytosis, likely steroid-induced -Pulmonology oncology following, appreciate recommendations, plan for bronchoscopy with possible endobronchial ultrasound -Continue pigtail catheter management for now - Cytology from 01/27 consistent with very rare malignant cells consistent with metastatic carcinoma, and suspicious for small cell carcinoma - Continue Fred[place] 5 as needed every 6 hours, Dilaudid 1 mg every 3 hours as needed -Oncology recommends outpatient PET/CT, patient scheduled for 02/15 - Continue prednisone 30 mg daily, Symbicort 160/4.5 twice daily and DuoNeb every 2 hours as needed as well as 4 times daily scheduled Constipation: Continue Senokot 1daily Transaminitis -Likely secondary to unavailable liver metastasis -No gallstones on ultrasound Hypothyroidism: Continue home levothyroxine 50 mcg Renal calculi: Non obstructing renal calculus measuring 9mm. Start Tamsuloin, will need o/p follow up with Urology. Subacute fractures of the right anterior 3rd through 6th ribs: Pain management as above. Hypertension I have reviewed the following employee relations consultant notes: Oncology, pulmonology I have reviewed the results of the following tests: CBC, CMP I have ordered the following tests: CBC, CMP I have discussed the care of this patient with the following independent historian: Patient's , case management I have independently interpreted the following test below: I have discussed the management of this patient with the following physician: DVT ppx: Lovenox Code status: Full code Anticipated discharge place: TBD Anticipated discharge time: TBD Objective - Vital Signs Vital signs: Vital Signs Temp 97.4 F L 02/07/25 11:05 Pulse 111 H 02/07/25 11:05 Resp 18 02/07/25 11:05 BP 108/71 02/07/25 11:05 Pulse Ox 97 02/07/25 11:05 FiO2 Intake & Output 02/06/25 02/07/25 02/07/25 18:59 06:59 18:59 Intake Total 180 Output Total 155 175 170 Balance 25 -175 -170 Weight 76 kg 76 kg Intake: Oral 180 Output: Chest Tube Drainage 155 175 170 Chest Tube Right 155 175 170 Posterior Chest Other: Voiding Method Toilet Toilet Toilet Urinal Urinal Urinal # Voids 1 4 1 # Bowel Movements 1 - Labs CBC & Chem 7: 02/07/25 07:16 02/07/25 07:16 Labs: Abnormal Lab Results - Last 24 Hours (Table) 02/06/25 02/06/25 02/07/25 Range/Units 16:21 20:10 07:16 WBC 13.12 H (4.50-10.00) 10*3/uL RBC 3.90 L (4.40-5.60) 10*6/uL Hgb 10.9 L (13.0-17.0) g/dL Hct 34.4 L (39.6-50.0) % MCHC 31.7 L (32.0-37.0) g/dL Immature Gran # 0.49 H (0.00-0.04) 10*3/uL Neutrophils # 10.09 H (1.80-7.70) 10*3/uL Lymphocytes # 0.73 L (0.90-5.00) 10*3/uL Monocytes # 1.71 H (0.20-1.00) 10*3/uL Sodium (137-145) mmol/L Carbon Dioxide (22-30) mmol/L Creatinine (0.66-1.25) mg/dL POC Glucose (mg/dL) 138 H 114 H (70-110) mg/dL AST (17-59) U/L ALT (4-49) U/L Alkaline Phosphatase (38-126) U/L Total Protein (6.3-8.2) g/dL Albumin (3.5-5.0) g/dL 02/07/25 02/07/25 Range/Units 07:16 11:46 WBC (4.50-10.00) 10*3/uL RBC (4.40-5.60) 10*6/uL Hgb (13.0-17.0) g/dL Hct (39.6-50.0) % MCHC (32.0-37.0) g/dL Immature Gran # (0.00-0.04) 10*3/uL Neutrophils # (1.80-7.70) 10*3/uL Lymphocytes # (0.90-5.00) 10*3/uL Monocytes # (0.20-1.00) 10*3/uL Sodium 132 L (137-145) mmol/L Carbon Dioxide 32 H (22-30) mmol/L Creatinine 0.54 L (0.66-1.25) mg/dL POC Glucose (mg/dL) 112 H (70-110) mg/dL AST 102 H (17-59) U/L ALT 88 H (4-49) U/L Alkaline Phosphatase 523 H (38-126) U/L Total Protein 5.4 L (6.3-8.2) g/dL Albumin 2.7 L (3.5-5.0) g/dL Microbiology - Last 24 Hours (Table) 01/26/25 16:00 Acid Fast Bacilli Smear - Preliminary Pleural Fluid Acid Fast Bacilli Culture - Preliminary
[2025-02-07] MEDS: IV FLUID CONTINUATION 1,000 ML IV ONE (14:11)
[2025-02-07] MEDS ORDERED: LIDOCAINE 1% INJ 10MG/ML (20 ML MDV) ONE (14:12)
[2025-02-07] MEDS ORDERED: SUCCINYLCHOLINE CHLORIDE 200 MG/10 ML VIAL IV ONE (14:12)
[2025-02-07] MEDS ORDERED: PHENYLEPHRINE-0.9% NACL SYG 1,000 MCG/10 ML SYRINGE ONE (14:12)
[2025-02-07] MEDS ORDERED: PROPOFOL 10 MG/ML 20 ML VIAL IV ONE (14:12)
--- NOTE | 2025-02-07 14:53 | P.PN ---
Subjective Progress Note Date: 02/07/25 This is a 59-year-old male patient with a known history of former smoker, COPD maintained on Trelegy, hypothyroidism, hypertension and lung cancer diagnosed in 2016. He had a large obstructive mass in the right mainstem bronchus that was positive for carcinoma with chemotherapy and currently in remission. His last CT scan of the chest revealed a soft tissue encasement and volume loss of the right hilum and right perihilar bronchovascular bundles corresponding with treated disease. No definitive recurrence for metastatic disease. Development of a right lower lung reticular opacities likely representing bronchiolitis on a CT scan in June 2024. He presented to the emergency room today with a 2 to 3-week history of increasing shortness of breath cough and congestion. Chest x- ray reveals a completely opacified right hemithorax. Findings suggest neoplastic progression right hilar region with obstructive atelectasis. White count 8.8. Hemoglobin 12.0. Platelets 533. INR 1.0. Sodium 139. Potassium 4.5. Bicarb 24. BUN 15. Creatinine 0.59. AST 160. ALT 76. Alk phos 362. Troponin negative x 1. proBNP 768. He is seen today in consultation in the emergency department. He is currently sitting up on the stretcher. Awake and alert in mild respiratory distress. He is initially maintaining good O2 saturations in the 90s on room air oxygen. He is receiving a updraft treatment. He is afebrile. Blood pressure stable. He is sinus tachycardia in the 120s. The patient is seen today January 27, 2025 in follow-up in the emergency department. He is currently sitting up at the bedside. Awake and alert in no acute distress. He is still dyspneic with conversation. Dyspneic with minimal exertion. He is maintaining good O2 saturations in the mid 90s on 2 L/min per nasal cannula. He was without his oxygen for a brief walk to the bathroom and dropped into the 70s. He remains tachycardic. He is afebrile. He did undergo a right sided thoracentesis yesterday with 2.8 L of bloody fluid returned. Follow-up chest x-ray continued to show significant pleural effusion but no pneumothorax. White count 9.1. Hemoglobin 10.6. Platelets 506. Sodium 136. Potassium 4.1. Bicarb 23. BUN 15. Creatinine 0.62. Glucose 113. AST 90. ALT 58. Pleural fluid reveals exudate with a total protein of 2.6. LDH 161. WBCs 1372. Cytology pending. He is continued on DuoNeb inhalations, Symbicort. Patient was seen today on 01/28/2025, continues to have pigtail catheter in place connected to Pleur-evac, continues to have some serosanguineous drainage from the right pleural space, seems to be minimal, chest x-ray clearly showed evidence of trapped lung patient is now being seen by oncology and radiation oncology. On 2 L nasal cannula, O2 sats is 99% WBC count is 10 hemoglobin 10.9 electrolytes are normal except for potassium of 5.5 renal profile is normal. Patient was seen today on 01/29/2025, basically about the same continues to have significant amount of serosanguineous drainage from the right lung, pigtail catheter remains in place, patient is complaining of some vague chest discomfort, but he is not in any distress. Fluid cytology from his right thoracentesis/pleural effusion is pending. WBC count today 16.3 hemoglobin 10.2 electrolytes are normal renal profile is normal Seen today on 01/30/2025, patient continues to feel about the same. Continues to have right-sided pigtail catheter in place, and continues to have some serosanguineous drainage. Patient had a trapped lung and he does have a large endobronchial tumor involving the right mainstem bronchus based on CT of the chest. Patient is being followed by oncology and he will need radiation oncology. Cytology is pending. WBC count is 13.7 hemoglobin is 10.4 electrolytes are normal except for potassium of 5.4 renal profile is normal Progress note dated January 31, 2025. The patient is seen today in room 368. The patient is currently on 2 L nasal cannula. He is doing about the same. He has a right pigtail catheter in place. He is not receiving any IV fluids. His initial diagnosis of lung cancer was made by myself, back in 2017. He has non-small cell lung cancer. Today we added Augmentin to his regimen. Current laboratory data includes a white count of 8.97, hemoglobin 9.8, hematocrit 31, and a platelet count of 369,000. Sodium 133, potassium 5.4, chlorides 100, CO2 30, BUN 24, creatinine 0.58. Glucose Is 176. Calcium Is 9.1. Pleural fluid cytology is still pending. Progress note dated February 01, 2025. The patient is seen today in room 368. The patient continues on nasal O2 at 2 L. He is not receiving any IV fluids. Clinically he feels improved. He is sitting on the side of the bed. He has a right pigtail catheter in place. He is receiving Augmentin. Current laboratory data includes a white count of 13.6, hemoglobin 10.3, hematocrit 34.4, and a platelet count of 449,000. Sodium 132, potassium 5.8, chlorides 100, CO2 32, BUN 26, Creatinine 0.65. Glucose Is 128. Calcium Is 9. Pleural fluid cytology is currently still pending. Previous pleural fluid cytology was negative. Progress note dated February 02, 2025. The patient is again seen today in room 368. The patient continues on 2 L nasal cannula. He is currently on DuoNebs, Symbicort, and Solu-Medrol, which will be changed to prednisone 30 mg a day. Fluid cytology, is currently still pending. Labs today include a white count of 9.7, hemoglobin 9.7, hematocrit 30.7, and a platelet count of 337. Sodium 130, potassium 5.2, chloride 98, CO2 30, BUN 24, creatinine 0.6. Glucose is 144. Calcium is 8.6. Chest x-ray shows complete opacification of the right lung. Progress note dated February 03, 2025. 59-year-old male seen in room 368. The patient continues on 2 L of oxygen. He is currently on DuoNebs, Symbicort, prednisone. He did you on Augmentin. His chest x-ray continues to show significant opacification of the right hemithorax. His pigtail catheter is still in place. Current laboratory data includes a white count of 11.1, hemoglobin 10.2, hematocrit 32.6, and a platelet count of 329,000. Sodium 132, potassium 4.8, chlorides 99, CO2 32, BUN 23, creatinine 0.59. Glucose is 99. Calcium is 8.6. Last chest x-ray was done January 31. Pleural fluid cytology from January 31, is still pending. Progress note dated February 04, 2025. 59-year-old male seen again in room 368. He is sitting at the edge of the bed. He is on 2 L of oxygen. He is not receiving any IV fluids. I did have a long conversation with his , on February 03. Will order chest x-ray, for February 05. The patient does not have any specific complaints. He is in no respiratory distress. We are hoping that the pigtail catheter can be removed, in the next day or 2, and the patient can be discharged. Progress note dated February 05, 2025. 59-year-old male seen today in room 368. The patient is currently on 2 L of oxygen. He is sitting at the side of the bed. He does not have any respiratory distress. Chest x-ray today is essentially unchanged, showing opacification of the right hemithorax. Right pigtail catheter is in place. Minimal drainage. Current laboratory data includes a white count of 16.6, hemoglobin 12, hematocrit 38.1, and platelet count of 283,000. Sodium 133, potassium 4.2, chlorides 100, CO2 33, BUN 17, creatinine 0.59. Glucose is 98. Calcium is 8.8. On 02/06/2025, the patient remains on oxygen on 2 L nasal cannula. Pulse ox is 97%. In summary, the patient has a previous history of pulm cell carcinoma back in 2017 and the patient was treated with chemoradiation therapy. The patient was having follow-up CAT scan imaging through his oncologist, Dr. Keita. The patient presented to the hospital because of worsening shortness of breath and a completely opacified right lung. Initial thoracentesis revealed no malignant cells in the pleural fluid. A second fluid analysis was done and it showed some rare atypical cells consistent with carcinoma. Nevertheless, if final pathology or histologic subtype has not been established. Meanwhile, following insertion of the pigtail catheter, the patient continued to have an atelectatic right lung and the right lung is essentially trapped without any reexpansion. The chest x- ray still showing near complete opacification of right hemithorax despite the pigtail being in place. The patient continues to have a positive output through the tube. I reviewed the CAT scan of the chest and there is a cutoff sign in the distal right mainstem/right lower lobe bronchus. There is probably tumor encasing the right mainstem bronchus and there is complete collapse of the right lung in addition to the right-sided pleural effusion. There is also right hilar lymphadenopathy measuring up to 1.5 cm in size in addition to right pericardiac adenopathy measuring up to 2.2 cm in size and the patient also has some mild patchy groundglass changes in the left lung likely inflammatory in nature. Based on all this, the patient will need further tissue diagnosis to characterize the exact histologic subtype. The right mainstem bronchus need to be reevaluated bronchoscopically. I suggested doing a bronchoscopy and endobronchial ultrasound for tissue diagnosis and evaluation of the right mainstem bronchus. The patient was agreeable. Oncology wanted further tissue diagnosis. He is currently on 2 L of oxygen by nasal cannula with a pulse ox of 97%. MRI of the abdomen was also done and it showed innumerable bilateral bilobar hepatic lesions consistent with metastatic disease and the patient also has bony metastases and right lung findings showed a right hilar mass that was partially visualized however it was encasing the right mainstem bronchus and the right lower lobe bronchus causing complete atelectasis of the right lung and there was also metastatic lymphadenopathy involving the right epicardial enlarged lymph nodes and left paraesophageal enlarged lymph nodes. Based on this, the patient has likely metastatic recurrent carcinoma versus a new primary although recurrent cancer is highly suspected. 02/07/2025, the patient is being seen for a follow-up. His condition is unchanged compared to yesterday. The patient is currently n.p.o. and awaiting a bronchoscopy to be done for evaluation of the right mainstem bronchus. Suspect endobronchial tumor occluding the right mainstem bronchus and will obtain further tissue confirmation regarding his malignancy. He is currently afebrile. Slightly tachycardic. He is currently on treatment of oxygen by nasal cannula with a pulse ox of 98%. Pigtail catheter remains in place. No other new complaints otherwise for now. Remains on DuoNeb updrafts. Remains on Symbi dotty. Remains on prednisone burst taper and currently patient on 30 mg p.o. on a daily basis. Is complaining of chest wall pain and the patient is on [place] for pain control and receiving Dilaudid on an as-needed basis. The blood work from today shows a white cell count of 13, hemoglobin 10.9 and platelet count of 226. BUN is 18 with a creatinine of 0.5 and a sodium level at 132. LFTs are elevated consistent with metastatic liver disease. No other complaints for now. He is a bit sluggish and lethargic. Objective - Vital Signs Vital signs: Vital Signs Temp 97.6 F 02/07/25 04:00 Pulse 100 02/07/25 08:14 Resp 20 02/07/25 04:00 BP 98/58 02/07/25 04:00 Pulse Ox 94 L 02/07/25 08:07 FiO2 Intake & Output 02/06/25 02/07/25 02/07/25 18:59 06:59 18:59 Intake Total 180 Output Total 155 175 Balance 25 -175 Weight 76 kg Intake: Oral 180 Output: Chest Tube Drainage 155 175 Chest Tube Right 155 175 Posterior Chest Other: Voiding Method Toilet Toilet Urinal Urinal # Voids 1 4 1 # Bowel Movements 1 - Exam No acute distress, oriented 3. Currently on 2 L. HEENT examination is grossly unremarkable. Mucous membranes are moist. No oral lesions. Neck supple. Full range of motion. No adenopathy thyromegaly or neck vein distention. Cardiovascular examination reveals regular rhythm rate. S1-S2 normal. No S3 or S4. No discernible murmur noted. Lungs reveal diminished right-sided breath sounds. Pigtail catheter in place. Left lung is clear. Abdomen soft bowel sounds are heard. No masses or tenderness. Extremities are intact. No cyanosis clubbing or edema. Skin is without rash or lesion. Neurologic examination is brief but nonfocal. - Labs CBC & Chem 7: 02/07/25 07:16 02/07/25 07:16 Labs: Abnormal Lab Results - Last 24 Hours (Table) 02/06/25 02/06/25 02/06/25 Range/Units 11:30 16:21 20:10 WBC (4.50-10.00) 10*3/uL RBC (4.40-5.60) 10*6/uL Hgb (13.0-17.0) g/dL Hct (39.6-50.0) % MCHC (32.0-37.0) g/dL Immature Gran # (0.00-0.04) 10*3/uL Neutrophils # (1.80-7.70) 10*3/uL Lymphocytes # (0.90-5.00) 10*3/uL Monocytes # (0.20-1.00) 10*3/uL Sodium (137-145) mmol/L Carbon Dioxide (22-30) mmol/L Creatinine (0.66-1.25) mg/dL POC Glucose (mg/dL) 152 H 138 H 114 H (70-110) mg/dL AST (17-59) U/L ALT (4-49) U/L Alkaline Phosphatase (38-126) U/L Total Protein (6.3-8.2) g/dL Albumin (3.5-5.0) g/dL 02/07/25 02/07/25 Range/Units 07:16 07:16 WBC 13.12 H (4.50-10.00) 10*3/uL RBC 3.90 L (4.40-5.60) 10*6/uL Hgb 10.9 L (13.0-17.0) g/dL Hct 34.4 L (39.6-50.0) % MCHC 31.7 L (32.0-37.0) g/dL Immature Gran # 0.49 H (0.00-0.04) 10*3/uL Neutrophils # 10.09 H (1.80-7.70) 10*3/uL Lymphocytes # 0.73 L (0.90-5.00) 10*3/uL Monocytes # 1.71 H (0.20-1.00) 10*3/uL Sodium 132 L (137-145) mmol/L Carbon Dioxide 32 H (22-30) mmol/L Creatinine 0.54 L (0.66-1.25) mg/dL POC Glucose (mg/dL) (70-110) mg/dL AST 102 H (17-59) U/L ALT 88 H (4-49) U/L Alkaline Phosphatase 523 H (38-126) U/L Total Protein 5.4 L (6.3-8.2) g/dL Albumin 2.7 L (3.5-5.0) g/dL Microbiology - Last 24 Hours (Table) 01/26/25 16:00 Acid Fast Bacilli Smear - Preliminary Pleural Fluid Acid Fast Bacilli Culture - Preliminary Assessment and Plan Plan: Lung mass with large right-sided pleural effusion and trapped lung S/P thoracentesis and pigtail catheter placement. Despite those efforts, the patient continues to have a completely opacified right lung, this is essentially a trapped lung with a tumor encasing the right mainstem bronchus and the right lower lobe bronchus causing complete atelectasis and contributing to the failure of the reexpansion of the right lung. The pleural fluid cytology was revealing few malignant cells he had a final histologic diagnosis not been established. MRI of the abdomen showed innumerable metastatic bilobed hepatic lesions consi stent with metastases and the patient also had some intra-abdominal lymphadenopathy consistent with metastatic disease. Patient and oncology are both interested in establishing a histologic diagnosis. Right-sided pigtail catheter remains in place without any benefit. Output is still positive. The tube was placed on 01/27/2025. Initial pleural fluid cytology on 01/27/2025 was negative for malignancy. Repeat cytology from 01/31/2025 was not completely diagnostic. 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 Chronic tobacco dependence. Chronic obstructive pulmonary disease. Hypertension. Previous bariatric surgery. Hypothyroidism. Plan The patient is currently on 2 L of oxygen by nasal cannula Continue bronchodilators Continue steroids The patient is scheduled to undergo a bronchoscopy today. The purpose of the procedure will be 2 falls. He will be needed to assess the patency of the right lower lobe bronchus being it extrinsic compression versus endobronchial tumor. This may be also an opportunity to establish a final histologic subtype and diagnosis knowing that the patient has metastatic carcinoma as indicated by the CAT scan of the chest and MRI of the abdomen. The patient has extensive me tastatic lesions involving the liver as noted. I am going to do the bronchoscopy within the next 24 hours. May use also endobronchial ultrasound to evaluate the mediastinum that may also assist with histologic diagnosis. Should the right lung is completely trapped by endobronchial tumor or extrinsic compression, the left pigtail catheter may be removed as there would be no further benefit in the setting of a completely trapped left lung. For now, we will keep the pigtail catheter in place for another 24 hours and further recommendations will be made following the bronchoscopy. Long-term prognosis poor based on above-mentioned comorbidities. Will continue following this case along with medical oncology. Prognosis remains extremely poor based on above-mentioned comorbidities. Time with Patient: Greater than 30
--- NOTE | 2025-02-07 14:56 | P.PCN ---
Date of Procedure: 02/07/25 Preoperative Diagnosis: Complete right lung collapse Postoperative Diagnosis: Endobronchial tumor obstructing the right upper lobe bronchus and right mainstem bronchus Procedure(s) Performed: Flexible bronchoscopy, endobronchial biopsy of the right mainstem tumor, bronchoalveolar lavage of the right mainstem tumor. Anesthesia: MAC Surgeon: [place] Estimated Blood Loss (ml): 0 Pathology: other Condition: stable Disposition: floor Operative Findings: The procedure was done in the endoscopy suite. A consent was obtained. Timeout was done. The patient was intubated in the usual fashion and intubation was performed by [employer]ING MANAGER After achieving a secure airway, the flexible bronchoscope was introduced through the orotracheal tube and it was advanced into the lower trachea. Main gerry was within normal limits. Left mainstem bronchus, left upper lobe bronchus and the left lower lobe bronchus and the various 8 segments of the left were within normal limits. Examination of the right side showed significant abnormalities with endobronchial tumor completely plugging the right upper lobe bronchus and the gerry between the right upper lobe bronchus and the proximal intermedius was also infiltrated with tumor. There was circumferential growth of endobronchial tumor reaching the proximal right mainstem bronchus and extending into the bronchus intermedius. In fact, I was unable to identify that a right middle lobe bronchus and the right lower lobe bronchus. The right mainstem bronchus and the bronchus intermedius gradually tapered off and it became completely obstructed with endobronchial tumor there was very irregular, friable, necrotic and cauliflower like. At this point, endobronchial biopsies of the right mainstem bronchus tumor was done. No bleeding was encountered. Following that, a bronchial lavage of the right mainstem tumor was done with a total of 60 cc of saline was infused and 20 cc of aspirate was obtained. The procedure was completed without any complications. The patient was extubated and transferred to recovery. Awaiting final pathology. Prognosis remains extremely poor. Recommend removal of the pigtail catheter as the right lung is essentially trapped and there is no chance of reexpansion based on the above-mentioned findings.
[2025-02-07 17:02] LABS: Glucose,Whole Blood 140 mg/dL (70-110)
[2025-02-07 20:14] LABS: Glucose,Whole Blood 136 mg/dL (70-110)
[2025-02-08 06:13] LABS: Glucose,Whole Blood 116 mg/dL (70-110)
[2025-02-08 08:15] LABS: Basophils # (A) 0.02 10*3/uL (0.00-0.10); Basophils % (A) 0.2 %; Eosinophils # (A) 0.03 10*3/uL (0.04-0.35); Eosinophils % (A) 0.2 %; HCT 32.8 % (39.6-50.0); HGB 10.2 g/dL (13.0-17.0); Lymphocytes # (A) 0.88 10*3/uL (0.90-5.00); Lymphocytes % (A) 7.2 %; MCH 27.9 pg (27.0-32.0); MCHC 31.1 g/dL (32.0-37.0); MCV 89.6 fL (80.0-97.0); Monocytes # (A) 1.58 10*3/uL (0.20-1.00); Neutrophils # (A) 9.34 10*3/uL (1.80-7.70); Platelet Count 213 10*3/uL (140-440); RBC 3.66 10*6/uL (4.40-5.60); RDW 16.3 % (11.5-14.5); WBC 12.14 10*3/uL (4.50-10.00)
[2025-02-08 08:27] LABS: ALT 77 U/L (4-49); AST 94 U/L (17-59); African American GFR (CKD) >90 (>60 ml/min/1.73 sqM); Albumin 2.5 g/dL (3.5-5.0); Alkaline Phosphatase 611 U/L (38-126); Anion Gap 0 mmol/L; Blood Urea Nitrogen 18 mg/dL (9-20); Calcium 8.4 mg/dL (8.4-10.2); Carbon Dioxide 31 mmol/L (22-30); Chloride 102 mmol/L (98-107); Glucose 87 mg/dL (74-99); Non-African American GFR(CKD) >90 (>60 ml/min/1.73 sqM); Potassium 4.4 mmol/L (3.5-5.1); Sodium 133 mmol/L (137-145); Total Bilirubin 0.4 mg/dL (0.2-1.3); Total Protein 4.9 g/dL (6.3-8.2)
[2025-02-08 11:18] LABS: Glucose,Whole Blood 119 mg/dL (70-110)
[2025-02-08 11:34] VITALS: RESP 18
[2025-02-08] MEDS ORDERED: HYDROcodone/APAP 5-325MG 1 EACH TAB PO PRN (13:11)
--- NOTE | 2025-02-08 13:23 | P.PN ---
Subjective Progress Note Date: 02/08/25 Hospital Course: Patient is a 59-year-old male with past medical history of dysphagia, esophageal strictures status post dilation, history of gastric bypass surgery, COPD, history of bronchogenic carcinoma diagnosis 2016,, who presented to the ER on 01/26/2025 with worsening shortness of breath and cough, patient was sent from [place]. Underwent extensive workup in the ER, WBC count normal, hemoglobin 12.0, stable from before, platelet count elevated 533, normal coagulation panel, sodium, potassium and bicarb WNL, creatinine 0.59, plasma lactic acid 3.0, AST and ALT elevated 09/22/1975 accordingly, previously his AST was up to 74, troponin negative, BNP 768. EKG showed sinus tachycardia, QTc 413. X-ray was performed and showed completely opacified right hemithorax. Chest ultrasound showed right pleural effusion pocket, was marked for thoracentesis. Patient was discussed with ER physician, accepted for inpatient admission with pulmonology consultation, oncology consultation. Pulmonology was at bedside to perform thoracentesis, 2.8 L of bloody fluid. Chest x-ray postthoracentesis ankur wed no improvement, no pneumothorax. Pleural fluid analysis shows exudative effusion, cytology obtained and pending. CT chest with contrast showed of the right mainstem bronchus likely secondary to right hilar mass, collapse of the entire right lung with large right pleural effusion, right hilar adenopathy, right pericardiac adenopathy, subacute fractures of the right anterior 3rd through 6th ribs, possible underlying cirrhosis. IR consulted for pigtail catheter placement, Solu-Medrol added by pulmonology. After insertion of the pigtail catheter patient continued to have atelectatic changes to the right lung, trapped lung and no reexpansion. MRI brain showed innumerable bilobar enhancing hepatic lesions consistent with metastatic disease, unremarkable intrinsic osseous lesions consistent with metastatic disease, right large hilar pulmonary mass partially visualized resulting in encasement and obstruction of the right lower lobe bronchus with associated atelectasis, metastatic lymphadenopathy involving right epicardial enlarged lymph nodes, left periesophageal enlarged lymph node, small right hydropneumothorax previously seen. He had brain MRI done that showed no evidence of mass or infarction. Pulmonology is planning for bronchoscopy with possible endobronchial ultrasound. 02/07/2025: Patient was seen and examined at bedside, waiting for bronchoscopy, patient's at bedside during examination. He continues to complain of pain, shortness of breath is stable and not worsening, noted decreasing pigtail catheter output. He remains on 2 L nasal cannula, tachycardic in 110s, blood work shows leukocytosis 13.12, hemoglobin 10.9, stable, sodium 132, stable, normal creatinine, glucose controlled, alkaline phosphatase persistently elevated 02/08/2025, patient was seen examined at bedside, feels somewhat better, his pain is generally controlled unless he coughs. Will increase [place] 5 frequency to every 4 hours as needed and decrease Dilaudid frequency to every 4 hour. Patient underwent bronchoscopy on 02/07, endobronchial tumor obstructing the right upper lobe bronchus in the right mainstem bronchus noted, biopsied. Per pulmonology, pigtail catheter can be removed. Waiting for further recommendations from pulmonology and oncology, plan for discharge home with home care once cleared by specialists, will need home oxygen Pertinent Imaging: As above Pertinent positives and negatives as discussed above, a complete review of systems was performed and all other systems are negative. Vitals Signs Reviewed. General: [Chronically ill-appearing, appears older than stated age, cushingoid Derm: [warm], [dry] Head: [atraumatic], [normocephalic], [symmetric] Eyes: [EOMI], [no lid lag], [anicteric sclera] Mouth: [no lip lesion], [mucus membranes moist] Cardiovascular: [S1S2 reg], [no murmur] Lungs: [Diminished breath sounds, bilateral rhonchi more on the left, some accessory muscle use, right-sided pigtail catheter with serosanguineous fluid draining] Abdominal: [soft], [ nontender to palpation], [no guarding], [no appreciable organomegaly] Ext: [no gross muscle atrophy], [no edema], [no contractures] Neuro: [ CN II-XI grossly intact], [no focal neuro deficits] Psych: [Alert], [oriented], [appropriate affect] Assessment and Plan: Acute hypoxic respiratory failure secondary to right-sided lower pleural effusion entrapped lung due to endobronchial tumor obstructing right upper lobe bronchus in the right mainstem bronchus, s/p thoracentesis, status post pigtail catheter placement, started on bronchoscopy History of stage III T4 N0 M0 COPD not in acute exacerbation-former smoker quit August 2024 Leukocytosis, likely steroid-induced -Pulmonology oncology following, appreciate recommendations, plan for bronchoscopy with possible endobronchial ultrasound -Continue pigtail catheter management for now - Cytology from 01/27 consistent with very rare malignant cells consistent with metastatic carcinoma, and suspicious for small cell carcinoma - Continue [place] 5 as needed every 4 hours, Dilaudid 1 mg every 4 hours as needed -Oncology recommends outpatient PET/CT, patient scheduled for 02/15 - Continue prednisone 30 mg daily, Symbicort 160/4.5 twice daily and DuoNeb every 2 hours as needed as well as 4 times daily scheduled -WBC count stable at 12.4, hemoglobin stable 10.2, sodium stable 133, creatinine 0.56, AST and ALT 94 and 77 accordingly, trending down Constipation: Continue Senokot 1daily Transaminitis -Likely secondary to unavailable liver metastasis -No gallstones on ultrasound Hypothyroidism: Continue home levothyroxine 50 mcg Renal calculi: Non obstructing renal calculus measuring 9mm. Start Tamsuloin, will need o/p follow up with Urology. Subacute fractures of the right anterior 3rd through 6th ribs: Pain management as above. Hypertension I have reviewed the following functional consultant notes: Oncology, pulmonology, pulmon ology procedures I have reviewed the results of the following tests: CBC, CMP I have ordered the following tests: I have discussed the care of this patient with the following independent historian: I have independently interpreted the following test below: I have discussed the management of this patient with the following physician: DVT ppx: Lovenox Code status: Full code Anticipated discharge place: [facility] Anticipated discharge time: TBD Objective - Vital Signs Vital signs: Vital Signs Temp 97.7 F 02/08/25 08:41 Pulse 121 H 02/08/25 12:22 Resp 18 02/08/25 08:41 BP 116/72 02/08/25 08:41 Pulse Ox 95 02/08/25 08:41 FiO2 Intake & Output 02/07/25 02/08/25 02/08/25 18:59 06:59 18:59 Intake Total 200 Output Total 350 230 Balance -150 -230 Weight 76 kg 75.8 kg Intake: IV 200 Output: Chest Tube Drainage 350 230 Chest Tube Right 350 230 Posterior Chest Other: Voiding Method Toilet Toilet Urinal Urinal # Voids 0 2 # Bowel Movements 0 - Labs CBC & Chem 7: 02/08/25 06:44 02/08/25 06:44 Labs: Abnormal Lab Results - Last 24 Hours (Table) 02/07/25 02/07/25 02/08/25 Range/Units 16:58 20:12 06:09 WBC (4.50-10.00) 10*3/uL RBC (4.40-5.60) 10*6/uL Hgb (13.0-17.0) g/dL Hct (39.6-50.0) % MCHC (32.0-37.0) g/dL Immature Gran # (0.00-0.04) 10*3/uL Neutrophils # (1.80-7.70) 10*3/uL Lymphocytes # (0.90-5.00) 10*3/uL Monocytes # (0.20-1.00) 10*3/uL Eosinophils # (0.04-0.35) 10*3/uL Sodium (137-145) mmol/L Carbon Dioxide (22-30) mmol/L Creatinine (0.66-1.25) mg/dL POC Glucose (mg/dL) 140 H 136 H 116 H (70-110) mg/dL AST (17-59) U/L ALT (4-49) U/L Alkaline Phosphatase (38-126) U/L Total Protein (6.3-8.2) g/dL Albumin (3.5-5.0) g/dL 02/08/25 02/08/25 02/08/25 Range/Units 06:44 06:44 11:18 WBC 12.14 H (4.50-10.00) 10*3/uL RBC 3.66 L (4.40-5.60) 10*6/uL Hgb 10.2 L (13.0-17.0) g/dL Hct 32.8 L (39.6-50.0) % MCHC 31.1 L (32.0-37.0) g/dL Immature Gran # 0.29 H (0.00-0.04) 10*3/uL Neutrophils # 9.34 H (1.80-7.70) 10*3/uL Lymphocytes # 0.88 L (0.90-5.00) 10*3/uL Monocytes # 1.58 H (0.20-1.00) 10*3/uL Eosinophils # 0.03 L (0.04-0.35) 10*3/uL Sodium 133 L (137-145) mmol/L Carbon Dioxide 31 H (22-30) mmol/L Creatinine 0.56 L (0.66-1.25) mg/dL POC Glucose (mg/dL) 119 H (70-110) mg/dL AST 94 H (17-59) U/L ALT 77 H (4-49) U/L Alkaline Phosphatase 611 H (38-126) U/L Total Protein 4.9 L (6.3-8.2) g/dL Albumin 2.5 L (3.5-5.0) g/dL
--- NOTE | 2025-02-08 15:44 | P.PN ---
Subjective Progress Note Date: 02/08/25 This is a 59-year-old male patient with a known history of former smoker, COPD maintained on Trelegy, hypothyroidism, hypertension and lung cancer diagnosed in 2016. He had a large obstructive mass in the right mainstem bronchus that was positive for carcinoma with chemotherapy and currently in remission. His last CT scan of the chest revealed a soft tissue encasement and volume loss of the right hilum and right perihilar bronchovascular bundles corresponding with treated disease. No definitive recurrence for metastatic disease. Development of a right lower lung reticular opacities likely representing bronchiolitis on a CT scan in June 2024. He presented to the emergency room today with a 2 to 3-week history of increasing shortness of breath cough and congestion. Chest x- ray reveals a completely opacified right hemithorax. Findings suggest neoplastic progression right hilar region with obstructive atelectasis. White count 8.8. Hemoglobin 12.0. Platelets 533. INR 1.0. Sodium 139. Potassium 4.5. Bicarb 24. BUN 15. Creatinine 0.59. AST 160. ALT 76. Alk phos 362. Troponin negative x 1. proBNP 768. He is seen today in consultation in the emergency department. He is currently sitting up on the stretcher. Awake and alert in mild respiratory distress. He is initially maintaining good O2 saturations in the 90s on room air oxygen. He is receiving a updraft treatment. He is afebrile. Blood pressure stable. He is sinus tachycardia in the 120s. The patient is seen today January 27, 2025 in follow-up in the emergency department. He is currently sitting up at the bedside. Awake and alert in no acute distress. He is still dyspneic with conversation. Dyspneic with minimal exertion. He is maintaining good O2 saturations in the mid 90s on 2 L/min per nasal cannula. He was without his oxygen for a brief walk to the bathroom and dropped into the 70s. He remains tachycardic. He is afebrile. He did undergo a right sided thoracentesis yesterday with 2.8 L of bloody fluid returned. Follow-up chest x-ray continued to show significant pleural effusion but no pneumothorax. White count 9.1. Hemoglobin 10.6. Platelets 506. Sodium 136. Potassium 4.1. Bicarb 23. BUN 15. Creatinine 0.62. Glucose 113. AST 90. ALT 58. Pleural fluid reveals exudate with a total protein of 2.6. LDH 161. WBCs 1372. Cytology pending. He is continued on DuoNeb inhalations, Symbicort. Patient was seen today on 01/28/2025, continues to have pigtail catheter in place connected to Pleur-evac, continues to have some serosanguineous drainage from the right pleural space, seems to be minimal, chest x-ray clearly showed evidence of trapped lung patient is now being seen by oncology and radiation oncology. On 2 L nasal cannula, O2 sats is 99% WBC count is 10 hemoglobin 10.9 electrolytes are normal except for potassium of 5.5 renal profile is normal. Patient was seen today on 01/29/2025, basically about the same continues to have significant amount of serosanguineous drainage from the right lung, pigtail catheter remains in place, patient is complaining of some vague chest discomfort, but he is not in any distress. Fluid cytology from his right thoracentesis/pleural effusion is pending. WBC count today 16.3 hemoglobin 10.2 electrolytes are normal renal profile is normal Seen today on 01/30/2025, patient continues to feel about the same. Continues to have right-sided pigtail catheter in place, and continues to have some serosanguineous drainage. Patient had a trapped lung and he does have a large endobronchial tumor involving the right mainstem bronchus based on CT of the chest. Patient is being followed by oncology and he will need radiation oncology. Cytology is pending. WBC count is 13.7 hemoglobin is 10.4 electrolytes are normal except for potassium of 5.4 renal profile is normal Progress note dated January 31, 2025. The patient is seen today in room 368. The patient is currently on 2 L nasal cannula. He is doing about the same. He has a right pigtail catheter in place. He is not receiving any IV fluids. His initial diagnosis of lung cancer was made by myself, back in 2017. He has non-small cell lung cancer. Today we added Augmentin to his regimen. Current laboratory data includes a white count of 8.97, hemoglobin 9.8, hematocrit 31, and a platelet count of 369,000. Sodium 133, potassium 5.4, chlorides 100, CO2 30, BUN 24, creatinine 0.58. Glucose Is 176. Calcium Is 9.1. Pleural fluid cytology is still pending. Progress note dated February 01, 2025. The patient is seen today in room 368. The patient continues on nasal O2 at 2 L. He is not receiving any IV fluids. Clinically he feels improved. He is sitting on the side of the bed. He has a right pigtail catheter in place. He is receiving Augmentin. Current laboratory data includes a white count of 13.6, hemoglobin 10.3, hematocrit 34.4, and a platelet count of 449,000. Sodium 132, potassium 5.8, chlorides 100, CO2 32, BUN 26, Creatinine 0.65. Glucose Is 128. Calcium Is 9. Pleural fluid cytology is currently still pending. Previous pleural fluid cytology was negative. Progress note dated February 02, 2025. The patient is again seen today in room 368. The patient continues on 2 L nasal cannula. He is currently on DuoNebs, Symbicort, and Solu-Medrol, which will be changed to prednisone 30 mg a day. Fluid cytology, is currently still pending. Labs today include a white count of 9.7, hemoglobin 9.7, hematocrit 30.7, and a platelet count of 337. Sodium 130, potassium 5.2, chloride 98, CO2 30, BUN 24, creatinine 0.6. Glucose is 144. Calcium is 8.6. Chest x-ray shows complete opacification of the right lung. Progress note dated February 03, 2025. 59-year-old male seen in room 368. The patient continues on 2 L of oxygen. He is currently on DuoNebs, Symbicort, prednisone. He did you on Augmentin. His chest x-ray continues to show significant opacification of the right hemithorax. His pigtail catheter is still in place. Current laboratory data includes a white count of 11.1, hemoglobin 10.2, hematocrit 32.6, and a platelet count of 329,000. Sodium 132, potassium 4.8, chlorides 99, CO2 32, BUN 23, creatinine 0.59. Glucose is 99. Calcium is 8.6. Last chest x-ray was done January 31. Pleural fluid cytology from January 31, is still pending. Progress note dated February 04, 2025. 59-year-old male seen again in room 368. He is sitting at the edge of the bed. He is on 2 L of oxygen. He is not receiving any IV fluids. I did have a long conversation with his , on February 03. Will order chest x-ray, for February 05. The patient does not have any specific complaints. He is in no respiratory distress. We are hoping that the pigtail catheter can be removed, in the next day or 2, and the patient can be discharged. Progress note dated February 05, 2025. 59-year-old male seen today in room 368. The patient is currently on 2 L of oxygen. He is sitting at the side of the bed. He does not have any respiratory distress. Chest x-ray today is essentially unchanged, showing opacification of the right hemithorax. Right pigtail catheter is in place. Minimal drainage. Current laboratory data includes a white count of 16.6, hemoglobin 12, hematocrit 38.1, and platelet count of 283,000. Sodium 133, potassium 4.2, chlorides 100, CO2 33, BUN 17, creatinine 0.59. Glucose is 98. Calcium is 8.8. On 02/06/2025, the patient remains on oxygen on 2 L nasal cannula. Pulse ox is 97%. In summary, the patient has a previous history of pulm cell carcinoma back in 2017 and the patient was treated with chemoradiation therapy. The patient was having follow-up CAT scan imaging through his oncologist, Dr. Keita. The patient presented to the hospital because of worsening shortness of breath and a completely opacified right lung. Initial thoracentesis revealed no malignant cells in the pleural fluid. A second fluid analysis was done and it showed some rare atypical cells consistent with carcinoma. Nevertheless, if final pathology or histologic subtype has not been established. Meanwhile, following insertion of the pigtail catheter, the patient continued to have an atelectatic right lung and the right lung is essentially trapped without any reexpansion. The chest x- ray still showing near complete opacification of right hemithorax despite the pigtail being in place. The patient continues to have a positive output through the tube. I reviewed the CAT scan of the chest and there is a cutoff sign in the distal right mainstem/right lower lobe bronchus. There is probably tumor encasing the right mainstem bronchus and there is complete collapse of the right lung in addition to the right-sided pleural effusion. There is also right hilar lymphadenopathy measuring up to 1.5 cm in size in addition to right pericardiac adenopathy measuring up to 2.2 cm in size and the patient also has some mild patchy groundglass changes in the left lung likely inflammatory in nature. Based on all this, the patient will need further tissue diagnosis to characterize the exact histologic subtype. The right mainstem bronchus need to be reevaluated bronchoscopically. I suggested doing a bronchoscopy and endobronchial ultrasound for tissue diagnosis and evaluation of the right mainstem bronchus. The patient was agreeable. Oncology wanted further tissue diagnosis. He is currently on 2 L of oxygen by nasal cannula with a pulse ox of 97%. MRI of the abdomen was also done and it showed innumerable bilateral bilobar hepatic lesions consistent with metastatic disease and the patient also has bony metastases and right lung findings showed a right hilar mass that was partially visualized however it was encasing the right mainstem bronchus and the right lower lobe bronchus causing complete atelectasis of the right lung and there was also metastatic lymphadenopathy involving the right epicardial enlarged lymph nodes and left paraesophageal enlarged lymph nodes. Based on this, the patient has likely metastatic recurrent carcinoma versus a new primary although recurrent cancer is highly suspected. 02/07/2025, the patient is being seen for a follow-up. His condition is unchanged compared to yesterday. The patient is currently n.p.o. and awaiting a bronchoscopy to be done for evaluation of the right mainstem bronchus. Suspect endobronchial tumor occluding the right mainstem bronchus and will obtain further tissue confirmation regarding his malignancy. He is currently afebrile. Slightly tachycardic. He is currently on treatment of oxygen by nasal cannula with a pulse ox of 98%. Pigtail catheter remains in place. No other new complaints otherwise for now. Remains on DuoNeb updrafts. Remains on Symbi dotty. Remains on prednisone burst taper and currently patient on 30 mg p.o. on a daily basis. Is complaining of chest wall pain and the patient is on [place] for pain control and receiving Dilaudid on an as-needed basis. The blood work from today shows a white cell count of 13, hemoglobin 10.9 and platelet count of 226. BUN is 18 with a creatinine of 0.5 and a sodium level at 132. LFTs are elevated consistent with metastatic liver disease. No other complaints for now. He is a bit sluggish and lethargic. On 02/08/2025, the patient is being seen for a follow-up. The patient sitting at the edge of the bed without any major difficulties. Bronchoscopy was done and the patient had heavy tumor infiltration of the right mainstem bronchus with complete blocking of the bronchus intermedius, right upper lobe bronchus and the gerry the right upper lobe and the bronchus intermedius was heavily infiltrated with tumor. Biopsies were obtained and the biopsy results are still pending. Meanwhile, the patient continues to have output through his pigtail on the right. I remove the pigtail catheter today. I think the right lung is trapped and there is no chances of reexpansion. Rest of the medications remain unchanged. The patient is on prednisone 30 mg p.o. daily. The patient remains on DuoNeb updrafts and the patient is on Symbicort as maintenance. The white cell count is at 12.1 reading of 10.20 platelet count of 213. Sodium is at 133 with a BUN of 18 and a creatinine of 0.5. Objective - Vital Signs Vital signs: Vital Signs Temp 97.3 F L 02/07/25 20:00 Pulse 125 H 02/08/25 08:06 Resp 16 02/08/25 04:00 BP 100/67 02/08/25 04:00 Pulse Ox 96 02/08/25 07:57 FiO2 Intake & Output 02/07/25 02/08/25 02/08/25 18:59 06:59 18:59 Intake Total 200 Output Total 350 230 Balance -150 -230 Weight 76 kg 75.8 kg Intake: IV 200 Output: Chest Tube Drainage 350 230 Chest Tube Right 350 230 Posterior Chest Other: Voiding Method Toilet Toilet Urinal Urinal # Voids 0 2 # Bowel Movements 0 - Exam No acute distress, oriented 3. Currently on 2 L. HEENT examination is grossly unremarkable. Mucous membranes are moist. No oral lesions. Neck supple. Full range of motion. No adenopathy thyromegaly or neck vein distention. Cardiovascular examination reveals regular rhythm rate. S1-S2 normal. No S3 or S4. No discernible murmur noted. Lungs reveal diminished right-sided breath sounds. Pigtail catheter in place. Left lung is clear. Abdomen soft bowel sounds are heard. No masses or tenderness. Extremities are intact. No cyanosis clubbing or edema. Skin is without rash or lesion. Neurologic examination is brief but nonfocal. - Labs CBC & Chem 7: 02/08/25 06:44 02/08/25 06:44 Labs: Abnormal Lab Results - Last 24 Hours (Table) 02/07/25 02/07/25 02/07/25 Range/Units 11:46 16:58 20:12 WBC (4.50-10.00) 10*3/uL RBC (4.40-5.60) 10*6/uL Hgb (13.0-17.0) g/dL Hct (39.6-50.0) % MCHC (32.0-37.0) g/dL Immature Gran # (0.00-0.04) 10*3/uL Neutrophils # (1.80-7.70) 10*3/uL Lymphocytes # (0.90-5.00) 10*3/uL Monocytes # (0.20-1.00) 10*3/uL Eosinophils # (0.04-0.35) 10*3/uL Sodium (137-145) mmol/L Carbon Dioxide (22-30) mmol/L Creatinine (0.66-1.25) mg/dL POC Glucose (mg/dL) 112 H 140 H 136 H (70-110) mg/dL AST (17-59) U/L ALT (4-49) U/L Alkaline Phosphatase (38-126) U/L Total Protein (6.3-8.2) g/dL Albumin (3.5-5.0) g/dL 02/08/25 02/08/25 02/08/25 Range/Units 06:09 06:44 06:44 WBC 12.14 H (4.50-10.00) 10*3/uL RBC 3.66 L (4.40-5.60) 10*6/uL Hgb 10.2 L (13.0-17.0) g/dL Hct 32.8 L (39.6-50.0) % MCHC 31.1 L (32.0-37.0) g/dL Immature Gran # 0.29 H (0.00-0.04) 10*3/uL Neutrophils # 9.34 H (1.80-7.70) 10*3/uL Lymphocytes # 0.88 L (0.90-5.00) 10*3/uL Monocytes # 1.58 H (0.20-1.00) 10*3/uL Eosinophils # 0.03 L (0.04-0.35) 10*3/uL Sodium 133 L (137-145) mmol/L Carbon Dioxide 31 H (22-30) mmol/L Creatinine 0.56 L (0.66-1.25) mg/dL POC Glucose (mg/dL) 116 H (70-110) mg/dL AST 94 H (17-59) U/L ALT 77 H (4-49) U/L Alkaline Phosphatase 611 H (38-126) U/L Total Protein 4.9 L (6.3-8.2) g/dL Albumin 2.5 L (3.5-5.0) g/dL Assessment and Plan Plan: Lung mass with large right-sided pleural effusion and trapped lung S/P thoracentesis and pigtail catheter placement. Despite those efforts, the patient continues to have a completely opacified right lung, this is essentially a trapped lung with a tumor encasing the right mainstem bronchus and the right lower lobe bronchus causing complete atelectasis and contributing to the failure of the reexpansion of the right lung. The pleural fluid cytology was revealing few malignant cells he had a final histologic diagnosis not been established. MRI of the abdomen showed innumerable metastatic bilobed hepatic lesions consistent with metastases and the patient also had some intra-abdominal lymphadenopathy consistent with metastatic disease. Right-sided pigtail cathete r remains in place without any benefit. Output is still positive. The tube was placed on 01/27/2025. Initial pleural fluid cytology on 01/27/2025 was negative for malignancy. Repeat cytology from 01/31/2025 was not completely diagnostic. Bronchoscopy was done on 02/10/2025 and the right mainstem bronchus is extensively infiltrated with tumor with significant narrowing in addition to complete obstr uction of the right upper lobe bronchus and the bronchus intermedius. Endobronchial biopsies were obtained for tissue diagnosis. 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 Acute hypoxic respiratory failure, currently on 2 L of O2 nasal cannula Shortness of breath secondary to above Chronic tobacco dependence. Chronic obstructive pulmonary disease. Hypertension. Previous bariatric surgery. Hypothyroidism. Plan The patient is currently on 2 L of oxygen by nasal cannula Continue bronchodilators Continue steroids The patient had a bronchoscopy with endobronchial biopsies. The right lung is completely trapped by endobronchial tumor causing narrowing of the right mainstem bronchus and complete obstruction of the bronchus intermedius and the right upper lobe bronchus. The patient has no reasonable chance of achieving a reexpansion of the left lung. As such, I remove the pigtail catheter today. Awaiting final pathology report from endobronchial biopsies. Long-term prognosis poor based on above-mentioned comorbidities. Will continue following this case along with medical oncology. Prognosis remains extremely poor based on above-mentioned comorbidities. Time with Patient: Greater than 30
[2025-02-08 16:37] LABS: Glucose,Whole Blood 153 mg/dL (70-110)
[2025-02-08 19:54] LABS: Glucose,Whole Blood 162 mg/dL (70-110)
[2025-02-08] MEDS: HYDROmorphone 2 MG/ML 1 ML SYRINGE IVP PRN (20:05)
[2025-02-09 06:01] LABS: Glucose,Whole Blood 106 mg/dL (70-110)
[2025-02-09 10:58] VITALS: TEMP 97.2
[2025-02-09 11:27] LABS: Glucose,Whole Blood 122 mg/dL (70-110)
[2025-02-09 12:32] VITALS: BP 127/78
[2025-02-09 13:34] VITALS: BMI 28.0
--- NOTE | 2025-02-09 15:32 | P.DS ---
Providers Date of admission: 01/26/25 14:14 Attending physician: Kem Edmond Consults: 01/26/25 14:13 Consult Physician Routine Consulting Provider: Mono Luque Consult Reason/Comments: Opacification of right hemithorax, history of lung CA Do you want consulting provider notified?: Already Contacted Consult Physician Routine Consulting Provider: Elie Keita Consult Reason/Comments: Lung CA Do you want consulting provider notified?: Yes 01/27/25 14:02 Consult Physician Routine Consulting Provider: Miguel Marrero Consult Reason/Comments: Obstructive R mainstem lesion, likely met lung cancer Do you want consulting provider notified?: Yes [facility] Course: Discharge Diagnosis: Acute hypoxic respiratory failure secondary to right-sided lower pleural effusion entrapped lung due to endobronchial tumor obstructing right upper lobe bronchus in the right mainstem bronchus, s/p thoracentesis, status post pigtail catheter placement and removal History of stage III T4 N0 M0 COPD not in acute exacerbation-former smoker quit August 2024 Leukocytosis, likely steroid-induced Constipation Transaminitis Hypothyroidism Renal calculi Subacute fractures of the right anterior 3rd through 6th ribs Hypertension Hospital Course: Patient is a 59-year-old male with past medical history of dysphagia, esophageal strictures status post dilation, history of gastric bypass surgery, COPD, history of bronchogenic carcinoma diagnosis 2016,, who presented to the ER on 01/26/2025 with worsening shortness of breath and cough, patient was sent from [place]. Underwent extensive workup in the ER, WBC count normal, hemoglobin 12.0, stable from before, platelet count elevated 533, normal coagulation panel, sodium, potassium and bicarb WNL, creatinine 0.59, plasma lactic acid 3.0, AST and ALT elevated 09/22/1975 accordingly, previously his AST was up to 74, troponin negative, BNP 768. EKG showed sinus tachycardia, QTc 413. X-ray was performed and showed completely opacified right hemithorax. Chest ultrasound showed right pleural effusion pocket, was marked for thoracentesis. Patient was discussed with ER physician, accepted for inpatient admission with pulmonology consultation, oncology consultation. Pulmonology was at bedside to perform thoracentesis, 2.8 L of bloody fluid. Chest x-ray postthoracentesis showed no improvement, no pneumothorax. Pleural fluid analysis shows exudative effusion, cytology obtained and pending. CT chest with contrast showed of the right mainstem bronchus likely secondary to right hilar mass, collapse of the entire right lung with large right pleural effusion, right hilar adenopathy, right pericardiac adenopathy, subacute fractures of the right anterior 3rd through 6th ribs, possible underlying cirrhosis. IR consulted for pigtail catheter placement, Solu-Medrol added by pulmonology. After insertion of the pigtail catheter patient continued to have atelectatic changes to the right lung, trapped lung and no reexpansion. MRI brain showed innumerable bilobar enhancing hepatic lesions consistent with metastatic disease, unremarkable intrinsic osseous lesions consistent with metastatic disease, right large hilar pulmonary mass partially visualized resulting in encasement and obstruction of the right lower lobe bronchus with associated atelectasis, metastatic lymphadenopathy involving right epicardial enlarged lymph nodes, left periesophageal enlarged lymph node, small right hydropneumothorax previously seen. He had brain MRI done that showed no evidence of mass or infarction. Patient underwent bronchoscopy on 02/07, endobronchial tumor obstructing the right upper lobe bronchus in the right mainstem bronchus noted, biopsied. Pigtail catheter was removed. Patient cleared for discharge by pulmonology and oncology with close follow-up with oncology. Patient seen and examined at bedside. Vital signs reviewed and stable. General: [Chronically ill-appearing, appears older than stated age, Derm: [warm], [dry] Head: [atraumatic], [normocephalic], [symmetric] Eyes: [EOMI], [no lid lag], [anicteric sclera] Mouth: [no lip lesion], [mucus membranes moist] Cardiovascular: [S1S2 reg], [no murmur] Lungs: [Diminished breath sounds, bilateral rhonchi more on the left, some accessory muscle use Abdominal: [soft], [ nontender to palpation], [no guarding], [no appreciable organomegaly] Ext: [no gross muscle atrophy], [no edema], [no contractures] Neuro: [ CN II-XI grossly intact], [no focal neuro deficits] Psych: [Alert], [oriented], [appropriate affect] A total of 40 minutes of time were spent preparing this complex discharge summary. Patient was discharged on 02/09/2025 Patient Condition at Discharge: Stable Plan - Discharge Summary Discharge Rx Participant: No New Discharge Prescriptions: New Tamsulosin [Flomax] 0.4 mg PO PC-BRKFST #30 cap HYDROcodone/APAP 5-325MG [[place] 5-325] 1 each PO Q4HR PRN #18 tab PRN Reason: Pain Metoprolol Succinate (ER) [Toprol XL] 25 mg PO DAILY #30 tab Continue Multivitamins, Thera [Multivitamin (formulary)] 1 tab PO DAILY Levothyroxine Sodium [Synthroid] 50 mcg PO DAILY Albuterol Inhaler [Ventolin Hfa Inhaler] 2 puff INHALATION RT-Q4H PRN PRN Reason: Shortness Of Breath Fluticasone/Umeclidin/Vilanter [Trelegy Ellipta 100-62.5-25] 1 puff INHALATION RT-DAILY Cholecalciferol [Vitamin D3 (25 Mcg = 1000 Iu)] 50 mcg PO DAILY Ascorbic Acid [Vitamin C] 500 mg PO DAILY Albuterol Nebulized [Ventolin Nebulized] 2.5 mg INHALATION RT-QID PRN PRN Reason: Shortness Of Breath Discharge Medication List Albuterol Inhaler [Ventolin Hfa Inhaler] 2 puff INHALATION RT-Q4H PRN 05/27/23 [History] Fluticasone/Umeclidin/Vilanter [Trelegy Ellipta 100-62.5-25] 1 puff INHALATION RT-DAILY 05/27/23 [History] Albuterol Nebulized [Ventolin Nebulized] 2.5 mg INHALATION RT-QID PRN 01/26/25 [History] Ascorbic Acid [Vitamin C] 500 mg PO DAILY 01/26/25 [History] Cholecalciferol [Vitamin D3 (25 Mcg = 1000 Iu)] 50 mcg PO DAILY 01/26/25 [History] Levothyroxine Sodium [Synthroid] 50 mcg PO DAILY 01/26/25 [History] Multivitamins, Thera [Multivitamin (formulary)] 1 tab PO DAILY 01/26/25 [History] HYDROcodone/APAP 5-325MG [[place] 5-325] 1 each PO Q4HR PRN #18 tab 02/09/25 [Rx] Metoprolol Succinate (ER) [Toprol XL] 25 mg PO DAILY #30 tab 02/09/25 [Rx] Tamsulosin [Flomax] 0.4 mg PO PC-BRKFST #30 cap 02/09/25 [Rx] Follow up Appointment(s)/Referral(s): [facility] [NON-STAFF] - 1 Week Moose Simpson DO [Primary Care Provider] - 1-2 days Elie Keita MD [STAFF PHYSICIAN] - 02/27/25 8:30 am Activity/Diet/Wound Care/Special Instructions: Please, follow up with PCP and oncology Discharge Disposition: HOME WITH HOME HEALTH SERVICES
[2025-02-09 15:42] VITALS: PULSE 113
--- NOTE | 2025-02-09 17:12 | P.PN ---
Subjective Progress Note Date: 02/09/25 This is a 59-year-old male patient with a known history of former smoker, COPD maintained on Trelegy, hypothyroidism, hypertension and lung cancer diagnosed in 2016. He had a large obstructive mass in the right mainstem bronchus that was positive for carcinoma with chemotherapy and currently in remission. His last CT scan of the chest revealed a soft tissue encasement and volume loss of the right hilum and right perihilar bronchovascular bundles corresponding with treated disease. No definitive recurrence for metastatic disease. Development of a right lower lung reticular opacities likely representing bronchiolitis on a CT scan in June 2024. He presented to the emergency room today with a 2 to 3-week history of increasing shortness of breath cough and congestion. Chest x- ray reveals a completely opacified right hemithorax. Findings suggest neoplastic progression right hilar region with obstructive atelectasis. White count 8.8. Hemoglobin 12.0. Platelets 533. INR 1.0. Sodium 139. Potassium 4.5. Bicarb 24. BUN 15. Creatinine 0.59. AST 160. ALT 76. Alk phos 362. Troponin negative x 1. proBNP 768. He is seen today in consultation in the emergency department. He is currently sitting up on the stretcher. Awake and alert in mild respiratory distress. He is initially maintaining good O2 saturations in the 90s on room air oxygen. He is receiving a updraft treatment. He is afebrile. Blood pressure stable. He is sinus tachycardia in the 120s. The patient is seen today January 27, 2025 in follow-up in the emergency department. He is currently sitting up at the bedside. Awake and alert in no acute distress. He is still dyspneic with conversation. Dyspneic with minimal exertion. He is maintaining good O2 saturations in the mid 90s on 2 L/min per nasal cannula. He was without his oxygen for a brief walk to the bathroom and dropped into the 70s. He remains tachycardic. He is afebrile. He did undergo a right sided thoracentesis yesterday with 2.8 L of bloody fluid returned. Follow-up chest x-ray continued to show significant pleural effusion but no pneumothorax. White count 9.1. Hemoglobin 10.6. Platelets 506. Sodium 136. Potassium 4.1. Bicarb 23. BUN 15. Creatinine 0.62. Glucose 113. AST 90. ALT 58. Pleural fluid reveals exudate with a total protein of 2.6. LDH 161. WBCs 1372. Cytology pending. He is continued on DuoNeb inhalations, Symbicort. Patient was seen today on 01/28/2025, continues to have pigtail catheter in place connected to Pleur-evac, continues to have some serosanguineous drainage from the right pleural space, seems to be minimal, chest x-ray clearly showed evidence of trapped lung patient is now being seen by oncology and radiation oncology. On 2 L nasal cannula, O2 sats is 99% WBC count is 10 hemoglobin 10.9 electrolytes are normal except for potassium of 5.5 renal profile is normal. Patient was seen today on 01/29/2025, basically about the same continues to have significant amount of serosanguineous drainage from the right lung, pigtail catheter remains in place, patient is complaining of some vague chest discomfort, but he is not in any distress. Fluid cytology from his right thoracentesis/pleural effusion is pending. WBC count today 16.3 hemoglobin 10.2 electrolytes are normal renal profile is normal Seen today on 01/30/2025, patient continues to feel about the same. Continues to have right-sided pigtail catheter in place, and continues to have some serosanguineous drainage. Patient had a trapped lung and he does have a large endobronchial tumor involving the right mainstem bronchus based on CT of the chest. Patient is being followed by oncology and he will need radiation oncology. Cytology is pending. WBC count is 13.7 hemoglobin is 10.4 electrolytes are normal except for potassium of 5.4 renal profile is normal Progress note dated January 31, 2025. The patient is seen today in room 368. The patient is currently on 2 L nasal cannula. He is doing about the same. He has a right pigtail catheter in place. He is not receiving any IV fluids. His initial diagnosis of lung cancer was made by myself, back in 2017. He has non-small cell lung cancer. Today we added Augmentin to his regimen. Current laboratory data includes a white count of 8.97, hemoglobin 9.8, hematocrit 31, and a platelet count of 369,000. Sodium 133, potassium 5.4, chlorides 100, CO2 30, BUN 24, creatinine 0.58. Glucose Is 176. Calcium Is 9.1. Pleural fluid cytology is still pending. Progress note dated February 01, 2025. The patient is seen today in room 368. The patient continues on nasal O2 at 2 L. He is not receiving any IV fluids. Clinically he feels improved. He is sitting on the side of the bed. He has a right pigtail catheter in place. He is receiving Augmentin. Current laboratory data includes a white count of 13.6, hemoglobin 10.3, hematocrit 34.4, and a platelet count of 449,000. Sodium 132, potassium 5.8, chlorides 100, CO2 32, BUN 26, Creatinine 0.65. Glucose Is 128. Calcium Is 9. Pleural fluid cytology is currently still pending. Previous pleural fluid cytology was negative. Progress note dated February 02, 2025. The patient is again seen today in room 368. The patient continues on 2 L nasal cannula. He is currently on DuoNebs, Symbicort, and Solu-Medrol, which will be changed to prednisone 30 mg a day. Fluid cytology, is currently still pending. Labs today include a white count of 9.7, hemoglobin 9.7, hematocrit 30.7, and a platelet count of 337. Sodium 130, potassium 5.2, chloride 98, CO2 30, BUN 24, creatinine 0.6. Glucose is 144. Calcium is 8.6. Chest x-ray shows complete opacification of the right lung. Progress note dated February 03, 2025. 59-year-old male seen in room 368. The patient continues on 2 L of oxygen. He is currently on DuoNebs, Symbicort, prednisone. He did you on Augmentin. His chest x-ray continues to show significant opacification of the right hemithorax. His pigtail catheter is still in place. Current laboratory data includes a white count of 11.1, hemoglobin 10.2, hematocrit 32.6, and a platelet count of 329,000. Sodium 132, potassium 4.8, chlorides 99, CO2 32, BUN 23, creatinine 0.59. Glucose is 99. Calcium is 8.6. Last chest x-ray was done January 31. Pleural fluid cytology from January 31, is still pending. Progress note dated February 04, 2025. 59-year-old male seen again in room 368. He is sitting at the edge of the bed. He is on 2 L of oxygen. He is not receiving any IV fluids. I did have a long conversation with his , on February 03. Will order chest x-ray, for February 05. The patient does not have any specific complaints. He is in no respiratory distress. We are hoping that the pigtail catheter can be removed, in the next day or 2, and the patient can be discharged. Progress note dated February 05, 2025. 59-year-old male seen today in room 368. The patient is currently on 2 L of oxygen. He is sitting at the side of the bed. He does not have any respiratory distress. Chest x-ray today is essentially unchanged, showing opacification of the right hemithorax. Right pigtail catheter is in place. Minimal drainage. Current laboratory data includes a white count of 16.6, hemoglobin 12, hematocrit 38.1, and platelet count of 283,000. Sodium 133, potassium 4.2, chlorides 100, CO2 33, BUN 17, creatinine 0.59. Glucose is 98. Calcium is 8.8. On 02/06/2025, the patient remains on oxygen on 2 L nasal cannula. Pulse ox is 97%. In summary, the patient has a previous history of pulm cell carcinoma back in 2017 and the patient was treated with chemoradiation therapy. The patient was having follow-up CAT scan imaging through his oncologist, Dr. Keita. The patient presented to the hospital because of worsening shortness of breath and a completely opacified right lung. Initial thoracentesis revealed no malignant cells in the pleural fluid. A second fluid analysis was done and it showed some rare atypical cells consistent with carcinoma. Nevertheless, if final pathology or histologic subtype has not been established. Meanwhile, following insertion of the pigtail catheter, the patient continued to have an atelectatic right lung and the right lung is essentially trapped without any reexpansion. The chest x- ray still showing near complete opacification of right hemithorax despite the pigtail being in place. The patient continues to have a positive output through the tube. I reviewed the CAT scan of the chest and there is a cutoff sign in the distal right mainstem/right lower lobe bronchus. There is probably tumor encasing the right mainstem bronchus and there is complete collapse of the right lung in addition to the right-sided pleural effusion. There is also right hilar lymphadenopathy measuring up to 1.5 cm in size in addition to right pericardiac adenopathy measuring up to 2.2 cm in size and the patient also has some mild patchy groundglass changes in the left lung likely inflammatory in nature. Based on all this, the patient will need further tissue diagnosis to characterize the exact histologic subtype. The right mainstem bronchus need to be reevaluated bronchoscopically. I suggested doing a bronchoscopy and endobronchial ultrasound for tissue diagnosis and evaluation of the right mainstem bronchus. The patient was agreeable. Oncology wanted further tissue diagnosis. He is currently on 2 L of oxygen by nasal cannula with a pulse ox of 97%. MRI of the abdomen was also done and it showed innumerable bilateral bilobar hepatic lesions consistent with metastatic disease and the patient also has bony metastases and right lung findings showed a right hilar mass that was partially visualized however it was encasing the right mainstem bronchus and the right lower lobe bronchus causing complete atelectasis of the right lung and there was also metastatic lymphadenopathy involving the right epicardial enlarged lymph nodes and left paraesophageal enlarged lymph nodes. Based on this, the patient has likely metastatic recurrent carcinoma versus a new primary although recurrent cancer is highly suspected. 02/07/2025, the patient is being seen for a follow-up. His condition is unchanged compared to yesterday. The patient is currently n.p.o. and awaiting a bronchoscopy to be done for evaluation of the right mainstem bronchus. Suspect endobronchial tumor occluding the right mainstem bronchus and will obtain further tissue confirmation regarding his malignancy. He is currently afebrile. Slightly tachycardic. He is currently on treatment of oxygen by nasal cannula with a pulse ox of 98%. Pigtail catheter remains in place. No other new complaints otherwise for now. Remains on DuoNeb updrafts. Remains on Symbi dotty. Remains on prednisone burst taper and currently patient on 30 mg p.o. on a daily basis. Is complaining of chest wall pain and the patient is on Romayor for pain control and receiving Dilaudid on an as-needed basis. The blood work from today shows a white cell count of 13, hemoglobin 10.9 and platelet count of 226. BUN is 18 with a creatinine of 0.5 and a sodium level at 132. LFTs are elevated consistent with metastatic liver disease. No other complaints for now. He is a bit sluggish and lethargic. On 02/08/2025, the patient is being seen for a follow-up. The patient sitting at the edge of the bed without any major difficulties. Bronchoscopy was done and the patient had heavy tumor infiltration of the right mainstem bronchus with complete blocking of the bronchus intermedius, right upper lobe bronchus and the gerry the right upper lobe and the bronchus intermedius was heavily infiltrated with tumor. Biopsies were obtained and the biopsy results are still pending. Meanwhile, the patient continues to have output through his pigtail on the right. I remove the pigtail catheter today. I think the right lung is trapped and there is no chances of reexpansion. Rest of the medications remain unchanged. The patient is on prednisone 30 mg p.o. daily. The patient remains on DuoNeb updrafts and the patient is on Symbicort as maintenance. The white cell count is at 12.1 reading of 10.20 platelet count of 213. Sodium is at 133 with a BUN of 18 and a creatinine of 0.5. 02/09/2025, the patient is being seen for a follow-up. The patient has no complaints. The pigtail catheter was removed yesterday and the patient qualifies for home O2. Overall condition is stable. Feeling weak. Having chronic pain. Also has diminished appetite. No new labs are available from today. LFTs are elevated related to metastatic liver disease. Otherwise, no new complaints. Will be discharged home today to be followed up on outpatient basis. The endobronchial biopsies obtained from the right lung are still pending. Objective - Vital Signs Vital signs: Vital Signs Temp 97.6 F 02/09/25 05:20 Pulse 120 H 02/09/25 09:25 Resp 18 02/09/25 05:20 BP 106/76 02/09/25 05:20 Pulse Ox 96 02/09/25 09:13 FiO2 Intake & Output 02/08/25 02/09/25 02/09/25 18:59 06:59 18:59 Intake Total 240 Balance 240 Weight 76.4 kg Intake: Oral 240 Other: Voiding Method Toilet Urinal # Voids 2 3 - Exam No acute distress, oriented 3. Currently on 2 L. HEENT examination is grossly unremarkable. Mucous membranes are moist. No oral lesions. Neck supple. Full range of motion. No adenopathy thyromegaly or neck vein distention. Cardiovascular examination reveals regular rhythm rate. S1-S2 normal. No S3 or S4. No discernible murmur noted. Lungs reveal diminished right-sided breath sounds. Pigtail catheter in place. Left lung is clear. Abdomen soft bowel sounds are heard. No masses or tenderness. Extremities are intact. No cyanosis clubbing or edema. Skin is without rash or lesion. Neurologic examination is brief but nonfocal. - Labs CBC & Chem 7: 02/08/25 06:44 02/08/25 06:44 Labs: Abnormal Lab Results - Last 24 Hours (Table) 02/08/25 02/08/25 02/08/25 Range/Units 11:18 16:36 19:54 POC Glucose (mg/dL) 119 H 153 H 162 H (70-110) mg/dL Assessment and Plan Plan: Lung mass with large right-sided pleural effusion and trapped lung S/P thoracentesis and pigtail catheter placement. Despite those efforts, the gurdeep ent continues to have a completely opacified right lung, this is essentially a trapped lung with a tumor encasing the right mainstem bronchus and the right lower lobe bronchus causing complete atelectasis and contributing to the failure of the reexpansion of the right lung. The pleural fluid cytology was revealing few malignant cells he had a final histologic diagnosis not been established. MRI of the abdomen showed innumerable metastatic bilobed hepatic lesions consistent with metastases and the patient also had some intra-abdominal lymphadenopathy consistent with metastatic disease. Right-sided pigtail catheter remains in place without any benefit. Output is still positive. The tube was placed on 01/27/2025. Initial pleural fluid cytology on 01/27/2025 was negative for malignancy. Repeat cytology from 01/31/2025 was not completely diagnostic. Bronchoscopy was done on 02/10/2025 and the right mainstem bronchus is extensively infiltrated with tumor with significant narrowing in addition to complete obstruction of the right upper lobe bronchus and the bronchus intermedius. Endobronchial biopsies were obtained for tissue diagnosis. 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 Acute hypoxic respiratory failure, currently on 2 L of O2 nasal cannula Shortness of breath secondary to above Chronic tobacco dependence. Chronic obstructive pulmonary disease. Hypertension. Previous bariatric surgery. Hypothyroidism. Plan The patient is currently on 2 L of oxygen by nasal cannula, and the patient will have home O2 and the patient qualified for home O2 supplementation Continue bronchodilators Continue steroids and the patient was given a prednisone burst taper at time of discharge The patient had a bronchoscopy with endobronchial biopsies. The right lung is completely trapped by endobronchial tumor causing narrowing of the right mainstem bronchus and complete obstruction of the bronchus intermedius and the right upper lobe bronchus. The patient has no reasonable chance of achieving a reexpansion of the left lung. As such, I remove the pigtail catheter today. Awaiting final pathology report from endobronchial biopsies. Long-term prognosis poor based on above-mentioned comorbidities. Will continue following this case along with medical oncology. Prognosis remains extremely poor based on above-mentioned comorbidities. Arrange home O2 and the patient can be discharged home. Pigtail catheters were removed. The patient will need further treatment once final pathology from the right lung biopsy is available. Time with Patient: Greater than 30
--- NOTE | 2025-02-10 09:27 | CDI ---
Documentation Clarification Form Date: 02/10/2025 09:12:07 AM From: Petty Wallace Phone: Admit Date: 01/26/2025 02:14:00 PM Patient Name: Alvarado Alvarado Visit Number: [id number] Discharge Date: 02/09/2025 04:50:00 PM ATTENTION: The Clinical Documentation Specialists (CDI) and [facility] Coding Staff appreciate your assistance in clarifying documentation. Please respond to the clarification below the line at the bottom and electronically sign. The CDI & [facility] Coding staff will review the response and follow-up if needed. Please note: Queries are made part of the Legal Health Record. If you have any questions, please contact the author of this message via ITS. Doctor/Provider: [place] There is documentation of chronic pain. Additional clarification is requested. History/Risk Factors: 59yo M, AHRF, malg pleural effusion,entrapped lung, RULB Cx w multi mets, COPD, leukocytosis d/tsteroid-induced, constipation, transaminitis, hypothyroidism, renal calculi, HTN, former smoker, subacutefracturesof the right anterior 3rd through 6th ribs Clinical Indicators: multi malignancies, multi rib Fx Treatment: Hydrocodone/APAP 5-325MG [[place] 5-325] 1 each PO Q4HR PRN #18 tab PRN Reason:Pain Can you please clarify the cause/type of chronic pain? [ x] Chronic pain due to neoplasm [ ] Other/unspecified chronic pain [ ] Other, please specify [ ] Unable to determine (Template Last Revised: November 2020) MTDD
== END 2025-02-09 16:50 | disposition home health service (06) | DRG 180 ==
LOC: EC 12:31 → 5NMEDONC 14:14 → 3SCARD 01-27 10:27
PROVIDERS: ADMIT Student in an Organized Health Care Education/Training Program; ATTEND Student in an Organized Health Care Education/Training Program
PROC: 0W993ZZ Drainage of Right Pleural Cavity, Percutaneous Approach (ICD-10-PCS; 2025-01-26)
PROC: 0W9930Z Drainage of Right Pleural Cavity with Drainage Device, Percutaneous Approach (ICD-10-PCS; 2025-01-27)
PROC: 0BB38ZX Excision of Right Main Bronchus, Via Natural or Artificial Opening Endoscopic, Diagnostic (ICD-10-PCS; principal; 2025-02-07 08:00)
PROC: 0BD38ZX Extraction of Right Main Bronchus, Via Natural or Artificial Opening Endoscopic, Diagnostic (ICD-10-PCS; 2025-02-07 08:00)
DX: C34.01 Malignant neoplasm of right main bronchus (principal); J96.01 Acute respiratory failure with hypoxia; C79.51 Secondary malignant neoplasm of bone; C78.7 Secondary malignant neoplasm of liver and intrahepatic bile duct; J91.0 Malignant pleural effusion; M84.48XA Pathological fracture, other site, initial encounter for fracture; C77.1 Secondary and unspecified malignant neoplasm of intrathoracic lymph nodes; E87.20 Acidosis, unspecified; J94.8 Other specified pleural conditions; J44.9 Chronic obstructive pulmonary disease, unspecified; E03.9 Hypothyroidism, unspecified; I10 Essential (primary) hypertension; D63.0 Anemia in neoplastic disease; J98.19 Other pulmonary collapse; J98.11 Atelectasis; D50.9 Iron deficiency anemia, unspecified; D72.828 Other elevated white blood cell count; T38.0X5A Adverse effect of glucocorticoids and synthetic analogues, initial encounter; N20.0 Calculus of kidney; G89.3 Neoplasm related pain (acute) (chronic); J98.4 Other disorders of lung; D75.839 Thrombocytosis, unspecified; E87.5 Hyperkalemia; K59.00 Constipation, unspecified; K80.20 Calculus of gallbladder without cholecystitis without obstruction; Z79.51 Long term (current) use of inhaled steroids; Z79.890 Hormone replacement therapy; Z79.899 Other long term (current) drug therapy; Z96.611 Presence of right artificial shoulder joint; Z87.891 Personal history of nicotine dependence; Z98.84 Bariatric surgery status; Z92.21 Personal history of antineoplastic chemotherapy; Z92.3 Personal history of irradiation
CPT/HCPCS: 31624; 31625; 32551; 36410; 36415; 70553; 71045; 71046; 71260; 74183; 76604; 76700; 76937; 76942; 80048; 80053; 81001; 82945; 83605; 83615; 83735; 83880; 84132; 84145; 84157; 84484; 85025; 85027; 85610; 85730; 87070; 87102; 87116; 87205; 87206; 87496; 87498; 87502; 87529; 87634; 87635; 87798; 88108; 88305; 88341; 88342; 89050; 93005; 94640; 94760; 96361; 96374; 99285

== ENCOUNTER → 2025-02-16 | Outpatient (CLI) | payer OTHER, BC ==
--- NOTE | 2025-02-19 14:28 | PE ---
EXAMINATION TYPE: PET CT fusion skull to thigh DATE OF EXAM: 02/16/2025 COMPARISON: CT chest 01/27/2025 Prior PET/CT: 04/11/2017 CLINICAL INDICATION: Male, 59 years old with history of C34.11 Lung ca, TECHNIQUE: Following the intravenous administration of 11.15 mCi of F-18 FDG, whole body images are performed PET CT fusion skull to thigh. Images are reviewed on the computer in the coronal, axial, a nd sagittal planes. Reconstructed rotating images are created on independent workstation and reviewe d on the computer. A localization and attenuation correction CT is performed in conjunction with th e PET scan. DLP: 1179.1 mGycm SCAN: Subsequent Blood glucose: 89 mg/dL Average Mediastinum SUV: 2.16 Average Liver SUV: 3.61 FINDINGS: NECK: No suspicious uptake THORAX: Marked uptake throughout the right thoracic cavity, example image 75, SUV 15.01. Additional u ptake is in the posterior medial right lung base, 108, SUV 20, anteriorly at the cardiophrenic angle image 108, SUV 15.68. Pretracheal adenopathy with increased uptake is evident. Example image 79, SUV 8.82 ABDOMEN: Extensive nodularity throughout the liver with increased uptake is present compatible with m ultiple metastatic lesions. Reference lesion image 131 lateral right midlung SUV 13.46 anterior right lobe liver image 138, SUV 16.24. There may be a retrocaval lymph node, image 135, SUV 7.6 PELVIS: Suspicious focal uptake to suggest metastasis is not identified. Mild uptake within the colon is present can be physiologic OSSEOUS STRUCTURES: There is some focal uptake within the cervical spine, image 34, SUV 4.93. Uptake is within the proximal left humerus, SUV 7.02. Multiple foci of uptake are scattered through the ribs compatible with metastatic disease. There is focal uptake within the lumbar vertebral body, SUV 12.2 4, image 171. Additional lumbar thoracic uptake is present. There is uptake within the right iliac cr est measuring 12.28, image 176. Sacrum uptake is present. Example image 188, SUV 8.73 uptake is in th e lateral right iliac wing, image 196, SUV 6.06. Femoral diaphyseal metastasis is evident. LOCALIZATION CT: Right pleural effusion is present. Enlarged mediastinal lymph nodes are evident. Janice ears to be a small pneumothorax or air within the pleural fluid. Consider empyema COMPARISON: Findings are largely new from comparison. Uptake within the chest is significantly increa sed over the interval. Osseous metastasis and liver metastasis. No IMPRESSION: 1. Recurrent lung cancer right lung 2. Empyema. Air-fluid levels are within the pleural collection. 3. Metastatic disease to mediastinal lymph nodes. 4. Multiple metastatic lesions to the liver. 5. Multiple metastatic lesions. Osseous structures [facility], , 02/19/2025 2:25 PM
== END | disposition home or self-care (01) ==
LOC: RADPETMAIN 14:17
PROVIDERS: ATTEND Internal Medicine Hematology & Oncology
DX: C34.11 Malignant neoplasm of upper lobe, right bronchus or lung (principal); C78.7 Secondary malignant neoplasm of liver and intrahepatic bile duct; J43.9 Emphysema, unspecified
CPT/HCPCS: 78815; A9552

== ENCOUNTER 2025-02-27 18:14 | Inpatient (IN) | payer OTHER, BC ==
--- NOTE | 2025-02-27 18:25 | ED ---
General Adult HPI - General Chief complaint: Shortness of Breath Stated complaint: JOSE CARLOS Time Seen by Provider: 02/27/25 18:14 Source: patient, family, EMS, RN notes reviewed Mode of arrival: EMS Limitations: no limitations - History of Present Illness Initial comments: Patient is a 59-year-old male present to the emergency department with complaints with difficulty breathing. Symptoms have progressed especially over the past few hours. Patient had a recent admission. 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 Patient does have history of lung cancer in a different area, different kind approximately 8 years ago. Patient does have mild cough. No fever. Patient does have some leg edema that has been present for around a month. - Related Data Home Medications Medication Instructions Recorded Confirmed Albuterol Inhaler [Ventolin Hfa 2 puff INHALATION RT-Q4H PRN 05/27/23 02/27/25 Inhaler] Fluticasone/Umeclidin/Vilanter 1 puff INHALATION RT-DAILY 05/27/23 02/27/25 [Trelegy Ellipta 100-62.5-25] Albuterol Nebulized [Ventolin 2.5 mg INHALATION RT-QID PRN 01/26/25 02/27/25 Nebulized] Cholecalciferol [Vitamin D3 (25 50 mcg PO DAILY 01/26/25 02/27/25 Mcg = 1000 Iu)] Levothyroxine Sodium [Synthroid] 50 mcg PO DAILY 01/26/25 02/27/25 Previous Rx's Medication Instructions Recorded HYDROcodone/APAP 5-325MG [[place] 1 each PO Q4HR PRN #18 tab 02/09/25 5-325] Metoprolol Succinate (ER) [Toprol 25 mg PO DAILY #30 tab 02/09/25 XL] Tamsulosin [Flomax] 0.4 mg PO PC-BRKFST #30 cap 02/09/25 Allergies Allergy/AdvReac Type Severity Reaction Status Date / Time No Known Allergies Allergy Verified 01/26/25 17:28 Review of Systems ROS Statement: Those systems with pertinent positive or pertinent negative responses have been documented in the HPI. ROS Other: All systems not noted in ROS Statement are negative. Constitutional: Denies: fever Eyes: Denies: eye pain ENT: Denies: ear pain Respiratory: Reports: as per HPI, cough, dyspnea Cardiovascular: Reports: edema Endocrine: Reports: fatigue Past Medical History Past Medical History: Cancer, Chest Pain / Angina, COPD, Thyroid Disorder Additional Past Medical History / Comment(s): Hx Non-small cell lung cancer with chemo and radiation 7 years ago. stage 4 copd lung disease 2024. Small Cell Lung Cancer February 2025 History of Any Multi-Drug Resistant Organisms: None Reported Past Surgical History: Bariatric Surgery, Joint Replacement Additional Past Surgical History / Comment(s): RIGHT SHOULDER REPLACEMENT, ARTHUR EN Y, EGD. Past Anesthesia/Blood Transfusion Reactions: No Reported Reaction Past Psychological History: No Psychological Hx Reported Smoking Status: Former smoker Past Alcohol Use History: Occasional Past Drug Use History: None Reported - Past Family History Mother Family Medical History: No Reported History General Exam Limitations: no limitations General appearance: alert Head exam: Present: atraumatic Eye exam: Present: normal appearance Neck exam: Present: normal inspection Respiratory exam: Present: decreased breath sounds Cardiovascular Exam: Present: tachycardia GI/Abdominal exam: Present: soft. Absent: tenderness Extremities exam: Present: pedal edema. Absent: calf tenderness Neurological exam: Present: alert Psychiatric exam: Present: normal affect, normal mood Skin exam: Present: normal color Course Vital Signs 02/27/25 02/27/25 02/27/25 18:15 19:06 19:16 Temperature 97.2 F L Pulse Rate 129 H 129 H 142 H Respiratory 22 33 H 22 Rate Blood Pressure 103/61 O2 Sat by Pulse 97 Oximetry 02/27/25 19:55 Temperature Pulse Rate 125 H Respiratory 26 H Rate Blood Pressure 105/73 O2 Sat by Pulse 96 Oximetry EKG Findings - EKG Results: EKG: interpreted by ERMD, sinus rhythm, normal axis, normal QRS, normal ST/T EKG shows: tachycardia Medical Decision Making - Medical Decision Making Was pt. sent in by a medical professional or institution (, PA, STRATEGIC PLANNING MANAGER, urgent care, hospital, or senior living...) When possible be specific @ -No Did you speak to anyone other than the patient for history (EMS, parent, family, police, friend...)? What history was obtained from this source @ -Family's present helps provide history as patient is very short of breath Did you review nursing and triage notes (agree or disagree)? Why? @ -I reviewed and agree with nursing and triage notes Were old charts reviewed (outside hosp., previous admission, EMS record, old EKG, old radiological studies, urgent care reports/EKG's, senior living records)? Report findings @ -No old charts were reviewed Differential Diagnosis (chest pain, altered mental status, abdominal pain women, abdominal pain men, vaginal bleeding, weakness, fever, dyspnea, syncope, headache, dizziness, GI bleed, back pain, seizure, CVA, palpatations, mental health, musculoskeletal)? @ -Differential Dyspnea: Coronary syndrome, arrhythmia, tamponade, asthma, COPD, pulmonary embolism, pneumonia, pneumothorax, pulmonary effusion, anaphylaxis, diabetic ketoacidosis, flailed chest, pulmonary contusion, diaphragmatic rupture, anemia, neuromuscular, this is not meant to be an all-inclusive list. EKG interpreted by me (3pts min.). @ -As above X-rays interpreted by me (1pt min.). @ -Chest x-ray shows near complete opacity right lung field CT interpreted by me (1pt min.). @ -None done U/S interpreted by me (1pt. min.). @ -None done What testing was considered but not performed or refused? (CT, X-rays, U/S, labs)? Why? @ -None What meds were considered but not given or refused? Why? @ -None Did you discuss the management of the patient with other professionals (professionals i.e. , PA, STRATEGIC PLANNING MANAGER, lab, RT, psych nurse, aids social worker, baking assistant, teacher, motorcycle police officer, leather case finisher)? Give summary @ -Case was discussed with Dr. Thomas who will admit covering Dr. Owens me Was smoking cessation discussed for >3mins.? @ -No Was critical care preformed (if so, how long)? @ -No Were there social determinants of health that impacted care today? How? (Homelessness, low income, unemployed, alcoholism, drug addiction, transportation, low edu. Level, literacy, decrease access to med. care, [facility], rehab)? @ -No Was there de-escalation of care discussed even if they declined (Discuss DNR or withdrawal of care, Hospice)? DNR status @ -No What co-morbidities impacted this encounter? (DM, HTN, Smoking, COPD, CAD, Cancer, CVA, ARF, Chemo, Hep., AIDS, mental health diagnosis, sleep apnea, morbid obesity)? @ -Recent diagnosis of lung cancer Was patient admitted / discharged? Hospital course, mention meds given and route, prescriptions, significant lab abnormalities, going to OR and other pertinent info. @ -Patient presents with increasing dyspnea. Patient has near complete opacity right lung field and COVID-19 positive. Patient reevaluated and updated. Patient will be admitted with pulmonary and oncology consults. Motrin orders written. Undiagnosed new problem with uncertain prognosis? @ -No Drug Therapy requiring intensive monitoring for toxicity (Heparin, Nitro, Insulin, Cardizem)? @ -No Were any procedures done? @ -No Diagnosis/symptom? @ -Dyspnea, COVID-19 Acute, or Chronic, or Acute on Chronic? @ -Acute, acute Uncomplicated (without systemic symptoms) or Complicated (systemic symptoms)? @ -Default Side effects of treatment? @ -No Exacerbation, Progression, or Severe Exacerbation? @ -No Poses a threat to life or bodily function? How? (Chest pain, [place], NH, pneumonia, PE, COPD, DKA, ARF, appy, cholecystitis, CVA, Diverticulitis, Homicidal, Suicidal, threat to staff... and all critical care pts) @ -Threat to pulmonary function - Lab Data Result diagrams: 02/27/25 18:28 02/27/25 18:28 Lab Results 02/27/25 02/27/25 02/27/25 Range/Units 18:28 18:28 18:28 WBC 13.81 H (4.50-10.00) 10*3/uL RBC 3.59 L (4.40-5.60) 10*6/uL Hgb 10.3 L (13.0-17.0) g/dL Hct 31.4 L (39.6-50.0) % MCV 87.5 (80.0-97.0) fL MCH 28.7 (27.0-32.0) pg MCHC 32.8 (32.0-37.0) g/dL Plt Count 358 (140-440) 10*3/uL MPV 10.3 (9.5-12.2) fL Immature Gran % (Auto) 7.6 % Immature Gran # 1.05 H (0.00-0.04) 10*3/uL PT 19.1 H (10.0-12.5) sec INR 1.9 H (<1.2) APTT 26.5 (22.0-30.0) sec Sodium 133 L (137-145) mmol/L Potassium 4.7 (3.5-5.1) mmol/L Chloride 99 (98-107) mmol/L Carbon Dioxide 19 L (22-30) mmol/L Anion Gap 15 mmol/L BUN 17 (9-20) mg/dL Creatinine 1.58 H (0.66-1.25) mg/dL Est GFR (CKD-EPI)AfAm 55 (>60 ml/min/1.73 sqM) Est GFR (CKD-EPI)NonAf 48 (>60 ml/min/1.73 sqM) Glucose 114 H (74-99) mg/dL Plasma Lactic Acid Ashish (0.7-2.0) mmol/L Calcium 8.7 (8.4-10.2) mg/dL Magnesium 2.1 (1.6-2.3) mg/dL Total Bilirubin 2.7 H (0.2-1.3) mg/dL AST 177 H (17-59) U/L ALT 86 H (4-49) U/L Alkaline Phosphatase 837 H (38-126) U/L Troponin I (0.000-0.034) ng/mL NT-Pro-B Natriuret Pep 2810 pg/mL Total Protein 5.4 L (6.3-8.2) g/dL Albumin 2.6 L (3.5-5.0) g/dL Influenza Type A (PCR) (Not Detectd) Influenza Type B (PCR) (Not Detectd) RSV (PCR) (Not Detectd) SARS-CoV-2 (PCR) (Not Detectd) 02/27/25 02/27/25 02/27/25 Range/Units 18:28 18:28 18:44 WBC (4.50-10.00) 10*3/uL RBC (4.40-5.60) 10*6/uL Hgb (13.0-17.0) g/dL Hct (39.6-50.0) % MCV (80.0-97.0) fL MCH (27.0-32.0) pg MCHC (32.0-37.0) g/dL Plt Count (140-440) 10*3/uL MPV (9.5-12.2) fL Immature Gran % (Auto) % Immature Gran # (0.00-0.04) 10*3/uL PT (10.0-12.5) sec INR (<1.2) APTT (22.0-30.0) sec Sodium (137-145) mmol/L Potassium (3.5-5.1) mmol/L Chloride (98-107) mmol/L Carbon Dioxide (22-30) mmol/L Anion Gap mmol/L BUN (9-20) mg/dL Creatinine (0.66-1.25) mg/dL Est GFR (CKD-EPI)AfAm (>60 ml/min/1.73 sqM) Est GFR (CKD-EPI)NonAf (>60 ml/min/1.73 sqM) Glucose (74-99) mg/dL Plasma Lactic Acid Ashish 7.2 H* (0.7-2.0) mmol/L Calcium (8.4-10.2) mg/dL Magnesium (1.6-2.3) mg/dL Total Bilirubin (0.2-1.3) mg/dL AST (17-59) U/L ALT (4-49) U/L Alkaline Phosphatase (38-126) U/L Troponin I <0.012 (0.000-0.034) ng/mL NT-Pro-B Natriuret Pep pg/mL Total Protein (6.3-8.2) g/dL Albumin (3.5-5.0) g/dL Influenza Type A (PCR) Not Detected (Not Detectd) Influenza Type B (PCR) Not Detected (Not Detectd) RSV (PCR) Not Detected (Not Detectd) SARS-CoV-2 (PCR) Detected A (Not Detectd) Disposition Clinical Impression: Dyspnea, Mass of right lung, COVID-19 Disposition: ADMITTED IP TO THIS HOSP Condition: Serious Is patient prescribed a controlled substance at d/c from ED?: No Referrals: None,Stated [REFERRING] - 1-2 days Time of Disposition: 20:46
[2025-02-27 18:51] LABS: INR 1.9 (<1.2); Partial Thromboplastin Time 26.5 sec (22.0-30.0); Prothrombin Time 19.1 sec (10.0-12.5)
[2025-02-27 18:59] LABS: AST 177 U/L (17-59); African American GFR (CKD) 55 (>60 ml/min/1.73 sqM); Albumin 2.6 g/dL (3.5-5.0); Alkaline Phosphatase 837 U/L (38-126); Anion Gap 15 mmol/L; Blood Urea Nitrogen 17 mg/dL (9-20); Calcium 8.7 mg/dL (8.4-10.2); Carbon Dioxide 19 mmol/L (22-30); Chloride 99 mmol/L (98-107); Glucose 114 mg/dL (74-99); Magnesium 2.1 mg/dL (1.6-2.3); Non-African American GFR(CKD) 48 (>60 ml/min/1.73 sqM); Potassium 4.7 mmol/L (3.5-5.1); Sodium 133 mmol/L (137-145); Total Bilirubin 2.7 mg/dL (0.2-1.3); Total Protein 5.4 g/dL (6.3-8.2)
[2025-02-27 19:05] LABS: ALT 86 U/L (4-49)
[2025-02-27] MEDS: IPRATROPIUM-ALBUTEROL 3 ML NEB INHALATION STA (19:05)
[2025-02-27 19:07] LABS: HCT 31.4 % (39.6-50.0); HGB 10.3 g/dL (13.0-17.0); MCH 28.7 pg (27.0-32.0); MCHC 32.8 g/dL (32.0-37.0); MCV 87.5 fL (80.0-97.0); Mean Platelet Volume 10.3 fL (9.5-12.2); NT-Pro-B-Type Natriuretic Pept 2810 pg/mL; Platelet Count 358 10*3/uL (140-440); RBC 3.59 10*6/uL (4.40-5.60); RDW 21.8 % (11.5-14.5)
[2025-02-27 19:26] LABS: Influenza A Not Detected (Not Detectd); Influenza B Not Detected (Not Detectd); RSV Not Detected (Not Detectd)
--- NOTE | 2025-02-27 20:10 | XR ---
EXAMINATION TYPE: XR chest 2V DATE OF EXAM: 02/27/2025 7:37 PM COMPARISON: None. CLINICAL INDICATION: Male, 59 years old with history of difficulty breathing, TECHNIQUE: XR chest 2V view(s) obtained. FINDINGS: The heart size is normal. The pulmonary vasculature is normal. There is complete opacification of the right lung. Mediastinum appears midline. No suspicious infiltr ates within the left lung.. IMPRESSION: 1. Complete opacification right lung. [facility], , 02/27/2025 8:08 PM
[2025-02-27 20:41] LABS: Band Neutrophils % 5 %; Lymphocytes # (M) 2.05 k/uL (1.0-4.8); Monocytes # (M) 1.37 k/uL (0-1.0); Neutrophils # (M) 10.38 k/uL (1.3-7.7); Neutrophils % (M) 71 %; Nucleated Red Blood Cells 1 /100 WBC (0-0); Total Cells Counted 200; WBC 13.67 10*3/uL (4.50-10.00)
[2025-02-27 20:44] LABS: Polychromasia Present
[2025-02-27] MEDS ORDERED: IPRATROPIUM-ALBUTEROL 3 ML NEB INHALATION PRN (20:46)
[2025-02-27] MEDS ORDERED: NALOXONE 0.4 MG/ML 1 ML VIAL IV PRN (20:47)
[2025-02-27] MEDS: DEXAMETHASONE SOD PHOSPHATE 10 MG/ML 1 ML VIAL IVP SCH (21:31)
[2025-02-27] MEDS: ZINC SULFATE 220 MG CAP PO SCH (21:31)
[2025-02-27] MEDS: ASCORBIC ACID 500 MG TAB PO SCH (21:31)
[2025-02-27] MEDS: CHOLECALCIFEROL 125 MCG (5000 IU) TABLET PO SCH (21:31)
[2025-02-27] MEDS ORDERED: ALBUTEROL NEBULIZED 2.5 MG/3 ML INHALATION PRN (22:03)
[2025-02-28] MEDS: HYDROcodone/APAP 5-325MG 1 EACH TAB PO PRN (00:40)
[2025-02-28] MEDS: HEPARIN SODIUM,PORCINE 5,000 UNIT/ML 1 ML VIAL SQ SCH (00:41)
--- NOTE | 2025-02-28 01:06 | P.HPIM ---
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 Patient reports his shortness of breath started 4 days ago. Today his symptoms have progressively worsened over the past few hours, that he is not able to get up to go to the restroom. He also reports having a cough with hempotysis. Associated with that he has bilateral lower extremity edema as well as epigastric pain since 2 weeks. Patient denies any sick contacts and mentions that he quit smoking 6 months ago. Patient had a recent admission(01/26/25 to 02/09/25) for similar symptoms. He had innumerable bilobar enhancing hepatic lesions consistent with metastatic disease, unremarkable intrinsic osseous lesions consistent with metastatic disease, right large hilar pulmonary mass partially visualized resulting in encasement and obstruction of the right lower lobe bronchus with associated atelectasis, metastatic lymphadenopathy involving right epicardial enlarged lymph nodes, left periesophageal enlarged lymph node, small right hydropneumothorax previously seen. He underwent bronchoscopy due to complete right lung collapse,endobronchial tumor obstructing the right upper lobe bronchus in the right mainstem bronchus noted. PET scan 02/16/25 showed small cell lung cancer with metastasis to mediastinal lymph nodes, liver, bone. Denies fever, chills, palpitations, nausea, vomiting, hematuria, dysuria, hematochezia, melena, headache, slurred speech, numbness, tingling, dizziness, lightheadedness, blurred vision, double vision. ED documentation reviewed. In the ED patient was treated with DuoNeb. Vitals on admission T 97.2 F, [place] 129 bpm, RR 22, BP 103/61, SpO2 97% on 3 L oxygen via nasal cannula Most recent vital [place] 125 bpm, RR 26, BP 105/73, SpO2 96% on room air EKG independently interpreted as sinus tachycardia, S1Q3T3, rate 125 bpm, QTc 389 ms Chest x-ray shows complete opacification right lung Labs on admission show WBC 13.81, hemoglobin 10.3, MCV 87.5, platelet 358, PT 19.1, INR 1.9, sodium 133, potassium 4.7, bicarb 19, anion gap 15, creatinine 1.58, glucose 114, lactic acid 7.2, total bilirubin 2.7, AST 177, ALT 86, ALP 83 7, albumin 2.6, NT proBNP 2810, troponin I < 0.012 Respiratory panel is positive for SARS-CoV-2 Review of systems: Pertinent positives and negatives as discussed in HPI, a complete review of systems was performed and all other systems are negative. Physical examination: Vital signs reviewed General: nontoxic, no distress, appears at stated age Derm: warm, dry, intact Head: atraumatic, normocephalic, symmetric Eyes: EOMI, anicteric sclera Mouth: no lip lesion, mucus membranes moist Cardiovascular: S1 S2 reg, no murmur Lungs: diminished on right side Abdominal: soft, tender to palpation in epigastric region Extremities: 3+ pitting edema b/l lower extremities Neuro: Alert, Oriented, Gross neurological examination did not reveal any focal deficits. 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 Patient admitted to internal medicine service. Active: #. Acute dyspnea #. Acute COVID 19 infection #. Sepsis, likely secondary to above #. Leukocytosis, likely secondary to above #. Small cell lung cancer with mets to mediastinal lymph nodes, liver, bone #. History of COPD #. 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 twice daily, zinc sulfate to 20 mg p.o. daily Continue telemetry monitoring Oncology consulted Pulmonology consulted 1 L bolus of lactated ringer, then continue with 125 cc per hour, continue to assess for fluid overload #. Lower extremity edema NT proBNP 2810 Chest x-ray shows complete opacification right lung Cardiac catheterization in May 2023 showed normal coronary arteries and normal left-sided filling pressures Obtain echocardiogram Obtain venous doppler #. MONIE, baseline creatinine 0.56 creatinine 1.58 on admission Abdomen ultrasound on 02/05/2025 showed right kidney small in size, no evidence of hydronephrosis, possible calculus upper pole 0.9 cm; left kidney very limited views shows no evidence of hydronephrosis Obtain urinalysis #. HAGMA #. Lactic acidosis Albumin corrected anion gap 18.5 Albumin corrected delta ratio 1.3 Trend lactate Monitor BMP #. Hyperbilirubinemia #. Transaminitis #. Elevated alkaline phosphatase #. Coagulopathy PET scan 02/16/25 showed small cell lung cancer with metastasis to mediastinal lymph nodes, liver, bone #. Mild hyponatremia Monitor BMP Chronic: #. Sinus tachycardia, chronic #. Hypothyroidism #. Renal calculi #. Vitamin D deficiency #. Chronic normocytic anemia Resume home meds once verified by pharmacy F: None E: Replete as required N: Regular diet DVT prophylaxis: Heparin 5000 U SQ Q8HR GI prophylaxis: Pantoprazole 40 mg PO daily The patient is admitted with an anticipated more than 2 midnight stay for evaluation of shortness of breath CODE STATUS: FULL CODE Discussed with: Patient Anticipated discharge place: Pending clinical course Dictation was produced using [employer] dictation software. please excuse any grammatical, word or spelling errors. Scott Gordillo MD PGY-1 IM I have seen and evaluated the patient today. I Discussed the case with the resident and agree with the resident's findings I edited the assessment and plan as necessary as documented in the resident's note. Past Medical History Past Medical History: Cancer, Chest Pain / Angina, COPD, Thyroid Disorder Additional Past Medical History / Comment(s): Hx Non-small cell lung cancer with chemo and radiation 7 years ago. stage 4 copd lung disease 2024. Small Cell Lung Cancer February 2025 History of Any Multi-Drug Resistant Organisms: None Reported Past Surgical History: Bariatric Surgery, Joint Replacement Additional Past Surgical History / Comment(s): RIGHT SHOULDER REPLACEMENT, ARTHUR EN Y, EGD. Past Anesthesia/Blood Transfusion Reactions: No Reported Reaction Past Psychological History: No Psychological Hx Reported Smoking Status: Former smoker Past Alcohol Use History: Occasional Past Drug Use History: None Reported - Past Family History Mother Family Medical History: No Reported History Medications and Allergies Home Medications Medication Instructions Recorded Confirmed Type Albuterol Inhaler [Ventolin Hfa 2 puff INHALATION RT-Q4H PRN 05/27/23 02/27/25 History Inhaler] Fluticasone/Umeclidin/Vilanter 1 puff INHALATION RT-DAILY 05/27/23 02/27/25 History [Trelegy Ellipta 100-62.5-25] Albuterol Nebulized [Ventolin 2.5 mg INHALATION RT-QID PRN 01/26/25 02/27/25 History Nebulized] Cholecalciferol [Vitamin D3 (25 50 mcg PO DAILY 01/26/25 02/27/25 History Mcg = 1000 Iu)] Levothyroxine Sodium [Synthroid] 50 mcg PO DAILY 01/26/25 02/27/25 History HYDROcodone/APAP 5-325MG [[place] 1 each PO Q4HR PRN #18 tab 02/09/25 02/27/25 Rx 5-325] Metoprolol Succinate (ER) [Toprol 25 mg PO DAILY #30 tab 02/09/25 02/27/25 Rx XL] Tamsulosin [Flomax] 0.4 mg PO PC-BRKFST #30 cap 02/09/25 02/27/25 Rx Allergies Allergy/AdvReac Type Severity Reaction Status Date / Time No Known Allergies Allergy Verified 01/26/25 17:28 Physical Exam Vitals: Vital Signs Temp Pulse Resp BP Pulse Ox 02/27/25 19:55 125 H 26 H 105/73 96 02/27/25 19:16 142 H 22 02/27/25 19:06 129 H 33 H 02/27/25 18:15 97.2 F L 129 H 22 103/61 97 Intake and Output 02/27/25 02/27/25 02/27/25 06:59 14:59 22:59 Other: Weight 78.018 kg Results CBC & Chem 7: 02/27/25 18:28 02/27/25 18:28 Labs: Abnormal Lab Results - Last 24 Hours (Table) 02/27/25 02/27/25 02/27/25 Range/Units 18:28 18:28 18:28 WBC 13.81 H (4.50-10.00) 10*3/uL RBC 3.59 L (4.40-5.60) 10*6/uL Hgb 10.3 L (13.0-17.0) g/dL Hct 31.4 L (39.6-50.0) % Immature Gran # 1.05 H (0.00-0.04) 10*3/uL PT 19.1 H (10.0-12.5) sec INR 1.9 H (<1.2) Sodium 133 L (137-145) mmol/L Carbon Dioxide 19 L (22-30) mmol/L Creatinine 1.58 H (0.66-1.25) mg/dL Glucose 114 H (74-99) mg/dL Plasma Lactic Acid Ashish (0.7-2.0) mmol/L Total Bilirubin 2.7 H (0.2-1.3) mg/dL AST 177 H (17-59) U/L ALT 86 H (4-49) U/L Alkaline Phosphatase 837 H (38-126) U/L Total Protein 5.4 L (6.3-8.2) g/dL Albumin 2.6 L (3.5-5.0) g/dL SARS-CoV-2 (PCR) (Not Detectd) 02/27/25 02/27/25 Range/Units 18:28 18:44 WBC (4.50-10.00) 10*3/uL RBC (4.40-5.60) 10*6/uL Hgb (13.0-17.0) g/dL Hct (39.6-50.0) % Immature Gran # (0.00-0.04) 10*3/uL PT (10.0-12.5) sec INR (<1.2) Sodium (137-145) mmol/L Carbon Dioxide (22-30) mmol/L Creatinine (0.66-1.25) mg/dL Glucose (74-99) mg/dL Plasma Lactic Acid Ashish 7.2 H* (0.7-2.0) mmol/L Total Bilirubin (0.2-1.3) mg/dL AST (17-59) U/L ALT (4-49) U/L Alkaline Phosphatase (38-126) U/L Total Protein (6.3-8.2) g/dL Albumin (3.5-5.0) g/dL SARS-CoV-2 (PCR) Detected A (Not Detectd)
[2025-02-28] MEDS: LACTATED RINGERS 1,000 ML IV ONE (01:33)
[2025-02-28] MEDS: LACTATED RINGERS 1,000 ML IV SCH (04:17)
[2025-02-28 05:28] LABS: HCT 29.6 % (39.6-50.0); HGB 9.5 g/dL (13.0-17.0); MCH 28.6 pg (27.0-32.0); MCHC 32.1 g/dL (32.0-37.0); MCV 89.2 fL (80.0-97.0); Mean Platelet Volume 10.3 fL (9.5-12.2); Platelet Count 287 10*3/uL (140-440); RBC 3.32 10*6/uL (4.40-5.60)
[2025-02-28 05:57] LABS: ALT 76 U/L (4-49); AST 147 U/L (17-59); African American GFR (CKD) 56 (>60 ml/min/1.73 sqM); Albumin 2.4 g/dL (3.5-5.0); Alkaline Phosphatase 748 U/L (38-126); Anion Gap 10 mmol/L; Blood Urea Nitrogen 19 mg/dL (9-20); Calcium 8.4 mg/dL (8.4-10.2); Carbon Dioxide 23 mmol/L (22-30); Chloride 98 mmol/L (98-107); Glucose 113 mg/dL (74-99); Non-African American GFR(CKD) 48 (>60 ml/min/1.73 sqM); Sodium 131 mmol/L (137-145); Total Bilirubin 2.6 mg/dL (0.2-1.3); Total Protein 5.1 g/dL (6.3-8.2)
--- NOTE | 2025-02-28 06:22 | P.CNPUL ---
History of Present Illness Consult date: 02/28/25 Requesting physician: Link Keene Reason for consult: other (COVID infection) Chief complaint: Shortness of breath, cough History of present illness: Patient is a 59-year-old male past medical history significant for former tobacco use, COPD, non-small cell lung cancer diagnosed originally back in 2016 treated with chemotherapy. More recently, hospitalized Jan, 2025, his right lung was completely opacified. CT of chest done January 27, 2025 remarkable for encasing right hilar mass with collapse signs of the right mainstem bronchus and collapse of entire right lung with large right pleural effusion and mild smooth pleural thickening. Additionally, right hilar adenopathy measuring up to 1.5 cm and right pericardiac adenopathy measuring 2.2 cm. Patient underwent subsequent right-sided thoracentesis and a total of 2.8 L of grossly bloody fluid was removed from the right pleural space at that time. Pathology from this fluid was nondiagnostic. Still had a significant right-sided pleural effusion and a pigtail catheter was placed by IR on January 27. Developed trapped lung. Did undergo bronchoscopy with transbronchial biopsies and pathology was positive for small cell carcinoma. Patient was discharged on February 09. Follow-up PET scan showing marked uptake throughout the right thoracic cavity, evidence of metastatic disease to mediastinal lymph nodes, multiple metastatic lesions to the liver, and multiple osseous lesions including the cervical spine, left proximal humerus, ribs, lumbar spine, pelvis. Also, right-sided pleural effusion with air-fluid levels. Reportedly established with medical oncology, however, has not started treatment as of yet. Presented to emergency department yesterday evening with chief complaint of shortness of breath, congested cough, and subjective fevers. Hypotensive and tachycardic on arrival, received 1 liter lactated Ringer's fluid bolus. Workup in the emergency department including a positive COVID PCR test. Chest x-ray demonstrating complete right hemithorax opacification. Labs including a CBC with a WBC count of 13.7, hemoglobin 10.3, platelets 358. PT 19.1, INR 1.9. CMP with sodium 133, potassium 4.7, chloride 99, serum bicarb 19, BUN 17, creatinine 1.58, glucose 114. Lactic elevated at 7.2 and is down to 6.8. LFTs mildly elevated consistent with patient's metastatic disease. EKG: Sinus tachycardia, rate 125 bpm, no acute ischemic changes. S1Q3T3 Troponin less than 0.012. NT proBNP elevated at 2810. Patient currently being evaluated emergency department. He is sitting at the edge of the stretcher. He is on room air. He does have home O2 available, uses 2 L/min nasal cannula as needed basis. Does not appear in respiratory distress. Endorsing increased work of breathing. Associated persistent congested cough with clear sputum production. States this developed approximately 48 hours ago. Denies hemoptysis. Denies purulent sputum. Endorses intermittent subjective fevers. Denies known sick contacts. States he lives at home with his who has been feeling relatively well. He has had poor appetite. No nausea, vomiting, diarrhea. He has been generally weak with troubles ambulating. There is lower extremity swelling. Denies any chest pain, heart palpitations, lightheadedness or syncope. Denies history of DVT/PE. Denies previous history of COVID infection. States he is up-to-date w ith his COVID vaccinations. Previously, started on IV Decadron. Current vital signs: Heart 136 bpm, blood pressure 98/68 mmHg, respiratory rate nontachypneic, SpO2 previous recorded at 100% on 3 L/min nasal cannula. Review of Systems Constitutional: Reports chills, Reports fatigue, Reports fever, Denies poor appetite, Denies weight gain, Denies weight loss Ears, nose, mouth and throat: Reports nasal congestion, Reports nasal discharge, Denies headache, Denies post-nasal drip, Denies sinus pain, Denies sinus pressure, Denies swelling in throat, Denies sore throat Cardiovascular: Reports leg edema, Denies chest pain, Denies lightheadedness, Denies orthopnea, Denies palpitations, Denies paroxysmal nocturnal dyspnea, Denies syncope Respiratory: Reports congestion, Reports cough, Reports cough with sputum, Reports dyspnea, Reports home oxygen Gastrointestinal: Reports loss of appetite, Denies abdominal pain, Denies diarrhea, Denies nausea, Denies vomiting Genitourinary: Denies dysuria, Denies hematuria Musculoskeletal: Denies limitation of motion Integumentary: Denies rash Neurological: Denies seizures, Denies syncope Psychiatric: Denies anxiety, Denies depression Past Medical History Past Medical History: Cancer, Chest Pain / Angina, COPD, Thyroid Disorder Additional Past Medical History / Comment(s): Hx Non-small cell lung cancer with chemo and radiation 7 years ago. stage 4 copd lung disease 2024. Small Cell Lung Cancer February 2025 History of Any Multi-Drug Resistant Organisms: None Reported Past Surgical History: Bariatric Surgery, Joint Replacement Additional Past Surgical History / Comment(s): RIGHT SHOULDER REPLACEMENT, ARTHUR EN Y, EGD. Past Anesthesia/Blood Transfusion Reactions: No Reported Reaction Past Psychological History: No Psychological Hx Reported Smoking Status: Former smoker Past Alcohol Use History: Occasional Past Drug Use History: None Reported - Past Family History Mother Family Medical History: No Reported History Medications and Allergies Home Medications Medication Instructions Recorded Confirmed Type Albuterol Inhaler [Ventolin Hfa 2 puff INHALATION RT-Q4H PRN 05/27/23 02/28/25 History Inhaler] Fluticasone/Umeclidin/Vilanter 1 puff INHALATION RT-DAILY 05/27/23 02/28/25 History [Trelegy Ellipta 100-62.5-25] Albuterol Nebulized [Ventolin 2.5 mg INHALATION RT-QID PRN 01/26/25 02/28/25 History Nebulized] Cholecalciferol [Vitamin D3 (25 50 mcg PO DAILY 01/26/25 02/28/25 History Mcg = 1000 Iu)] Levothyroxine Sodium [Synthroid] 50 mcg PO DAILY 01/26/25 02/28/25 History Metoprolol Succinate (ER) [Toprol 25 mg PO DAILY #30 tab 02/09/25 02/28/25 Rx XL] Tamsulosin [Flomax] 0.4 mg PO PC-BRKFST #30 cap 02/09/25 02/28/25 Rx HYDROcodone/APAP 5-325MG [[place] 1 tab PO Q4HR PRN 02/28/25 02/28/25 History 5-325] Allergies Allergy/AdvReac Type Severity Reaction Status Date / Time No Known Allergies Allergy Verified 02/28/25 10:20 Physical Exam Vitals: Vital Signs Temp Pulse Resp BP Pulse Ox 02/27/25 23:43 136 H 24 98/68 100 02/27/25 21:30 118 H 16 102/77 98 02/27/25 20:46 121 H 24 113/72 99 02/27/25 19:55 125 H 26 H 105/73 96 02/27/25 19:16 142 H 22 02/27/25 19:06 129 H 33 H 02/27/25 18:15 97.2 F L 129 H 22 103/61 97 Intake and Output 02/27/25 02/27/25 02/28/25 14:59 22:59 06:59 Other: Weight 78.018 kg GENERAL EXAM: Alert, 59-year-old male, sitting at the edge of the bed, comfortable in no apparent distress. HEAD: Normocephalic and atraumatic EYES: Normal reaction of pupils, equal size. NOSE: Clear with pink turbinates. THROAT: No erythema or exudates. NECK: No masses, no JVD. CHEST: Barrel chest. LUNGS: Equal air entry with diminished lung sounds on the right, and scattered rhonchi on the left. On room air. No conversational dyspnea or accessory muscle use.. CVS: S1 and S2 normal with no audible murmur, regular rhythm. No extra heart sounds ABDOMEN: No hepatosplenomegaly, active bowel sounds, no guarding or rigidity. SPINE: No scoliosis or deformity SKIN: No rashes CENTRAL NERVOUS SYSTEM: No focal deficits, tone is normal in all 4 extremities. EXTREMITIES: There is 2-3+ bilateral lower extremity edema. No clubbing or cyanosis. Peripheral pulses are intact. Results - Laboratory Findings CBC and BMP: 02/28/25 05:01 02/28/25 05:01 PT/INR, D-dimer PT 19.1 sec (10.0-12.5) H 02/27/25 18:28 INR 1.9 (<1.2) H 02/27/25 18:28 Abnormal lab findings: Abnormal Labs 02/27/25 02/27/25 02/27/25 18:28 18:28 18:28 WBC 13.67 H RBC 3.59 L Hgb 10.3 L Hct 31.4 L Immature Gran # 1.05 H Neutrophils # (Manual) 10.38 H Monocytes # (Manual) 1.37 H Nucleated RBCs 1 H PT 19.1 H INR 1.9 H Sodium 133 L Carbon Dioxide 19 L Creatinine 1.58 H Glucose 114 H Plasma Lactic Acid Ashish Total Bilirubin 2.7 H AST 177 H ALT 86 H Alkaline Phosphatase 837 H Total Protein 5.4 L Albumin 2.6 L SARS-CoV-2 (PCR) 02/27/25 02/27/25 02/27/25 18:28 18:44 21:30 WBC RBC Hgb Hct Immature Gran # Neutrophils # (Manual) Monocytes # (Manual) Nucleated RBCs PT INR Sodium Carbon Dioxide Creatinine Glucose Plasma Lactic Acid Ashish 7.2 H* 6.8 H* Total Bilirubin AST ALT Alkaline Phosphatase Total Protein Albumin SARS-CoV-2 (PCR) Detected A - Diagnostic Findings Chest x-ray: image reviewed Assessment and Plan Assessment: Acute on chronic dyspnea, secondary to a combination of acute COVID-19 infection, acute COPD exacerbation, and underlying metastatic lung cancer. Chest x-ray remarkable for complete right lung opacification. Sinus tachycardia Acute leukocytosis SIRS/sepsis criteria met Lactic acidosis Acute kidney injury, likely secondary to hypotension and ATN Metastatic small cell lung carcinoma; right lung mass encasing right mainstem bronchus with metastasis to the mediastinum, liver, and bone. Bronchoscopy with transbronchial biopsies done on 02/07/2025 positive for small cell lung carcinoma. Follow-up PET scan showing marked uptake throughout the right thoracic cavity, evidence of metastatic disease to mediastinal lymph nodes, hepatic lesions, and diffuse osseous involvement. Also, right-sided pleural effusion with air-fluid levels. History of right-sided pleural effusion, status postthoracentesis, and pathology was essentially nondiagnostic. Patient did have a follow-up right-sided pigtail catheter, developed trapped lung, catheter has since been removed. 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 Bilateral lower extremity edema Elevated liver enzymes with known liver mets Normocytic, normochromic anemia, no overt signs of blood loss Chronic tobacco dependence Severe chronic obstructive pulmonary disease, FEV1 30% of predicted, maintained on Trelegy maintenance inhaler at home Previous bariatric surgery. Hypothyroidism. Plan: Patient currently on room air Chest x-ray reviewed continue to show complete opacification of the right hemithorax Continue supportive care Previously started on IV Decadron Continue IV maintenance fluids Monitor renal function Trend lactics Combination of bronchodilators, Symbicort inhaler D-dimer previously sent and venous Doppler lower extremity ordered Medical oncology consulted Case reviewed with my supervising physician, additional recommendations to follow. I have personally seen and examined the patient, performed the documentation and the assessment and plan as written. Number of minutes spent on the visit:20 this is a joint evaluation that was done along with the nurse practitioner. This evaluation was done and 35 minutes. The patient is coming in forAcute on top of chronic hypoxic respiratory failure and acute COVID-19 infection. The patient has chronic respiratory insufficiency related to metastatic small cell lung cancer and the patient is endobronchial tumor causing complete collapse of the right lung. Patient also has a right-sided pleural effusion related to complete right lung collapse. Patient is currently on Decadron. He is on 3 L of oxygen by nasal cannula with a pulse ox of 99%. He is intravascularly depleted and the patient is receiving IV fluids. Doppler of the lower extremities are negative for DVT. Absolutely no need for thoracentesis or Pleurx catheter insertion. The patient has endobronchial tumor in the right mainstem and the right upper lobe and those procedures will not achieve any successful reexpansion of the right lung due to the heavy tumor burden endobronchially. Care is very prognosis based on his underlying metastatic small cell lung cancer. Time with Patient: Greater than 30
[2025-02-28] MEDS ORDERED: ALBUTEROL HFA INHALER INHALATION PRN (07:00)
--- NOTE | 2025-02-28 07:01 | US ---
EXAMINATION TYPE: US venous doppler duplex LE DATE OF EXAM: 02/27/2025 10:46 PM COMPARISON: NONE CLINICAL INDICATION: Male, 59 years old with history of swelling; pitting edema. not on thinners. no pain. states swelling for 5 years, Pain TECHNIQUE: The lower extremity deep venous system is examined utilizing real time linear array sonog jesu with graded compression, color doppler sonography, and spectral doppler. SIDE PERFORMED: Bilateral FINDINGS: VESSELS IMAGED: Common Femoral Vein Deep Femoral Vein Greater Saphenous Vein * Femoral Vein Popliteal Vein Small Saphenous Vein * Proximal Calf Veins (* superficial vessels) Right Leg: appears negative for dvt, Color Doppler imaging shows patency of the vessels. Spectral wa veforms are within normal limits. Left Leg: appears negative for dvt, unable to visualize PTVs, Color Doppler imaging shows patency of the vessels. Spectral waveforms are within normal limits. IMPRESSION: 1. Bilateral lower extremity ultrasound negative for deep venous thrombosis [facility], , 02/28/2025 6:59 AM
[2025-02-28] MEDS ORDERED: IPRATROPIUM-ALBUTEROL 3 ML NEB INHALATION SCH (08:00)
[2025-02-28 08:33] LABS: Band Neutrophils % 6 %; Eosinophils # (M) 0.13 k/uL (0-0.7); Lymphocytes # (M) 1.01 k/uL (1.0-4.8); Monocytes # (M) 0.63 k/uL (0-1.0); Myelocytes # (M) 0.25 k/uL (0); Myelocytes % 2 %; Neutrophils # (M) 10.77 k/uL (1.3-7.7); Neutrophils % (M) 79 %; Nucleated Red Blood Cells 1 /100 WBC (0-0); Total Cells Counted 200; WBC 12.68 10*3/uL (4.50-10.00)
[2025-02-28] MEDS: PANTOPRAZOLE 40 MG TABLET PO SCH (08:37)
[2025-02-28] MEDS: ALBUTEROL HFA INHALER INHALATION SCH (09:12)
[2025-02-28] MEDS: TIOTROPIUM 2.5 MCG INHALER INHALATION SCH (09:18)
[2025-02-28] MEDS: SYMBICORT 160-4.5 MCG INHALER INHALATION SCH (09:18)
[2025-02-28] MEDS: TAMSULOSIN 0.4 MG CAP.ER.24H PO SCH (13:50)
[2025-02-28] MEDS: LEVOTHYROXINE 50 MCG TAB PO SCH (13:51)
[2025-02-28] MEDS: SODIUM CHLORIDE 0.9% 1,000 ML IV SCH (13:51)
[2025-02-28] MEDS: METOPROLOL SUCCINATE (ER) 25 MG TAB.ER.24H PO SCH (13:56)
--- NOTE | 2025-02-28 14:15 | P.PN ---
Subjective Progress Note Date: 02/28/25 Hospital course: Patient is a pleasant 59-year-old male with a past medical history of stage IIIA (T4 N0 M0) squamous cell carcinoma of the right lung status post concurrent chemo-radiotherapy completed in January 2017, metastatic small cell lung cancer, COPD, and hypothyroidism. He presented to our facility on 02/27/2025 with a chief complaint of shortness of breath. Patient reported symptoms began appro ximately 4 days ago and progressively worsened accompanied by a cough with hemoptysis and bilateral lower extremity edema. Upon arrival to our facility, patient underwent evaluation in the emergency department. Vital signs upon arrival show blood pressure 103/61, heart rate 129, respiratory rate 22, temp 97.2 F, and SpO2 of 97% on 3 L. EKG completed showing sinus tachycardia 125 bpm with diffuse nonspecific T wave abnormalities in inferior/lateral leads. Chest x-ray revealing complete opacification of right lung. Venous Doppler was completed bilateral lower extremities negative for DVT. Labs completed and reviewed. CBC showing leukocytosis with WBC count of 13.67 and normocytic anemi a with hemoglobin of 10.3. Coagulation profile showing elevated PT of 19.1 and INR of 1.9. BMP showing sodium 133, bicarb of 19, and elevated anion gap of 15. Renal function showing acute kidney injury with BUN of 17, creatinine 1.58, GFR 48 with a baseline creatinine of 0.56. Lactic acid initially 7.2. Liver profile showing hyperbilirubinemia and transaminitis with total bili of 2.7, AST of 177, ALT of 86, and alkaline phosphatase of 837. Troponin negative at less than 0.012 and proBNP slightly elevated at 2810. Influenza A, influenza B, and RSV were negative. COVID PCR was positive. Patient admitted under services with consultation to pulmonology. Physical exam: Vital signs reviewed and stable. General: Nontoxic, no distress and appears stated age. Derm: Skin warm and dry, normal coloration for ethnicity. Head: Atraumatic, normocephalic and symmetric. Eyes: EOM's intact, no lid lag, and anicteric sclera Mouth: no lip lesions, mucus membranes moist Cardiovascular: regular rate and rhythm with normal S1S2, no murmur, positive posterior tibial pulses bilaterally, and cap refill < 2 seconds. Lungs: Respirations even, regular, and unlabored on room air. Lungs CTA bi laterally, no rhonchi, no rales, no wheezing, and no accessory muscle usage. Abdominal: soft, nontender to palpation, no guarding, no appreciable organomegaly Ext: ROM intact. No gross muscle atrophy, no edema, no contractures Neuro: Speech clear, face symmetrical and CN II-XII grossly intact with no noted focal neuro deficits Psych: Alert and oriented to person, place, time, and situation. Appropriate and pleasant affect. Assessment and Plan of Care: Acute respiratory failure with hypoxia secondary to COVID 19 COPD with acute exacerbation, secondary to above Elevated D-dimer, likely secondary to above Metastatic small cell lung cancer History of stage IIIA (T4 N0 M0) squamous cell carcinoma of the right lung -Oxygenation to be administered and titrated as needed to maintain SPO2 equal to or greater than 90% -Telemetry monitoring. -Continue trending inflammatory markers -Encourage Incentive Spirometry 10-15x hourly while awake -Steroids: Decadron 6 mg daily -Continue vitamin C, Vitamin D, and Zinc. -Pulmonology following, reviewed documentation in chart. -DVT prophylaxis with heparin. -Strict Droplet plus Contact precautions -DuoNebs scheduled 4 times daily and as needed for shortness of breath and/or wheezing. Continue Spiriva 2.5 mcg inhaler 2 puffs daily and Symbicort 160-4.5 mcg inhaler 2 puffs twice daily. - D-dimer elevated likely inflammatory secondary to COVID-19 infection, however secondary to underlying cancer, tachypnea, tachycardia, and hypoxia will obtain VQ scan. Unable to do CTA at this time secondary to MONIE. Hyperbilirubinemia with transaminitis -Transaminitis appears to be ongoing and chronic, patient underwent PET scan 02/16/2025 which revealed small lung cancer with metastasis to mediastinal lymph nodes, liver, and bone. -Hyperbilirubinemia is a new finding this admission, possibly reactive secondary to COVID-19 infection, however we will obtain a limited abdominal ultrasound for further evaluation. Continue close monitoring with repeat a.m. labs. Acute kidney injury Creatinine currently 1.56 with baseline creatinine of 0.56. Continue with gentle IV fluid hydration with 0.9% normal saline at 75 cc/h. Bladder scan and monitor for postvoid residual/retention Continue close monitoring with repeat a.m. labs. Lactic acidosis Improving. Lactate initially 7.2 and currently downtrending with most recent lactic acid of 2.6. Continue gentle IV fluid hydration with 0.9% normal saline at 75 cc/h. Monitor for resolution. Hypertension Monitor vital signs and continue daily medication regimen with metoprolol 25 mg daily. Hypothyroidism Continue levothyroxine 50 mcg daily. BPH Continue Flomax 0.4 mg daily Data and imaging reviewed: Bilateral lower extremity Dopplers reviewed negative for DVT. Repeat morning labs reviewed showing WBC count of 12.68, hemoglobin 9.5, elevated D-dimer of 2.87, sodium 131, creatinine 1.56, glucose 113, and improvement of lactic acid from initial 7.2 downtrending to 2.6. Liver enzymes remain elevated with total bili of 2.6, AST of 147, ALT of 76, and alkaline phosphatase of 748. Total protein low at 5.1 and albumin of 2.4. Vital signs reviewed. Blood pressure 110/74, heart rate 109, respiratory rate 22, temp 97.8 F, and SpO2 of 94% on 3 L. CODE STATUS: Full code DVT prophylaxis: Heparin Anticipated discharge date: Pending clinical course Anticipated discharge place: Pending clinical course Patient was seen independently by Nurse Pracitioner. This document was prepared using [employer] dictation software. Please allow for errors in adolescent psychiatrist, while rare they do occur. Isiah Carr NP rendered care for this patient independently, reviewed the findings and plan as documented in the note above and agree with plan. I did not physically speak with or examine the patient on this date. Objective - Vital Signs Vital signs: Vital Signs Temp 97.8 F 02/28/25 08:29 Pulse 111 H 02/28/25 10:38 Resp 22 02/28/25 10:38 BP 114/74 02/28/25 10:38 Pulse Ox 93 L 02/28/25 10:38 FiO2 Intake & Output 02/27/25 02/28/25 02/28/25 18:59 06:59 18:59 Weight 78.018 kg - Labs CBC & Chem 7: 02/28/25 05:01 02/28/25 05:01 Labs: Abnormal Lab Results - Last 24 Hours (Table) 02/27/25 02/27/25 02/27/25 Range/Units 18:28 18:28 18:28 WBC 13.67 H (4.50-10.00) 10*3/uL RBC 3.59 L (4.40-5.60) 10*6/uL Hgb 10.3 L (13.0-17.0) g/dL Hct 31.4 L (39.6-50.0) % Immature Gran # 1.05 H (0.00-0.04) 10*3/uL Neutrophils # (Manual) 10.38 H (1.3-7.7) k/uL Monocytes # (Manual) 1.37 H (0-1.0) k/uL Myelocytes # (Manual) (0) k/uL Nucleated RBCs 1 H (0-0) /100 WBC PT 19.1 H (10.0-12.5) sec INR 1.9 H (<1.2) D-Dimer (<0.60) mg/L FEU Sodium 133 L (137-145) mmol/L Carbon Dioxide 19 L (22-30) mmol/L Creatinine 1.58 H (0.66-1.25) mg/dL Glucose 114 H (74-99) mg/dL Plasma Lactic Acid Ashish (0.7-2.0) mmol/L Total Bilirubin 2.7 H (0.2-1.3) mg/dL AST 177 H (17-59) U/L ALT 86 H (4-49) U/L Alkaline Phosphatase 837 H (38-126) U/L Total Protein 5.4 L (6.3-8.2) g/dL Albumin 2.6 L (3.5-5.0) g/dL SARS-CoV-2 (PCR) (Not Detectd) 02/27/25 02/27/25 02/27/25 Range/Units 18:28 18:44 21:30 WBC (4.50-10.00) 10*3/uL RBC (4.40-5.60) 10*6/uL Hgb (13.0-17.0) g/dL Hct (39.6-50.0) % Immature Gran # (0.00-0.04) 10*3/uL Neutrophils # (Manual) (1.3-7.7) k/uL Monocytes # (Manual) (0-1.0) k/uL Myelocytes # (Manual) (0) k/uL Nucleated RBCs (0-0) /100 WBC PT (10.0-12.5) sec INR (<1.2) D-Dimer (<0.60) mg/L FEU Sodium (137-145) mmol/L Carbon Dioxide (22-30) mmol/L Creatinine (0.66-1.25) mg/dL Glucose (74-99) mg/dL Plasma Lactic Acid Ashish 7.2 H* 6.8 H* (0.7-2.0) mmol/L Total Bilirubin (0.2-1.3) mg/dL AST (17-59) U/L ALT (4-49) U/L Alkaline Phosphatase (38-126) U/L Total Protein (6.3-8.2) g/dL Albumin (3.5-5.0) g/dL SARS-CoV-2 (PCR) Detected A (Not Detectd) 02/28/25 02/28/25 02/28/25 Range/Units 01:02 01:14 05:01 WBC 12.68 H (4.50-10.00) 10*3/uL RBC 3.32 L (4.40-5.60) 10*6/uL Hgb 9.5 L (13.0-17.0) g/dL Hct 29.6 L (39.6-50.0) % Immature Gran # 0.94 H (0.00-0.04) 10*3/uL Neutrophils # (Manual) 10.77 H (1.3-7.7) k/uL Monocytes # (Manual) (0-1.0) k/uL Myelocytes # (Manual) 0.25 H (0) k/uL Nucleated RBCs 1 H (0-0) /100 WBC PT (10.0-12.5) sec INR (<1.2) D-Dimer 2.87 H (<0.60) mg/L FEU Sodium (137-145) mmol/L Carbon Dioxide (22-30) mmol/L Creatinine (0.66-1.25) mg/dL Glucose (74-99) mg/dL Plasma Lactic Acid Ashish 5.1 H* (0.7-2.0) mmol/L Total Bilirubin (0.2-1.3) mg/dL AST (17-59) U/L ALT (4-49) U/L Alkaline Phosphatase (38-126) U/L Total Protein (6.3-8.2) g/dL Albumin (3.5-5.0) g/dL SARS-CoV-2 (PCR) (Not Detectd) 02/28/25 02/28/25 02/28/25 Range/Units 05:01 05:01 09:04 WBC (4.50-10.00) 10*3/uL RBC (4.40-5.60) 10*6/uL Hgb (13.0-17.0) g/dL Hct (39.6-50.0) % Immature Gran # (0.00-0.04) 10*3/uL Neutrophils # (Manual) (1.3-7.7) k/uL Monocytes # (Manual) (0-1.0) k/uL Myelocytes # (Manual) (0) k/uL Nucleated RBCs (0-0) /100 WBC PT (10.0-12.5) sec INR (<1.2) D-Dimer (<0.60) mg/L FEU Sodium 131 L (137-145) mmol/L Carbon Dioxide (22-30) mmol/L Creatinine 1.56 H (0.66-1.25) mg/dL Glucose 113 H (74-99) mg/dL Plasma Lactic Acid Ashish 4.8 H* 3.5 H* (0.7-2.0) mmol/L Total Bilirubin 2.6 H (0.2-1.3) mg/dL AST 147 H (17-59) U/L ALT 76 H (4-49) U/L Alkaline Phosphatase 748 H (38-126) U/L Total Protein 5.1 L (6.3-8.2) g/dL Albumin 2.4 L (3.5-5.0) g/dL SARS-CoV-2 (PCR) (Not Detectd)
--- NOTE | 2025-02-28 19:35 | P.CONS ---
History of Present Illness - Reason for Consult Consult date: 02/28/25 JOSE CARLOS Requesting physician: Link Keene - Chief Complaint JOSE CARLOS - History of Present Illness Consult note from 01/28 Mr. 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 He has noted chronic intermittent cough that has become more persistent in addition to new onset dyspnea that is occurred over the past 2 weeks. Over the past 1 to 2 months, he has noticed weight loss, which he estimates between 10 to 20 pounds. In addition, he has noted some episodes of falls as well. Due to pr ogressive dyspnea, he presented to the ED for additional evaluation. He had prolonged admission, discharged on 02/09/2025. Recurrent right pleural effusions requiring right-sided chest tube due to right hemothorax. CT chest revealed right hilar mass causing obstruction of the right mainstem bronchus with large pleural effusion and trapped lung. Repeat cytology on 01/31 was positive for metastatic carcinoma, possible small cell carcinoma. Brain MRI was negative for metastases. On 02/06/2025,he had right thoracentesis and bronchoscopy,cytology and biopsy of right main stem bronchus were positive for small cell lung cancer. On 02/16/2025,PET scan showed suspicious uptake in right lung,hilar,mediastinal nodes,osseous and liver mets. He was evaluated yesterday in clinic with Dr. Chirs bautista, recommended treatment with carbo/C[employer] CO FOUNDER-12/tecentriq. He was also referred to pulm for evaluation for thoracentesis. Patient represented to the emergency room with complaints of progressing shortness of breath. Upon admission patient was found to be positive for COVID- 19. Patient reports persisting cough with intermittent brown sputum. Denies fevers, nausea vomiting diarrhea. On admit lactic acid elevated at 7.2. Bilirubin 2.7 with transaminitis noted. BNP 2810. WBC 12.6, hemoglobin 29.5, platelets 287,000,. Creatinine 1.58, GFR 48. Chest x-ray showing complete opacification of right lung. Pulmonology has been consulted. Bilateral lower extremity Dopplers negative for DVT. Review of Systems 10 point ROS is negative except as stated in the HPI Past Medical History Past Medical History: Cancer, Chest Pain / Angina, COPD, Thyroid Disorder Additional Past Medical History / Comment(s): Hx Non-small cell lung cancer with chemo and radiation 7 years ago. stage 4 copd lung disease 2024. Small Cell Lung Cancer February 2025 History of Any Multi-Drug Resistant Organisms: None Reported Past Surgical History: Bariatric Surgery, Joint Replacement Additional Past Surgical History / Comment(s): RIGHT SHOULDER REPLACEMENT, ARTHUR EN Y, EGD. Past Anesthesia/Blood Transfusion Reactions: No Reported Reaction Past Psychological History: No Psychological Hx Reported Smoking Status: Former smoker Past Alcohol Use History: Occasional Past Drug Use History: None Reported - Past Family History Mother Family Medical History: No Reported History Medications and Allergies Home Medications Medication Instructions Recorded Confirmed Type Albuterol Inhaler [Ventolin Hfa 2 puff INHALATION RT-Q4H PRN 05/27/23 02/28/25 History Inhaler] Fluticasone/Umeclidin/Vilanter 1 puff INHALATION RT-DAILY 05/27/23 02/28/25 History [Trelegy Ellipta 100-62.5-25] Albuterol Nebulized [Ventolin 2.5 mg INHALATION RT-QID PRN 01/26/25 02/28/25 History Nebulized] Cholecalciferol [Vitamin D3 (25 50 mcg PO DAILY 01/26/25 02/28/25 History Mcg = 1000 Iu)] Levothyroxine Sodium [Synthroid] 50 mcg PO DAILY 01/26/25 02/28/25 History Metoprolol Succinate (ER) [Toprol 25 mg PO DAILY #30 tab 02/09/25 02/28/25 Rx XL] Tamsulosin [Flomax] 0.4 mg PO PC-BRKFST #30 cap 02/09/25 02/28/25 Rx HYDROcodone/APAP 5-325MG [[place] 1 tab PO Q4HR PRN 02/28/25 02/28/25 History 5-325] Allergies Allergy/AdvReac Type Severity Reaction Status Date / Time No Known Allergies Allergy Verified 02/28/25 10:20 Physical Exam Vitals: Vital Signs Temp Pulse Resp BP Pulse Ox 02/28/25 10:38 111 H 22 114/74 93 L 02/28/25 09:19 94 L 02/28/25 08:29 97.8 F 109 H 22 110/74 100 02/28/25 06:00 112 H 20 107/69 99 02/28/25 05:00 117 H 20 117/74 99 02/28/25 02:57 110 H 20 109/77 92 L 02/27/25 23:43 136 H 24 98/68 100 02/27/25 21:30 118 H 16 102/77 98 02/27/25 20:46 121 H 24 113/72 99 02/27/25 19:55 125 H 26 H 105/73 96 02/27/25 19:16 142 H 22 02/27/25 19:06 129 H 33 H 02/27/25 18:15 97.2 F L 129 H 22 103/61 97 Intake and Output 02/27/25 02/28/25 02/28/25 22:59 06:59 14:59 Other: Weight 78.018 kg - Constitutional General appearance: no acute distress - EENT Eyes: EOMI ENT: hearing grossly normal - Respiratory Respiratory: right: diminished - Cardiovascular BLE pitting edema Rhythm: regular - Gastrointestinal General gastrointestinal: soft, no tenderness - Integumentary Integumentary: no cyanotic, no jaundiced - Musculoskeletal Musculoskeletal: generalized weakness - Psychiatric Psychiatric: A&O x's 3 Results CBC & Chem 7: 02/28/25 05:01 02/28/25 05:01 Labs: Abnormal Lab Results - Last 24 Hours (Table) 02/27/25 02/27/25 02/27/25 Range/Units 18:28 18:28 18:28 WBC 13.67 H (4.50-10.00) 10*3/uL RBC 3.59 L (4.40-5.60) 10*6/uL Hgb 10.3 L (13.0-17.0) g/dL Hct 31.4 L (39.6-50.0) % Immature Gran # 1.05 H (0.00-0.04) 10*3/uL Neutrophils # (Manual) 10.38 H (1.3-7.7) k/uL Monocytes # (Manual) 1.37 H (0-1.0) k/uL Myelocytes # (Manual) (0) k/uL Nucleated RBCs 1 H (0-0) /100 WBC PT 19.1 H (10.0-12.5) sec INR 1.9 H (<1.2) D-Dimer (<0.60) mg/L FEU Sodium 133 L (137-145) mmol/L Carbon Dioxide 19 L (22-30) mmol/L Creatinine 1.58 H (0.66-1.25) mg/dL Glucose 114 H (74-99) mg/dL Plasma Lactic Acid Ashish (0.7-2.0) mmol/L Total Bilirubin 2.7 H (0.2-1.3) mg/dL AST 177 H (17-59) U/L ALT 86 H (4-49) U/L Alkaline Phosphatase 837 H (38-126) U/L Total Protein 5.4 L (6.3-8.2) g/dL Albumin 2.6 L (3.5-5.0) g/dL SARS-CoV-2 (PCR) (Not Detectd) 02/27/25 02/27/25 02/27/25 Range/Units 18:28 18:44 21:30 WBC (4.50-10.00) 10*3/uL RBC (4.40-5.60) 10*6/uL Hgb (13.0-17.0) g/dL Hct (39.6-50.0) % Immature Gran # (0.00-0.04) 10*3/uL Neutrophils # (Manual) (1.3-7.7) k/uL Monocytes # (Manual) (0-1.0) k/uL Myelocytes # (Manual) (0) k/uL Nucleated RBCs (0-0) /100 WBC PT (10.0-12.5) sec INR (<1.2) D-Dimer (<0.60) mg/L FEU Sodium (137-145) mmol/L Carbon Dioxide (22-30) mmol/L Creatinine (0.66-1.25) mg/dL Glucose (74-99) mg/dL Plasma Lactic Acid Ashish 7.2 H* 6.8 H* (0.7-2.0) mmol/L Total Bilirubin (0.2-1.3) mg/dL AST (17-59) U/L ALT (4-49) U/L Alkaline Phosphatase (38-126) U/L Total Protein (6.3-8.2) g/dL Albumin (3.5-5.0) g/dL SARS-CoV-2 (PCR) Detected A (Not Detectd) 02/28/25 02/28/25 02/28/25 Range/Units 01:02 01:14 05:01 WBC 12.68 H (4.50-10.00) 10*3/uL RBC 3.32 L (4.40-5.60) 10*6/uL Hgb 9.5 L (13.0-17.0) g/dL Hct 29.6 L (39.6-50.0) % Immature Gran # 0.94 H (0.00-0.04) 10*3/uL Neutrophils # (Manual) 10.77 H (1.3-7.7) k/uL Monocytes # (Manual) (0-1.0) k/uL Myelocytes # (Manual) 0.25 H (0) k/uL Nucleated RBCs 1 H (0-0) /100 WBC PT (10.0-12.5) sec INR (<1.2) D-Dimer 2.87 H (<0.60) mg/L FEU Sodium (137-145) mmol/L Carbon Dioxide (22-30) mmol/L Creatinine (0.66-1.25) mg/dL Glucose (74-99) mg/dL Plasma Lactic Acid Ashish 5.1 H* (0.7-2.0) mmol/L Total Bilirubin (0.2-1.3) mg/dL AST (17-59) U/L ALT (4-49) U/L Alkaline Phosphatase (38-126) U/L Total Protein (6.3-8.2) g/dL Albumin (3.5-5.0) g/dL SARS-CoV-2 (PCR) (Not Detectd) 02/28/25 02/28/25 02/28/25 Range/Units 05:01 05:01 09:04 WBC (4.50-10.00) 10*3/uL RBC (4.40-5.60) 10*6/uL Hgb (13.0-17.0) g/dL Hct (39.6-50.0) % Immature Gran # (0.00-0.04) 10*3/uL Neutrophils # (Manual) (1.3-7.7) k/uL Monocytes # (Manual) (0-1.0) k/uL Myelocytes # (Manual) (0) k/uL Nucleated RBCs (0-0) /100 WBC PT (10.0-12.5) sec INR (<1.2) D-Dimer (<0.60) mg/L FEU Sodium 131 L (137-145) mmol/L Carbon Dioxide (22-30) mmol/L Creatinine 1.56 H (0.66-1.25) mg/dL Glucose 113 H (74-99) mg/dL Plasma Lactic Acid Ashish 4.8 H* 3.5 H* (0.7-2.0) mmol/L Total Bilirubin 2.6 H (0.2-1.3) mg/dL AST 147 H (17-59) U/L ALT 76 H (4-49) U/L Alkaline Phosphatase 748 H (38-126) U/L Total Protein 5.1 L (6.3-8.2) g/dL Albumin 2.4 L (3.5-5.0) g/dL SARS-CoV-2 (PCR) (Not Detectd) Abdominal x-ray: report reviewed Venous US: report reviewed Assessment and Plan (1) COVID Current Visit: Yes Status: Acute Code(s): U07.1 - COVID-19 SNOMED Code(s): 408383783 (2) Dyspnea Current Visit: Yes Status: Acute Code(s): R06.00 - DYSPNEA, UNSPECIFIED SNOMED Code(s): 092235664 (3) History of lung cancer Current Visit: Yes Status: Acute Code(s): Z85.118 - PERSONAL HISTORY OF MALIGNANT NEOPLASM OF BRONCHUS AND LUNG SNOMED Code(s): 176023985 (4) Pleural effusion Current Visit: Yes Status: Acute Code(s): J90 - PLEURAL EFFUSION, NOT ELSEWHERE CLASSIFIED SNOMED Code(s): 40990695 Plan: SOB, COVID: Presented to the emergency room with complaints of progressing shortness of breath. -Upon admission patient was found to be positive for COVID-19. -Chest x-ray showing complete opacification of right lung. -Pulmonology has been consulted. May need repeat thoracentesis vs pleurx placement #Hx IIIa squamous cell carcinoma of the right lung. newly diagnosed SCLC -Oncology history as dictated in the HPI - Completed concurrent chemoradiotherapy with cisplatin/etoposide in January 2017. Recent diagnosis of SCLC - Plan to initiate carbo/[employer] F[employer]ER/tecentriq, tx has not yet started -Treatment on hold until recovered from COVID infection Doctor attests: I performed a history and physical examination of this patient, developed impression and plan of care. Discussed with dictator. I agree with dictators note, documented as a scribe.
[2025-03-01 06:39] LABS: HCT 31.3 % (39.6-50.0); HGB 9.8 g/dL (13.0-17.0); MCH 27.6 pg (27.0-32.0); MCHC 31.3 g/dL (32.0-37.0); MCV 88.2 fL (80.0-97.0); Mean Platelet Volume 10.4 fL (9.5-12.2); Platelet Count 282 10*3/uL (140-440); RBC 3.55 10*6/uL (4.40-5.60); WBC 14.15 10*3/uL (4.50-10.00)
[2025-03-01 06:45] LABS: RDW 22.5 % (11.5-14.5)
[2025-03-01 07:07] LABS: ALT 78 U/L (4-49); AST 136 U/L (17-59); African American GFR (CKD) 65 (>60 ml/min/1.73 sqM); Albumin 2.6 g/dL (3.5-5.0); Alkaline Phosphatase 741 U/L (38-126); Anion Gap 9 mmol/L; Blood Urea Nitrogen 26 mg/dL (9-20); C Reactive Protein 4.6 mg/dL (<1.0); Calcium 8.1 mg/dL (8.4-10.2); Carbon Dioxide 24 mmol/L (22-30); Chloride 98 mmol/L (98-107); Glucose 91 mg/dL (74-99); Magnesium 2.1 mg/dL (1.6-2.3); Non-African American GFR(CKD) 56 (>60 ml/min/1.73 sqM); Potassium 5.2 mmol/L (3.5-5.1); Sodium 131 mmol/L (137-145); Total Bilirubin 3.1 mg/dL (0.2-1.3); Total Protein 5.4 g/dL (6.3-8.2)
--- NOTE | 2025-03-01 07:58 | US ---
EXAMINATION TYPE: US abdomen limited DATE OF EXAM: 03/01/2025 COMPARISON: NONE CLINICAL INDICATION: Male, 59 years old with history of R sided abd pain, transaminitis, hyperbilirub inemi; Lung cancer TECHNIQUE: Grayscale and color Doppler imaging of the right upper quadrant was performed. FINDINGS: EXAM MEASUREMENTS: Liver Length: 20.8 cm Gallbladder Wall: 0.4 cm. Normal less than 0.3 cm CBD: 0.8 cm Right Kidney: 9.8 x 4.1 x 4.5 cm CARTON CATCHER NOTES: Pancreas: Tail obscured by overlying bowel gas Liver: Heterogenous, multiple lesions seen throughout Gallbladder: No pericholecystic fluid or cholelithiasis identified. Evidence for sonographic Hernandez's sign: No CBD: Dilated Right Kidney: wnl IMPRESSION: 1. Multiple lesions throughout the liver suspicious for metastatic disease. 2. Gallbladder wall thickening. No additional findings to suggest acute cholecystitis [facility], , 03/01/2025 7:56 AM
[2025-03-01] MEDS ORDERED: NON FORMULARY DRUG (Fluticasone/Umeclidin/Vilanter [Trelegy Ellipta 100-62.5-25] 1 EACH Bl INHALATION SCH (08:00)
[2025-03-01 09:35] LABS: Bilirubin, Conjugated 0.7 mg/dL (0.0-0.3); Bilirubin, Delta 1.6 mg/dL (0.0-0.2); Bilirubin,Unconjugated 0.7 mg/dL (0.0-1.1)
--- NOTE | 2025-03-01 10:58 | P.PN ---
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 He presented to our facility on 02/27/2025 with a chief complaint of shortness of breath. Patient reported symptoms began appro ximately 4 days ago and progressively worsened accompanied by a cough with hemoptysis and bilateral lower extremity edema. Upon arrival to our facility, patient underwent evaluation in the emergency department. Vital signs upon arrival show blood pressure 103/61, heart rate 129, respiratory rate 22, temp 97.2 F, and SpO2 of 97% on 3 L. EKG completed showing sinus tachycardia 125 bpm with diffuse nonspecific T wave abnormalities in inferior/lateral leads. Chest x-ray revealing complete opacification of right lung. Venous Doppler was completed bilateral lower extremities negative for DVT. Labs completed and reviewed. CBC showing leukocytosis with WBC count of 13.67 and normocytic anemi a with hemoglobin of 10.3. Coagulation profile showing elevated PT of 19.1 and INR of 1.9. BMP showing sodium 133, bicarb of 19, and elevated anion gap of 15. Renal function showing acute kidney injury with BUN of 17, creatinine 1.58, GFR 48 with a baseline creatinine of 0.56. Lactic acid initially 7.2. Liver profile showing hyperbilirubinemia and transaminitis with total bili of 2.7, AST of 177, ALT of 86, and alkaline phosphatase of 837. Troponin negative at less than 0.012 and proBNP slightly elevated at 2810. Influenza A, influenza B, and RSV were negative. COVID PCR was positive. Patient admitted under our services with consultation to pulmonology. Physical exam: Patient was seen and fully evaluated at time of return from VQ scan. He currently reports shortness of breath and states just feeling extremely tired and very weak. Vital signs reviewed and stable. General: Nontoxic, no distress and appears stated age. Derm: Skin warm and dry, normal coloration for ethnicity. Head: Atraumatic, normocephalic and symmetric. Eyes: EOM's intact, no lid lag, and anicteric sclera Mouth: no lip lesions, mucus membranes moist Cardiovascular: regular rate and rhythm with normal S1S2, no murmur, positive posterior tibial pulses bilaterally, and cap refill < 2 seconds. Lungs: Respirations even, regular, and unlabored on supplemental oxygen. Lungs significantly diminished throughout the right, diffuse rhonchi on left Abdominal: soft, nontender to palpation, no guarding, no appreciable organomegaly Ext: ROM intact. No gross muscle atrophy, 2+ pitting bilateral lower extremity edema, no contractures Neuro: Speech clear, face symmetrical and CN II-XII grossly intact with no noted focal neuro deficits Psych: Alert and oriented to person, place, time, and situation. Appropriate and pleasant affect. 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 - Encourage Incentive Spirometry 10-15x hourly while awake - Steroids: Decadron 6 mg daily - Continue vitamin C, Vitamin D, and Zinc. - Pulmonology following, reviewed documentation in chart. - DVT prophylaxis with heparin. - Strict Droplet plus Contact precautions - DuoNebs scheduled 4 times daily and as needed for shortness of breath and/or wheezing. Continue Spiriva 2.5 mcg inhaler 2 puffs daily and Symbicort 160-4.5 mcg inhaler 2 puffs twice daily. - D-dimer elevated likely inflammatory secondary to COVID-19 infection, however secondary to underlying cancer, tachypnea, tachycardia, and hypoxia will obtain VQ scan. Unable to do CTA at this time secondary to MONIE. - Oncology team following, discussed plan of care with oncology CART ATTENDANT and chemotherapy treatment on hold until patient recovers from COVID infection. Hyperbilirubinemia with transaminitis -Transaminitis appears to be ongoing and chronic, patient underwent PET scan 02/16/2025 which revealed small cell lung cancer with metastasis to mediastinal lymph nodes, liver, and bone. -Hyperbilirubinemia is a new finding this admission, possibly reactive secondary to COVID-19 infection or in conjunction with liver lesions. -Abdominal ultrasound showing multiple lesions throughout the liver suspicious for metastatic disease and gallbladder wall thickening with no additional findi ngs to suggest acute cholecystitis but also revealing a dilated common bile duct of 0.8 cm. Order placed for fractionated bilirubin levels to determine if bilirubin elevation is coming from liver or gallbladder. Additional orders may be placed pending these results. Continue close monitoring with repeat a.m. labs. Acute kidney injury, improving Hyperkalemia Creatinine improving to 1.38 this morning from initial 1.58 with baseline creatinine of 0.56. Will discontinue IV fluids at this time secondary to patient's edema on arrival and improvement of renal function.. Bladder scan and monitor for postvoid residual/retention Continue close monitoring with repeat a.m. labs. Lactic acidosis Improving. Lactate initially 7.2 and trended downward to lactic acid of 2.6. Hypertension Monitor vital signs and continue daily medication regimen with metoprolol 25 mg daily. Hypothyroidism Continue levothyroxine 50 mcg daily. BPH Continue Flomax 0.4 mg daily Data and imaging reviewed: Abdominal ReSound completed showing multiple lesions throughout the liver suspicious for metastatic disease and gallbladder wall thickening with no additional findings to suggest acute cholecystitis but also revealing a dilated common bile duct of 0.8 cm. Repeat morning labs reviewed. CBC showing leukocytosis with WBC count of 14.15, hemoglobin of 9.8, hematocrit 31.3, and MCHC of 31.3 with RDW elevated at 22.5. BMP showing hyponatremia with sodium of 131, hyperkalemia with potassium of 5.2, and slight improvement of renal function with BUN of 26, creatinine 1.38, GFR 56. Blood glucose was 91. Magnesium 2.1. Liver profile showing worsening bilirubin of 3.1 and continued transaminitis with AST of 136, ALT of 78, and alkaline phosphatase of 741. Order placed for fractionated bilirubin levels to determine if bilirubin elevation is coming from known metastatic disease throughout liver or gallbladder. Vital signs reviewed. Blood pressure 104/66, heart rate 102, respiratory rate 20, temp 97.5 F, and SpO2 of 97% on 4 L. CODE STATUS: Full code DVT prophylaxis: Heparin Anticipated discharge date: Pending clinical course Anticipated discharge place: Pending clinical course Patient was seen independently by Nurse Pracitioner. This document was prepared using [employer] dictation software. Please allow for errors in risk management director, while rare they do occur. Isiah Carr NP rendered care for this patient independently, reviewed the findings and plan as documented in the note above and agree with plan. I did not physically speak with or examine the patient on this date. Objective - Vital Signs Vital signs: Vital Signs Temp 97.5 F L 03/01/25 08:04 Pulse 102 H 03/01/25 08:04 Resp 20 03/01/25 08:04 BP 104/66 03/01/25 08:04 Pulse Ox 97 03/01/25 08:04 FiO2 - Labs CBC & Chem 7: 03/01/25 05:57 03/01/25 05:57 Labs: Abnormal Lab Results - Last 24 Hours (Table) 02/28/25 02/28/25 02/28/25 Range/Units 05:01 09:04 12:35 WBC 12.68 H (4.50-10.00) 10*3/uL RBC (4.40-5.60) 10*6/uL Hgb (13.0-17.0) g/dL Hct (39.6-50.0) % MCHC (32.0-37.0) g/dL RDW (11.5-14.5) % Neutrophils # (Manual) 10.77 H (1.3-7.7) k/uL Myelocytes # (Manual) 0.25 H (0) k/uL Nucleated RBCs 1 H (0-0) /100 WBC Sodium (137-145) mmol/L Potassium (3.5-5.1) mmol/L BUN (9-20) mg/dL Creatinine (0.66-1.25) mg/dL Plasma Lactic Acid Ashish 3.5 H* 2.6 H* (0.7-2.0) mmol/L Calcium (8.4-10.2) mg/dL Total Bilirubin (0.2-1.3) mg/dL AST (17-59) U/L ALT (4-49) U/L Alkaline Phosphatase (38-126) U/L C-Reactive Protein (<1.0) mg/dL Total Protein (6.3-8.2) g/dL Albumin (3.5-5.0) g/dL 02/28/25 02/28/25 02/28/25 Range/Units 15:53 19:19 22:45 WBC (4.50-10.00) 10*3/uL RBC (4.40-5.60) 10*6/uL Hgb (13.0-17.0) g/dL Hct (39.6-50.0) % MCHC (32.0-37.0) g/dL RDW (11.5-14.5) % Neutrophils # (Manual) (1.3-7.7) k/uL Myelocytes # (Manual) (0) k/uL Nucleated RBCs (0-0) /100 WBC Sodium (137-145) mmol/L Potassium (3.5-5.1) mmol/L BUN (9-20) mg/dL Creatinine (0.66-1.25) mg/dL Plasma Lactic Acid Ashish 2.7 H* 3.8 H* 3.9 H* (0.7-2.0) mmol/L Calcium (8.4-10.2) mg/dL Total Bilirubin (0.2-1.3) mg/dL AST (17-59) U/L ALT (4-49) U/L Alkaline Phosphatase (38-126) U/L C-Reactive Protein (<1.0) mg/dL Total Protein (6.3-8.2) g/dL Albumin (3.5-5.0) g/dL 03/01/25 03/01/25 Range/Units 05:57 05:57 WBC 14.15 H (4.50-10.00) 10*3/uL RBC 3.55 L (4.40-5.60) 10*6/uL Hgb 9.8 L (13.0-17.0) g/dL Hct 31.3 L (39.6-50.0) % MCHC 31.3 L (32.0-37.0) g/dL RDW 22.5 H (11.5-14.5) % Neutrophils # (Manual) (1.3-7.7) k/uL Myelocytes # (Manual) (0) k/uL Nucleated RBCs (0-0) /100 WBC Sodium 131 L (137-145) mmol/L Potassium 5.2 H (3.5-5.1) mmol/L BUN 26 H (9-20) mg/dL Creatinine 1.38 H (0.66-1.25) mg/dL Plasma Lactic Acid Ashish (0.7-2.0) mmol/L Calcium 8.1 L (8.4-10.2) mg/dL Total Bilirubin 3.1 H (0.2-1.3) mg/dL AST 136 H (17-59) U/L ALT 78 H (4-49) U/L Alkaline Phosphatase 741 H (38-126) U/L C-Reactive Protein 4.6 H (<1.0) mg/dL Total Protein 5.4 L (6.3-8.2) g/dL Albumin 2.6 L (3.5-5.0) g/dL
[2025-03-01 11:41] LABS: Erythrocyte Sedimentation Rate 43 mm/Hr (0-20)
[2025-03-01] MEDS ORDERED: ONDANSETRON 4 MG/2 ML VIAL IVP PRN (11:53)
--- NOTE | 2025-03-01 13:18 | XR ---
EXAMINATION TYPE: XR chest 1V DATE OF EXAM: 03/01/2025 12:43 PM COMPARISON: 02/27/2025 CLINICAL INDICATION: Male, 59 years old with history of compare to VQ scan results, TECHNIQUE: XR chest 1V view(s) obtained. FINDINGS: The heart size is normal. The pulmonary vasculature is normal. Right lung opacity is present. There may be some aeration of the right upper lung field. IMPRESSION: 1. Opacified right lung. Some residual aeration of the right upper lobe may be present. [facility], , 03/01/2025 1:16 PM
--- NOTE | 2025-03-01 13:19 | NM ---
EXAMINATION TYPE: NM pul perfusion DATE OF EXAM: 03/01/2025 COMPARISON: Chest x-ray 03/01/2025 CLINICAL INDICATION: Male, 59 years old with history of Elevated D-dimer, COVID, hypoxia; Following administration of 5.15 mCi Tc 99m MAA. Images obtained post injection. FINDINGS: No perfusion of the right hemithorax is evident. Left lung perfusion appears normal. No ventilation h as been performed. Preliminary report was called to [place] in ER by Dr. Vick by telephone at 1140 hours 03/01/2025. IMPRESSION: No perfusion into the right lung. Correlate for large central pulmonary embolism. [email or web address] A Red level critical message alert has been initiated for Rosalia Kaplan MD via the [employer] Critical Results System on 03/01/2025 1:16 PM. This message alert has been sent to Rosalia Kaplan MD via the preferences provided by the clinician for the receipt of Radiology Critical Findings. Ak ssage ID [id number]. [facility], , 03/01/2025 1:16 PM
[2025-03-01] MEDS ORDERED: HEPARIN SODIUM 1,000 UN/ML (10ML VL) IV PRN (13:35)
[2025-03-01 13:59] LABS: Appearance,Urine Cloudy (Clear); Bacteria,Urine Many /hpf; Bilirubin,Urine 2+ (Negative); Blood,Urine Large (Negative); Color,Urine Dark Brown; Glucose,Urine (UA) Negative (Negative); Hyaline Casts,Urine 28 /lpf (0-2); Ketones,Urine Negative (Negative); Leukocyte Esterase,Urine Large (Negative); Mucus,Urine Few /hpf; Nitrite,Urine Negative (Negative); PH, Urine 5.5 (5.0-8.0); Protein,Urine 1+ (Negative); RBC,Urine 25 /hpf (0-5); Specific Gravity,Urine 1.028 (1.001-1.035); Squamous Epithelial Cell,Urine <1 /hpf (0-4); WBC,Urine 70 /hpf (0-5)
[2025-03-01] MEDS: HEPARIN SODIUM 1,000 UN/ML (10ML VL) IV ONE (14:37)
[2025-03-01] MEDS: HEPARIN SOD,PORK IN 0.45% NACL 25,000 UNIT in 0.45% NACL 1 250ML.BAG IV SCH (14:39)
--- NOTE | 2025-03-01 14:51 | CT ---
EXAMINATION TYPE: CT chest angio for PE CT DLP: 474.7 mGycm, Automated exposure control for dose reduction was used. DATE OF EXAM: 03/01/2025 2:30 PM COMPARISON: Chest radiograph 03/01/2025, nuclear medicine pulmonary perfusion 03/01/2025, PET/CT 025, CT chest 01/27/2025 CLINICAL INDICATION:Male, 59 years old with history of Elevated d-dimer, hypoxia, Covid, Positive VQ scan; Elevated d-dimer, hypoxia, Covid, Positive VQ scan TECHNIQUE/CONTRAST: CTA scan of the thorax is performed with IV Contrast, patient injected with 60ml mL of Isovue 370, pu lmonary embolism protocol. MIP images are created and reviewed. FINDINGS: Pulmonary Artery: There is no evidence for a filling defect within the pulmonary vasculature to sugge st acute pulmonary embolism. The pulmonary artery is of normal size. There is encasement with narro wing of the right upper lobe pulmonary arteries. Lungs/Pleura: No left-sided pneumothorax. Development of few scattered peripheral groundglass subpleu ral opacities within the left upper lobe. Development of vague groundglass 1.3 cm pulmonary nodule wi thin the medial aspect of the right lower lobe (series 406, image 81). Complete opacification of the right hemithorax with moderate to large volume pleural effusion with trace gas. Consistent with hydro pneumothorax. Ill-defined right lung mass extending into the hilum which demonstrate FDG activity on prior PET/CT. Difficult to measure due to surrounding atelectasis. There is surrounding postobstructi ve atelectasis. Additional multiple right lung pleural-based metastasis identified. Trace left pleura l effusion. Airway: There is trace amount of secretions within the trachea extending into the left main bronchus. Complete cut off of the right mainstem bronchus due to surrounding mass. Heart: Size within normal limits.No pericardial effusion. Mild coronary artery calcifications present . Vasculature: No evidence of aortic aneurysm. Mediastinum: Multiple enlarged and conglomerate adenopathy within the mediastinum extending into the right hilum. Example includes a right paratracheal lymph node measuring up to 2.7 cm. Additional mult iple enlarged right pericardial metastatic disease nodules measuring up to 1.6 cm.. Demonstrates FDG activity on prior PET/CT. Musculoskeletal: No acute osseous abnormalities. Remote multiple ununited left posterior rib fracture s. Multiple healing right-sided rib fractures again. Postsurgical changes from right shoulder arthrop lasty. Left shoulder arthropathy. Similar superior endplate compression deformity versus Schmorl's no de involving the T4 vertebral body. Similar anterior wedging of the T10 and T12 vertebral bodies. No aggressive osseous lesion. Soft Tissues: Mild diffuse anasarca. Lower neck: Enlarged right supraclavicular lymph node measuring up to 2.7 cm. Demonstrated FDG activi ty in prior PET/CT. Additional enlarged right supraclavicular lymph node that measured FDG activity m easuring up to 3.0 cm. Upper Abdomen: Innumerable enhancing lesions throughout the liver consistent with metastasis. Multipl e calculi within the superior pole of the right kidney measuring up to 1.7 cm. Postsurgical changes f rom Yancy-en-Y gastric bypass. Multiple enlarged peripancreatic lymph nodes with largest measuring up to 1.6 cm short axis. Postsurgical changes of the anterior abdominal wall with diastasis rectus and p artial visualization of fat-containing hernia. IMPRESSION: 1. No evidence of pulmonary embolism. 2. Redemonstration of right-sided lung cancer with extensive metastasis as seen on recent PET/CT. Mod erate to large volume right pleural effusion with trace gas consistent with hydropneumothorax. Right lung mass is difficult to measure due to surrounding postobstructive atelectasis. The lung cancer enc ases and narrows the right upper lobe main pulmonary artery and causes complete invasion and instruct ion of the right mainstem bronchus. Multiple enlarged right supraclavicular, mediastinal, epicardial, and peripancreatic metastatic lymph nodes redemonstrated. Innumerable enhancing metastatic liver les ions. Multiple enhancing right pleural base metastatic disease identified. 3. Development of left upper lobe subpleural patchy groundglass opacities with additional medial left lower lobe groundglass nodule. Findings are concerning for infectious/inflammatory disease with unde rlying developing metastasis is not excluded. [facility], , 03/01/2025 2:49 PM
[2025-03-01 14:57] LABS: Partial Thromboplastin Time 27.5 sec (22.0-30.0); Prothrombin Time 20.2 sec (10.0-12.5)
--- NOTE | 2025-03-01 18:50 | P.PN ---
Progress Note - Text Progress Note Date: 03/01/25 Have spoke with admitting team. Pulm was also contacted by admitting service. No plan for thora or pleurx at this time. Spoke with primary oncologist, Neela Esposito, as long as pt remains afebrile and HDS, will plan to initiate inpt chemo with Carbo/UNDER SHERIFF. Chemo orders will be placed in the morning COVID testing reordered.
--- NOTE | 2025-03-01 19:51 | P.PN ---
Subjective Progress Note Date: 03/01/25 Patient is a 59-year-old male past medical history significant for former tobacco use, COPD, non-small cell lung cancer diagnosed originally back in 2017 treated with chemotherapy. More recently, hospitalized Jan, 2025, his right lung was completely opacified. CT of chest done January 27, 2025 remarkable for encasing right hilar mass with collapse signs of the right mainstem bronchus and collapse of entire right lung with large right pleural effusion and mild smooth pleural thickening. Additionally, right hilar adenopathy measuring up to 1.5 cm and right pericardiac adenopathy measuring 2.2 cm. Patient underwent subsequent right-sided thoracentesis and a total of 2.8 L of grossly bloody fluid was removed from the right pleural space at that time. Pathology from this fluid was nondiagnostic. Still had a significant right-sided pleural effusion and a pigtail catheter was placed by IR on January 27. Developed trapped lung. Did undergo bronchoscopy with transbronchial biopsies and pathology was positive for small cell carcinoma. Patient was discharged on February 09. Follow-up PET scan showing marked uptake throughout the right thoracic cavity, evidence of metastatic disease to mediastinal lymph nodes, multiple metastatic lesions to the liver, and multiple osseous lesions including the cervical spine, left proximal humerus, ribs, lumbar spine, pelvis. Also, right-sided pleural effusion with air-fluid levels. Reportedly established with medical oncology, however, has not started treatment as of yet. Presented to emergency department yesterday evening with chief complaint of shortness of breath, congested cough, and subjective fevers. Hypotensive and tachycardic on arrival, received 1 liter lactated Ringer's fluid bolus. Workup in the emergency department including a positive COVID PCR test. Chest x-ray demonstrating complete right hemithorax opacification. Labs including a CBC with a WBC count of 13.7, hemoglobin 10.3, platelets 358. PT 19.1, INR 1.9. CMP with sodium 133, potassium 4.7, chloride 99, serum bicarb 19, BUN 17, creatinine 1.58, glucose 114. Lactic elevated at 7.2 and is down to 6.8. LFTs mildly elevated consistent with patient's metastatic disease. EKG: Sinus tachycardia, rate 125 bpm, no acute ischemic changes. S1Q3T3 Troponin less than 0.012. NT proBNP elevated at 2810. Patient currently being evaluated emergency department. He is sitting at the edge of the stretcher. He is on room air. He does have home O2 available, uses 2 L/min nasal cannula as needed basis. Does not appear in respiratory distress. Endorsing increased work of breathing. Associated persistent congested cough with clear sputum production. States this developed approximately 48 hours ago. Denies hemoptysis. Denies purulent sputum. Endorses intermittent subjective fevers. Denies known sick contacts. States he lives at home with his who has been feeling relatively well. He has had poor appetite. No nausea, vomiting, diarrhea. He has been generally weak with troubles ambulating. There is lower extremity swelling. Denies any chest pain, heart palpitations, lightheadedness or syncope. Denies history of DVT/PE. Denies previous history of COVID infection. States he is up-to-date with his COVID vaccinations. Previously, started on IV Decadron. Current vital signs: Heart 136 bpm, blood pressure 98/68 mmHg, respiratory rate nontachypneic, SpO2 previous recorded at 100% on 3 L/min nasal cannula. On 03/01/2025, the patient is being seen for a follow-up. The patient has no specific complaints. No chest pain. No pleurisy or hemoptysis. A VQ scan was ordered by the primary care team and obviously this will be a suboptimal study based on the patient's extensive baseline abnormalities involving the right lung which involves endobronchial tumor, collapse of the right lung and right-sided pleural effusion. This was followed up by a CTA of the chest that showed no evidence of any pulmonary embolism and the patient was found to have complete collapse of the right lung with endobronchial tumor and a moderate to large right-sided pleural effusion. The patient has extensive metastases with multiple enlarged right supraclavicular, mediastinal and AP cardial and peripancreatic lymph node involvement and the patient has multiple enhancing metastatic liver lesions consistent with malignancy. The patient is currently on Symbicort and Spiriva, Ventolin HFA and as-needed basis, Lovenox for DVT prophylaxis. The patient is also on Decadron regarding his COVID-19 infection. The white cell count is at 14 with a hemoglobin 9.8 and a platelet count of 282. Creatinine is at 1.38 with a BUN of 26. Sodium levels at 131 and a potassium level is at 5.2. LFTs are normal related to metastatic liver disease. Remains on 4 L of oxygen by nasal cannula with a pulse ox of 95%. Objective - Vital Signs Vital signs: Vital Signs Temp 98.0 F 03/01/25 14:53 Pulse 95 03/01/25 14:53 Resp 16 03/01/25 14:53 BP 95/71 03/01/25 14:53 Pulse Ox 99 03/01/25 14:53 FiO2 - Exam GENERAL EXAM: Alert, 59-year-old male, sitting at the edge of the bed, comfortable in no apparent distress. The patient is currently on 4 L of oxygen by nasal cannula with a pulse ox of 95%. HEAD: Normocephalic and atraumatic EYES: Normal reaction of pupils, equal size. NOSE: Clear with pink turbinates. THROAT: No erythema or exudates. NECK: No masses, no JVD. CHEST: Barrel chest. LUNGS: Equal air entry with diminished lung sounds on the right, and scattered rhonchi on the left. Breath sounds are markedly diminished on the right c ompared to left. No conversational dyspnea or accessory muscle use.. CVS: S1 and S2 normal with no audible murmur, regular rhythm. No extra heart sounds ABDOMEN: No hepatosplenomegaly, active bowel sounds, no guarding or rigidity. SPINE: No scoliosis or deformity SKIN: No rashes CENTRAL NERVOUS SYSTEM: No focal deficits, tone is normal in all 4 extremities. EXTREMITIES: There is 2-3+ bilateral lower extremity edema. No clubbing or cyanosis. Peripheral pulses are intact. - Labs CBC & Chem 7: 03/01/25 05:57 03/01/25 05:57 Labs: Abnormal Lab Results - Last 24 Hours (Table) 02/28/25 02/28/25 02/28/25 Range/Units 15:53 19:19 22:45 WBC (4.50-10.00) 10*3/uL RBC (4.40-5.60) 10*6/uL Hgb (13.0-17.0) g/dL Hct (39.6-50.0) % MCHC (32.0-37.0) g/dL RDW (11.5-14.5) % ESR (0-20) mm/Hr PT (10.0-12.5) sec INR (<1.2) Sodium (137-145) mmol/L Potassium (3.5-5.1) mmol/L BUN (9-20) mg/dL Creatinine (0.66-1.25) mg/dL Plasma Lactic Acid Ashish 2.7 H* 3.8 H* 3.9 H* (0.7-2.0) mmol/L Calcium (8.4-10.2) mg/dL Total Bilirubin (0.2-1.3) mg/dL Conjugated Bilirubin (0.0-0.3) mg/dL Delta Bilirubin (0.0-0.2) mg/dL AST (17-59) U/L ALT (4-49) U/L Alkaline Phosphatase (38-126) U/L C-Reactive Protein (<1.0) mg/dL Total Protein (6.3-8.2) g/dL Albumin (3.5-5.0) g/dL Urine Protein (Negative) Urine Blood (Negative) Urine Bilirubin (Negative) Ur Leukocyte Esterase (Negative) Urine RBC (0-5) /hpf Urine WBC (0-5) /hpf Urine Bacteria (None) /hpf Hyaline Casts (0-2) /lpf Urine Mucus (None) /hpf 03/01/25 03/01/25 03/01/25 Range/Units 05:57 05:57 05:57 WBC 14.15 H (4.50-10.00) 10*3/uL RBC 3.55 L (4.40-5.60) 10*6/uL Hgb 9.8 L (13.0-17.0) g/dL Hct 31.3 L (39.6-50.0) % MCHC 31.3 L (32.0-37.0) g/dL RDW 22.5 H (11.5-14.5) % ESR 43 H (0-20) mm/Hr PT (10.0-12.5) sec INR (<1.2) Sodium 131 L (137-145) mmol/L Potassium 5.2 H (3.5-5.1) mmol/L BUN 26 H (9-20) mg/dL Creatinine 1.38 H (0.66-1.25) mg/dL Plasma Lactic Acid Ashish (0.7-2.0) mmol/L Calcium 8.1 L (8.4-10.2) mg/dL Total Bilirubin 3.1 H 3.0 H (0.2-1.3) mg/dL Conjugated Bilirubin 0.7 H (0.0-0.3) mg/dL Delta Bilirubin 1.6 H (0.0-0.2) mg/dL AST 136 H (17-59) U/L ALT 78 H (4-49) U/L Alkaline Phosphatase 741 H (38-126) U/L C-Reactive Protein 4.6 H (<1.0) mg/dL Total Protein 5.4 L (6.3-8.2) g/dL Albumin 2.6 L (3.5-5.0) g/dL Urine Protein (Negative) Urine Blood (Negative) Urine Bilirubin (Negative) Ur Leukocyte Esterase (Negative) Urine RBC (0-5) /hpf Urine WBC (0-5) /hpf Urine Bacteria (None) /hpf Hyaline Casts (0-2) /lpf Urine Mucus (None) /hpf 03/01/25 03/01/25 Range/Units 13:30 14:37 WBC (4.50-10.00) 10*3/uL RBC (4.40-5.60) 10*6/uL Hgb (13.0-17.0) g/dL Hct (39.6-50.0) % MCHC (32.0-37.0) g/dL RDW (11.5-14.5) % ESR (0-20) mm/Hr PT 20.2 H (10.0-12.5) sec INR 2.0 H (<1.2) Sodium (137-145) mmol/L Potassium (3.5-5.1) mmol/L BUN (9-20) mg/dL Creatinine (0.66-1.25) mg/dL Plasma Lactic Acid Ashish (0.7-2.0) mmol/L Calcium (8.4-10.2) mg/dL Total Bilirubin (0.2-1.3) mg/dL Conjugated Bilirubin (0.0-0.3) mg/dL Delta Bilirubin (0.0-0.2) mg/dL AST (17-59) U/L ALT (4-49) U/L Alkaline Phosphatase (38-126) U/L C-Reactive Protein (<1.0) mg/dL Total Protein (6.3-8.2) g/dL Albumin (3.5-5.0) g/dL Urine Protein 1+ H (Negative) Urine Blood Large H (Negative) Urine Bilirubin 2+ H (Negative) Ur Leukocyte Esterase Large H (Negative) Urine RBC 25 H (0-5) /hpf Urine WBC 70 H (0-5) /hpf Urine Bacteria Many H (None) /hpf Hyaline Casts 28 H (0-2) /lpf Urine Mucus Few H (None) /hpf Assessment and Plan Assessment: Acute on chronic dyspnea, secondary to a combination of acute COVID-19 infection, acute COPD exacerbation, and underlying metastatic lung cancer. Chest x-ray remarkable for complete right lung opacification. CT of the chest shows no evidence of any pulm embolism. The right lung is completely atelectatic but due to endobronchial tumor and the patient also has a large right-sided pleural effusion and evidence of metastatic small cell lung cancer. Acute kidney injury, likely secondary to hypotension and ATN, improving Metastatic small cell lung carcinoma; right lung mass encasing right mainstem bronchus with metastasis to the mediastinum, liver, and bone. Bronchoscopy with transbronchial biopsies done on 02/07/2025 positive for small cell lung carcinoma. Follow-up PET scan showing marked uptake throughout the right thoracic cavity, evidence of metastatic disease to mediastinal lymph nodes, hepatic lesions, and diffuse osseous involvement. Also, right-sided pleural effusion with air-fluid levels. History of right-sided pleural effusion, status postthoracentesis, and pathology was essentially nondiagnostic. Patient did have a follow-up right-sided pigtail catheter, developed trapped lung, catheter has since been removed. 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 Bilateral lower extremity edema Elevated liver enzymes with known liver mets Normocytic, normochromic anemia, no overt signs of blood loss Chronic tobacco dependence Severe chronic obstructive pulmonary disease, FEV1 30% of predicted, maintained on Trelegy maintenance inhaler at home Previous bariatric surgery. Hypothyroidism. Plan: Patient currently on 4 L of oxygen by nasal cannula CAT scan of the chest was noted. This was a CT angiogram that showed no evidence of any pulmonary embolism. The same time, the patient has completely opacified right lung due to complete right lung atelectasis and right-sided pleural effusion and there is no role for thoracentesis or any drainage of the pleural fluid as the patient has a trapped lung with endobronchial tumor. Please refer to my original bronchoscopy that was done few weeks back. Continue supportive care Continue IV Decadron Continue IV maintenance fluids Monitor renal function, improving Combination of bronchodilators, Symbicort inhaler and Spiriva Doppler of lower extremities are negative for DVT Medical oncology consulted, and the patient is in need for systemic chemotherapy including carboplatin and [employer]-16 and Tecentriq. I emphasized again, there is absolutely no need for thoracentesis or Pleurx catheter insertion. The patient has endobronchial tumor in the right mainstem and the right upper lobe and those procedures will not achieve any successful reexpansion of the right lung due to the heavy tumor burden endobronchially. The patient has very prognosis based on his underlying metastatic small cell lung cancer. Time with Patient: Greater than 30
[2025-03-01 20:27] LABS: Influenza A Not Detected (Not Detectd); Influenza B Not Detected (Not Detectd); RSV Not Detected (Not Detectd)
[2025-03-01 22:58] LABS: HCT 28.5 % (39.6-50.0); HGB 9.4 g/dL (13.0-17.0); MCH 28.8 pg (27.0-32.0); MCV 87.4 fL (80.0-97.0); Mean Platelet Volume 12.3 fL (9.5-12.2); Platelet Count 247 10*3/uL (140-440); RBC 3.26 10*6/uL (4.40-5.60); RDW 22.6 % (11.5-14.5); WBC 14.51 10*3/uL (4.50-10.00)
[2025-03-01 23:28] LABS: Band Neutrophils % 2 %; Lymphocytes # (M) 1.16 k/uL (1.0-4.8); Metamyelocytes # (M) 0.29 k/uL (0); Metamyelocytes % 2 %; Monocytes # (M) 1.16 k/uL (0-1.0); Neutrophils # (M) 12.04 k/uL (1.3-7.7); Neutrophils % (M) 81 %; Nucleated Red Blood Cells 0 /100 WBC (0-0); Total Cells Counted 200
[2025-03-01 23:50] LABS: Mixed Population RBC Present
[2025-03-02 07:56] LABS: HCT 29.5 % (39.6-50.0); HGB 9.4 g/dL (13.0-17.0); MCH 28.7 pg (27.0-32.0); MCHC 31.9 g/dL (32.0-37.0); MCV 89.9 fL (80.0-97.0); Mean Platelet Volume 11.6 fL (9.5-12.2); Platelet Count 239 10*3/uL (140-440); RBC 3.28 10*6/uL (4.40-5.60); RDW 22.4 % (11.5-14.5); WBC 13.05 10*3/uL (4.50-10.00)
[2025-03-02 08:15] LABS: ALT 79 U/L (4-49); AST 138 U/L (17-59); African American GFR (CKD) 57 (>60 ml/min/1.73 sqM); Albumin 2.5 g/dL (3.5-5.0); Alkaline Phosphatase 744 U/L (38-126); Anion Gap 8 mmol/L; Blood Urea Nitrogen 31 mg/dL (9-20); C Reactive Protein 3.4 mg/dL (<1.0); Calcium 8.1 mg/dL (8.4-10.2); Carbon Dioxide 23 mmol/L (22-30); Chloride 97 mmol/L (98-107); Glucose 84 mg/dL (74-99); Magnesium 2.2 mg/dL (1.6-2.3); Non-African American GFR(CKD) 49 (>60 ml/min/1.73 sqM); Potassium 5.4 mmol/L (3.5-5.1); Sodium 128 mmol/L (137-145); Total Protein 5.4 g/dL (6.3-8.2)
[2025-03-02] MEDS: ENOXAPARIN 40 MG/0.4 ML SYRINGE SQ SCH (08:24)
[2025-03-02] MEDS: PHYTONADIONE 5 MG in SODIUM CHLORIDE 0.9% 50 ML IVPB STA (12:41)
--- NOTE | 2025-03-02 13:45 | P.PN ---
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 He presented to our facility on 02/27/2025 with a chief complaint of shortness of breath. Patient reported symptoms began approximately 4 days ago and progressively worsened accompanied by a cough with hemoptysis and bilateral lower extremity edema. Upon arrival to our facility, patient underwent evaluation in the emergency department. Vital signs upon arrival show blood pressure 103/61, heart rate 129, respiratory rate 22, temp 97.2 F, and SpO2 of 97% on 3 L. EKG completed showing sinus tachycardia 125 bpm with diffuse nonspecific T wave abnormalities in inferior/lateral leads. Chest x-ray revealing complete opacification of right lung. Venous Doppler was completed bilateral lower extremities negative for DVT. Labs completed and reviewed. CBC showing leukocytosis with WBC count of 13.67 and normocytic anemia with hemoglobin of 10.3. Coagulation profile showing elevated PT of 19.1 and INR of 1.9. BMP showing sodium 133, bicarb of 19, and elevated anion gap of 15. Renal function showing acute kidney injury with BUN of 17, creatinine 1.58, GFR 48 with a baseline creatinine of 0.56. Lactic acid initially 7.2. Liver profile showing hyperbilirubinemia and transaminitis with total bili of 2.7, AST of 177, ALT of 86, and alkaline phosphatase of 837. Troponin negative at less than 0.012 and proBNP slightly elevated at 2810. Influenza A, influenza B, and RSV were negative. COVID PCR was positive. Patient admitted under our services wit h consultation to pulmonology. VQ scan showed no perfusion into right lung correlating for large central pulmonary embolism. CTA showed no evidence of pulmonary emboli reporting redemonstration of right-sided lung cancer with extensive metastasis as seen on previous PET scan with moderate to large volume right-sided pleural effusion and trace gas consistent with hydropneumothorax. Lung cancer reported to encased and narrowed the right upper lobe main pulmonary artery and causing complete invasion and instruction of the right mainstem bronchus with multiple enlarged right supraclavicular, mediastinal, epicardial, peripancreatic mediastinal lymph nodes redemonstrated as well as innumerable enhancing metastatic liver lesions and development of left upper lobe subpleural patchy groundglass opacities with additional medial left lower lobe groundglass nodule. Pulmonary consulted, patient is not a candidate for thoracentesis or PleurX catheter. Oncology plans on doing chemotherapy. 03/02 Patient was seen and examined. Repeat COVID test is negative. 97% on 4L NC. CBC shows WBC 13.05, RBC 3.28, Hg 9.4, Hct 29.5. CMP shows Na 128, K 5.4, Cl 97, BUN 31, Cr 1.53, Ca 8.1, T. Bili 4, AST 138, ALT 79, alk phos 744, alb 2.5. CRP 3.4. General: non toxic, no distress, appears at stated age Derm: warm, dry Head: atraumatic, normocephalic, symmetric Eyes: EOMI, no lid lag, anicteric sclera Mouth: no lip lesion, mucus membranes moist Cardiovascular: S1S2 irreg, no murmur Lungs: Decreased BS right, rhonchi on the left, no rales , no accessory muscle use Ext: no gross muscle atrophy, 2+ LE pitting edema, no contractures Neuro: no focal neuro deficits Psych: Alert, oriented, appropriate affect Based on my assessment of this patient, this patient meets a high complexity level of care. Acute respiratory failure with hypoxia secondary to COVID 19: Albuterol 2 puffs QID schduled and PRN SOB/wheezing. Vit C 500 mg PO BID. Symbicort 2 INH BID. Decadron 6 mg IV QD. Spiriva 2 INH QD. Zinc 220 mg PO QD. Supplemental O2 to maintain O2 sat > 92%. Incentive spirometer ordered. Droplet precautions. Pulmonary on board. COPD with acute exacerbation, secondary to above Elevated D-dimer, likely secondary to above with CTA negative for PE Metastatic small cell lung cancer: Plans to start chemotherapy today. Oncology on board. Hyperbilirubinemia with transaminitis: Abdominal US showing multiple lesions throughout the liver suspicious for metastatic disease and gallbladder wall thickening with no additional findings to suggest acute cholecystitis but also revealing a dilated common bile duct of 0.8 cm. Acute kidney injury with Hyperkalemia: Stable. Repeat K at 7PM. Monitor renal function off IVF. Lactic acidosis: Persistent elevation due to malignancy. Hypertension: Metoprolol 25 mg PO QD. Hypothyroidism: Levothyroxine 50 mcg PO QD. BPH: Flomax 0.4 mg PO QD. CODE STATUS: NO CODE DVT Prophylaxis: Lovenox SQ GI Prophylaxis: Protonix Designated medical POA if patient is not able to make medical decisions for themselves: I have reviewed the following biztalk consultant notes: Pulm, Onc note. I have reviewed the results of the following tests: CBC, CMP, CRP, COVID. I have ordered the following tests: Echo is pending. CBC and CMP in the AM. K at 7 PM. I have discussed the care of this patient with the following independent historian: RN I have independently interpreted the following test below: I have discussed the management of this patient with the following physician: Objective - Vital Signs Vital signs: Vital Signs Temp 97.7 F 03/02/25 08:00 Pulse 102 H 03/02/25 08:00 Resp 16 03/02/25 08:00 BP 99/55 03/02/25 08:00 Pulse Ox 97 03/02/25 08:00 FiO2 Intake & Output 03/01/25 03/02/25 03/02/25 18:59 06:59 18:59 Output Total 200 0 Balance -200 0 Weight 78.018 kg 86.5 kg Output: Gastric Drainage 0 Urine 200 0 Stool 0 Urine/Stool Mix 0 Emesis 0 Oral Regurgitation 0 Other 0 Other: Voiding Method Bedside Commode Bedside Commode Diaper Diaper # Voids 1 0 # Bowel Movements 0 - Labs CBC & Chem 7: 03/02/25 07:30 03/02/25 07:06 Labs: Abnormal Lab Results - Last 24 Hours (Table) 03/01/25 03/01/25 03/01/25 Range/Units 13:30 14:37 20:24 WBC 14.51 H (4.50-10.00) 10*3/uL RBC 3.26 L (4.40-5.60) 10*6/uL Hgb 9.4 L (13.0-17.0) g/dL Hct 28.5 L (39.6-50.0) % MCHC (32.0-37.0) g/dL MPV 12.3 H (9.5-12.2) fL Immature Gran # 0.86 H (0.00-0.04) 10*3/uL Neutrophils # (Manual) 12.04 H (1.3-7.7) k/uL Monocytes # (Manual) 1.16 H (0-1.0) k/uL Metamyelocytes # (Man) 0.29 H (0) k/uL ESR (0-20) mm/Hr PT 20.2 H (10.0-12.5) sec INR 2.0 H (<1.2) Sodium (137-145) mmol/L Potassium (3.5-5.1) mmol/L Chloride (98-107) mmol/L BUN (9-20) mg/dL Creatinine (0.66-1.25) mg/dL Calcium (8.4-10.2) mg/dL Total Bilirubin (0.2-1.3) mg/dL AST (17-59) U/L ALT (4-49) U/L Alkaline Phosphatase (38-126) U/L C-Reactive Protein (<1.0) mg/dL Total Protein (6.3-8.2) g/dL Albumin (3.5-5.0) g/dL Urine Protein 1+ H (Negative) Urine Blood Large H (Negative) Urine Bilirubin 2+ H (Negative) Ur Leukocyte Esterase Large H (Negative) Urine RBC 25 H (0-5) /hpf Urine WBC 70 H (0-5) /hpf Urine Bacteria Many H (None) /hpf Hyaline Casts 28 H (0-2) /lpf Urine Mucus Few H (None) /hpf 03/02/25 03/02/25 03/02/25 Range/Units 07:06 07:14 07:30 WBC 13.05 H (4.50-10.00) 10*3/uL RBC 3.28 L (4.40-5.60) 10*6/uL Hgb 9.4 L (13.0-17.0) g/dL Hct 29.5 L (39.6-50.0) % MCHC 31.9 L (32.0-37.0) g/dL MPV (9.5-12.2) fL Immature Gran # (0.00-0.04) 10*3/uL Neutrophils # (Manual) (1.3-7.7) k/uL Monocytes # (Manual) (0-1.0) k/uL Metamyelocytes # (Man) (0) k/uL ESR 36 H (0-20) mm/Hr PT (10.0-12.5) sec INR (<1.2) Sodium 128 L (137-145) mmol/L Potassium 5.4 H (3.5-5.1) mmol/L Chloride 97 L (98-107) mmol/L BUN 31 H (9-20) mg/dL Creatinine 1.53 H (0.66-1.25) mg/dL Calcium 8.1 L (8.4-10.2) mg/dL Total Bilirubin 4.0 H (0.2-1.3) mg/dL AST 138 H (17-59) U/L ALT 79 H (4-49) U/L Alkaline Phosphatase 744 H (38-126) U/L C-Reactive Protein 3.4 H (<1.0) mg/dL Total Protein 5.4 L (6.3-8.2) g/dL Albumin 2.5 L (3.5-5.0) g/dL Urine Protein (Negative) Urine Blood (Negative) Urine Bilirubin (Negative) Ur Leukocyte Esterase (Negative) Urine RBC (0-5) /hpf Urine WBC (0-5) /hpf Urine Bacteria (None) /hpf Hyaline Casts (0-2) /lpf Urine Mucus (None) /hpf
[2025-03-02 14:05] VITALS: BMI 31.7
[2025-03-02] MEDS: FAMOTIDINE 20 MG/2 ML VIAL IVP SCH (17:00)
[2025-03-02] MEDS: DEXAMETHASONE SOD PHOSPHATE 10 MG/ML 1 ML VIAL IVP SCH (17:01)
[2025-03-02] MEDS: ONDANSETRON 16 MG in SODIUM CHLORIDE 0.9% 50 ML IVPB SCH (17:01)
--- NOTE | 2025-03-02 17:34 | P.PN ---
Subjective Progress Note Date: 03/02/25 Patient is a 59-year-old male past medical history significant for former tobacco use, COPD, non-small cell lung cancer diagnosed originally back in 2017 treated with chemotherapy. More recently, hospitalized Jan, 2025, his right lung was completely opacified. CT of chest done January 27, 2025 remarkable for encasing right hilar mass with collapse signs of the right mainstem bronchus and collapse of entire right lung with large right pleural effusion and mild smooth pleural thickening. Additionally, right hilar adenopathy measuring up to 1.5 cm and right pericardiac adenopathy measuring 2.2 cm. Patient underwent subsequent right-sided thoracentesis and a total of 2.8 L of grossly bloody fluid was removed from the right pleural space at that time. Pathology from this fluid was nondiagnostic. Still had a significant right-sided pleural effusion and a pigtail catheter was placed by IR on January 27. Developed trapped lung. Did undergo bronchoscopy with transbronchial biopsies and pathology was positive for small cell carcinoma. Patient was discharged on February 09. Follow-up PET scan showing marked uptake throughout the right thoracic cavity, evidence of metastatic disease to mediastinal lymph nodes, multiple metastatic lesions to the liver, and multiple osseous lesions including the cervical spine, left proximal humerus, ribs, lumbar spine, pelvis. Also, right-sided pleural effusion with air-fluid levels. Reportedly established with medical oncology, however, has not started treatment as of yet. Presented to emergency department yesterday evening with chief complaint of shortness of breath, congested cough, and subjective fevers. Hypotensive and tachycardic on arrival, received 1 liter lactated Ringer's fluid bolus. Workup in the emergency department including a positive COVID PCR test. Chest x-ray demonstrating complete right hemithorax opacification. Labs including a CBC with a WBC count of 13.7, hemoglobin 10.3, platelets 358. PT 19.1, INR 1.9. CMP with sodium 133, potassium 4.7, chloride 99, serum bicarb 19, BUN 17, creatinine 1.58, glucose 114. Lactic elevated at 7.2 and is down to 6.8. LFTs mildly elevated consistent with patient's metastatic disease. EKG: Sinus tachycardia, rate 125 bpm, no acute ischemic changes. S1Q3T3 Troponin less than 0.012. NT proBNP elevated at 2810. Patient currently being evaluated emergency department. He is sitting at the edge of the stretcher. He is on room air. He does have home O2 available, uses 2 L/min nasal cannula as needed basis. Does not appear in respiratory distress. Endorsing increased work of breathing. Associated persistent congested cough with clear sputum production. States this developed approximately 48 hours ago. Denies hemoptysis. Denies purulent sputum. Endorses intermittent subjective fevers. Denies known sick contacts. States he lives at home with his who has been feeling relatively well. He has had poor appetite. No nausea, vomiting, diarrhea. He has been generally weak with troubles ambulating. There is lower extremity swelling. Denies any chest pain, heart palpitations, lightheadedness or syncope. Denies history of DVT/PE. Denies previous history of COVID infection. States he is up-to-date with his COVID vaccinations. Previously, started on IV Decadron. Current vital signs: Heart 136 bpm, blood pressure 98/68 mmHg, respiratory rate nontachypneic, SpO2 previous recorded at 100% on 3 L/min nasal cannula. On 03/01/2025, the patient is being seen for a follow-up. The patient has no specific complaints. No chest pain. No pleurisy or hemoptysis. A VQ scan was ordered by the primary care team and obviously this will be a suboptimal study based on the patient's extensive baseline abnormalities involving the right lung which involves endobronchial tumor, collapse of the right lung and right-sided pleural effusion. This was followed up by a CTA of the chest that showed no evidence of any pulmonary embolism and the patient was found to have complete collapse of the right lung with endobronchial tumor and a moderate to large right-sided pleural effusion. The patient has extensive metastases with multiple enlarged right supraclavicular, mediastinal and AP cardial and peripancreatic lymph node involvement and the patient has multiple enhancing metastatic liver lesions consistent with malignancy. The patient is currently on Symbicort and Spiriva, Ventolin HFA and as-needed basis, Lovenox for DVT prophylaxis. The patient is also on Decadron regarding his COVID-19 infection. The white cell count is at 14 with a hemoglobin 9.8 and a platelet count of 282. Creatinine is at 1.38 with a BUN of 26. Sodium levels at 131 and a potassium level is at 5.2. LFTs are normal related to metastatic liver disease. Remains on 4 L of oxygen by nasal cannula with a pulse ox of 95%. The patient is resting comfortably in bed. Continues to have shortness of breath at rest. The patient will have a PICC line inserted and the patient will start on systemic chemotherapy. He has metastatic small cell lung cancer. Afebrile. Remains on 4 liters by nasal cannula with pulse ox of 97%. The white cell count is 13 with a hemoglobin 9.4. Sodium levels at 128 and a potassium level is at 5.4. Bicarb is at 23, BUN 31 with a creatinine of 1.5. Remains on Decadron regarding his COVID-19 infection. Remains on Symbicort and and Spiriva and albuterol HFA on as-needed basis. Rest of the home medications have been or resumed. Remains in normal [place] rate of 75 cc an hour. Remains on Lovenox 40 mg subcu for DVT prophylaxis. He will be started on systemic chemotherapy. Objective - Vital Signs Vital signs: Vital Signs Temp 97.7 F 03/02/25 08:00 Pulse 102 H 03/02/25 08:00 Resp 16 03/02/25 08:00 BP 99/55 03/02/25 08:00 Pulse Ox 97 03/02/25 08:00 FiO2 Intake & Output 03/01/25 03/02/25 03/02/25 18:59 06:59 18:59 Output Total 200 0 Balance -200 0 Weight 78.018 kg 86.5 kg Output: Gastric Drainage 0 Urine 200 0 Stool 0 Urine/Stool Mix 0 Emesis 0 Oral Regurgitation 0 Other 0 Other: Voiding Method Bedside Commode Bedside Commode Diaper Diaper # Voids 1 0 # Bowel Movements 0 - Exam GENERAL EXAM: Alert, 59-year-old male, sitting at the edge of the bed, comfortable in no apparent distress. The patient is currently on 4 L of oxygen by nasal cannula with a pulse ox of 95%. HEAD: Normocephalic and atraumatic EYES: Normal reaction of pupils, equal size. NOSE: Clear with pink turbinates. THROAT: No erythema or exudates. NECK: No masses, no JVD. CHEST: Barrel chest. LUNGS: Equal air entry with diminished lung sounds on the right, and scattered rhonchi on the left. Breath sounds are markedly diminished on the right compared to left. No conversational dyspnea or accessory muscle use.. CVS: S1 and S2 normal with no audible murmur, regular rhythm. No extra heart sounds ABDOMEN: No hepatosplenomegaly, active bowel sounds, no guarding or rigidity. SPINE: No scoliosis or deformity SKIN: No rashes CENTRAL NERVOUS SYSTEM: No focal deficits, tone is normal in all 4 extremities. EXTREMITIES: There is 2-3+ bilateral lower extremity edema. No clubbing or cyanosis. Peripheral pulses are intact. - Labs CBC & Chem 7: 03/02/25 07:30 03/02/25 07:06 Labs: Abnormal Lab Results - Last 24 Hours (Table) 03/01/25 03/01/25 03/01/25 Range/Units 05:57 13:30 14:37 WBC (4.50-10.00) 10*3/uL RBC (4.40-5.60) 10*6/uL Hgb (13.0-17.0) g/dL Hct (39.6-50.0) % MCHC (32.0-37.0) g/dL MPV (9.5-12.2) fL Immature Gran # (0.00-0.04) 10*3/uL Neutrophils # (Manual) (1.3-7.7) k/uL Monocytes # (Manual) (0-1.0) k/uL Metamyelocytes # (Man) (0) k/uL ESR 43 H (0-20) mm/Hr PT 20.2 H (10.0-12.5) sec INR 2.0 H (<1.2) Sodium (137-145) mmol/L Potassium (3.5-5.1) mmol/L Chloride (98-107) mmol/L BUN (9-20) mg/dL Creatinine (0.66-1.25) mg/dL Calcium (8.4-10.2) mg/dL Total Bilirubin (0.2-1.3) mg/dL AST (17-59) U/L ALT (4-49) U/L Alkaline Phosphatase (38-126) U/L C-Reactive Protein (<1.0) mg/dL Total Protein (6.3-8.2) g/dL Albumin (3.5-5.0) g/dL Urine Protein 1+ H (Negative) Urine Blood Large H (Negative) Urine Bilirubin 2+ H (Negative) Ur Leukocyte Esterase Large H (Negative) Urine RBC 25 H (0-5) /hpf Urine WBC 70 H (0-5) /hpf Urine Bacteria Many H (None) /hpf Hyaline Casts 28 H (0-2) /lpf Urine Mucus Few H (None) /hpf 03/01/25 03/02/25 03/02/25 Range/Units 20:24 07:06 07:30 WBC 14.51 H 13.05 H (4.50-10.00) 10*3/uL RBC 3.26 L 3.28 L (4.40-5.60) 10*6/uL Hgb 9.4 L 9.4 L (13.0-17.0) g/dL Hct 28.5 L 29.5 L (39.6-50.0) % MCHC 31.9 L (32.0-37.0) g/dL MPV 12.3 H (9.5-12.2) fL Immature Gran # 0.86 H (0.00-0.04) 10*3/uL Neutrophils # (Manual) 12.04 H (1.3-7.7) k/uL Monocytes # (Manual) 1.16 H (0-1.0) k/uL Metamyelocytes # (Man) 0.29 H (0) k/uL ESR (0-20) mm/Hr PT (10.0-12.5) sec INR (<1.2) Sodium 128 L (137-145) mmol/L Potassium 5.4 H (3.5-5.1) mmol/L Chloride 97 L (98-107) mmol/L BUN 31 H (9-20) mg/dL Creatinine 1.53 H (0.66-1.25) mg/dL Calcium 8.1 L (8.4-10.2) mg/dL Total Bilirubin 4.0 H (0.2-1.3) mg/dL AST 138 H (17-59) U/L ALT 79 H (4-49) U/L Alkaline Phosphatase 744 H (38-126) U/L C-Reactive Protein 3.4 H (<1.0) mg/dL Total Protein 5.4 L (6.3-8.2) g/dL Albumin 2.5 L (3.5-5.0) g/dL Urine Protein (Negative) Urine Blood (Negative) Urine Bilirubin (Negative) Ur Leukocyte Esterase (Negative) Urine RBC (0-5) /hpf Urine WBC (0-5) /hpf Urine Bacteria (None) /hpf Hyaline Casts (0-2) /lpf Urine Mucus (None) /hpf Assessment and Plan Assessment: Acute on chronic dyspnea, secondary to a combination of acute COVID-19 infection, acute COPD exacerbation, and underlying metastatic lung cancer. Ch est x-ray remarkable for complete right lung opacification. CT of the chest shows no evidence of any pulm embolism. The right lung is completely atelectatic but due to endobronchial tumor and the patient also has a large right-sided pleural effusion and evidence of metastatic small cell lung cancer. Acute kidney injury, likely secondary to hypotension and ATN, creatinine remains stable Hyponatremia, currently on normal saline at rate of 75 cc an hour Metastatic small cell lung carcinoma; right lung mass encasing right mainstem bronchus with metastasis to the mediastinum, liver, and bone. Bronchoscopy with transbronchial biopsies done on 02/07/2025 positive for small cell lung carcinom a. Follow-up PET scan showing marked uptake throughout the right thoracic cavity, evidence of metastatic disease to mediastinal lymph nodes, hepatic lesions, and diffuse osseous involvement. Also, right-sided pleural effusion with air-fluid levels. History of right-sided pleural effusion, status postthoracentesis, and pathology was essentially nondiagnostic. Patient did have a follow-up right-sided pigtail catheter, developed trapped lung, catheter has since been removed. 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 Bilateral lower extremity edema Elevated liver enzymes with known liver mets Normocytic, normochromic anemia, no overt signs of blood loss Chronic tobacco dependence Severe chronic obstructive pulmonary disease, FEV1 30% of predicted, maintained on Trelegy maintenance inhaler at home Previous bariatric surgery. Hypothyroidism. Plan: Patient currently on 4 L of oxygen by nasal cannula CAT scan of the chest was noted. This was a CT angiogram that showed no evidence of any pulmonary embolism. The same time, the patient has completely opacified right lung due to complete right lung atelectasis and right-sided pleural effusion and there is no role for thoracentesis or any drainage of the pleural fluid as the patient has a trapped lung with endobronchial tumor. Please refer to my original bronchoscopy that was done few weeks back. Continue supportive care Continue IV Decadron Continue IV maintenance fluids Monitor renal function, improving Monitor sodium level Combination of bronchodilators, Symbicort inhaler and Spiriva Doppler of lower extremities are negative for DVT Medical oncology consulted, and the patient will be started on systemic chemotherapy I emphasized again, there is absolutely no need for thoracentesis or Pleurx catheter insertion. The patient has endobronchial tumor in the right mainstem and the right upper lobe and those procedures will not achieve any successful reexpansion of the right lung due to the heavy tumor burden endobronchially. The patient has very prognosis based on his underlying metastatic small cell lung cancer.
[2025-03-02] MEDS: SODIUM CHLORIDE 0.9% 500 ML 250 ML IV ONE (17:37)
[2025-03-02] MEDS: SODIUM CHLORIDE 0.9% IV ONE (17:38)
[2025-03-02] MEDS: CARBOPLATIN IV ONE (17:38)
--- NOTE | 2025-03-02 17:43 | P.PN ---
Subjective Progress Note Date: 03/02/25 Pt breathing is labored, reporting he doesn't feel well. PT/INR elevated, INR 2.0. Likely r/t progressing liver failure r/t metastatic disease. 1 dose Vit K ordered. Plan to initiate chemo today Objective - Vital Signs Vital signs: Vital Signs Temp 97.7 F 03/02/25 08:00 Pulse 102 H 03/02/25 08:00 Resp 16 03/02/25 08:00 BP 99/55 03/02/25 08:00 Pulse Ox 97 03/02/25 08:00 FiO2 Intake & Output 03/01/25 03/02/25 03/02/25 18:59 06:59 18:59 Output Total 200 0 Balance -200 0 Weight 78.018 kg 86.5 kg Output: Gastric Drainage 0 Urine 200 0 Stool 0 Urine/Stool Mix 0 Emesis 0 Oral Regurgitation 0 Other 0 Other: Voiding Method Bedside Commode Bedside Commode Diaper Diaper # Voids 1 0 # Bowel Movements 0 - Constitutional General appearance: Present: mild distress - EENT ENT: Present: hearing grossly normal - Respiratory Details: breathing labored - Cardiovascular Details: skin warm and dry - Integumentary Integumentary: Present: jaundiced. Absent: cyanotic - Musculoskeletal Musculoskeletal: Present: generalized weakness - Labs CBC & Chem 7: 03/02/25 07:30 03/02/25 07:06 Labs: Abnormal Lab Results - Last 24 Hours (Table) 03/01/25 03/01/25 03/01/25 Range/Units 13:30 14:37 20:24 WBC 14.51 H (4.50-10.00) 10*3/uL RBC 3.26 L (4.40-5.60) 10*6/uL Hgb 9.4 L (13.0-17.0) g/dL Hct 28.5 L (39.6-50.0) % MCHC (32.0-37.0) g/dL MPV 12.3 H (9.5-12.2) fL Immature Gran # 0.86 H (0.00-0.04) 10*3/uL Neutrophils # (Manual) 12.04 H (1.3-7.7) k/uL Monocytes # (Manual) 1.16 H (0-1.0) k/uL Metamyelocytes # (Man) 0.29 H (0) k/uL ESR (0-20) mm/Hr PT 20.2 H (10.0-12.5) sec INR 2.0 H (<1.2) Sodium (137-145) mmol/L Potassium (3.5-5.1) mmol/L Chloride (98-107) mmol/L BUN (9-20) mg/dL Creatinine (0.66-1.25) mg/dL Calcium (8.4-10.2) mg/dL Total Bilirubin (0.2-1.3) mg/dL AST (17-59) U/L ALT (4-49) U/L Alkaline Phosphatase (38-126) U/L C-Reactive Protein (<1.0) mg/dL Total Protein (6.3-8.2) g/dL Albumin (3.5-5.0) g/dL Urine Protein 1+ H (Negative) Urine Blood Large H (Negative) Urine Bilirubin 2+ H (Negative) Ur Leukocyte Esterase Large H (Negative) Urine RBC 25 H (0-5) /hpf Urine WBC 70 H (0-5) /hpf Urine Bacteria Many H (None) /hpf Hyaline Casts 28 H (0-2) /lpf Urine Mucus Few H (None) /hpf 03/02/25 03/02/25 03/02/25 Range/Units 07:06 07:14 07:30 WBC 13.05 H (4.50-10.00) 10*3/uL RBC 3.28 L (4.40-5.60) 10*6/uL Hgb 9.4 L (13.0-17.0) g/dL Hct 29.5 L (39.6-50.0) % MCHC 31.9 L (32.0-37.0) g/dL MPV (9.5-12.2) fL Immature Gran # (0.00-0.04) 10*3/uL Neutrophils # (Manual) (1.3-7.7) k/uL Monocytes # (Manual) (0-1.0) k/uL Metamyelocytes # (Man) (0) k/uL ESR 36 H (0-20) mm/Hr PT (10.0-12.5) sec INR (<1.2) Sodium 128 L (137-145) mmol/L Potassium 5.4 H (3.5-5.1) mmol/L Chloride 97 L (98-107) mmol/L BUN 31 H (9-20) mg/dL Creatinine 1.53 H (0.66-1.25) mg/dL Calcium 8.1 L (8.4-10.2) mg/dL Total Bilirubin 4.0 H (0.2-1.3) mg/dL AST 138 H (17-59) U/L ALT 79 H (4-49) U/L Alkaline Phosphatase 744 H (38-126) U/L C-Reactive Protein 3.4 H (<1.0) mg/dL Total Protein 5.4 L (6.3-8.2) g/dL Albumin 2.5 L (3.5-5.0) g/dL Urine Protein (Negative) Urine Blood (Negative) Urine Bilirubin (Negative) Ur Leukocyte Esterase (Negative) Urine RBC (0-5) /hpf Urine WBC (0-5) /hpf Urine Bacteria (None) /hpf Hyaline Casts (0-2) /lpf Urine Mucus (None) /hpf Assessment and Plan (1) COVID Current Visit: Yes Status: Acute Code(s): U07.1 - COVID-19 SNOMED Code(s): 743220048 (2) Dyspnea Current Visit: Yes Status: Acute Code(s): R06.00 - DYSPNEA, UNSPECIFIED SNOMED Code(s): 597739036 (3) History of lung cancer Current Visit: Yes Status: Acute Code(s): Z85.118 - PERSONAL HISTORY OF MALIGNANT NEOPLASM OF BRONCHUS AND LUNG SNOMED Code(s): 371334273 (4) Pleural effusion Current Visit: Yes Status: Acute Code(s): J90 - PLEURAL EFFUSION, NOT ELSEWHERE CLASSIFIED SNOMED Code(s): 18704471 Plan: SOB, COVID: Presented to the emergency room with complaints of progressing shortness of breath. -Upon admission patient was found to be positive for COVID-19. -Chest x-ray showing complete opacification of right lung. -Pulmonology has been consulted. 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 Recent diagnosis of SCLC - Plan was to start carbo/REHABILITATION PHYSICIAN/tecentriq, tx has not yet started -Due to progressing and severity of symptoms. Discussed with pt and spouse that we could initiate chemo inpt with carbo/REHABILITATION PHYSICIAN, as small cell carcinoma is typically rather chemo sensitive. Risks and benefits were discussed today with pt. He was agreeable to proceed. Also had a conversation regarding the same with spouse over the phone and she too was agreeable to proceed with inpt chemo. -Chemo orders placed Coagulopathy: -PT/INR elevated, INR 2.0. Likely r/t progressing liver failure r/t metastatic disease. -1 dose Vit K 5mg ordered -Continue to monitor Doctor attests: I performed a history and physical examination of this patient, developed impression and plan of care. Discussed with dictator. I agree with dictators note, documented as a scribe.
[2025-03-02 18:24] LABS: Glucose,Whole Blood 120 mg/dL (70-110)
[2025-03-02] MEDS: ETOPOSIDE 180 MG in SODIUM CHLORIDE 0.9% 500 ML 500 ML IV SCH (18:48)
[2025-03-02] MEDS ORDERED: FAMOTIDINE 20 MG/2 ML VIAL IVP SCH (20:00)
[2025-03-02 20:21] VITALS: BP 87/60; TEMP 97.7
[2025-03-02] MEDS: SODIUM CHLORIDE 0.9% 1,000 ML IV SCH ×2 (20:44→21:20)
[2025-03-02] MEDS ORDERED: ACETAMINOPHEN TAB 325 MG TAB PO PRN (20:58)
[2025-03-02] MEDS ORDERED: ARTIFICIAL TEARS-HYPROMELLOSE DROPS 15 ML BTL BOTH EYES PRN (20:58)
[2025-03-02] MEDS ORDERED: DRY MOUTH SPRAY 59 SPRAY/59 ML SPRAY MUCOUS MEM PRN (20:58)
[2025-03-02] MEDS ORDERED: LORazepam 1 MG/0.5 ML VIAL IV PRN (20:58)
[2025-03-02] MEDS ORDERED: ZOLPIDEM 5 MG TAB PO PRN (20:58)
[2025-03-02] MEDS ORDERED: ATROPINE OPHTH SOLN 1% 5ML BTL SUBLINGUAL PRN (20:58)
[2025-03-02] MEDS ORDERED: DIPHENOX-ATROP 2.5-0.025 MG 1 EACH TAB PO PRN (20:58)
--- NOTE | 2025-03-02 20:58 | P.PN ---
Progress Note - Text Progress Note Date: 03/02/25 family requesting comfort measures,. i discussed the case with day time provider Dr Indira Alcantara. and he is agreeable that patient is terminal and would be best for him to go hospice. however he indicated that family was not on board. Now RN telling me family on board with comfort measures. will start comfort care measures will discuss with further with family for support
[2025-03-02] MEDS: ZOLEDRONIC ACID 4 MG in SODIUM CHLORIDE 0.9% 100 ML IV ONE (21:20)
[2025-03-02] MEDS: MORPHINE SULFATE 4 MG/ML SYRINGE IVP PRN (21:26)
[2025-03-02 23:19] VITALS: PULSE 99; RESP 4
[2025-03-05] MEDS ORDERED: [UNRECOGNIZED DRUG - OTHER] SQ ONE (09:00)
== END 2025-03-03 04:23 | disposition expired | DRG 871 ==
LOC: EC 18:14 → 3SCARD 20:49
PROVIDERS: ADMIT Internal Medicine; ATTEND Internal Medicine
PROC: 8E0ZXY6 Isolation (ICD-10-PCS; principal; 2025-02-27)
PROC: 02HV33Z Insertion of Infusion Device into Superior Vena Cava, Percutaneous Approach (ICD-10-PCS; 2025-03-02)
DX: A41.89 Other specified sepsis (principal); J96.01 Acute respiratory failure with hypoxia; N17.0 Acute kidney failure with tubular necrosis; U07.1 COVID-19; J94.2 Hemothorax; C78.1 Secondary malignant neoplasm of mediastinum; J90 Pleural effusion, not elsewhere classified; C78.7 Secondary malignant neoplasm of liver and intrahepatic bile duct; C34.01 Malignant neoplasm of right main bronchus; C77.9 Secondary and unspecified malignant neoplasm of lymph node, unspecified; C79.51 Secondary malignant neoplasm of bone; C34.32 Malignant neoplasm of lower lobe, left bronchus or lung; C34.11 Malignant neoplasm of upper lobe, right bronchus or lung; C34.12 Malignant neoplasm of upper lobe, left bronchus or lung; C77.1 Secondary and unspecified malignant neoplasm of intrathoracic lymph nodes; J44.1 Chronic obstructive pulmonary disease with (acute) exacerbation; K72.90 Hepatic failure, unspecified without coma; E03.9 Hypothyroidism, unspecified; I10 Essential (primary) hypertension; D64.9 Anemia, unspecified; E87.20 Acidosis, unspecified; E87.1 Hypo-osmolality and hyponatremia; J98.19 Other pulmonary collapse; Z66 Do not resuscitate; Z51.5 Encounter for palliative care; R04.2 Hemoptysis; J98.11 Atelectasis; E87.5 Hyperkalemia; D72.829 Elevated white blood cell count, unspecified; Z87.891 Personal history of nicotine dependence; E55.9 Vitamin D deficiency, unspecified; I25.10 Atherosclerotic heart disease of native coronary artery without angina pectoris; R74.01 Elevation of levels of liver transaminase levels; I95.9 Hypotension, unspecified; R59.0 Localized enlarged lymph nodes; R79.89 Other specified abnormal findings of blood chemistry; R00.0 Tachycardia, unspecified; R63.0 Anorexia; N40.0 Benign prostatic hyperplasia without lower urinary tract symptoms; R79.1 Abnormal coagulation profile; Z78.9 Other specified health status; Z79.890 Hormone replacement therapy; Z79.899 Other long term (current) drug therapy; Z92.21 Personal history of antineoplastic chemotherapy; Z92.3 Personal history of irradiation; Z96.611 Presence of right artificial shoulder joint; Z98.84 Bariatric surgery status; Z71.3 Dietary counseling and surveillance
CPT/HCPCS: 36415; 36573; 71045; 71046; 71275; 76705; 78580; 80053; 81001; 82248; 83605; 83735; 83880; 84132; 84484; 85025; 85027; 85379; 85610; 85652; 85730; 86140; 87077; 87086; 87186; 87636; 93005; 93970; 94640; 94760; 96361; 96365; 96372; 96375; 96376; 99285